=== PATIENT | female | born 1975 | race Caucasian/White ===

== ENCOUNTER 2020-08-19 12:50 | Outpatient (REF) | payer BC, SELFPAY | END 2020-08-19 12:51 | disposition home or self-care (01) | LOC: HO.LAB 12:50 | PROVIDERS: PCP Internal Medicine; Visit Provider Internal Medicine | DX: Z20.828 Contact with and (suspected) exposure to other viral communicable diseases (principal) | CPT/HCPCS: 87635 ==

== ENCOUNTER 2020-09-01 12:11 | Outpatient (REF) | payer BC, SELFPAY | END 2020-09-01 12:12 | disposition home or self-care (01) | LOC: HO.LAB 12:11 | PROVIDERS: Visit Provider Internal Medicine | DX: Z20.828 Contact with and (suspected) exposure to other viral communicable diseases (principal) | CPT/HCPCS: 87635 ==

== ENCOUNTER 2020-12-31 14:09 | Outpatient (REF) | payer BC, SELFPAY ==
[2021-01-01 14:56] LABS: C. trachomatis RNA TMA NOT DETECTED (NOT DETECTED); N. gonorrhoeae RNA TMA NOT DETECTED (NOT DETECTED)
== END 2020-12-31 14:10 | disposition home or self-care (01) ==
LOC: HO.LAB 14:09
PROVIDERS: PCP Internal Medicine; Visit Provider Advanced Practice Midwife
DX: Z01.419 Encounter for gynecological examination (general) (routine) without abnormal findings (principal); Z20.2 Contact with and (suspected) exposure to infections with a predominantly sexual mode of transmission
CPT/HCPCS: 36415; 87491; 87591

== ENCOUNTER 2021-02-09 19:13 | Emergency (ER) | payer BC, SELFPAY ==
--- NOTE | ~2021-02-09 | CT_ITS ---
EXAMINATION: CT HEAD WITHOUT CONTRAST CLINICAL INFORMATION: Altered mental status. Headache. COMPARISON: CT head August 14, 2012 TECHNIQUE: Contiguous axial imaging was performed from the skull base to vertex without intravenous administration of contrast. Coronal and sagittal reformatted images are performed at CT scanner This CT examination was performed using dose optimization techniques as appropriate, variously including the following: *Automated exposure control *Adjustment of mA and/or kV according to patient size (this includes techniques or standardized protocols for targeted exams where dose is matched to indication/reason for exam; i.e. extremities or head) *Use of iterative reconstruction technique DLP: 717 mGy-cm FINDINGS: There is no evidence of acute intracranial hemorrhage or territorial infarction. No abnormal mass effect or midline shift is seen. [place] to white matter differentiation is well preserved. No extra-axial fluid collections are identified. The ventricles are normal in size. There is no abnormal attenuation within the brain parenchyma. The osseous structures and soft tissues are normal. The mastoid air cells and visualized portions of the paranasal sinuses are well aerated. CT/CT head/brain wo con IMPRESSION: No acute intracranial pathology.
[2021-02-09 19:18] VITALS: BP 203/111; PULSE 78; RESP 18; TEMP 37.1; O2SAT 98
[2021-02-09 20:47] VITALS: BP 164/97; PULSE 84; RESP 15; TEMP 36; O2SAT 97
--- NOTE | 2021-02-09 20:47 | ECG_ITS ---
Test Reason : CHEST PAIN Blood Pressure : / mmHG Vent. Rate : 076 BPM Atrial Rate : 076 BPM P-R Int : 148 ms QRS Dur : 084 ms QT Int : 404 ms P-R-T Axes : 047 030 036 degrees QTc Int : 454 ms Normal sinus rhythm Normal ECG When compared to the previous EKG of No significant changes seen Referred By: Generic ED Physician Electronically Signed By:Brendan Schneider
[2021-02-09 20:48] VITALS: BP 190/102; PULSE 72; RESP 16; TEMP 36.2; O2SAT 98; BMI 29.7
[2021-02-09 21:08] LABS: MANUAL DIFF FLAG NO
[2021-02-09 21:10] LABS: Basophils Absolute Auto 0.1 X10*3/uL (0.0-0.2); Eosinophils Absolute Auto 0.3 X10*3/uL (0.0-0.4); Eosinophils Percent Auto 3.6 % (0-4); Hematocrit 37.3 % (37-47); Hemoglobin 11.5 g/dl (12.0-16.0); Imm Gran Abs Auto 0.03 X10*3/uL (0.00-0.03); Imm Gran Pct Auto 0.4 % (0.0-0.4); Lymphocytes Absolute Auto 2.4 X10*3/uL (1.2-4.9); Lymphocytes Percent Auto 29.4 % (20-40); Mean Corpuscular HGB Conc 30.8 g/dl (31.0-35.0); Mean Corpuscular Hemoglobin 26.6 pg (27.0-33.0); Mean Corpuscular Volume 86.1 fL (80-98); Mean Platelet Volume 10.4 fL (9.4-12.3); Monocytes Absolute Auto 0.5 X10*3/uL (0.1-1.2); Monocytes Percent Auto 6.7 % (2-11); Neutrophils Absolute Auto 4.8 X10*3/uL (2.0-8.3); Neutrophils Percent Auto 58.9 % (45-73); Platelet Count 332 X10*3/uL (160-400); Red Blood Count 4.33 X10*6/uL (4.20-5.50); Red Cell Distribution Width 16.3 % (11.0-16.0); White Blood Count 8.1 X10*3/uL (4.8-10.8)
[2021-02-09 21:30] LABS: Anion Gap 13 (12-20); Blood Urea Nitrogen 18 mg/dL (9-16); Calcium 9.2 mg/dL (8.4-10.2); Carbon Dioxide 23 mmol/L (22-29); Chloride 105 mmol/L (96-108); Creatinine Clr Calc Pharmacy 101.1; Estimated Glomerular Filt Rate > 60; Glucose Random 94 mg/dL (60-115); Potassium 4.1 mmol/L (3.3-5.1); Sodium 137 mmol/L (135-145)
--- NOTE | 2021-02-09 21:53 | ED_ITS ---
HPI - Headache General Chief Complaint: Headache Stated Complaint: hypertension Time Seen by Provider: 02/09/21 21:51 History of Present Illness HPI Narrative: Patient 45-year-old female presents today with having headache generally weak tired. Patient noted an elevated blood pressure at home unsure the exact amount. Patient has a history of hypertension. Patient also complaining of some chest pain has been ongoing since 18:00 it is mid chest. Not associated with diaphoresis. It is dull in nature. No nausea no vomiting. No change with movement. She has a history of hypertension never had an OK never smoke no cough no congestion or upper respiratory symptoms no family histo ry of coronary artery disease. No history of diabetes. No travel. No leg swelling. Related Data Home Medications Medication Instructions Recorded Confirmed lisinopril 20 mg tablet 20 mg PO DAILY 12/31/20 Allergies Allergy/AdvReac Type Severity Reaction Status Date / Time meperidine [From DEMEROL] Allergy Severe ANAPHYLAXIS Verified 12/31/20 14:44 shrimp [SHRIMP] AdvReac Severe DIFFICULTY Verified 12/31/20 14:44 BREATHING Review of Systems Review of Systems: Constitutional: No Weight loss, No Fever, No Chills, No Night Sweats, No Fatigue, No Malaise ENT/Mouth: No Hearing loss, No Ear Pain, No Nasal Congestion, No Sinus Pain, No Hoarseness, No sore throat, No Rhinorrhea, No Swallowing Difficulty Eyes: No Eye Pain, No Swelling, No Redness, No Foreign Body, No Discharge, No Vision Changes Cardiovascular: Positive Chest Pain, No SOB, No Dyspnea on Exertion, No Orthopnea, No Edema, No Palpitations Respiratory: No Cough, No Sputum, No Wheezing, No Smoke Exposure, No Dyspnea Gastrointestinal: No Nausea, No Vomiting, No Diarrhea, No Constipation, No abdominal Pain, No Hematochezia, No Melena Genitourinary: no irregular bleeding, No Dysuria, No Urinary Frequency, No Hematuria, No Urinary Incontinence, No Urgency, No Flank Pain, No Urinary Flow Changes, No Hesitancy Musculoskeletal: No joint pain, No Myalgias, No Joint Swelling Skin: No Skin Lesions, No rash Neuro: No Weakness, No Numbness, No Paresthesias, No Loss of Consciousness, No Dizziness, No Headache Psych: No Anxiety/Panic, No Depression, No SI/HI/AH/VH, No Social Issues, Heme/Lymph: No Bruising, No Bleeding,No Lymphadenopathy Endocrine: No Polyuria, No Polydipsia, No Temperature Intolerance [facility] Past Medical History Medical History COVID-19 HTN (hypertension) Surgical History Hx of section Family History Family History Maternal Grandmother Breast cancer Social History Social History Alcohol intake: never Smoking Status: Never smoker Use of substances other than those prescribed or required for medical reasons: No Advance Directives: No Gender identity: female Physical Exam Vital Signs: Vital Signs: Last Vital Signs Temp 97.8 F 02/09/21 22:23 Pulse 64 02/09/21 22:23 Resp 15 02/09/21 22:23 BP 142/94 H 02/09/21 22:23 Pulse Ox 98 02/09/21 22:23 Body Mass Index 29.7 Appearance: Alert. Oriented X3. No acute distress. Eyes: Pupils equal, round and reactive to light. ENT: Pharynx normal. Neck: Normal inspection. Neck supple. No lymph nodes noted. No crepitus CVS: Normal heart rate and rhythm. Pulses normal. Normal S1 and S2 Respiratory: No respiratory distress. Breath sounds normal. No Wheezing. No rales Abdomen: Soft and nontender. No rigidity. No distention. good BS x4 Skin: Skin warm and dry. Normal skin color. Normal skin turgor. Extremities: No lower extremity edema. Neurovascular intact to all extremities. No Lacerations. No Rash Neuro: Oriented X 3. No motor deficit. No sensory deficit. Moving all extermities. No slurred speech MDM - Headache MDM Narrative Medical decision making narrative: CT head was grossly negative for any acute evidence of bleeding. Patient's electrolytes unremarkable. Patient complained of nonspecific chest pain middle of her chest not associated with shortness of breath no diaphoresis has been ongoing for hours. Patient's troponin was negative. In the setting of unlikely history minimal risk factors along with a negative troponin unlikely ACS. Patient's well-appearing. Will discharge patient home. No leg swelling. Blood pressure came down nicely with time. Currently in stable condition neurologically intact. No fever no chills normal white count no nuchal rigidity unlikely meningitis. No distress. Differential Diagnosis Differential diagnosis: Likely migraine, tension headache, subarachnoid hemorrhage, headache, meningitis, sinusitis and postconcussion syndrome Medical Records Attestation: I reviewed the patient's medical records. Lab Data Attestation: I reviewed the patient's lab results. Result diagrams: 02/09/21 20:50 02/09/21 20:50 Labs: Lab Results 02/09/21 02/09/21 02/09/21 Range/Units 20:50 20:50 20:50 WBC 8.1 (4.8-10.8) X10*3/uL RBC 4.33 (4.20-5.50) X10*6/uL Hgb 11.5 L (12.0-16.0) g/dl Hct 37.3 (37-47) % MCV 86.1 (80-98) fL MCH 26.6 L (27.0-33.0) pg MCHC 30.8 L (31.0-35.0) g/dl RDW 16.3 H (11.0-16.0) % Plt Count 332 (160-400) X10*3/uL MPV 10.4 (9.4-12.3) fL Immature Gran % (Auto) 0.4 (0.0-0.4) % Neut % (Auto) 58.9 (45-73) % Lymph % (Auto) 29.4 (20-40) % [place] % (Auto) 6.7 (2-11) % Eos % (Auto) 3.6 (0-4) % Baso % (Auto) 1.0 (0-2) % Lymph # (Auto) 2.4 (1.2-4.9) X10*3/uL [place] # (Auto) 0.5 (0.1-1.2) X10*3/uL Eos # (Auto) 0.3 (0.0-0.4) X10*3/uL Baso # (Auto) 0.1 (0.0-0.2) X10*3/uL Abs Immat Gran (auto) 0.03 (0.00-0.03) X10*3/uL Absolute Neuts (auto) 4.8 (2.0-8.3) X10*3/uL Absolute Nucleated RBC 0.000 (0.0-0.012) X10*3/uL Nucleated RBC % (auto) 0.0 (0.0-0.2) /100WBC Hold Purple Top SEE NOTE Hold Blue Top Sodium 137 (135-145) mmol/L Potassium 4.1 (3.3-5.1) mmol/L Chloride 105 (96-108) mmol/L Carbon Dioxide 23 (22-29) mmol/L Anion Gap 13 (12-20) BUN 18 H (9-16) mg/dL Creatinine 0.82 (0.5-1.4) mg/dL Estim Creat Clear Calc 101.1 Estimated GFR > 60 Random Glucose 94 (60-115) mg/dL Calcium 9.2 (8.4-10.2) mg/dL Troponin I High Sens (<3.5-17.0) ng/L Urine Color Urine Appearance Urine pH (5.0-8.0) Ur Specific [place] (1.005-1.025) Urine Protein (NEG-TRACE) MG/DL Urine Glucose (UA) (NEG) MG/DL Urine Ketones (NEG) MG/DL Urine Blood (NEG) Urine Nitrite (NEG) Ur Leukocyte Esterase (NEG) Urine Test (NEGATIVE) 02/09/21 02/09/21 02/09/21 Range/Units 20:50 20:50 22:21 WBC (4.8-10.8) X10*3/uL RBC (4.20-5.50) X10*6/uL Hgb (12.0-16.0) g/dl Hct (37-47) % MCV (80-98) fL MCH (27.0-33.0) pg MCHC (31.0-35.0) g/dl RDW (11.0-16.0) % Plt Count (160-400) X10*3/uL MPV (9.4-12.3) fL Immature Gran % (Auto) (0.0-0.4) % Neut % (Auto) (45-73) % Lymph % (Auto) (20-40) % [place] % (Auto) (2-11) % Eos % (Auto) (0-4) % Baso % (Auto) (0-2) % Lymph # (Auto) (1.2-4.9) X10*3/uL [place] # (Auto) (0.1-1.2) X10*3/uL Eos # (Auto) (0.0-0.4) X10*3/uL Baso # (Auto) (0.0-0.2) X10*3/uL Abs Immat Gran (auto) (0.00-0.03) X10*3/uL Absolute Neuts (auto) (2.0-8.3) X10*3/uL Absolute Nucleated RBC (0.0-0.012) X10*3/uL Nucleated RBC % (auto) (0.0-0.2) /100WBC Hold Purple Top Hold Blue Top SEE NOTE Sodium (135-145) mmol/L Potassium (3.3-5.1) mmol/L Chloride (96-108) mmol/L Carbon Dioxide (22-29) mmol/L Anion Gap (12-20) BUN (9-16) mg/dL Creatinine (0.5-1.4) mg/dL Estim Creat Clear Calc Estimated GFR Random Glucose (60-115) mg/dL Calcium (8.4-10.2) mg/dL Troponin I High Sens < 3.5 (<3.5-17.0) ng/L Urine Color YELLOW Urine Appearance CLEAR Urine pH 6.5 (5.0-8.0) Ur Specific [place] 1.015 (1.005-1.025) Urine Protein NEG (NEG-TRACE) MG/DL Urine Glucose (UA) NEG (NEG) MG/DL Urine Ketones NEG (NEG) MG/DL Urine Blood NEG (NEG) Urine Nitrite NEG (NEG) Ur Leukocyte Esterase NEG (NEG) Urine Test (NEGATIVE) 02/09/21 Range/Units 22:21 WBC (4.8-10.8) X10*3/uL RBC (4.20-5.50) X10*6/uL Hgb (12.0-16.0) g/dl Hct (37-47) % MCV (80-98) fL MCH (27.0-33.0) pg MCHC (31.0-35.0) g/dl RDW (11.0-16.0) % Plt Count (160-400) X10*3/uL MPV (9.4-12.3) fL Immature Gran % (Auto) (0.0-0.4) % Neut % (Auto) (45-73) % Lymph % (Auto) (20-40) % [place] % (Auto) (2-11) % Eos % (Auto) (0-4) % Baso % (Auto) (0-2) % Lymph # (Auto) (1.2-4.9) X10*3/uL [place] # (Auto) (0.1-1.2) X10*3/uL Eos # (Auto) (0.0-0.4) X10*3/uL Baso # (Auto) (0.0-0.2) X10*3/uL Abs Immat Gran (auto) (0.00-0.03) X10*3/uL Absolute Neuts (auto) (2.0-8.3) X10*3/uL Absolute Nucleated RBC (0.0-0.012) X10*3/uL Nucleated RBC % (auto) (0.0-0.2) /100WBC Hold Purple Top Hold Blue Top Sodium (135-145) mmol/L Potassium (3.3-5.1) mmol/L Chloride (96-108) mmol/L Carbon Dioxide (22-29) mmol/L Anion Gap (12-20) BUN (9-16) mg/dL Creatinine (0.5-1.4) mg/dL Estim Creat Clear Calc Estimated GFR Random Glucose (60-115) mg/dL Calcium (8.4-10.2) mg/dL Troponin I High Sens (<3.5-17.0) ng/L Urine Color Urine Appearance Urine pH (5.0-8.0) Ur Specific [place] (1.005-1.025) Urine Protein (NEG-TRACE) MG/DL Urine Glucose (UA) (NEG) MG/DL Urine Ketones (NEG) MG/DL Urine Blood (NEG) Urine Nitrite (NEG) Ur Leukocyte Esterase (NEG) Urine Test NEGATIVE (NEGATIVE) ECG Data Attestation: I personally reviewed and interpreted this ECG as follows: Interpretation: Sinus heart rate is 75 p.r. cares QT within normal limits there is no acute ST segment elevation noted Discharge Plan Discharge Clinical Impression: Headache, Chest pain Patient Disposition: Home, Self-Care Instructions: Chest Pain (ED), Acute Headache (ED), Hypertension (ED) Prescriptions: No Action lisinopril 20 mg tablet 20 mg PO DAILY RF: 0 Referrals: Aldair Siegel MD [Primary Care Provider] - 2 days
[2021-02-09 22:23] VITALS: BP 142/94; PULSE 64; RESP 15; TEMP 36.6; O2SAT 98
[2021-02-09] MEDS: Ketorolac Tromethamine 15 MG/ML VIAL IVPUSH (22:29)
[2021-02-09] MEDS: 0.9 % Sodium Chloride 1,000 ML 999 ML IV (22:30)
[2021-02-09 22:31] LABS: Glucose Urine UA NEG (NEG); Leukocyte Esterase Urine NEG (NEG); Nitrite Urine NEG (NEG); PH 6.5 (5.0-8.0); Specific Gravity - Urine 1.015 (1.005-1.025); Urine Blood NEG (NEG); Urine Ketones NEG (NEG); Urine Protein NEG (NEG-TRACE)
[2021-02-09 22:32] LABS: Appearance Urine CLEAR; Color Urine YELLOW
[2021-02-09 22:34] LABS: UPreg QC Valid YES; Urine Pregnancy NEGATIVE (NEGATIVE)
[2021-02-09 23:18] LABS: Troponin-I High Sensitivity < 3.5 ng/L (<3.5-17.0)
== END 2021-02-10 00:41 | disposition home or self-care (01) ==
PROVIDERS: Emergency Provider Emergency Medicine Emergency Medical Services; PCP Internal Medicine
DX: R51.9 Headache, unspecified (principal); R07.9 Chest pain, unspecified; I10 Essential (primary) hypertension; Z79.899 Other long term (current) drug therapy; Z86.16 Personal history of COVID-19
CPT/HCPCS: 36415; 70450; 80048; 81003; 81025; 84484; 85025; 93005; 96365; 96375; 99284; J1885

== ENCOUNTER 2021-05-12 11:50 | Outpatient (REF) | payer BC, SELFPAY ==
[2021-05-12 13:44] LABS: MANUAL DIFF FLAG NO
[2021-05-12 13:56] LABS: Basophils Absolute Auto 0.1 X10*3/uL (0.0-0.2); Basophils Percent Auto 1.2 % (0-2); Eosinophils Absolute Auto 0.2 X10*3/uL (0.0-0.4); Eosinophils Percent Auto 3.4 % (0-4); Hemoglobin 10.8 g/dl (12.0-16.0); Imm Gran Abs Auto 0.02 X10*3/uL (0.00-0.03); Imm Gran Pct Auto 0.3 % (0.0-0.4); Lymphocytes Absolute Auto 2.4 X10*3/uL (1.2-4.9); Lymphocytes Percent Auto 34.5 % (20-40); Mean Corpuscular HGB Conc 30.9 g/dl (31.0-35.0); Mean Corpuscular Hemoglobin 26.7 pg (27.0-33.0); Mean Corpuscular Volume 86.6 fL (80-98); Mean Platelet Volume 11.6 fL (9.4-12.3); Monocytes Absolute Auto 0.5 X10*3/uL (0.1-1.2); Monocytes Percent Auto 6.9 % (2-11); Neutrophils Absolute Auto 3.7 X10*3/uL (2.0-8.3); Neutrophils Percent Auto 53.7 % (45-73); Platelet Count 395 X10*3/uL (160-400); Red Blood Count 4.04 X10*6/uL (4.20-5.50); Red Cell Distribution Width 13.5 % (11.0-16.0); White Blood Count 6.9 X10*3/uL (4.8-10.8)
[2021-05-12 13:58] LABS: Glucose Urine UA NEG (NEG); Leukocyte Esterase Urine NEG (NEG); Nitrite Urine NEG (NEG); Urine Blood NEG (NEG); Urine Ketones NEG (NEG); Urine Protein NEG (NEG-TRACE)
[2021-05-12 14:02] LABS: Appearance Urine CLEAR; Color Urine YELLOW; UPreg QC Valid YES; Urine Pregnancy NEGATIVE (NEGATIVE)
[2021-05-12 14:23] LABS: Alanine Aminotransferase 14 U/L (0-31); Albumin Level 4.6 g/dL (3.5-5.0); Alkaline Phosphatase 62 U/L (39-117); Anion Gap 11 (12-20); Aspartate Amino Transferase 18 U/L (5-31); Bilirubin Total 0.5 mg/dL (0.0-1.0); Blood Urea Nitrogen 14 mg/dL (9-16); Calcium 9.8 mg/dL (8.4-10.2); Carbon Dioxide 25 mmol/L (22-29); Chloride 107 mmol/L (96-108); Cholesterol 154 mg/dL; Estimated Glomerular Filt Rate > 60; Glucose Fasting 88 mg/dL (60-99); HDL Cholesterol 57 mg/dL; LDL Cholesterol Calculated 90 mg/dl; Lipase 34 U/L (8-78); Potassium 4.4 mmol/L (3.3-5.1); Sodium 139 mmol/L (135-145); Total Protein 7.9 g/dL (6.5-8.0); Triglycerides 39 mg/dL
[2021-05-12 14:41] LABS: Free T4 (Free Thyroxine) 1.02 ng/dL (0.71-1.85); Thyroid Stimulating Hormone 0.86 uIU/mL (0.32-4.0); Vitamin D 25-OH Total 27.7 ng/mL (>30)
[2021-05-12 14:45] LABS: Vitamin B12 650 pg/mL (200-900)
[2021-05-13 06:42] LABS: Prolactin 5.5 ng/mL
== END 2021-05-12 11:51 | disposition home or self-care (01) ==
LOC: HO.10HDL 11:50
PROVIDERS: Visit Provider Internal Medicine
DX: Z00.00 Encounter for general adult medical examination without abnormal findings (principal); R10.9 Unspecified abdominal pain; R30.0 Dysuria; R35.1 Nocturia
CPT/HCPCS: 36415; 80053; 80061; 81003; 81025; 82306; 82607; 83690; 84146; 84439; 84443; 85025; 86140; 87086

== ENCOUNTER 2021-06-01 12:40 | Outpatient (REF) | payer BC, SELFPAY ==
--- NOTE | ~2021-06-01 | MM_ITS ---
EXAMINATION: MM SCREENING DIGITAL BREAST TOMOSYNTHESIS, BILATERAL CLINICAL INFORMATION: Screening. Asymptomatic. The lifetime risk of breast cancer based on the Tyrer-Cuzick Model is 10%. COMPARISON: Mammography: 04/02/2020; 07/29/2019; 01/16/2019 (new baseline) TECHNIQUE: Digital breast tomosynthesis is performed in both the craniocaudal and mediolateral oblique views along with computer-aided detection (CAD). Synthesized 2D images are generated from the tomosynthesis. FINDINGS: There are scattered areas of fibroglandular density (ACR BI-RADS breast composition Category b). There are no significant masses, abnormal calcifications, or other abnormalities. Parenchymal pattern is similar to prior exams. No developing density. The axilla and skin contours are unremarkable. MM/MM tomosynthesis screening BI IMPRESSION: No mammographic evidence of malignancy. ASSESSMENT: BI-RADS 1: Negative RECOMMENDATION: Routine annual mammography screening. This patient's information was entered into a reminder system with a target due date for their next mammogram.
== END 2021-06-01 12:41 | disposition home or self-care (01) ==
LOC: HO.MAMMO 12:40
PROVIDERS: Visit Provider Internal Medicine
DX: Z12.31 Encounter for screening mammogram for malignant neoplasm of breast (principal)
CPT/HCPCS: 77063; 77067

== ENCOUNTER 2021-06-11 11:36 | Outpatient (REF) | payer BC, SELFPAY ==
[2021-06-11 12:57] LABS: MANUAL DIFF FLAG NO
[2021-06-11 13:02] LABS: Basophils Absolute Auto 0.1 X10*3/uL (0.0-0.2); Basophils Percent Auto 1.3 % (0-2); Eosinophils Absolute Auto 0.2 X10*3/uL (0.0-0.4); Eosinophils Percent Auto 3.6 % (0-4); Hematocrit 37.4 % (37-47); Hemoglobin 11.8 g/dl (12.0-16.0); Imm Gran Abs Auto 0.02 X10*3/uL (0.00-0.03); Imm Gran Pct Auto 0.3 % (0.0-0.4); Lymphocytes Percent Auto 31.6 % (20-40); Mean Corpuscular HGB Conc 31.6 g/dl (31.0-35.0); Mean Corpuscular Hemoglobin 27.3 pg (27.0-33.0); Mean Corpuscular Volume 86.4 fL (80-98); Mean Platelet Volume 11.4 fL (9.4-12.3); Monocytes Absolute Auto 0.5 X10*3/uL (0.1-1.2); Monocytes Percent Auto 8.1 % (2-11); Neutrophils Absolute Auto 3.5 X10*3/uL (2.0-8.3); Neutrophils Percent Auto 55.1 % (45-73); Platelet Count 336 X10*3/uL (160-400); Red Blood Count 4.33 X10*6/uL (4.20-5.50); Red Cell Distribution Width 14.8 % (11.0-16.0); White Blood Count 6.4 X10*3/uL (4.8-10.8)
[2021-06-11 13:03] LABS: Glucose Urine UA NEG (NEG); Leukocyte Esterase Urine NEG (NEG); Nitrite Urine NEG (NEG); Urine Blood NEG (NEG); Urine Ketones NEG (NEG); Urine Protein NEG (NEG-TRACE)
[2021-06-11 13:08] LABS: Appearance Urine CLEAR; Color Urine YELLOW
[2021-06-11 13:38] LABS: Anion Gap 11 (12-20); Blood Urea Nitrogen 14 mg/dL (9-16); C Reactive Protein 0.33 mg/dL (< or = 0.50); Calcium 9.8 mg/dL (8.4-10.2); Carbon Dioxide 27 mmol/L (22-29); Chloride 105 mmol/L (96-108); Estimated Glomerular Filt Rate > 60; Glucose Random 90 mg/dL (60-115); Potassium 4.4 mmol/L (3.3-5.1); Sodium 139 mmol/L (135-145)
== END 2021-06-11 11:37 | disposition home or self-care (01) ==
LOC: HO.WFDLDS 11:36
PROVIDERS: Visit Provider Internal Medicine
DX: R51.9 Headache, unspecified (principal); R53.83 Other fatigue; N94.6 Dysmenorrhea, unspecified
CPT/HCPCS: 36415; 80048; 81003; 85025; 86140; 87086

== ENCOUNTER 2021-06-21 09:19 | Outpatient (REF) | payer BC, SELFPAY ==
[2021-06-22 19:36] LABS: Follicle Stimulating Hormone 69.1 mIU/mL
== END 2021-06-21 09:20 | disposition home or self-care (01) ==
LOC: HO.LAB 09:19
PROVIDERS: PCP Internal Medicine; Visit Provider Advanced Practice Midwife
DX: N92.6 Irregular menstruation, unspecified (principal); R23.2 Flushing
CPT/HCPCS: 36415; 81025; 83001

== ENCOUNTER → 2021-07-07 15:47 | Outpatient (BNVA) | payer BC, SELFPAY | PROVIDERS: Visit Provider Advanced Practice Midwife ==

== ENCOUNTER 2021-09-25 12:58 | Emergency (ER) | payer BC, SELFPAY ==
--- NOTE | ~2021-09-25 | XR_ITS ---
EXAMINATION: XR LUMBOSACRAL SPINE CLINICAL INFORMATION: Low back pain. COMPARISON: Selected images of the abdomen and pelvic CT of 03/29/2019. TECHNIQUE: Three views of the lumbosacral spine. FINDINGS: There are 5 lumbar-type [id number] vertebrae. The vertebral body heights and alignment are maintained. There is [id number] narrowing of the L5-S1 disc space. Small marginal disc osteophytes are noted at L5-S1. Multilevel anterior endplate osteophytes are noted in the remainder of the lumbar spine. Facet arthropathy in the lower lumbar spine. There are surgical clips in the right upper abdominal quadrant. Metallic navel ring is noted. No evidence of suspicious lytic or blastic osseous lesions. Paraspinous soft tissues are unremarkable. XR/XR lumbar spine 2-3V IMPRESSION: No acute compression fracture or suspicious osseous lesion. Lumbar spondylosis, greater at L5-S1, not significantly changed compared to previous study of 03/29/2019.
[2021-09-25 13:07] VITALS: BP 154/97; PULSE 77; RESP 18; TEMP 36.9; O2SAT 100; BMI 27.3
[2021-09-25 13:40] LABS: Appearance Urine HAZY; Color Urine YELLOW; Glucose Urine UA NEG (NEG); Leukocyte Esterase Urine NEG (NEG); Nitrite Urine NEG (NEG); Specific Gravity - Urine >= 1.030 (1.005-1.025); Urine Blood NEG (NEG); Urine Ketones NEG (NEG); Urine Protein TRACE MG/DL (NEG-TRACE)
[2021-09-25 13:41] LABS: UPreg QC Valid YES; Urine Pregnancy NEGATIVE (NEGATIVE)
--- NOTE | 2021-09-25 14:03 | ED.GENADULT ---
HPI - General Adult General Chief complaint: Abdominal Pain Stated complaint: lower back pain diff urinating Time Seen by Provider: 09/25/21 14:02 History of Present Illness HPI narrative: Patient is a 46-year-old female presents today with having back pain. The back pain is sharp. Sometimes radiate to other front sometimes radiating down the leg. Worse with movement. No fever no chills no bowel urinary incontinence. No focal weakness. No cough and no congestion or upper respiratory symptoms. Patient's denies any trauma to her back. No history of cancer. Patient from home. Does not think she is . Symptoms been ongoing for 2 days. Related Data Home Medications Medication Instructions Recorded Confirmed lisinopril 20 mg tablet 20 mg PO DAILY 12/31/20 acetaminophen 325 mg tablet 325 mg PO QID PRN 06/21/21 (Tylenol) Previous Rx's Medication Instructions Recorded metronidazole 500 mg tablet 500 mg PO Q12H 7 Days #14 tab 07/07/21 (Flagyl) cyclobenzaprine 10 mg tablet 10 mg PO TID PRN #14 tab 09/25/21 ibuprofen 400 mg tablet 400 mg PO Q6H PRN #20 tab 09/25/21 Allergies Allergy/AdvReac Type Severity Reaction Status Date / Time meperidine [From DEMEROL] Allergy Severe ANAPHYLAXIS Verified 09/25/21 13:07 shrimp [SHRIMP] AdvReac Severe DIFFICULTY Verified 09/25/21 13:07 BREATHING Review of Systems Review of Systems: Positive back pain No bowel urinary incontinence No focal weakness Yes all other systems are reviewed and are negative PMFSH Past Medical History Attestation statement: The following information was validated with the patient. Medical History COVID-19 HTN (hypertension) Surgical History Hx of section Hx of cholecystectomy Family History Family History Maternal Grandmother Breast cancer Social History Social History Alcohol intake: current Alcohol intake frequency: holidays/special occasions only Patient Tobacco Use Status: Never used Tobacco Advance Directives: No Advance Directives Information Provided: No Patient : No Sexual orientation: Straight/Heterosexual Gender identity: Female Physical Exam Vital Signs: Vital Signs: Last Vital Signs Temp 98.5 F 09/25/21 13:07 Pulse 77 09/25/21 13:07 Resp 18 09/25/21 13:07 BP 154/97 H 09/25/21 13:07 Pulse Ox 100 09/25/21 13:07 Body Mass Index 27.3 Appearance: Alert. Oriented X3. No acute distress. Eyes: Pupils equal, round and reactive to light. ENT: Pharynx normal. Neck: Normal inspection. Neck supple. No lymph nodes noted. No crepitus CVS: Normal heart rate and rhythm. Pulses normal. Normal S1 and S2 Respiratory: No respiratory distress. Breath sounds normal. No Wheezing. No rales Abdomen: Soft and nontender. No rigidity. No distention. good BS x4 Back exam there is no spinal tenderness elicited on palpation. Positive paraspinal muscle tenderness elicited on palpation to the lower back. There is good sensation bilateral lower extremity. Patient ambulates with a normal gait. Reflex 2+ at patella. Negative straight leg raise test. Skin: Skin warm and dry. Normal skin color. Normal skin turgor. Extremities: No lower extremity edema. Neurovascular intact to all extremities. No Lacerations. No Rash Neuro: Oriented X 3. No motor deficit. No sensory deficit. Moving all extermities. No slurred speech Medical Decision Making MDM Narrative Medical decision making narrative: Patient's pain most likely musculoskeletal. There is no evidence for cord acquired syndrome is no bowel urinary incontinence. There is no focal weakness. Patient's urine was negative for acute evidence of infection no blood to suggest is a kidney stone in addition the pain is bilateral on likely secondary to kidney stone. Also patient's test was negative unlikely ectopic. Will get x-ray of the back is patient has back pain. Will have patient follow-up on an outpatient basis with NSAIDs. Currently in stable condition. Lab Data Labs: Lab Results 09/25/21 09/25/21 Range/Units 13:28 13:28 Urine Color YELLOW Urine Appearance HAZY Urine pH 6.0 (5.0-8.0) Ur Specific [place] >= 1.030 H (1.005-1.025) Urine Protein TRACE (NEG-TRACE) MG/DL Urine Glucose (UA) NEG (NEG) MG/DL Urine Ketones NEG (NEG) MG/DL Urine Blood NEG (NEG) Urine Nitrite NEG (NEG) Ur Leukocyte Esterase NEG (NEG) Urine Test NEGATIVE (NEGATIVE) Discharge Plan Discharge Clinical Impression: Back pain Patient Disposition: Home, Self-Care Instructions: Back Pain (ED) Prescriptions: New cyclobenzaprine 10 mg tablet 10 mg PO TID PRN (Reason: pain) Qty: 14 RF: 0 ibuprofen 400 mg tablet 400 mg PO Q6H PRN (Reason: pain) Qty: 20 RF: 0 No Action lisinopril 20 mg tablet 20 mg PO DAILY RF: 0 acetaminophen [Tylenol] 325 mg tablet 325 mg PO QID PRNRF: 0 metronidazole [Flagyl] 500 mg tablet 500 mg PO Q12H 7 Days Qty: 14 RF: 0 Referrals: Aldair Siegel MD [Primary Care Provider] - 2 days
== END 2021-09-25 16:06 | disposition home or self-care (01) ==
PROVIDERS: Emergency Provider Emergency Medicine Emergency Medical Services; PCP Internal Medicine
DX: M54.50 Low back pain, unspecified (principal); Z79.899 Other long term (current) drug therapy
CPT/HCPCS: 72100; 81003; 81025; 99283; 99284

== ENCOUNTER 2021-09-29 14:27 | Outpatient (REF) | payer BC, SELFPAY ==
[2021-09-29 15:39] LABS: Influenza A PCR NEGATIVE (Negative); Influenza B PCR NEGATIVE (Negative); Resp Syncy Virus RNA Qual PCR NEGATIVE (Negative); SARS COV2 PCR INHOUSE NEGATIVE (Negative)
== END 2021-09-29 14:28 | disposition home or self-care (01) ==
LOC: HO.LNP 14:27
PROVIDERS: Visit Provider Internal Medicine
DX: Z20.822 Contact with and (suspected) exposure to COVID-19 (principal); J02.9 Acute pharyngitis, unspecified; R50.9 Fever, unspecified; R52 Pain, unspecified
CPT/HCPCS: 0241U

== ENCOUNTER 2021-11-09 10:51 | Outpatient (REF) | payer BC, SELFPAY ==
[2021-11-09 15:55] LABS: Influenza A PCR NEGATIVE (Negative); Influenza B PCR NEGATIVE (Negative); Resp Syncy Virus RNA Qual PCR NEGATIVE (Negative); SARS COV2 PCR INHOUSE POSITIVE (Negative)
== END 2021-11-09 10:52 | disposition home or self-care (01) ==
LOC: HO.10HDL 10:51
PROVIDERS: Visit Provider Internal Medicine
DX: R51.9 Headache, unspecified (principal); R53.83 Other fatigue; R68.83 Chills (without fever); Z20.822 Contact with and (suspected) exposure to COVID-19
CPT/HCPCS: 0241U

== ENCOUNTER 2021-12-10 15:28 | Emergency (ER) | payer BC, SELFPAY ==
--- NOTE | ~2021-12-10 | XR_ITS ---
EXAMINATION: XR CHEST CLINICAL INFORMATION: Chest pain COMPARISON: None TECHNIQUE: Frontal view of the chest was obtained. FINDINGS: No significant abnormality is noted involving the heart, lungs, mediastinum, bony thorax or soft tissues. XR/XR chest 1V IMPRESSION: Unremarkable examination.
[2021-12-10 16:14] VITALS: BP 178/113; PULSE 71; RESP 16; TEMP 36.7; O2SAT 100; BMI 28.8
--- NOTE | 2021-12-10 16:22 | ECG_ITS ---
Test Reason : CHEST PAIN/DIZZY Blood Pressure : / mmHG Vent. Rate : 068 BPM Atrial Rate : 068 BPM P-R Int : 124 ms QRS Dur : 100 ms QT Int : 378 ms P-R-T Axes : 004 064 038 degrees QTc Int : 401 ms Normal sinus rhythm Normal ECG When compared with ECG of 09-FEB-2021 23:45, QT has shortened Referred By: Generic ED Physician Electronically Signed By:MARIA LUISA KU MD
[2021-12-10 18:53] VITALS: BP 157/94; PULSE 68; RESP 15; TEMP 36.6; O2SAT 100
--- NOTE | 2021-12-10 18:53 | ED_ITS ---
HPI - Chest Pain General Chief Complaint: Chest Pain Stated Complaint: elevated bp,nausea Time Seen by Provider: 12/10/21 18:53 Source: patient, RN notes reviewed and old records reviewed Mode of arrival: ambulatory Limitations: no limitations History of Present Illness HPI narrative: 46 years old female with past medical history of hypertension is here today for complaints of chest pressure. Patient reports that yesterday she started feeling mild substernal chest pressure no radiation. Patient reports that she took her blood pressure this morning and it was high. Patient reports that her mom had from cardiac event. Patient takes lisinopril 20 mg every morning. Patient reports that she took her meds blood pressure medication this morning and this afternoon when she came back from getting her nails done she took her blood pressure again and was still elevated 158/106. Patient took bo nopril 20 mg at that time again. Patient states that November 08 she was diagnosed with COVID. Patient reports that her symptoms were mild and lasted 3- 5 days. Patient states that she had both COVID-19 vaccine by [employer] in the summer of 2020. Patient denies any contact with anyone positive with COVID in the last 2 weeks. Patient denies any SOB with or without exertion. Denies any presyncope, syncope, palpitations, edema. MD complaint: other (Chest pressure) Onset (ago): day(s) Timing of current episode: constant and still present Onset: during rest Pain location: substernal Pain radiation: none Severity: mild Related Data Home Medications Medication Instructions Recorded Confirmed lisinopril 20 mg tablet 20 mg PO DAILY 12/31/20 acetaminophen 325 mg tablet 325 mg PO QID PRN 06/21/21 (Tylenol) Previous Rx's Medication Instructions Recorded metronidazole 500 mg tablet 500 mg PO Q12H 7 Days #14 tab 07/07/21 (Flagyl) cyclobenzaprine 10 mg tablet 10 mg PO TID PRN #14 tab 09/25/21 ibuprofen 400 mg tablet 400 mg PO Q6H PRN #20 tab 09/25/21 Allergies Allergy/AdvReac Type Severity Reaction Status Date / Time meperidine [From Allergy Severe ANAPHYLAXIS Verified 09/25/21 13:07 DEMEROL] shrimp [SHRIMP] AdvReac Severe DIFFICULTY Verified 09/25/21 13:07 BREATHING Review of Systems Verdana 4l Review of Systems: Verdana 4d Verdana 4d Constitutional : No Weight loss, No Fever, No Chills, No Night Sweats, No Fatigue, No Malaise ENT/Mouth : No Hearing loss, No Ear Pain, No Nasal Congestion, No Sinus Pain, No Hoarseness, No sore throat, No Rhinorrhea, No Swallowing DifficultyDifficulty Eyes: No Eye Pain, No Swelling, No Redness, No Foreign Body, No Discharge, No Vision Changes Cardiovascular : Chest pressure, No SOB, No Dyspnea on Exertion, No Orthopnea, No Edema, No Palpitations Respiratory : No Cough, No Sputum, No Wheezing, No Smoke Exposure, No Dyspnea Gastrointestinal : No Nausea, No Vomiting, No Diarrhea, No Constipation, No abdominal Pain, No Hematochezia, No Melena Genitourinary : no irregular bleeding, No Dysuria, No Urinary Frequency, No Hematuria, No Urinary Incontinence, No Urgency, No Flank Pain, No Urinary Flow Changes, No Hesitancy Musculoskeletal : No joint pain, No Myalgias, No Joint Swelling Skin : No Skin Lesions, No rash Neuro : No Weakness, No Numbness, No Paresthesias, No Loss of Consciousness, No Dizziness, No Headache Psych : No Anxiety/Panic, No Depression, No SI/HI/AH/VH, No Social Issues, Yes all other systems are reviewed and are negative PMFSH Past Medical History Medical History COVID-19 HTN (hypertension) Surgical History Hx of section Hx of cholecystectomy Family History Family History Maternal Grandmother Breast cancer Social History Social History Alcohol intake: current Alcohol intake frequency: holidays/special occasions only Patient Tobacco Use Status: Never used Tobacco Advance Directives: No Advance Directives Information Provided: Yes Patient : No Sexual orientation: Straight/Heterosexual Gender identity: Female Physical Exam Verdana 4l Vital Signs: Verdana 4d Verdana 4d Vital Signs: Verdana 4d Verdana 4Bd Last Vital Signs Verdana 4d [employer] New 4d [employer] New 4d Temp 97.8 F 12/10/21 18:53 [employer] New 4d Pulse 62 12/10/21 20:25 [employer] New 4d Resp 18 12/10/21 20:25 BP 165/102 H 12/10/21 20:25 Pulse Ox 100 12/10/21 20:25 BMI result Body Mass Index 28.8 Const: General: healthy appearing, no acute distress and well developed Nutritional Appearance: well nourished Orientation/consciousness: patient oriented x3 HENMT: Head: Yes normal to inspection, Yes normocephalic and Yes atraumatic Face and sinus: Yes normal facial exam Mouth: Normal oral and palatal mucosa present Throat: Yes posterior oropharynx normal, Yes tonsils normal and Yes uvula mid line Eyes: General: appearance normal, both eyes and all related structures Neck: Neck: Yes normal visual inspection, Yes full ROM and Yes trachea midline Thyroid: Thyroid normal Resp: Effort & Inspection: normal respiratory effort, able to speak in complete sentences, no tracheal deviation and symmetric chest movement Auscultation: clear to auscultation bilaterally Cardio: Jugular venous distension: no JVD Rate: regular rate Heart sounds: S1 normal heart sound present, S2 normal heart sound present, no gallops and no murmurs GI: Inspection: Yes normal to inspection and No distended Palpation (GI): Soft to palpation, not firm, nontender and No hepatosplenomegaly present A uscultation: normal bowel sounds : General: Yes no CVA tenderness Back/Spine/Pelvis: Back: no CVA tenderness Skin: General skin exam: elasticity normal, turgor normal and dry skin Neuro: General: patient oriented x3 Psych: Appearance: grossly normal Mental Status: mental status grossly normal Speech and movement: Normal speech and movement present Affect: normal affect Attitude: cooperative Thought process: Normal thought process present Thought content: Normal thought content present Insight: Good insight present (Psych) Judgement: Good judgement present (Psych) Course Course Course Narrative: 46 years old female with past medical history of hypertension is here today for complaints of chest pressure. Patient reports that yesterday she started feeling mild substernal chest pressure no radiation. Patient reports that she took her blood pressure this morning and it was high. Patient reports that her mom had from cardiac event. Patient takes lisinopril 20 mg every morning. Patient reports that she took her meds blood pressure medication this morning and this afternoon when she came back from getting her nails done she took her blood pressure again and was still elevated 158/106. Patient took lisinopril 20 mg at that time again. Patient states that November 08 she was diagnosed with COVID. Patient reports that her symptoms were mild and lasted 3- 5 days. Patient states that she had both COVID-19 vaccine by [employer] in the summer of 2020. Patient denies any contact with anyone positive with COVID in the last 2 weeks. Patient denies any SOB with or without exertion. Denies any presyncope, syncope, palpitations, edema. Will do BMP, liver profile, chest x- ray, troponin. If all negative patient's will be sent home to follow up for BP management with her PCP Reevaluation(s) Reevaluation #1: Negative workup, patient's blood pressure continues to be elevated. Will send patient home to follow-up with PCP. MDM - Chest Pain Lab Data Result diagrams: 12/10/21 19:18 Labs: Lab Results 12/10/21 12/10/21 12/10/21 Range/Units 18:57 19:18 19:18 Sodium 139 (135-145) mmol/L Potassium 4.1 (3.3-5.1) mmol/L Chloride 104 (96-108) mmol/L Carbon Dioxide 28 (22-29) mmol/L Anion Gap 11 L (12-20) BUN 17 H (9-16) mg/dL Creatinine 0.83 (0.5-1.4) mg/dL Estim Creat Clear Calc 97.3 Estimated GFR > 60 Random Glucose 96 (60-115) mg/dL Calcium 9.7 (8.4-10.2) mg/dL Total Bilirubin 0.4 (0.0-1.0) mg/dL Direct Bilirubin 0.2 (0.0-0.5) mg/dL AST 16 (5-31) U/L ALT 14 (0-31) U/L Alkaline Phosphatase 67 (39-117) U/L Troponin I High Sens < 3.5 (<3.5-17.0) ng/L Total Protein 7.4 (6.5-8.0) g/dL Albumin 4.2 (3.5-5.0) g/dL COVID-19 (FELISA) Negative (Negative) COVID-19 Clin Com See Note Discharge Plan Discharge Clinical Impression: Atypical chest pain, Hypertension Patient Disposition: Home, Self-Care Instructions: Hypertension (ED) Additional Instructions: You were seen here today for high blood pressure. You also had chest pressure while you in the emergency department. All your blood work is negative for any acute findings. Your cardiac markers were negative. Please follow-up with your primary care provider for blood pressure management. You may return to emergency department if your symptoms will get worse or if you experience any additional concerning symptoms Prescriptions: No Action cyclobenzaprine 10 mg tablet 10 mg PO TID PRN (Reason: pain) Qty: 14 0RF ibuprofen 400 mg tablet 400 mg PO Q6H PRN (Reason: pain) Qty: 20 0RF lisinopril 20 mg tablet 20 mg PO DAILY 0RF acetaminophen [Tylenol] 325 mg tablet 325 mg PO QID PRN0RF metronidazole [Flagyl] 500 mg tablet 500 mg PO Q12H 7 Days Qty: 14 0RF Referrals: Aldair Siegel MD [Primary Care Provider] - 5 days (Hypertension) Stand Alone Forms: Work/School Release Interventions: ED Discharge Assessment Last Done: 12/10/21 21:25 Discharge Date/Time: 12/10/21 21:26
[2021-12-10 19:21] LABS: COVID-19 Test Negative (Negative)
[2021-12-10 19:51] LABS: Alanine Aminotransferase 14 U/L (0-31); Albumin Level 4.2 g/dL (3.5-5.0); Alkaline Phosphatase 67 U/L (39-117); Aspartate Amino Transferase 16 U/L (5-31); Bilirubin Direct 0.2 mg/dL (0.0-0.5); Bilirubin Total 0.4 mg/dL (0.0-1.0); Total Protein 7.4 g/dL (6.5-8.0); Troponin-I High Sensitivity < 3.5 ng/L (<3.5-17.0)
[2021-12-10 20:02] LABS: Anion Gap 11 (12-20); Blood Urea Nitrogen 17 mg/dL (9-16); Calcium 9.7 mg/dL (8.4-10.2); Carbon Dioxide 28 mmol/L (22-29); Chloride 104 mmol/L (96-108); Creatinine Clr Calc Pharmacy 97.3; Estimated Glomerular Filt Rate > 60; Glucose Random 96 mg/dL (60-115); Potassium 4.1 mmol/L (3.3-5.1); Sodium 139 mmol/L (135-145)
[2021-12-10] MEDS: 0.9 % Sodium Chloride 1,000 ML 999 ML IV (20:19)
[2021-12-10 20:25] VITALS: BP 165/102; PULSE 62; RESP 18; O2SAT 100
== END 2021-12-10 21:26 | disposition home or self-care (01) ==
PROVIDERS: Nurse Practitioner Family; Emergency Provider Emergency Medicine Emergency Medical Services; PCP Internal Medicine
DX: R07.89 Other chest pain (principal); I10 Essential (primary) hypertension; Z20.822 Contact with and (suspected) exposure to COVID-19; Z79.899 Other long term (current) drug therapy
CPT/HCPCS: 36415; 71045; 80048; 80076; 84484; 87635; 93005; 96360; 99284

== ENCOUNTER 2022-01-10 10:48 | Outpatient (REF) | payer BC, SELFPAY ==
[2022-01-10 17:50] LABS: CT PCR NOT DETECTED (Not Detect.); NG PCR NOT DETECTED (Not Detect.)
[2022-01-11 09:44] LABS: BV Int Neg Control Negative (Negative); BV Int Pos Control Positive (Positive)
[2022-01-13 01:46] LABS: HPV mRNA E6/E7 rflx Not Detected (Not Detected)
== END 2022-01-10 10:49 | disposition home or self-care (01) ==
LOC: HO.LAB 10:48
PROVIDERS: Visit Provider Advanced Practice Midwife
DX: Z01.411 Encounter for gynecological examination (general) (routine) with abnormal findings (principal); Z11.51 Encounter for screening for human papillomavirus (HPV); N93.9 Abnormal uterine and vaginal bleeding, unspecified; Z20.2 Contact with and (suspected) exposure to infections with a predominantly sexual mode of transmission
CPT/HCPCS: 87480; 87491; 87510; 87591; 87624; 87660; 88142

== ENCOUNTER 2022-01-13 08:48 | Outpatient (REF) | payer BC, SELFPAY ==
[2022-01-13 11:12] LABS: Hematocrit 38.1 % (37.0-47.0); Hemoglobin 12.4 g/dl (12.0-16.0); Mean Corpuscular HGB Conc 32.5 g/dl (31.0-35.0); Mean Corpuscular Hemoglobin 29.7 pg (27.0-33.0); Mean Corpuscular Volume 91.4 fL (80.0-98.0); Mean Platelet Volume 10.2 fL (9.4-12.3); Platelet Count 410 X10*3/uL (160-400); Red Blood Count 4.17 X10*6/uL (4.20-5.50); Red Cell Distribution Width 12.7 % (11.0-16.0); White Blood Count 7.2 X10*3/uL (4.8-10.8)
[2022-01-13 11:54] LABS: Anion Gap 11 (12-20); Blood Urea Nitrogen 14 mg/dL (9-16); Calcium 9.9 mg/dL (8.4-10.2); Carbon Dioxide 30 mmol/L (22-29); Chloride 103 mmol/L (96-108); Estimated Glomerular Filt Rate > 60; Glucose Random 87 mg/dL (60-115); Potassium 4.5 mmol/L (3.3-5.1); Sodium 139 mmol/L (135-145)
[2022-01-13 12:11] LABS: HBc Num1 0.07 S/CO (0.00-0.79); Hepatitis B Core Antibody Nonreactive (Nonreactive); ~HepC Num1 0.12 S/CO (0.00-0.79); ~Hepatitis C Antibody Nonreactive (Nonreactive)
[2022-01-13 12:13] LABS: Thyroid Stimulating Hormone 1.34 uIU/mL (0.32-4.0)
[2022-01-13 12:42] LABS: HIV AB/AG Nonreactive (Nonreactive); HIV Num 1 0.07 S/CO (0.00-0.99)
[2022-01-14 08:38] LABS: Syphilis Screen Nonreactive (Nonreactive)
== END 2022-01-13 08:49 | disposition home or self-care (01) ==
LOC: HO.LAB 08:48
PROVIDERS: Absent Provider Advanced Practice Midwife; PCP Internal Medicine; Visit Provider Internal Medicine
DX: Z11.4 Encounter for screening for human immunodeficiency virus [HIV] (principal); I10 Essential (primary) hypertension
CPT/HCPCS: 36415; 80048; 84443; 85027; 86704; 86780; 86803; 87389

== ENCOUNTER 2022-02-01 15:23 | Outpatient (REF) | payer BC, SELFPAY ==
--- NOTE | ~2022-02-01 | US_ITS ---
EXAMINATION: US PELVIS CLINICAL INFORMATION: Abnormal uterine and vaginal bleeding. COMPARISON: None TECHNIQUE: Ultrasound of the pelvis is performed using both transabdominal and transvaginal transducers along with Doppler. Transvaginal imaging is performed due to inadequate visualization transabdominally. FINDINGS: Uterus: The uterus is anteverted, anteflexed and measures 9.6 cm in length, 6.6 cm in AP, and 7.7 cm in transverse dimension. The double wall endometrial thickness is not well visualized. The uterus is smooth in contour and has normal myometrial echogenicity. No visible fibroid. Adnexa: The right ovary is not visualized. The left ovary measures 1.7 x 1.4 x 1.2 cm and volume 1.5 mL. It appears unremarkable. Previously left ovary measured 2.6 x 2.1 x 2.0 cm. There is no free fluid in the cul-de-sac. US/US pelvic and transvaginal IMPRESSION: Bulky uterus without any focal lesion. Unremarkable left ovary. The right ovary is not seen. There is no free fluid in cul-de-sac.
== END 2022-02-01 15:24 | disposition home or self-care (01) ==
LOC: HO.US 15:23
PROVIDERS: Visit Provider Advanced Practice Midwife
DX: N93.9 Abnormal uterine and vaginal bleeding, unspecified (principal)
CPT/HCPCS: 76830; 76856

== ENCOUNTER 2022-02-11 08:29 | Outpatient (REF) | payer BC, SELFPAY | END 2022-02-11 08:30 | disposition home or self-care (01) | LOC: HO.LAB 08:29 | PROVIDERS: PCP Internal Medicine; Visit Provider Advanced Practice Midwife | DX: N93.9 Abnormal uterine and vaginal bleeding, unspecified (principal); R87.615 Unsatisfactory cytologic smear of cervix; Z32.02 Encounter for pregnancy test, result negative | CPT/HCPCS: 58100; 81025; 88305 ==

== ENCOUNTER → 2022-02-25 11:15 | Outpatient (BNVA) | payer BC, SELFPAY | PROVIDERS: PCP Internal Medicine; Visit Provider Advanced Practice Midwife | DX: Z13.89 Encounter for screening for other disorder (principal) ==

== ENCOUNTER 2022-04-30 21:31 | Observation (INO) | payer BC, SELFPAY ==
[2022-04-30 21:35] VITALS: BP 185/108; PULSE 64; RESP 20; TEMP 36.6; O2SAT 98; BMI 28.8
--- NOTE | 2022-04-30 21:54 | ED.GENADULT ---
HPI - General Adult General Chief complaint: Allergic Reaction Stated complaint: tongue swollen Time Seen by Provider: 04/30/22 21:52 Source: patient Limitations: no limitations History of Present Illness HPI narrative: This is a 46-year-old female who takes lisinopril for hypertension and noted a few hours ago that she had swelling on the left side of her tongue. The patient has slight throat discomfort. She denies any trouble swallowing at this point. She denies any lip swelling. She states that she had previously had mild tongue swelling in the past and took Benadryl, did not have recurrence. She denies any shortness of breath, dizziness, rash, pruritus. Related Data Home Medications Medication Instructions Recorded Confirmed lisinopril 20 mg tablet 20 mg PO DAILY 12/31/20 05/01/22 carvedilol 6.25 mg tablet 1 tab PO BID 05/01/22 05/01/22 Allergies Allergy/AdvReac Type Severity Reaction Status Date / Time meperidine [From DEMEROL] Allergy Severe ANAPHYLAXIS Verified 02/25/22 11:16 shrimp [SHRIMP] AdvReac Severe DIFFICULTY Verified 02/25/22 11:16 BREATHING Review of Systems Review of Systems: For HPI Constitutional: Constitutional: Denies fever(s) Eyes: Eyes: Reports no additional eye complaints ENT: Reports system reviewed and no additional complaints, except as documented Cardiovascular: Cardiovascular: Reports no additional cardiovascular complaints Respiratory: Respiratory: Reports no additional respiratory complaints Gastrointestinal: Gastrointestinal: Reports no additional gastrointestinal complaints [facility] Past Medical History Medical History KATY III (cervical intraepithelial neoplasia III) COVID-19 HTN (hypertension) Surgical History Hx of section Hx of cholecystectomy Family History Family History Maternal Grandmother Breast cancer Social History Social History Alcohol intake: current Alcohol intake frequency: holidays/special occasions only Patient Tobacco Use Status: Never used Tobacco Advance Directives: No Advance Directives Information Provided: No Sexual orientation: Straight/Heterosexual Gender identity: Female Physical Exam ED Vital Signs: Vital Signs - 24 hr 04/30/22 21:35 04/30/22 23:16 Temperature 97.8 F Pulse Rate 64 70 Respiratory Rate 20 18 Blood Pressure 185/108 H 144/65 H Pulse Oximetry 98 98 Oxygen Delivery Method Room Air Room Air BMI result Body Mass Index 28.8 Const General: no acute distress Orientation/consciousness: patient oriented x3 HENMT Head: Yes normal to inspection General nose exam: Normal external nose present Mouth: Normal oral and palatal mucosa present, lip normal, abnormal tongue (Mild swelling to the left side of the tongue but uvula and tonsillar pillar), moist mucous membranes and other (Are completely visible) Throat: Yes posterior oropharynx normal, Yes tonsils normal and Yes uvula midline Eyes Eyelids: Yes eyelids normal Conjunctivae: conjunctivae normal Pupils: Equal, round and reactive pupils present Neck Neck: Yes supple Resp Effort & Inspection: normal respiratory effort Auscultation: clear to auscultation bilaterally Cardio Rate: regular rate Rhythm: regular rhythm Heart sounds: S1 normal heart sound present, S2 normal heart sound present, no gallops, no murmurs and no rubs GI Inspection: No distended Palpation (GI): Soft to palpation and nontender Auscultation: normal bowel sounds Skin General skin exam: other (Warm and dry) Neuro General: patient oriented x3 and CN's II-XI intact bilaterally Cranial nerves: Yes Equal, round and reactive pupils present Extrem General: Yes no pedal edema Psych Affect: normal affect Attitude: cooperative Medical Decision Making [facility] Narrative Medical decision making narrative: Patient on lisinopril for hypertension, also on carvedilol, developed swelling in her tongue especially on the left side this evening. Fortunately the swelling is not severe and did not progress during her ED stay. The patient was treated with Decadron 10 mg IV, Benadryl 50 mg IV, Pepcid 20 mg IV. She was re-evaluated after a few hours and appeared the same. She still did have some [id number] left tongue swelling but no evidence of airway compromise or progression of the swelling. The patient mentioned this had happened once before. Patient likely has angioedema from taking an COLETTE-inhibitor, fortunately has not had catastrophic swelling. Patient is being admitted for observation given that her symptom onset was only a few hours prior to arrival. Lab Data Lab results reviewed: Yes I reviewed the patient's lab results. Result diagrams: 04/30/22 22:01 04/30/22 22:01 Labs: Lab Results 04/30/22 04/30/22 Range/Units 22:01 22:01 WBC 9.6 (4.8-10.8) X10*3/uL RBC 4.29 (4.20-5.50) X10*6/uL Hgb 13.1 (12.0-16.0) g/dl Hct 39.0 (37.0-47.0) % MCV 90.9 (80.0-98.0) fL MCH 30.5 (27.0-33.0) pg MCHC 33.6 (31.0-35.0) g/dl RDW 12.3 (11.0-16.0) % Plt Count 327 (160-400) X10*3/uL MPV 10.9 (9.4-12.3) fL Immature Gran % (Auto) 0.3 (0.0-0.4) % Neut % (Auto) 50.3 (45-73) % Lymph % (Auto) 35.3 (20-40) % [place] % (Auto) 7.4 (2-11) % Eos % (Auto) 5.8 H (0-4) % Baso % (Auto) 0.9 (0-2) % Lymph # (Auto) 3.4 (1.2-4.9) X10*3/uL [place] # (Auto) 0.7 (0.1-1.2) X10*3/uL Eos # (Auto) 0.6 H (0.0-0.4) X10*3/uL Baso # (Auto) 0.1 (0.0-0.2) X10*3/uL Abs Immat Gran (auto) 0.03 (0.00-0.03) X10*3/uL Absolute Neuts (auto) 4.8 (2.0-8.3) x10*3/uL Absolute Nucleated RBC 0.000 (0.0-0.012) X10*3/uL Nucleated RBC % (auto) 0.0 (0.0-0.2) /100WBC Sodium 139 (135-145) mmol/L Potassium 4.0 (3.3-5.1) mmol/L Chloride 104 (96-108) mmol/L Carbon Dioxide 27 (22-29) mmol/L Anion Gap 12 (12-20) BUN 20 H (9-16) mg/dL Creatinine 1.06 (0.5-1.4) mg/dL Estim Creat Clear Calc 76.2 Estimated GFR 56 Random Glucose 103 (60-115) mg/dL Calcium 9.4 (8.4-10.2) mg/dL Total Bilirubin 0.5 (0.0-1.0) mg/dL AST 21 (5-31) U/L ALT 21 (0-31) U/L Alkaline Phosphatase 79 (39-117) U/L Total Protein 8.0 (6.5-8.0) g/dL Albumin 4.5 (3.5-5.0) g/dL Discharge Plan Discharge Clinical Impression: 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
[2022-04-30 22:07] LABS: MANUAL DIFF FLAG NO
[2022-04-30 22:15] LABS: Basophils Absolute Auto 0.1 X10*3/uL (0.0-0.2); Basophils Percent Auto 0.9 % (0-2); Eosinophils Absolute Auto 0.6 X10*3/uL (0.0-0.4); Eosinophils Percent Auto 5.8 % (0-4); Hemoglobin 13.1 g/dl (12.0-16.0); Imm Gran Abs Auto 0.03 X10*3/uL (0.00-0.03); Imm Gran Pct Auto 0.3 % (0.0-0.4); Lymphocytes Absolute Auto 3.4 X10*3/uL (1.2-4.9); Lymphocytes Percent Auto 35.3 % (20-40); Mean Corpuscular HGB Conc 33.6 g/dl (31.0-35.0); Mean Corpuscular Hemoglobin 30.5 pg (27.0-33.0); Mean Corpuscular Volume 90.9 fL (80.0-98.0); Mean Platelet Volume 10.9 fL (9.4-12.3); Monocytes Absolute Auto 0.7 X10*3/uL (0.1-1.2); Monocytes Percent Auto 7.4 % (2-11); Neutrophils Absolute Auto 4.8 x10*3/uL (2.0-8.3); Neutrophils Percent Auto 50.3 % (45-73); Platelet Count 327 X10*3/uL (160-400); Red Blood Count 4.29 X10*6/uL (4.20-5.50); Red Cell Distribution Width 12.3 % (11.0-16.0); White Blood Count 9.6 X10*3/uL (4.8-10.8)
[2022-04-30 22:23] LABS: Alanine Aminotransferase 21 U/L (0-31); Albumin Level 4.5 g/dL (3.5-5.0); Alkaline Phosphatase 79 U/L (39-117); Anion Gap 12 (12-20); Aspartate Amino Transferase 21 U/L (5-31); Bilirubin Total 0.5 mg/dL (0.0-1.0); Blood Urea Nitrogen 20 mg/dL (9-16); Calcium 9.4 mg/dL (8.4-10.2); Carbon Dioxide 27 mmol/L (22-29); Chloride 104 mmol/L (96-108); Creatinine Clr Calc Pharmacy 76.2; Estimated Glomerular Filt Rate 56; Glucose Random 103 mg/dL (60-115); Sodium 139 mmol/L (135-145)
[2022-04-30] MEDS: dexAMETHasone sod phosphate 10 MG/ML VIAL IVPUSH (22:24)
[2022-04-30] MEDS: Famotidine/PF 20 MG/2 ML VIAL IVPUSH (22:25)
[2022-04-30 23:16] VITALS: BP 144/65; PULSE 70; RESP 18; O2SAT 98
--- NOTE | 2022-05-01 00:06 | P.HPHOSP_ITS ---
History of Present Illness Date of Service: 05/01/22 Chief Complaint: Tongue swelling This is a 46-year-old female with past medical history of hypertension, and recently diagnosed diastolic heart failure per patient who presents to the hospital with complaints of tongue swelling. Patient reports that she developed significant Onc swelling around 20:00, she had difficulty swallowing and talking, no shortness of breath, did not feel that her throat was closing in, she has some numbness around the lips, and the tip of her nose, she reports that she has been taking lisinopril for the past 6 years for diagnosis of hypertension. the dose was doubled few weeks ago. Patient otherwise denies any chest pain, no cough, no abdominal pain nausea or vomiting, no diarrhea constipation, no urinary symptoms and no lower extremity edema. On arrival to the ED patient hemodynamically stable with no significant abnormal vitals except an elevated blood pressure labs were reviewed and were unremarkable patient was found to have angioedema, she was given Decadron, Pepcid, as well as Benadryl, at this time patient reports that her symptoms are the same and have not worsened or improved. Patient will be admitted for further management Review of Systems 2 Review of Systems: Yes all other systems are reviewed and are negative [facility] Medical History KATY III (cervical intraepithelial neoplasia III) COVID-19 Diastolic heart failure HTN (hypertension) Family History Maternal Grandmother Breast cancer Surgical History Hx of section Hx of cholecystectomy Social History Alcohol intake: current Alcohol intake frequency: holidays/special occasions only Patient Tobacco Use Status: Never used Tobacco Advance Directives: No Advance Directives Information Provided: No Sexual orientation: Straight/Heterosexual Gender identity: Female Meds Allergies Allergy/AdvReac Type Severity Reaction Status Date / Time meperidine [From DEMEROL] Allergy Severe ANAPHYLAXIS Verified 02/25/22 11:16 shrimp [SHRIMP] AdvReac Severe DIFFICULTY Verified 02/25/22 11:16 BREATHING Active Medications: Current Medications Acetaminophen (Acetaminophen 325 Mg Tablet) 650 mg PO Q6H PRN PRN Reason: Pain, Mild (Pain Scale 1-3) Diphenhydramine HCl (Diphenhydramine Hcl 50 Mg/Ml Vial) 25 mg IVPUSH Q4H PRN PRN Reason: tongue swelling Famotidine (Famotidine 20 Mg Tablet) 20 mg PO DAILY [facility] Diphenhydramine HCl 50 mg/ (Sodium Chloride) 51 mls @ 200 mls/hr IV ONCE [facility] Last Admin: 04/30/22 22:28 Dose: 200 mls/hr Lactated Ringer's (Lr) 1,000 mls @ 80 mls/hr IVCONT .[id number] [facility] Ondansetron HCl (Ondansetron Hcl 4 Mg/2 Ml Vial) 4 mg IVPUSH Q8H PRN PRN Reason: Nausea and Vomiting Pharmacy Consult (Consult Rx Perform Med Rec) 1 each MISCELLANE ONCE PRN PRN Reason: Consult order Prednisone (Prednisone 20 Mg Tablet) 40 mg PO DAILY [facility] Sodium Chloride (0.9 % Sodium Chloride Flush 3 Ml Syringe) 3 ml IVFLUSH QSHIFT [facility] Home Medications Medication Instructions Recorded Confirmed Last Taken Type lisinopril 20 mg tablet 20 mg PO DAILY 12/31/20 05/01/22 Unknown History carvedilol 6.25 mg tablet 1 tab PO BID 05/01/22 05/01/22 Unknown History Physical Exam Vital Signs and Narrative: Vital Signs: Last Vital Signs Temp 97.8 F 04/30/22 21:35 Pulse 70 04/30/22 23:16 Resp 18 04/30/22 23:16 BP 144/65 H 04/30/22 23:16 Pulse Ox 98 04/30/22 23:16 O2 Del Method 04/30/22 23:16 BMI result Body Mass Index 28.8 Const: Other: able to talk, no drooling, comprehend able General: cooperative and no acute distress Orientation/consciousness: patient oriented x3 HEENT: Other: no drooling, tongue is slightly swollen mostly on the left of the tongue, no lip swelling Eyes: General: appearance normal, both eyes and all related structures Pupils: Equal, round and reactive pupils present Resp: Other: no wheezing Effort & Inspection: normal respiratory effort Auscultation: clear to auscultation bilaterally Cardio: Rate: regular rate Rhythm: regular rhythm GI: Palpation (GI): Soft to palpation Auscultation: normal bowel sounds Skin: General skin exam: no rashes or lesions noted Neuro: General: patient oriented x3 Cranial nerves: Yes Equal, round and reactive pupils present Cognition (Neuro): normal cognition Extrem: General: Yes normal to inspection and Yes no pedal edema Results Labs CBC and Chem 7: 04/30/22 22:01 04/30/22 22:01 Labs: Laboratory Results - last 24 hr 04/30/22 04/30/22 22:01 22:01 MCV 90.9 MCH 30.5 MCHC 33.6 RDW 12.3 Plt Count 327 MPV 10.9 Immature Gran % (Auto) 0.3 Neut % (Auto) 50.3 Lymph % (Auto) 35.3 [place] % (Auto) 7.4 Eos % (Auto) 5.8 H Baso % (Auto) 0.9 Lymph # (Auto) 3.4 [place] # (Auto) 0.7 Eos # (Auto) 0.6 H Baso # (Auto) 0.1 Abs Immat Gran (auto) 0.03 Absolute Neuts (auto) 4.8 Absolute Nucleated RBC 0.000 Nucleated RBC % (auto) 0.0 Anion Gap 12 Estim Creat Clear Calc 76.2 Estimated GFR 56 Random Glucose 103 Calcium 9.4 Total Bilirubin 0.5 AST 21 ALT 21 Alkaline Phosphatase 79 Total Protein 8.0 Albumin 4.5 Assessment and Plan (1) 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): Status: Acute Plan 46-year-old female with past medical history of hypertension presents to the hospital after developing angioedema # angioedema - likely secondary to lisinopril - patient has been on lisinopril for 6 years and recently had her dose doubled - received Decadron, Benadryl, as well as Pepcid with no drooling, no difficulty breathing - at this time will admit for observation, will give Benadryl p.r.n., another dose of Pepcid, and another dose of prednisone, continue prednisone daily while in the hospital - advised patient extensively on quitting all COLETTE-inhibitor products for the future, - as patient was recently diagnosed with diastolic heart failure she may benefit from arbs, I would recommend waiting 4 weeks at least before starting, patient reports that she does have an appointment with cabin outfitter in the near future recommended the she discuss this with her cabin outfitter DVT prophylaxis: Early ambulation Quality Stroke Does the patient have a stroke diagnosis?: No VTE Prior VTE?: No VTE Risk Level:: Medical - low VTE Device Contraindication: Treatment Not Indicated VTE Drug Contraindication: Treatment Not Indicated
[2022-05-01 00:21] LABS: COVID-19 Test Negative (Negative)
[2022-05-01] MEDS: Lactated Ringers 1,000 ML 80 ML IVCONT (00:24)
--- NOTE | 2022-05-01 01:49 | PC.NURSE ---
Addendum entered by Aryan Whitaker RN 05/01/22 04:35: There have been no significant changes with Sharla. She remains asleep in bed, no respiratory distress, continues to await inpatient bed assignment. Original Note: I assumed nursing care of this patient upon her arrival to bed 1. She presented for evaluation of tongue and lip swelling x 1 hour prior to arrival. On arrival pt was immediately met by ER MD, IV access was obtained and ordered meds (see EMAR) were given per MD order. Pt presented with moderate tongue swelling, slightly improved after receiving IVP Benadryl, Pepcid and Decadron. Pt admits to mild difficulty swallowing but is able to handle her secretions, no hoarseness, no cyanosis, she speaks in full sentences. Pt has remained calm, cooperatve. She has family at the bedside. She is aware that the she is TBADM and verbalizes an understanding of that.
[2022-05-01 05:57] VITALS: BP 137/80; PULSE 71; RESP 16; O2SAT 95
[2022-05-01 06:11] LABS: MANUAL DIFF FLAG NO
[2022-05-01 06:27] LABS: Basophils Percent Auto 0.2 % (0-2); Eosinophils Percent Auto 0.1 % (0-4); Hematocrit 38.8 % (37.0-47.0); Hemoglobin 13.2 g/dl (12.0-16.0); Imm Gran Abs Auto 0.04 X10*3/uL (0.00-0.03); Imm Gran Pct Auto 0.4 % (0.0-0.4); Lymphocytes Absolute Auto 1.2 X10*3/uL (1.2-4.9); Lymphocytes Percent Auto 13.1 % (20-40); Mean Corpuscular Hemoglobin 30.6 pg (27.0-33.0); Mean Platelet Volume 10.9 fL (9.4-12.3); Monocytes Absolute Auto 0.1 X10*3/uL (0.1-1.2); Monocytes Percent Auto 0.7 % (2-11); Neutrophils Absolute Auto 7.6 x10*3/uL (2.0-8.3); Neutrophils Percent Auto 85.5 % (45-73); Platelet Count 316 X10*3/uL (160-400); Red Blood Count 4.31 X10*6/uL (4.20-5.50); Red Cell Distribution Width 12.2 % (11.0-16.0); White Blood Count 8.9 X10*3/uL (4.8-10.8)
[2022-05-01 06:39] LABS: Anion Gap 11 (12-20); Blood Urea Nitrogen 18 mg/dL (9-16); Calcium 9.1 mg/dL (8.4-10.2); Carbon Dioxide 23 mmol/L (22-29); Chloride 109 mmol/L (96-108); Creatinine Clr Calc Pharmacy 85.9; Estimated Glomerular Filt Rate > 60; Glucose Random 151 mg/dL (60-115); Potassium 4.3 mmol/L (3.3-5.1); Sodium 139 mmol/L (135-145)
--- NOTE | 2022-05-01 07:27 | PHA.MEDREC ---
MED REC COMPLETE, NO ISSUES Pharmacy Consult ? Medication Reconciliation Pharmacy has completed the medication reconciliation.
[2022-05-01 07:45] VITALS: BP 128/78; PULSE 68; RESP 16; O2SAT 97
--- NOTE | 2022-05-01 07:45 | PC.NURSE ---
Pt is alert/oriented. Denies pain. Left sided lip/tongue swelling improved, per pt almost baseline. Speech is clear and LS CTA. Sat 97% on room air. NSR on monitor.
[2022-05-01] MEDS: predniSONE 20 MG TABLET 40 MG PO (08:59)
[2022-05-01] MEDS: Famotidine 20 MG TABLET PO (09:00)
--- NOTE | 2022-05-01 10:12 | P.DS_ITS ---
DS: Providers Provider Date of Service: 05/01/22 Date of admission: 04/30/22 23:47 Primary care physician: Aldair Siegel MD DS: Diagnosis Discharge Diagnosis (1) 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): Status: Acute DS: Summary Hospital Course Hospital Course: 46-year-old female with past medical history of hypertension, and recently diagnosed diastolic heart failure per patient who presents to the hospital with complaints of tongue swelling.? Patient reports that she developed? significant Onc swelling around 20:00, she? had difficulty swallowing and talking, no shortness of breath, did not feel that her throat was closing in, she has some numbness around the lips, and the tip of her nose, she reports that she has been taking lisinopril for the past 6 years for? diagnosis of hypertension. ? the dose was? doubled few weeks ago.? Patient otherwise denies any chest pain, no cough, no abdominal pain nausea or vomiting, no diarrhea constipation, no urinary symptoms and no lower extremity edema.? On arrival to the ED patient hemodynamically stable with no significant abnormal vitals except an elevated blood pressure ?labs were reviewed and were unremarkable ?patient was found to have angioedema, she was given Decadron, Pepcid, as well as Benadryl, at this time patient reports that her symptoms are the same and have not worsened or improved.? Patient will be admitted for further management. Hospital course: patient came with complaints of tongue swelling and numbness around the lips- thought to be related to allergic reaction secondary to lisinopril(COLETTE inhibitors)- subsequently was admitted for management of above -responded well to steroid and Benadryl treatment, currently symptoms improved significantly. no new symptoms- going home with p.o. prednisone and Benadryl, famotidine. Patient was advised to stop will lisinopril- follow-up with Cardiology which she already has appointment . patient advised to keep blood pressure measurements log at home. Added week supply of amlodipine in case blood pressure stays consistently above 140s. above management discussed with patient in detail length, further management out patiently. follow-up with PCP and Cardiology outpatient. Above management discussed with the patient in detail length she understand and in agreement with the above plan, time spent 50 minutes and 50% time spent on counseling. Significant findings: As above. Procedures performed: None. Treatment and response: As above. Complications: None. Time Spent with Patient Time attestation: Total time spent providing and/or coordinating discharge services: Discharge coordination time: Greater than 30 minutes Quality: Safe Use of Opioids Does Pt have an Active Cancer Diagnosis on the Problem List?: No Quality: Stroke Does the patient have a stroke diagnosis?: No Physical Exam Vital Signs: Vital Signs: Last Vital Signs Temp 97.8 F 04/30/22 21:35 Pulse 68 05/01/22 07:45 Resp 16 05/01/22 07:45 BP 128/78 05/01/22 07:45 Pulse Ox 97 05/01/22 07:45 O2 Del Method 05/01/22 07:45 BMI result Body Mass Index 28.8 Appearance: Alert.? Oriented X3.? not in distress.? Eyes: Pupils equal, round and reactive to light.? Sclera nonicteric.? ENT: Pharynx normal.? Moist mucous membranes. toungue swelling improved to baseline. cvs: rrr, [id number] , no murmur res: clear to auscultation ,no rhonchii or wheezing abd: no rebound or guarding ,nt, bs present. ext pulses present , no cyanosis . neuro: axo3 , nonfocal. DS: Data Data Completed and Pending Labs on day of discharge: Laboratory Results - last 24 hr 04/30/22 04/30/22 04/30/22 22:01 22:01 23:56 WBC 9.6 RBC 4.29 Hgb 13.1 Hct 39.0 MCV 90.9 MCH 30.5 MCHC 33.6 RDW 12.3 Plt Count 327 MPV 10.9 Immature Gran % (Auto) 0.3 Neut % (Auto) 50.3 Lymph % (Auto) 35.3 [place] % (Auto) 7.4 Eos % (Auto) 5.8 H Baso % (Auto) 0.9 Lymph # (Auto) 3.4 [place] # (Auto) 0.7 Eos # (Auto) 0.6 H Baso # (Auto) 0.1 Abs Immat Gran (auto) 0.03 Absolute Neuts (auto) 4.8 Absolute Nucleated RBC 0.000 Nucleated RBC % (auto) 0.0 Sodium 139 Potassium 4.0 Chloride 104 Carbon Dioxide 27 Anion Gap 12 BUN 20 H Creatinine 1.06 Estim Creat Clear Calc 76.2 Estimated GFR 56 Random Glucose 103 Calcium 9.4 Total Bilirubin 0.5 AST 21 ALT 21 Alkaline Phosphatase 79 Total Protein 8.0 Albumin 4.5 COVID-19 (FELISA) Negative COVID-19 Clin Com See Note 05/01/22 05/01/22 06:05 06:05 WBC 8.9 RBC 4.31 Hgb 13.2 Hct 38.8 MCV 90.0 MCH 30.6 MCHC 34.0 RDW 12.2 Plt Count 316 MPV 10.9 Immature Gran % (Auto) 0.4 Neut % (Auto) 85.5 H Lymph % (Auto) 13.1 L [place] % (Auto) 0.7 L Eos % (Auto) 0.1 Baso % (Auto) 0.2 Lymph # (Auto) 1.2 [place] # (Auto) 0.1 Eos # (Auto) 0.0 Baso # (Auto) 0.0 Abs Immat Gran (auto) 0.04 H Absolute Neuts (auto) 7.6 Absolute Nucleated RBC 0.000 Nucleated RBC % (auto) 0.0 Sodium 139 Potassium 4.3 Chloride 109 H Carbon Dioxide 23 Anion Gap 11 L BUN 18 H Creatinine 0.94 Estim Creat Clear Calc 85.9 Estimated GFR > 60 Random Glucose 151 H Calcium 9.1 Total Bilirubin AST ALT Alkaline Phosphatase Total Protein Albumin COVID-19 (FELISA) COVID-19 Clin Com Discharge Plan Discharge Patient Disposition: Home, Self-Care Discharge Diagnosis: Angioedema Referrals: Aldair Siegel MD [Primary Care Provider] - 1 Week Discharge Medications: New prednisone 20 mg Tablet 40 mg PO DAILY Qty: 4 0RF famotidine 20 mg Tablet 20 mg PO DAILY Qty: 10 0RF diphenhydramine HCl [Benadryl] 25 mg capsule 25 mg PO TID PRN (Reason: allergic reaction) Qty: 10 0RF amlodipine 2.5 mg tablet 2.5 mg PO DAILY Qty: 7 0RF Rx Instructions: use if blood pressure consistently above 140 Continued carvedilol 6.25 mg tablet 1 tab PO BID Discontinued lisinopril 20 mg tablet 20 mg PO BID Discharge Orders: Discharge Order (Routine); Ordered 05/01/22 Ordered By: Danielle Cadet Diet: advance to usual diet Activity on Discharge: As tolerated Stand Alone Forms: Patient Portal Discharge page Care Plan Goals: patient came with complaints of tongue swelling and numbness around the lips- thought to be related to allergic reaction secondary to lisinopril(COLETTE inhibitors)- subsequently was admitted for management of above -responded well to steroid and Benadryl treatment, currently symptoms improved significantly. no new symptoms- going home with p.o. prednisone and Benadryl, famotidine. Patient was advised to stop will lisinopril- follow-up with Cardiology which she already has appointment . patient advised to keep blood pressure measurements log at home. Added week supply of amlodipine in case blood pressure stays consistently above 140s. above management discussed with patient in detail length, further management out patiently. follow-up with PCP and Cardiology outpatient Health Concerns: strongly encouraged to avoid using lisinopril and COLETTE inhibitors. follow-up with her cardiology appointment for further management. Plan of Treatment: As above. Assessment: As above.
== END 2022-05-01 10:39 | disposition home or self-care (01) ==
LOC: HO.ED 21:48 → HO.EDOVER 05-01 00:07
PROVIDERS: Admitting Provider Internal Medicine; Emergency Provider Emergency Medicine; PCP Internal Medicine; Visit Provider Internal Medicine
DX: T78.3XXA Angioneurotic edema, initial encounter (principal); T46.4X5A Adverse effect of angiotensin-converting-enzyme inhibitors, initial encounter; I11.0 Hypertensive heart disease with heart failure; I50.30 Unspecified diastolic (congestive) heart failure; Z20.822 Contact with and (suspected) exposure to COVID-19; Z88.6 Allergy status to analgesic agent; Z91.013 Allergy to seafood; Z79.52 Long term (current) use of systemic steroids; Z79.899 Other long term (current) drug therapy
CPT/HCPCS: 36415; 80048; 80053; 85025; 87635; 99218; 99284; J1100; J1200

== ENCOUNTER 2022-05-03 13:02 | Emergency (ER) | payer BC, SELFPAY ==
--- NOTE | ~2022-05-03 | XR_ITS ---
EXAMINATION: XR CHEST CLINICAL INFORMATION: Chest discomfort COMPARISON: 12/10/2021 TECHNIQUE: 2 views of the chest were obtained. FINDINGS: No significant abnormality is noted involving the heart, lungs, mediastinum, bony thorax or soft tissues. XR/XR chest 2V IMPRESSION: Unremarkable examination.
--- NOTE | ~2022-05-03 | CT_ITS ---
EXAMINATION: CT HEAD WITHOUT CONTRAST CLINICAL INFORMATION: Dizziness COMPARISON: CT head 02/09/2021 TECHNIQUE: Contiguous axial imaging was performed from the skull base to vertex without intravenous administration of contrast. Coronal and sagittal reformatted images are performed at CT scanner This CT examination was performed using dose optimization techniques as appropriate, variously including the following: *Automated exposure control *Adjustment of mA and/or kV according to patient size (this includes techniques or standardized protocols for targeted exams where dose is matched to indication/reason for exam; i.e. extremities or head) *Use of iterative reconstruction technique DLP: 717 mGy-cm FINDINGS: There is no evidence of acute intracranial hemorrhage or territorial infarction. No abnormal mass effect or midline shift is seen. Oneil to white matter differentiation is well preserved. No extra-axial fluid collections are identified. The ventricles are normal in size. There is no abnormal attenuation within the brain parenchyma. The osseous structures and soft tissues are normal. The mastoid air cells and visualized portions of the paranasal sinuses are well aerated. CT/CT head/brain wo con IMPRESSION: No acute intracranial pathology.
--- NOTE | 2022-05-03 13:19 | ECG_ITS ---
Test Reason : CHEST DISCOMFORT Blood Pressure : / mmHG Vent. Rate : 057 BPM Atrial Rate : 057 BPM P-R Int : 128 ms QRS Dur : 086 ms QT Int : 382 ms P-R-T Axes : 040 001 017 degrees QTc Int : 371 ms Sinus bradycardia Otherwise normal ECG When compared with ECG of 10-DEC-2021 16:20, Questionable change in QRS axis Referred By: Generic ED Physician Electronically Signed By:MARIA LUISA KU MD
[2022-05-03 13:20] VITALS: BP 197/114; PULSE 60; RESP 18; TEMP 36.6; O2SAT 98; BMI 30.4
[2022-05-03 13:36] LABS: MANUAL DIFF FLAG NO
[2022-05-03 13:38] LABS: Basophils Absolute Auto 0.1 X10*3/uL (0.0-0.2); Basophils Percent Auto 1.2 % (0-2); Eosinophils Absolute Auto 0.4 X10*3/uL (0.0-0.4); Eosinophils Percent Auto 4.2 % (0-4); Hematocrit 40.2 % (37.0-47.0); Hemoglobin 13.3 g/dl (12.0-16.0); Imm Gran Abs Auto 0.03 X10*3/uL (0.00-0.03); Imm Gran Pct Auto 0.4 % (0.0-0.4); Lymphocytes Percent Auto 36.9 % (20-40); Mean Corpuscular HGB Conc 33.1 g/dl (31.0-35.0); Mean Corpuscular Volume 90.5 fL (80.0-98.0); Mean Platelet Volume 10.8 fL (9.4-12.3); Monocytes Absolute Auto 0.5 X10*3/uL (0.1-1.2); Monocytes Percent Auto 6.2 % (2-11); Neutrophils Absolute Auto 4.2 x10*3/uL (2.0-8.3); Neutrophils Percent Auto 51.1 % (45-73); Platelet Count 323 X10*3/uL (160-400); Red Blood Count 4.44 X10*6/uL (4.20-5.50); Red Cell Distribution Width 12.5 % (11.0-16.0); White Blood Count 8.2 X10*3/uL (4.8-10.8)
[2022-05-03 13:56] LABS: Anion Gap 11 (12-20); Blood Urea Nitrogen 14 mg/dL (9-16); Calcium 9.6 mg/dL (8.4-10.2); Carbon Dioxide 29 mmol/L (22-29); Chloride 100 mmol/L (96-108); Creatinine Clr Calc Pharmacy 77.4; Estimated Glomerular Filt Rate 55; Glucose Random 85 mg/dL (60-115); Sodium 136 mmol/L (135-145)
[2022-05-03 14:01] LABS: B Type Natriuretic Peptide 58 pg/mL (<100); Troponin-I High Sensitivity < 3.5 ng/L (<3.5-17.0)
[2022-05-03] MEDS: amLODIPine Besylate 2.5 MG TABLET 7.5 MG PO (14:18)
--- NOTE | 2022-05-03 14:31 | ED.GENADULT ---
HPI - General Adult General Chief complaint: General Medical Stated complaint: disoriented, cant see Time Seen by Provider: 05/03/22 13:44 Source: patient and family Mode of arrival: ambulatory History of Present Illness HPI narrative: 46-year-old female with history of hypertension and diastolic heart dysfunction presents with feeling dizzy, having chest discomfort and stating that she felt like her whole face was mildly numb and experiencing tingling in the tips of bilateral fingers. She states that since she was diagnosed with an allergic reaction with lisinopril she was started on Norvasc 2.5 mg and her Coreg was increased to 6.25 from 3.125. She states she does feel somewhat better and despite taking her medications morning her blood pressures remained elevated Related Data Home Medications Medication Instructions Recorded Confirmed carvedilol 6.25 mg tablet 1 tab PO BID 05/01/22 05/01/22 Previous Rx's Medication Instructions Recorded amlodipine 2.5 mg tablet 2.5 mg PO DAILY #7 tabs 05/01/22 diphenhydramine HCl 25 mg capsule 25 mg PO TID PRN allergic reaction 05/01/22 (Benadryl) #10 caps famotidine 20 mg tablet 20 mg PO DAILY #10 tabs 05/01/22 prednisone 20 mg tablet 40 mg PO DAILY #4 tabs 05/01/22 amlodipine 2.5 mg tablet (Norvasc) 7.5 mg PO DAILY 10 days #30 tabs 05/03/22 Allergies Allergy/AdvReac Type Severity Reaction Status Date / Time meperidine [From DEMEROL] Allergy Severe ANAPHYLAXIS Verified 02/25/22 11:16 shrimp [SHRIMP] AdvReac Severe DIFFICULTY Verified 02/25/22 11:16 BREATHING Review of Systems Review of Systems: pertinent positives and negatives as stated in HPI 10 review of systems is otherwise negative. [facility] Past Medical History Medical History KATY III (cervical intraepithelial neoplasia III) COVID-19 Diastolic heart failure HTN (hypertension) Surgical History Hx of section Hx of cholecystectomy Family History Family History Maternal Grandmother Breast cancer Social History Social History Alcohol intake: current Alcohol intake frequency: holidays/special occasions only Patient Tobacco Use Status: Never used Tobacco Advance Directives: No Advance Directives Information Provided: No Sexual orientation: Straight/Heterosexual Gender identity: Female Physical Exam ED Vital Signs: Vital Signs - 24 hr 05/03/22 13:20 05/03/22 14:55 Temperature 98 F Pulse Rate 60 Respiratory Rate 18 Blood Pressure 197/114 H 150/91 H Pulse Oximetry 98 Oxygen Delivery Method Room Air BMI result Body Mass Index 30.4 VITAL SIGNS: Reviewed. GENERAL: Well developed, well nourished, in no acute distress. HEAD: Normocephalic/atraumatic EYES: PERRLA, EOMI EARS: Ext canals without abnormality OROPHARYNX: no oral lesions noted, posterior pharynx clear LUNGS: Normal breath sounds. No adventitious sounds or accessory muscle use. SpO2<98> CARDIOVASCULAR: Regular rate and rhythm without noted murmurs ABDOMEN: Soft, non-tender, non-distended with bowel sounds. MUSCULOSKELETAL: No tenderness, deformities, or effusions noted on gross inspection. EXTREMITIES: No cyanosis, clubbing or edema. SKIN: Inspection of the skin reveals no rashes NEUROLOGIC: Alert and oriented x 4. Strength and sensation to light touch were grossly intact x 4 , no facial asymmetry, no pronator drift, no deficits in finger past pointing, cranial nerves 2-12 grossly intact, in heel to villegas without deficits in patient does not have any complaints of dizziness at this time. Course Course Course Narrative: [age] year female with history and clinical presentation suggestive of hypertensive urgency, no focal deficits identified low clinical suspicion for intracranial hemorrhage. Will get blood pressure control and basic lab work. review of all investigations negative for acute findings and patient's blood pressure has significantly improved and patient reports that she feels much better. She received a total of 10 mg of Norvasc for the day and will discharge the patient with recommendations for her to increase her daily dosage from 2.5 mg up to 7.5 mg. My note will be sent over to her real estate management specialist and patient understands that she needs to call them tomorrow morning for re-evaluation. Medical Decision Making Lab Data Result diagrams: 05/03/22 13:32 05/03/22 13:32 Labs: Lab Results 05/03/22 05/03/2222 Range/Units 13:32 13:32 13:32 WBC 8.2 (4.8-10.8) X10*3/uL RBC 4.44 (4.20-5.50) X10*6/uL Hgb 13.3 (12.0-16.0) g/dl Hct 40.2 (37.0-47.0) % MCV 90.5 (80.0-98.0) fL MCH 30.0 (27.0-33.0) pg MCHC 33.1 (31.0-35.0) g/dl RDW 12.5 (11.0-16.0) % Plt Count 323 (160-400) X10*3/uL MPV 10.8 (9.4-12.3) fL Immature Gran % (Auto) 0.4 (0.0-0.4) % Neut % (Auto) 51.1 (45-73) % Lymph % (Auto) 36.9 (20-40) % [place] % (Auto) 6.2 (2-11) % Eos % (Auto) 4.2 H (0-4) % Baso % (Auto) 1.2 (0-2) % Lymph # (Auto) 3.0 (1.2-4.9) X10*3/uL [place] # (Auto) 0.5 (0.1-1.2) X10*3/uL Eos # (Auto) 0.4 (0.0-0.4) X10*3/uL Baso # (Auto) 0.1 (0.0-0.2) X10*3/uL Abs Immat Gran (auto) 0.03 (0.00-0.03) X10*3/uL Absolute Neuts (auto) 4.2 (2.0-8.3) x10*3/uL Absolute Nucleated RBC 0.000 (0.0-0.012) X10*3/uL Nucleated RBC % (auto) 0.0 (0.0-0.2) /100WBC Sodium 136 (135-145) mmol/L Potassium 4.0 (3.3-5.1) mmol/L Chloride 100 (96-108) mmol/L Carbon Dioxide 29 (22-29) mmol/L Anion Gap 11 L (12-20) BUN 14 (9-16) mg/dL Creatinine 1.07 (0.5-1.4) mg/dL Estim Creat Clear Calc 77.4 Estimated GFR 55 Random Glucose 85 (60-115) mg/dL Calcium 9.6 (8.4-10.2) mg/dL Troponin I High Sens < 3.5 (<3.5-17.0) ng/L B-Natriuretic Peptide 58 (<100) pg/mL Beta HCG, Quant < 2 mIU/mL ECG Data Attestation: I personally reviewed and interpreted this ECG as follows: Prior ECG tracings: available for review Interpretation: Sinus bradycardia, HR -57, no STEMI, NM/ QRS /QTC is within normal limits. Discharge Plan Discharge Clinical Impression: Hypertensive urgency Patient Disposition: Home, Self-Care Instructions: DASH Eating Plan (ED), Hypertensive Crisis (ED) Additional Instructions: 1. Recommend that you increase the amlodipine ( Norvasc ) from 2.5 mg to 7.5 mg daily. Do not take 7.5 mg if you take your blood pressure and the top number is lower than 120. Instead you would want to take 2.5 mg. 2. Call your cardiology's office and schedule a follow-up appointment. 3. Also recommend that you follow-up with your primary care provider in the next 1-2 days. Return to the ER for worsening symptoms. Prescriptions: New amlodipine [Norvasc] 2.5 mg tablet 7.5 mg PO DAILY 10 Days Qty: 30 0RF No Action carvedilol 6.25 mg tablet 1 tab PO BID prednisone 20 mg Tablet 40 mg PO DAILY Qty: 4 0RF famotidine 20 mg Tablet 20 mg PO DAILY Qty: 10 0RF diphenhydramine HCl [Benadryl] 25 mg capsule 25 mg PO TID PRN (Reason: allergic reaction) Qty: 10 0RF amlodipine 2.5 mg tablet 2.5 mg PO DAILY Qty: 7 0RF Rx Instructions: use if blood pressure consistently above 140 Referrals: Aldair Siegel MD [Primary Care Provider] -
[2022-05-03 14:55] VITALS: BP 150/91
[2022-05-03 15:39] LABS: HCG Quantitative < 2 mIU/mL
== END 2022-05-03 17:13 | disposition home or self-care (01) ==
PROVIDERS: Emergency Provider Student in an Organized Health Care Education/Training Program; PCP Internal Medicine
DX: I16.0 Hypertensive urgency (principal); R42 Dizziness and giddiness; R06.02 Shortness of breath; R07.89 Other chest pain; Z79.899 Other long term (current) drug therapy
CPT/HCPCS: 36415; 70450; 71046; 80048; 83880; 84484; 84702; 85025; 93005; 99284

== ENCOUNTER 2022-07-06 14:24 | Outpatient (REF) | payer BC, SELFPAY ==
[2022-07-06 16:35] LABS: Influenza A PCR NEGATIVE (Negative); Influenza B PCR NEGATIVE (Negative); Resp Syncy Virus RNA Qual PCR NEGATIVE (Negative); SARS COV2 PCR INHOUSE POSITIVE (Negative)
== END 2022-07-06 14:25 | disposition home or self-care (01) ==
LOC: HO.LNP 14:24
PROVIDERS: Visit Provider Internal Medicine
DX: R52 Pain, unspecified (principal); J02.9 Acute pharyngitis, unspecified; Z20.822 Contact with and (suspected) exposure to COVID-19
CPT/HCPCS: 0241U

== ENCOUNTER 2022-07-15 22:12 | Emergency (ER) | payer BC, SELFPAY ==
--- NOTE | 2022-07-15 | ECG_ITS ---
Test Reason : CHEST TIGHTNESS Blood Pressure : / mmHG Vent. Rate : 078 BPM Atrial Rate : 078 BPM P-R Int : 148 ms QRS Dur : 088 ms QT Int : 376 ms P-R-T Axes : 051 045 048 degrees QTc Int : 428 ms Normal sinus rhythm Normal ECG When compared with ECG of 03-MAY-2022 13:15, QT has lengthened Heart rate has increased QRS axis Shifted right Referred By: Generic ED Physician Electronically Signed By:MAURICE MENESES
--- NOTE | ~2022-07-15 | XR_ITS ---
EXAMINATION: XR CHEST CLINICAL INFORMATION: Chest tightness. Shortness of breath. Covid positive last week. COMPARISON: Chest x-ray 05/03/2022 TECHNIQUE: 2 views of the chest were obtained. FINDINGS: No significant abnormality is noted involving the heart, lungs, mediastinum, bony thorax or soft tissues. XR/XR chest 2V IMPRESSION: Unremarkable examination.
[2022-07-15 22:13] VITALS: BP 184/100; PULSE 92; RESP 20; TEMP 36; O2SAT 98; BMI 30.4
[2022-07-15 22:39] LABS: MANUAL DIFF FLAG NO
[2022-07-15 22:40] LABS: Basophils Absolute Auto 0.1 X10*3/uL (0.0-0.2); Basophils Percent Auto 1.1 % (0-2); Eosinophils Absolute Auto 0.6 X10*3/uL (0.0-0.4); Eosinophils Percent Auto 6.7 % (0-4); Hematocrit 39.6 % (37.0-47.0); Hemoglobin 13.6 g/dl (12.0-16.0); Imm Gran Abs Auto 0.03 X10*3/uL (0.00-0.03); Imm Gran Pct Auto 0.3 % (0.0-0.4); Lymphocytes Absolute Auto 3.5 X10*3/uL (1.2-4.9); Lymphocytes Percent Auto 36.7 % (20-40); Mean Corpuscular HGB Conc 34.3 g/dl (31.0-35.0); Mean Corpuscular Hemoglobin 30.8 pg (27.0-33.0); Mean Corpuscular Volume 89.8 fL (80.0-98.0); Mean Platelet Volume 10.1 fL (9.4-12.3); Monocytes Absolute Auto 0.7 X10*3/uL (0.1-1.2); Monocytes Percent Auto 7.5 % (2-11); Neutrophils Absolute Auto 4.6 x10*3/uL (2.0-8.3); Neutrophils Percent Auto 47.7 % (45-73); Platelet Count 360 X10*3/uL (160-400); Red Blood Count 4.41 X10*6/uL (4.20-5.50); Red Cell Distribution Width 12.4 % (11.0-16.0); White Blood Count 9.5 X10*3/uL (4.8-10.8)
[2022-07-15 22:48] LABS: D Dimer High Sensitivity 224 NG/ML
[2022-07-15 23:02] LABS: Alanine Aminotransferase 26 U/L (0-31); Albumin Level 4.5 g/dL (3.5-5.0); Alkaline Phosphatase 78 U/L (39-117); Anion Gap 13 (12-20); Aspartate Amino Transferase 22 U/L (5-31); Bilirubin Total 0.5 mg/dL (0.0-1.0); Blood Urea Nitrogen 15 mg/dL (9-16); Calcium 9.4 mg/dL (8.4-10.2); Carbon Dioxide 28 mmol/L (22-29); Chloride 103 mmol/L (96-108); Creatinine Clr Calc Pharmacy 88.1; Estimated Glomerular Filt Rate > 60; Glucose Random 109 mg/dL (60-115); Potassium 4.1 mmol/L (3.3-5.1); Sodium 140 mmol/L (135-145); Total Protein 7.8 g/dL (6.5-8.0)
[2022-07-15 23:05] LABS: B Type Natriuretic Peptide 18 pg/mL (<100); Troponin-I High Sensitivity < 3.5 ng/L (<3.5-17.0)
[2022-07-15 23:41] VITALS: BP 114/79; PULSE 75; RESP 16; O2SAT 98
--- NOTE | 2022-07-15 23:49 | PC.NURSE ---
Assumed care of pt at 2330.
--- NOTE | 2022-07-16 00:11 | ED_ITS ---
HPI - Chest Pain General Chief Complaint: Dyspnea Stated Complaint: Chest tightness/Difficulty breathing Time Seen by Provider: 07/15/22 23:23 Source: patient Mode of arrival: ambulatory Limitations: no limitations History of Present Illness HPI narrative: 47-year-old female who presents emergency department for evaluation of chest pain shortness of breath, lightheadedness dizziness numbness and weakness. The patient states that she had a COVID-19 infection approximately 1 week prior. She had a positive home test and confirmatory test by her doctor. She states that her symptoms included sneezing, increased mucus production, bone and muscle pain, fatigue. She states that her symptoms lasted approximately 4-5 days and then resolved. The patient did received 2 [employer] COVID-19 vaccinations. She states she has since tested negative for COVID-19. She states that this morning she got in a argument with her boyfriend which was very stressful pain. Prior to coming to the emergency department she was at her daughter's house. The patient states that she developed a coughing spell which was uncontrollable. This then caused her to have tightness in her chest with difficulty breathing. She points to the center of her chest when describing the tightness. She does state it was a tight pressure which was constant and was 10/10. She felt short of breath, lightheaded and dizzy as if she was going to pass out. She developed numbness and tingling in her hands feet and lips. She was then brought to emergency department for evaluation. At the time of my evaluation she states that her symptoms have resolved. The patient states that this is her 1st episode of these types of symptoms. MD complaint: chest pain Pertinent past history: other (Diastolic congestive heart failure secondary to hypertension) Onset (ago): minute(s) (30 prior to arrival) Timing of current episode: constant Prior episodes: No Onset: other (During coughing fits) Pain location: substernal Pain radiation: none Severity: severe Pain scale (0-10): 10 Quality: tightness (Pressure) Relieving factors: nothing Exacerbating factors: nothing Context: recent illness (COVID-19 infection 1 week prior) Associated symptoms: dyspnea, palpitations and cough Treatment prior to arrival: none Related Data On Oral Contraceptives: No Home Medications Medication Instructions Recorded Confirmed carvedilol 6.25 mg tablet 1 tab PO BID 05/01/22 05/01/22 Previous Rx's Medication Instructions Recorded amlodipine 2.5 mg tablet 2.5 mg PO DAILY #7 tabs 05/01/22 diphenhydramine HCl 25 mg capsule 25 mg PO TID PRN allergic reaction 05/01/22 (Benadryl) #10 caps famotidine 20 mg tablet 20 mg PO DAILY #10 tabs 05/01/22 prednisone 20 mg tablet 40 mg PO DAILY #4 tabs 05/01/22 amlodipine 2.5 mg tablet (Norvasc) 7.5 mg PO DAILY 10 days #30 tabs 05/03/22 Allergies Allergy/AdvReac Type Severity Reaction Status Date / Time meperidine [From DEMEROL] Allergy Severe ANAPHYLAXIS Verified 02/25/22 11:16 shrimp [SHRIMP] AdvReac Severe DIFFICULTY Verified 02/25/22 11:16 BREATHING Review of Systems Review of Systems: Yes all other systems are reviewed and are negative [facility] Past Medical History [facility] Narrative: Social history: She denies tobacco, and drug use. She states that she drinks rarely and drinks alcohol 2 times per month. Medical History KATY III (cervical intraepithelial neoplasia III) COVID-19 Diastolic heart failure HTN (hypertension) Surgical History Hx of section Hx of cholecystectomy Family History Family History Maternal Grandmother Breast cancer Social History Social History Alcohol intake: current Alcohol intake frequency: holidays/special occasions only Patient Tobacco Use Status: Never used Tobacco Use of substances other than those prescribed or required for medical reasons: No Advance Directives: No Sexual orientation: Straight/Heterosexual Gender identity: Female Physical Exam Vital Signs: Vital Signs: Last Vital Signs Temp 96.8 F 07/15/22 22:13 Pulse 75 07/15/22 23:41 Resp 16 07/15/22 23:41 BP 114/79 07/15/22 23:41 Pulse Ox 98 07/15/22 23:41 O2 Del Method 07/15/22 23:41 BMI result Body Mass Index 30.4 Const: General: cooperative and no acute distress Orientation/consciousness: oriented to person and oriented to place Limitations: no limitations HEENT: Head: Yes normal to inspection, Yes normocephalic and Yes atraumatic Ears: external ears normal General nose exam: Normal external nose present Face and sinus: Yes normal facial exam Mouth: Normal oral and palatal mucosa present Throat: Yes posterior oropharynx normal Eyes: General: appearance normal, both eyes and all related structures Pupils: Equal, round and reactive pupils present Neck: Neck: Yes normal visual inspection, Yes no lymphadenopathy, Yes trachea midline and Yes supple Chest: Chest palpation & inspection: normal inspection of the chest and normal palpation of entire chest wall Resp: Effort & Inspection: normal respiratory effort and able to speak in complete sentences Auscultation: clear to auscultation bilaterally Cardio: Rate: regular rate Rhythm: regular rhythm Heart sounds: S1 normal heart sound present, S2 normal heart sound present and no murmurs GI: Inspection: Yes normal to inspection Palpation (GI): Soft to palpation, nontender and no guarding Auscultation: normal bowel sounds : General: Yes no CVA tenderness Back/Spine/Pelvis: Back: no CVA tenderness Skin: General skin exam: no rashes or lesions noted Neuro: General: oriented to person and oriented to place Cranial nerves: Yes CN's II-XII intact bilaterally and Yes Equal, round and reactive pupils present Cognition (Neuro): normal cognition Motor exam (neuro): 5/5 motor strength present throughout Extrem: General: Yes normal to inspection Psych: Appearance: grossly normal Speech and movement: Normal speech and movement present Affect: normal affect Attitude: cooperative Thought process: Normal thought process present Thought content: Normal thought content present Course Course Course Narrative: 47-year-old female who presents emergency department for evaluation of chest tightness/pressure which was triggered by a coughing spell approximately 30 minutes prior to coming to the emergency department. Patient also had an argument with her boyfriend today which was very stressful. Patient was recently diagnosed with COVID 19 infection 1 week prior but is now asymptomatic. Laboratory evaluation: CBC normal. CMP normal. High sensitivity troponin I below detectable limits. D-dimer 224 which was normal Radiology evaluation: Chest x-ray was unremarkable. Twelve EKG: Unremarkable per The patient's presentation is consistent with hyperventilation syndrome triggered by stress and a coughing fit that occurred prior to coming to the emergency department. I did discuss this with the patient. Patient was given printed and verbal instructions and discharged home. MDM - Chest Pain Medical Records Data Attestation: I reviewed the patient's medical records. Lab Data Attestation: I reviewed the patient's lab results. Result diagrams: 07/15/22 22:32 07/15/22 22:32 Labs: Lab Results 07/15/22 07/15/22 07/15/22 Range/Units 22:32 22:32 22:32 WBC 9.5 (4.8-10.8) X10*3/uL RBC 4.41 (4.20-5.50) X10*6/uL Hgb 13.6 (12.0-16.0) g/dl Hct 39.6 (37.0-47.0) % MCV 89.8 (80.0-98.0) fL MCH 30.8 (27.0-33.0) pg MCHC 34.3 (31.0-35.0) g/dl RDW 12.4 (11.0-16.0) % Plt Count 360 (160-400) X10*3/uL MPV 10.1 (9.4-12.3) fL Immature Gran % (Auto) 0.3 (0.0-0.4) % Neut % (Auto) 47.7 (45-73) % Lymph % (Auto) 36.7 (20-40) % Patrick % (Auto) 7.5 (2-11) % Eos % (Auto) 6.7 H (0-4) % Baso % (Auto) 1.1 (0-2) % Lymph # (Auto) 3.5 (1.2-4.9) X10*3/uL Patrick # (Auto) 0.7 (0.1-1.2) X10*3/uL Eos # (Auto) 0.6 H (0.0-0.4) X10*3/uL Baso # (Auto) 0.1 (0.0-0.2) X10*3/uL Abs Immat Gran (auto) 0.03 (0.00-0.03) X10*3/uL Absolute Neuts (auto) 4.6 (2.0-8.3) x10*3/uL Absolute Nucleated RBC 0.000 (0.0-0.012) X10*3/uL Nucleated RBC % (auto) 0.0 (0.0-0.2) /100WBC D-Dimer High Sensitivty 224 NG/ML Sodium 140 (135-145) mmol/L Potassium 4.1 (3.3-5.1) mmol/L Chloride 103 (96-108) mmol/L Carbon Dioxide 28 (22-29) mmol/L Anion Gap 13 (12-20) BUN 15 (9-16) mg/dL Creatinine 0.93 (0.5-1.4) mg/dL Estim Creat Clear Calc 88.1 Estimated GFR > 60 Random Glucose 109 (60-115) mg/dL Calcium 9.4 (8.4-10.2) mg/dL Total Bilirubin 0.5 (0.0-1.0) mg/dL AST 22 (5-31) U/L ALT 26 (0-31) U/L Alkaline Phosphatase 78 (39-117) U/L Troponin I High Sens (<3.5-17.0) ng/L B-Natriuretic Peptide (<100) pg/mL Total Protein 7.8 (6.5-8.0) g/dL Albumin 4.5 (3.5-5.0) g/dL 07/15/22 07/15/22 Range/Units 22:32 22:32 WBC (4.8-10.8) X10*3/uL RBC (4.20-5.50) X10*6/uL Hgb (12.0-16.0) g/dl Hct (37.0-47.0) % MCV (80.0-98.0) fL MCH (27.0-33.0) pg MCHC (31.0-35.0) g/dl RDW (11.0-16.0) % Plt Count (160-400) X10*3/uL MPV (9.4-12.3) fL Immature Gran % (Auto) (0.0-0.4) % Neut % (Auto) (45-73) % Lymph % (Auto) (20-40) % Patrick % (Auto) (2-11) % Eos % (Auto) (0-4) % Baso % (Auto) (0-2) % Lymph # (Auto) (1.2-4.9) X10*3/uL Patrick # (Auto) (0.1-1.2) X10*3/uL Eos # (Auto) (0.0-0.4) X10*3/uL Baso # (Auto) (0.0-0.2) X10*3/uL Abs Immat Gran (auto) (0.00-0.03) X10*3/uL Absolute Neuts (auto) (2.0-8.3) x10*3/uL Absolute Nucleated RBC (0.0-0.012) X10*3/uL Nucleated RBC % (auto) (0.0-0.2) /100WBC D-Dimer High Sensitivty NG/ML Sodium (135-145) mmol/L Potassium (3.3-5.1) mmol/L Chloride (96-108) mmol/L Carbon Dioxide (22-29) mmol/L Anion Gap (12-20) BUN (9-16) mg/dL Creatinine (0.5-1.4) mg/dL Estim Creat Clear Calc Estimated GFR Random Glucose (60-115) mg/dL Calcium (8.4-10.2) mg/dL Total Bilirubin (0.0-1.0) mg/dL AST (5-31) U/L ALT (0-31) U/L Alkaline Phosphatase (39-117) U/L Troponin I High Sens < 3.5 (<3.5-17.0) ng/L B-Natriuretic Peptide 18 (<100) pg/mL Total Protein (6.5-8.0) g/dL Albumin (3.5-5.0) g/dL ECG Data ECG #1: Attestation: I personally reviewed and interpreted this ECG as follows: Interpretation: 2250: Normal sinus rhythm with a rate of 78, normal VA interval, QRS duration and QTC interval, no ST segment elevation, no ST segment depression, no PACs, no PVCs. Normal T-waves. This is a normal EKG. Discharge Plan Discharge Clinical Impression: Chest pain, Shortness of breath, Acute hyperventilation syndrome Patient Disposition: Home, Self-Care Instructions: Hyperventilation (ED) Additional Instructions: Your blood work was unremarkable. Your D-dimer (marker of blood clots) was normal. Your high sensitivity troponin I (marker of heart attack/heart damage) was below detectable limits. Your EKG was normal. Your chest x-ray was normal. Your chest pain and shortness of breath were triggered by your coughing and based on the stress that you are under, these symptoms then triggered a hyperventilation/anxiety attack in you. If you get these symptoms again you should try to lie down and slow your breathing down and that should help your symptoms resolve. If they do not resolve, please call an ambulance and come back to the emergency department for re-evaluation. Follow-up with your doctor in 2 days. Please return to the emergency department if your symptoms get worse or if you develop any symptoms that are concerning to you. Prescriptions: No Action amlodipine [Norvasc] 2.5 mg tablet 7.5 mg PO DAILY 10 Days Qty: 30 0RF carvedilol 6.25 mg tablet 1 tab PO BID prednisone 20 mg Tablet 40 mg PO DAILY Qty: 4 0RF famotidine 20 mg Tablet 20 mg PO DAILY Qty: 10 0RF diphenhydramine HCl [Benadryl] 25 mg capsule 25 mg PO TID PRN (Reason: allergic reaction) Qty: 10 0RF amlodipine 2.5 mg tablet 2.5 mg PO DAILY Qty: 7 0RF Rx Instructions: use if blood pressure consistently above 140
[2022-07-16 00:32] VITALS: BP 118/84; PULSE 73; RESP 15; O2SAT 98
--- NOTE | 2022-07-16 00:33 | PC.NURSE ---
Discharge instructions given and explained to pt. All of pt's questions answered. Pt ambulates independently and safely.
== END 2022-07-16 00:35 | disposition home or self-care (01) ==
PROVIDERS: Emergency Provider Emergency Medicine Emergency Medical Services; PCP Internal Medicine
DX: R06.02 Shortness of breath (principal); R05.9 Cough, unspecified; R00.2 Palpitations; R07.89 Other chest pain; F45.8 Other somatoform disorders; Z79.899 Other long term (current) drug therapy
CPT/HCPCS: 36415; 71046; 80053; 83880; 84484; 85025; 85379; 93005; 99283; 99285

== ENCOUNTER 2022-08-02 15:23 | Outpatient (REF) | payer BC, SELFPAY ==
[2022-08-03 03:19] LABS: CT PCR NOT DETECTED (Not Detect.); NG PCR NOT DETECTED (Not Detect.)
[2022-08-03 13:20] LABS: BV Int Neg Control Negative (Negative); BV Int Pos Control Positive (Positive)
== END 2022-08-02 15:24 | disposition home or self-care (01) ==
LOC: HO.LNP 15:23
PROVIDERS: Visit Provider Advanced Practice Midwife
DX: N89.8 Other specified noninflammatory disorders of vagina (principal); N93.0 Postcoital and contact bleeding; R30.0 Dysuria
CPT/HCPCS: 81003; 81025; 87086; 87088; 87186; 87480; 87491; 87510; 87591; 87660

== ENCOUNTER 2022-11-11 20:13 | Emergency (ER) | payer BC, SELFPAY ==
--- NOTE | ~2022-11-11 | CT_ITS ---
EXAMINATION: CT HEAD WITHOUT CONTRAST CLINICAL INFORMATION: Syncope. COMPARISON: CT head from 05/03/2022. TECHNIQUE: Contiguous axial imaging was performed from the skull base to vertex without intravenous administration of contrast. This CT examination was performed using dose optimization techniques as appropriate, variously including the following: *Automated exposure control. *Adjustment of mA and/or kV according to patient size (this includes techniques or standardized protocols for targeted exams where dose is matched to indication/reason for exam; i.e. extremities or head). *Use of iterative reconstruction technique. DLP: 729 mGy-cm FINDINGS: There is no evidence of acute intracranial hemorrhage or edematous territorial infarction. Oneil-white matter differentiation is preserved. There is no abnormal attenuation within the brain parenchyma. The ventricles are normal in morphology and size. No evidence for obstructive hydrocephalus. No abnormal mass effect or midline shift. Prominent expansion of the sella turcica with flattening of the pituitary gland. Normal positioning of the cerebellar tonsils. No extra-axial fluid collections. No acute soft tissue or osseous abnormalities. Mild mucosal thickening of the paranasal sinuses. The mastoid air cells and middle ear cavities are clear. CT/CT head/brain wo IV con IMPRESSION: No evidence of acute intracranial hemorrhage or edematous territorial infarction.
--- NOTE | ~2022-11-11 | CT_ITS ---
EXAMINATION: CT ABDOMEN AND PELVIS WITH CONTRAST CLINICAL INFORMATION: Sudden onset abdominal pain COMPARISON: CT abdomen and pelvis 03/29/2019, pelvic ultrasound from earlier the same day TECHNIQUE: Multidetector volumetric images were obtained from the superior aspect of the liver through the pubic symphysis following administration 85 mL of Omnipaque 350 intravenous contrast. Sagittal and coronal reformatted images were obtained on the technologist's workstation. Oral contrast: No This CT examination was performed using dose optimization techniques as appropriate, variously including the following: *Automated exposure control *Adjustment of mA and/or kV according to patient size (this includes techniques or standardized protocols for targeted exams where dose is matched to indication/reason for exam; i.e. extremities or head) *Use of iterative reconstruction technique DLP: 666.16 mGy-cm FINDINGS: LUNG BASES: There is mild dependent atelectasis. LIVER, GALLBLADDER, AND BILIARY TREE: The liver is normal in size, shape, and attenuation. No focal hepatic lesion or biliary ductal dilatation is present. The gallbladder is surgically absent. PANCREAS: Unremarkable. SPLEEN: Unremarkable. ADRENAL GLANDS: Unremarkable. KIDNEYS AND URETERS: There is right-sided hydroureteronephrosis. In the distal right ureter, there is a calculus measuring up to 0.4 cm (series 14, image 79). This is almost to the vesicoureteral junction. The right kidney otherwise demonstrates normal and symmetric parenchymal enhancement. No perinephric stranding. There are multiple additional bilateral small nonobstructive intrarenal calculi. No evidence of left-sided hydronephrosis or hydroureter. BLADDER: Underdistended, unremarkable GASTROINTESTINAL TRACT: The small bowel is nondilated. The colon is quite redundant in its course. No focal pericolonic inflammatory change is identified. The appendix is unremarkable. No evidence of free fluid or pneumoperitoneum. ABDOMINAL WALL: No significant hernia is appreciated. LYMPH NODES: No evidence of pathologic retroperitoneal or mesenteric lymphadenopathy by size criteria. VASCULAR: Scattered calcifications of the abdominal aorta. Abdominal aorta is normal in caliber. PELVIC VISCERA: The uterus is enlarged without discrete nodularity. No adnexal mass is seen. OSSEOUS STRUCTURES: Degenerative change at L5-S1 with moderate loss of the disc height and vacuum disc phenomenon. No acute or suspicious osseous abnormality. CT/CT abdomen pelvis w IV con IMPRESSION: There is right-sided hydroureteronephrosis with a 0.4 cm calculus in the distal right ureter. Multiple additional nonobstructive intrarenal calculi are present bilaterally. Fleischner guidelines were followed.
--- NOTE | ~2022-11-11 | US_ITS ---
EXAMINATION: US PELVIS CLINICAL INFORMATION: Right lower quadrant pain COMPARISON: Pelvic ultrasound 02/01/2022 TECHNIQUE: Ultrasound of the pelvis is performed using both transabdominal and transvaginal transducers along with Doppler. Transvaginal imaging is performed due to inadequate visualization transabdominally. FINDINGS: Uterus: The uterus is anteverted and measures 9.2 x 6.2 x 7 cm. The double wall endometrial thickness is 0.7 mm. The uterus is somewhat bulky in appearance with slightly diffusely heterogeneous myometrial echotexture. No visible fibroid. Adnexa: There is no pelvic ascites or fluid collection. Right ovary is not seen. Left ovary appears quiescent and measures 1.9 x 0.9 x 0.9 cm, volume of 0.8 mL.There is dopplerable venous flow within the left ovary. Arterial flow could not be demonstrated. US/US pelvic and transvaginal IMPRESSION: 1. Right ovary not visualized. No adnexal mass or pelvic ascites. 2. Unremarkable appearance of the left ovary. 3. Somewhat bulky and heterogeneous appearance of the uterus, unchanged. No visible fibroid. 4. Normal endometrial thickness.
--- NOTE | ~2022-11-11 | US_ITS ---
EXAMINATION: US PELVIS CLINICAL INFORMATION: Right lower quadrant pain COMPARISON: Pelvic ultrasound 02/01/2022 TECHNIQUE: Ultrasound of the pelvis is performed using both transabdominal and transvaginal transducers along with Doppler. Transvaginal imaging is performed due to inadequate visualization transabdominally. FINDINGS: Uterus: The uterus is anteverted and measures 9.2 x 6.2 x 7 cm. The double wall endometrial thickness is 0.7 mm. The uterus is somewhat bulky in appearance with slightly diffusely heterogeneous myometrial echotexture. No visible fibroid. Adnexa: There is no pelvic ascites or fluid collection. Right ovary is not seen. Left ovary appears quiescent and measures 1.9 x 0.9 x 0.9 cm, volume of 0.8 mL.There is dopplerable venous flow within the left ovary. Arterial flow could not be demonstrated. US/US pelvic ovarian doppler IMPRESSION: 1. Right ovary not visualized. No adnexal mass or pelvic ascites. 2. Unremarkable appearance of the left ovary. 3. Somewhat bulky and heterogeneous appearance of the uterus, unchanged. No visible fibroid. 4. Normal endometrial thickness.
[2022-11-11 20:34] VITALS: BP 138/88; PULSE 68; RESP 18; O2SAT 99; BMI 27.4
--- NOTE | 2022-11-11 20:46 | ECG_ITS ---
Test Reason : ABD PAIN Blood Pressure : / mmHG Vent. Rate : 070 BPM Atrial Rate : 070 BPM P-R Int : 150 ms QRS Dur : 098 ms QT Int : 390 ms P-R-T Axes : 057 051 037 degrees QTc Int : 421 ms Normal sinus rhythm Normal ECG When compared with ECG of 15-JUL-2022 22:50, No significant change was found Referred By: Terry Powell Electronically Signed By:MARIA LUISA KU MD
--- NOTE | 2022-11-11 20:47 | ED_ITS ---
HPI - Abdominal Pain General Chief Complaint: Abdominal Pain Stated Complaint: lower abd pain with syncope Time Seen by Provider: 11/11/22 20:24 Source: patient Mode of arrival: ambulatory Limitations: no limitations History of Present Illness HPI narrative: This is a 47-year-old female presenting to the emergency department with severe sudden onset right lower quadrant pain that started 10 minutes prior to EMS a rrival. Patient arrives the department states that her pain is intolerable in the right lower quadrant and radiating down her pelvis. She reports an episode of nausea, vomiting and syncope which was witnessed by EMS, she thinks it is secondary to severe pain. Patient has no history of ovarian cyst. Patient does not think she is . Patient has a cholecystectomy. However she still has her appendix. Patient tells me movement makes the pain much worse. Denies fevers, chills, chest pain, shortness of breath, headache, vision changes in dizziness. Patient appears extremely uncomfortable Related Data Home Medications Medication Instructions Recorded Confirmed carvedilol 6.25 mg tablet 1 tab PO BID 05/01/22 05/01/22 hydrochlorothiazide 12.5 mg tablet 12.5 mg PO DAILY 08/02/22 Previous Rx's Medication Instructions Recorded amlodipine 2.5 mg tablet 2.5 mg PO DAILY #7 tabs 05/01/22 amlodipine 2.5 mg tablet (Norvasc) 7.5 mg PO DAILY 10 days #30 tabs 05/03/22 sulfamethoxazole 800 1 tab PO BID 3 days #6 tabs 08/02/22 mg-trimethoprim 160 mg tablet (Bactrim DS) metronidazole 0.75 % (37.5 mg/5 1 appful vaginal BEDTIME 5 days 08/04/22 gram) vaginal gel #70 grams morphine 15 mg immediate release 15 mg PO BID PRN pain #8 tabs 11/12/22 tablet prednisone 20 mg tablet 20 mg PO DAILY 5 days #5 tabs 11/12/22 tamsulosin 0.4 mg capsule (Flomax) 0.4 mg PO DAILY 20 days #20 caps 11/12/22 Allergies Allergy/AdvReac Type Severity Reaction Status Date / Time meperidine [From DEMEROL] Allergy Severe ANAPHYLAXIS Verified 08/02/22 15:33 lisinopril Allergy Unknown Swelling Verified 08/02/22 15:33 shrimp [SHRIMP] AdvReac Severe DIFFICULTY Verified 08/02/22 15:33 BREATHING Review of Systems Review of Systems Constitutional : No Weight loss, No Fever, No Chills, No Fatigue, No Malaise ENT/Mouth : No sore throat, No Rhinorrhea Eyes: No Eye Pain, No Swelling, No Redness Cardiovascular : No Chest Pain, No SOB, No Dyspnea on Exertion, No Orthopnea, No Edema, No Palpitations Respiratory : No Cough, No Sputum, No Wheezing Gastrointestinal : + Nausea, + Vomiting, No Diarrhea, No Constipation, + abdominal Pain, No Hematochezia, No Melena Genitourinary : No Dysuria, No Urinary Frequency, No Hematuria, Musculoskeletal : No joint pain, No Myalgias, No Joint Swelling Skin : No Skin Lesions, No rash Neuro : No Weakness, No Numbness, No Dizziness, No Headache, + syncope Psych : No Anxiety/Panic, No Depression All other systems reviewed and are negative Yes all other systems are reviewed and are negative PMFSH Past Medical History Attestation statement: The following information was validated with the patient. Source: old records reviewed and nursing notes reviewed Medical History KATY III (cervical intraepithelial neoplasia III) COVID-19 Diastolic heart failure HTN (hypertension) Surgical History Hx of section Hx of cholecystectomy Family History Family History Maternal Grandmother Breast cancer Social History Social History Alcohol intake: current Alcohol intake frequency: holidays/special occasions only Patient Tobacco Use Status: Never used Tobacco Smoked in Last 30 Days: No Use of substances other than those prescribed or required for medical reasons: No Advance Directives: No Advance Directives Information Provided: No Patient : No Sexual orientation: Straight/Heterosexual Gender identity: Female Physical Exam ED Vital Signs: Vital Signs - 24 hr 11/11/22 20:34 11/11/22 21:43 11/11/22 21:54 Temperature 98.3 F Pulse Rate 68 68 Respiratory Rate 18 16 16 Blood Pressure 138/88 118/64 Pulse Oximetry 99 98 Oxygen Delivery Method Room Air Room Air 11/12/22 00:00 Temperature 97.9 F Pulse Rate 68 Respiratory Rate 16 Blood Pressure 101/63 Pulse Oximetry 98 Oxygen Delivery Method Room Air BMI result Body Mass Index 27.4 Vital signs stable Appearance: Alert.? Oriented X3.? No acute distress.? Patient appears uncomfortable Head: Normocephalic, atraumatic, no step-offs or deformities Eyes: Pupils equal, round and reactive to light.? ENT: Pharynx normal.? Neck: Normal inspection.? Neck supple.? CVS: Normal heart rate and rhythm.? Pulses normal.? Respiratory: No respiratory distress.? Breath sounds normal.? Abdomen: Soft and significant tenderness to the right lower quadrant with rebound tenderness.? Skin: Skin warm and dry.? Normal skin color.? Normal skin turgor.? Extremities: No lower extremity edema.? No calf ttp. 5/5 strength to bilateral upper and lower extremities Back: No midline tenderness, no C-spine tenderness, full range of motion, no CVA tenderness bilaterally Neuro: Oriented X 3.? No motor deficit.? No sensory deficit. CN 2-12 intact Course Reevaluation(s) Reevaluation #1: Patient's CBC with leukocytosis 12.1. Chemistry with no acute electrolyte abnormalities requiring intervention. Trop negative, ekg nonischemic. Lipase within normal limits. Urine negative. Urine negative. COVID negative. Ultrasound of pelvic an ovarian Doppler with right ovary not visualized. No adnexal mass or pelvis ascites. Unremarkable appearance of the left ovary. Somewhat bulky and heterogeneous appearance of the uterus unchanged. No visible fibroid. Normal endometrial thickness. Head CT with no evidence of acute intracranial hemorrhage or edematous territorial infarction. Neuro nonfocal. CT of the abdomen pelvis pending. Time: 23:00 Reevaluation #2: CT of the abdomen pelvis showing a 0.4 cm stone in the distal ureter. Likely contributing to patient's pain. Patient syncopized likely secondary to pain or vasovagal. Patient's pain well controlled will give prednisone, Flomax, fluids and morphine. Patient will be discharged home with the same. Will give her urology follow-up. She reports significant improvement with pain medicine. Educated patient on diagnosis and treatment plan, answered all question, patient verbalizes understanding. At this time patient will be discharged home, advised to return with new or worsening symptoms. Educated on worrisome signs and symptoms and when to return. At this time I feel comfortable discharge home. Time: 00:54 Medical Decision Making Medical Decision Making [facility] Narrative: 2018 This is a 47-year-old female presenting with sudden onset right lower quadrant pain that is severe, stabbing in nature and constant progressively worsening also reports nausea, vomiting at the onset of symptoms with a syncopal episode witnessed by EMS. Physical examination with significant right lower quadrant pain particularly with rebound. Patient appears uncomfortable. Concerns for possible ovarian torsion versus appendicitis. Patient does not think she is , therefore low suspicion for ectopic . Unlikely ACS. Plan at this time is labs, urine, urine , imaging. Will obtain CT of the head due to syncope, EKG and troponin. Lab Data Result Diagrams: 11/11/22 21:40 11/11/22 21:40 Labs: Lab Results 11/11/22 11/11/22 11/11/22 Range/Units 21:40 21:40 21:40 WBC 12.1 H (4.8-10.8) X10*3/uL RBC 4.17 L (4.20-5.50) X10*6/uL Hgb 12.9 (12.0-16.0) g/dl Hct 37.5 (37.0-47.0) % MCV 89.9 (80.0-98.0) fL MCH 30.9 (27.0-33.0) pg MCHC 34.4 (31.0-35.0) g/dl RDW 12.1 (11.0-16.0) % Plt Count 309 (160-400) X10*3/uL MPV 10.2 (9.4-12.3) fL Immature Gran % (Auto) 0.3 (0.0-0.4) % Neut % (Auto) 69.4 (45-73) % Lymph % (Auto) 18.3 L (20-40) % [place] % (Auto) 6.8 (2-11) % Eos % (Auto) 4.3 H (0-4) % Baso % (Auto) 0.9 (0-2) % Lymph # (Auto) 2.2 (1.2-4.9) X10*3/uL [place] # (Auto) 0.8 (0.1-1.2) X10*3/uL Eos # (Auto) 0.5 H (0.0-0.4) X10*3/uL Baso # (Auto) 0.1 (0.0-0.2) X10*3/uL Abs Immat Gran (auto) 0.04 H (0.00-0.03) X10*3/uL Absolute Neuts (auto) 8.4 H (2.0-8.3) x10*3/uL Absolute Nucleated RBC 0.000 (0.0-0.012) X10*3/uL Nucleated RBC % (auto) 0.0 (0.0-0.2) /100WBC Sodium 141 (135-145) mmol/L Potassium 4.1 (3.3-5.1) mmol/L Chloride 105 (96-108) mmol/L Carbon Dioxide 29 (22-29) mmol/L Anion Gap 11 L (12-20) BUN 20 H (9-16) mg/dL Creatinine 1.00 (0.5-1.4) mg/dL Estim Creat Clear Calc 70.4 Estimated GFR 59 Random Glucose 130 H (60-115) mg/dL Calcium 9.6 (8.4-10.2) mg/dL Magnesium 1.9 (1.6-2.6) mg/dL Total Bilirubin 0.6 (0.0-1.0) mg/dL AST 30 (5-31) U/L ALT 36 H (0-31) U/L Alkaline Phosphatase 72 (39-117) U/L Troponin I High Sens (<3.5-17.0) ng/L Total Protein 7.6 (6.5-8.0) g/dL Albumin 4.4 (3.5-5.0) g/dL Lipase 41 (8-78) U/L Beta HCG, Quant < 2 mIU/mL Urine Color Urine Appearance Urine pH (5.0-9.0) Ur Specific [place] (1.005-1.025) Urine Protein (Neg-Trace) mg/dL Urine Glucose (UA) (Negative) mg/dL Urine Ketones (Negative) mg/dL Urine Blood (Negative) Urine Nitrite (Negative) Ur Leukocyte Esterase (Negative) Urine Test (NEGATIVE) COVID-19 (FELISA) Negative (Negative) COVID-19 Clin Com See Note 11/11/22 11/11/22 11/11/22 Range/Units 21:40 21:59 21:59 WBC (4.8-10.8) X10*3/uL RBC (4.20-5.50) X10*6/uL Hgb (12.0-16.0) g/dl Hct (37.0-47.0) % MCV (80.0-98.0) fL MCH (27.0-33.0) pg MCHC (31.0-35.0) g/dl RDW (11.0-16.0) % Plt Count (160-400) X10*3/uL MPV (9.4-12.3) fL Immature Gran % (Auto) (0.0-0.4) % Neut % (Auto) (45-73) % Lymph % (Auto) (20-40) % [place] % (Auto) (2-11) % Eos % (Auto) (0-4) % Baso % (Auto) (0-2) % Lymph # (Auto) (1.2-4.9) X10*3/uL [place] # (Auto) (0.1-1.2) X10*3/uL Eos # (Auto) (0.0-0.4) X10*3/uL Baso # (Auto) (0.0-0.2) X10*3/uL Abs Immat Gran (auto) (0.00-0.03) X10*3/uL Absolute Neuts (auto) (2.0-8.3) x10*3/uL Absolute Nucleated RBC (0.0-0.012) X10*3/uL Nucleated RBC % (auto) (0.0-0.2) /100WBC Sodium (135-145) mmol/L Potassium (3.3-5.1) mmol/L Chloride (96-108) mmol/L Carbon Dioxide (22-29) mmol/L Anion Gap (12-20) BUN (9-16) mg/dL Creatinine (0.5-1.4) mg/dL Estim Creat Clear Calc Estimated GFR Random Glucose (60-115) mg/dL Calcium (8.4-10.2) mg/dL Magnesium (1.6-2.6) mg/dL Total Bilirubin (0.0-1.0) mg/dL AST (5-31) U/L ALT (0-31) U/L Alkaline Phosphatase (39-117) U/L Troponin I High Sens < 3.5 (<3.5-17.0) ng/L Total Protein (6.5-8.0) g/dL Albumin (3.5-5.0) g/dL Lipase (8-78) U/L Beta HCG, Quant mIU/mL Urine Color Yellow Urine Appearance Cloudy Urine pH 7.0 (5.0-9.0) Ur Specific [place] 1.020 (1.005-1.025) Urine Protein Negative (Neg-Trace) mg/dL Urine Glucose (UA) Negative (Negative) mg/dL Urine Ketones Negative (Negative) mg/dL Urine Blood Negative (Negative) Urine Nitrite Negative (Negative) Ur Leukocyte Esterase Negative (Negative) Urine Test NEGATIVE (NEGATIVE) COVID-19 (FELISA) (Negative) COVID-19 Clin Com Medications Administered Discontinued Medications Generic Name Dose Route Start Last Admin Trade Name Ericq PRN Reason Stop Dose Admin Iohexol 85 ml 11/11/22 22:41 11/11/22 22:49 Iohexol 350 Mg/Ml 100 Ml Infus..Btl IV 11/11/22 22:42 85 ml ONCE ONE Administration Morphine Sulfate 4 mg 11/11/22 20:24 11/11/22 21:54 Morphine Sulfate 4 Mg/Ml Cartridge IVPUSH 11/11/22 20:25 4 mg ONCE ONE Administration Protocol Critical Care Time Critical Care Time Critical Care Time: No Discharge Plan Discharge Clinical Impression: Kidney calculus, Syncope Patient Disposition: Home, Self-Care Instructions: Kidney Stones (ED), Syncope (ED) Additional Instructions: Take your medications as prescribed. If you were prescribed antibiotics today, it is important that you take your medication to their entirety, do not skip any doses, do not finish them early. Follow-up with your primary care provider this week. Return to the emergency department with new or worsening symptoms. Such as fevers, chills, chest pain, shortness of breath, nausea, vomiting, dizziness, headache, vision changes, lethargy In case of emergency call 911 Who found to have kidney stones. Please drink plenty of fluids. Please take your medications as prescribed. Morphine is a pain med that has been sent to her pharmacy it is a controlled medication and a narcotic which can cause dependence a can make you drowsy please do not take this with alcohol or other narcotics, do not sure with other people, do not take while driving or operating machinery. CT/CT abdomen pelvis w IV con IMPRESSION: There is right-sided hydroureteronephrosis with a 0.4 cm calculus in the distal right ureter. ? Multiple additional nonobstructive intrarenal calculi are present bilaterally. ? Fleischner guidelines were followed. Prescriptions: New prednisone 20 mg tablet 20 mg PO DAILY 5 Days Qty: 5 0RF tamsulosin [Flomax] 0.4 mg capsule 0.4 mg PO DAILY 20 Days Qty: 20 0RF morphine 15 mg tablet 15 mg PO BID PRN (Reason: pain) Qty: 8 0RF Rx Instructions: Partial Fill upon patient request. No Action metronidazole 0.75 % (37.5mg/5 gram) gel 1 appful vaginal BEDTIME 5 Days Qty: 70 0RF amlodipine [Norvasc] 2.5 mg tablet 7.5 mg PO DAILY 10 Days Qty: 30 0RF carvedilol 6.25 mg tablet 1 tab PO BID amlodipine 2.5 mg tablet 2.5 mg PO DAILY Qty: 7 0RF Rx Instructions: use if blood pressure consistently above 140 hydrochlorothiazide 12.5 mg tablet 12.5 mg PO DAILY sulfamethoxazole-trimethoprim [Bactrim DS] 800-160 mg tablet 1 tab PO BID 3 Days Qty: 6 0RF Referrals: Physician,Unknown J [Primary Care Provider] - 2 days [facility] [Provider Group] - 3 days Stand Alone Forms: Work/School Release
[2022-11-11 21:43] VITALS: BP 118/64; PULSE 68; RESP 16; TEMP 36.8; O2SAT 98
[2022-11-11 21:45] LABS: MANUAL DIFF FLAG NO
[2022-11-11 21:46] LABS: Basophils Absolute Auto 0.1 X10*3/uL (0.0-0.2); Basophils Percent Auto 0.9 % (0-2); Eosinophils Absolute Auto 0.5 X10*3/uL (0.0-0.4); Eosinophils Percent Auto 4.3 % (0-4); Hematocrit 37.5 % (37.0-47.0); Hemoglobin 12.9 g/dl (12.0-16.0); Imm Gran Abs Auto 0.04 X10*3/uL (0.00-0.03); Imm Gran Pct Auto 0.3 % (0.0-0.4); Lymphocytes Absolute Auto 2.2 X10*3/uL (1.2-4.9); Lymphocytes Percent Auto 18.3 % (20-40); Mean Corpuscular HGB Conc 34.4 g/dl (31.0-35.0); Mean Corpuscular Hemoglobin 30.9 pg (27.0-33.0); Mean Corpuscular Volume 89.9 fL (80.0-98.0); Mean Platelet Volume 10.2 fL (9.4-12.3); Monocytes Absolute Auto 0.8 X10*3/uL (0.1-1.2); Monocytes Percent Auto 6.8 % (2-11); Neutrophils Absolute Auto 8.4 x10*3/uL (2.0-8.3); Neutrophils Percent Auto 69.4 % (45-73); Platelet Count 309 X10*3/uL (160-400); Red Blood Count 4.17 X10*6/uL (4.20-5.50); Red Cell Distribution Width 12.1 % (11.0-16.0); White Blood Count 12.1 X10*3/uL (4.8-10.8)
[2022-11-11 21:54] VITALS: RESP 16
[2022-11-11] MEDS: Morphine Sulfate 4 MG/ML CARTRIDGE IVPUSH (21:54)
[2022-11-11 22:02] LABS: COVID-19 Test Negative (Negative); IDNOW Serial# 6674DD1D
[2022-11-11 22:04] LABS: Alanine Aminotransferase 36 U/L (0-31); Albumin Level 4.4 g/dL (3.5-5.0); Alkaline Phosphatase 72 U/L (39-117); Anion Gap 11 (12-20); Aspartate Amino Transferase 30 U/L (5-31); Bilirubin Total 0.6 mg/dL (0.0-1.0); Blood Urea Nitrogen 20 mg/dL (9-16); Calcium 9.6 mg/dL (8.4-10.2); Carbon Dioxide 29 mmol/L (22-29); Chloride 105 mmol/L (96-108); Creatinine Clr Calc Pharmacy 70.4; Estimated Glomerular Filt Rate 59; Glucose Random 130 mg/dL (60-115); Magnesium 1.9 mg/dL (1.6-2.6); Potassium 4.1 mmol/L (3.3-5.1); Sodium 141 mmol/L (135-145); Total Protein 7.6 g/dL (6.5-8.0)
[2022-11-11 22:08] LABS: Appearance Urine Cloudy; Color Urine Yellow; Glucose Urine UA Negative (Negative); Leukocyte Esterase Urine Negative (Negative); Nitrite Urine Negative (Negative); Urine Blood Negative (Negative); Urine Ketones Negative (Negative); Urine Protein Negative (Neg-Trace)
[2022-11-11 22:09] LABS: UPreg QC Valid YES; Urine Pregnancy NEGATIVE (NEGATIVE)
[2022-11-11 22:11] LABS: HCG Quantitative < 2 mIU/mL; Troponin-I High Sensitivity < 3.5 ng/L (<3.5-17.0)
--- NOTE | 2022-11-11 22:28 | PC.NURSE ---
Pt's V/ S are sable, Pt is connected to the alarm security or surveillance monitor and it shows NSR. Pt has Right flank pain, pt grimace during palpitation on the right side of the abd. Pt was medicated as order. pt Bowel sound were hypoactive.
[2022-11-11 22:44] LABS: Lipase 41 U/L (8-78)
[2022-11-11] MEDS: iohexoL 350 MG/ML 100 ML INFUS..BTL 85 ML IV (22:49)
[2022-11-12] VITALS: BP 101/63; PULSE 68; RESP 16; TEMP 36.6; O2SAT 98
[2022-11-12] MEDS: predniSONE 20 MG TABLET PO (01:36)
[2022-11-12] MEDS: 0.9 % Sodium Chloride 1,000 ML 999 ML IV ×2 (01:37→01:39)
[2022-11-12] MEDS: Tamsulosin HCL 0.4 MG CAPSULE PO (01:37)
[2022-11-12 01:54] VITALS: BP 101/64; PULSE 59; RESP 16; TEMP 36.4; O2SAT 97
== END 2022-11-12 03:11 | disposition home or self-care (01) ==
PROVIDERS: Physician Assistant; Emergency Provider Emergency Medicine
DX: N20.0 Calculus of kidney (principal); M54.50 Low back pain, unspecified; R10.2 Pelvic and perineal pain; R10.13 Epigastric pain; R55 Syncope and collapse; R60.0 Localized edema; Z20.822 Contact with and (suspected) exposure to COVID-19; Z79.899 Other long term (current) drug therapy
CPT/HCPCS: 36415; 70450; 74177; 76830; 76856; 80053; 81003; 81025; 83690; 83735; 84484; 84702; 85025; 87635; 93005; 93975; 96374; 99284; 99285; J2270; Q9967

== ENCOUNTER 2022-11-16 01:55 | Emergency (ER) | payer BC, SELFPAY ==
[2022-11-16 02:05] VITALS: BP 144/91; PULSE 72; RESP 20; TEMP 36.4; O2SAT 100
--- NOTE | 2022-11-16 02:20 | PC.NURSE ---
Pt reports that they took morphine at 0130. notified.
[2022-11-16 02:22] LABS: MANUAL DIFF FLAG NO
[2022-11-16 02:24] LABS: Basophils Absolute Auto 0.1 X10*3/uL (0.0-0.2); Basophils Percent Auto 0.8 % (0-2); Eosinophils Absolute Auto 0.2 X10*3/uL (0.0-0.4); Eosinophils Percent Auto 1.6 % (0-4); Hematocrit 38.2 % (37.0-47.0); Hemoglobin 12.7 g/dl (12.0-16.0); Imm Gran Abs Auto 0.06 X10*3/uL (0.00-0.03); Imm Gran Pct Auto 0.5 % (0.0-0.4); Lymphocytes Absolute Auto 1.9 X10*3/uL (1.2-4.9); Lymphocytes Percent Auto 15.6 % (20-40); Mean Corpuscular HGB Conc 33.2 g/dl (31.0-35.0); Mean Corpuscular Volume 90.1 fL (80.0-98.0); Mean Platelet Volume 10.3 fL (9.4-12.3); Monocytes Absolute Auto 0.6 X10*3/uL (0.1-1.2); Monocytes Percent Auto 5.3 % (2-11); Neutrophils Absolute Auto 9.1 x10*3/uL (2.0-8.3); Neutrophils Percent Auto 76.2 % (45-73); Platelet Count 353 X10*3/uL (160-400); Red Blood Count 4.24 X10*6/uL (4.20-5.50); Red Cell Distribution Width 12.3 % (11.0-16.0)
[2022-11-16] MEDS: Ketorolac Tromethamine 30 MG/ML VIAL IVPUSH (02:31)
[2022-11-16] MEDS: ondansetron HCL 4 MG/2 ML VIAL IVPUSH (02:31)
[2022-11-16 02:38] LABS: Anion Gap 14 (12-20); Blood Urea Nitrogen 26 mg/dL (9-16); Calcium 9.7 mg/dL (8.4-10.2); Carbon Dioxide 27 mmol/L (22-29); Chloride 100 mmol/L (96-108); Creatinine Clr Calc Pharmacy 5.2; Estimated Glomerular Filt Rate > 60; Glucose Random 137 mg/dL (60-115); Potassium 3.8 mmol/L (3.3-5.1); Sodium 137 mmol/L (135-145)
--- NOTE | 2022-11-16 03:01 | ED_ITS ---
HPI - Abdominal Pain General Chief Complaint: Abdominal Pain Stated Complaint: Kidney stones Time Seen by Provider: 11/16/22 02:15 Source: patient and family Mode of arrival: ambulatory Limitations: no limitations History of Present Illness HPI narrative: 47-year-old female came in with her for evaluation of right-sided abdominal pain and right flank pain, patient was seen in the emergency department 4 days ago for similar pain had a CT scan which showed distal right ureteric 0.4 cm stone, patient was sent home on morphine 15 mg tablet/prednisone 20 mg/Flomax. Because patient felt better did not use the morphine for pain. About an hour ago patient started to have the same pain on the right side of the abdomen/right flank area radiates down to the right groin area and going down to the right leg patient took 1 pill of morphine and came to the hospital by the time patient in the ED patient felt better, patient had an episode of nausea while she had the pain. Patient scheduled to see a urologist on 12/01. Shortly after the patient in the ED has no abdominal/flank pain. Related Data Home Medications Medication Instructions Recorded Confirmed carvedilol 6.25 mg tablet 1 tab PO BID 05/01/22 05/01/22 hydrochlorothiazide 12.5 mg tablet 12.5 mg PO DAILY 08/02/22 Previous Rx's Medication Instructions Recorded amlodipine 2.5 mg tablet 2.5 mg PO DAILY #7 tabs 05/01/22 amlodipine 2.5 mg tablet (Norvasc) 7.5 mg PO DAILY 10 days #30 tabs 05/03/22 sulfamethoxazole 800 1 tab PO BID 3 days #6 tabs 08/02/22 mg-trimethoprim 160 mg tablet (Bactrim DS) metronidazole 0.75 % (37.5 mg/5 1 appful vaginal BEDTIME 5 days 08/04/22 gram) vaginal gel #70 grams morphine 15 mg immediate release 15 mg PO BID PRN pain #8 tabs 11/12/22 tablet prednisone 20 mg tablet 20 mg PO DAILY 5 days #5 tabs 11/12/22 tamsulosin 0.4 mg capsule (Flomax) 0.4 mg PO DAILY 20 days #20 caps 11/12/22 Allergies Allergy/AdvReac Type Severity Reaction Status Date / Time meperidine [From DEMEROL] Allergy Severe ANAPHYLAXIS Verified 08/02/22 15:33 lisinopril Allergy Unknown Swelling Verified 08/02/22 15:33 shrimp [SHRIMP] AdvReac Severe DIFFICULTY Verified 08/02/22 15:33 BREATHING Review of Systems Review of Systems All other systems are reviewed and are negative Constitutional: Reports as per HPI and Reports no additional constitutional complaints Eyes: Reports as per HPI and Reports no additional eye complaints Reports system reviewed and no additional complaints, except as documented Cardiovascular: Reports as per HPI and Reports no additional cardiovascular complaints Respiratory: Reports as per HPI and Reports no additional respiratory complaints Gastrointestinal: Reports as per HPI and Reports no additional gastrointestinal complaints Genitourinary: Reports no additional female genitourinary complaints Musculoskeletal: Reports no additional musculoskeletal complaints Skin/Breast: Reports system reviewed and no additional complaints, except as docu Psychiatric: Reports no additional psychiatric complaints Endocrine: Reports no additional endocrine complaints Hematologic/Lymphatic: Reports no additional hematologic/lymphatic complaints Allergic/Immunologic: Reports no additional allergic/immunologic complaints Reports system reviewed and no additional complaints, except as documented and Reports Abnormal speech present PMFSH Past Medical History Medical History KATY III (cervical intraepithelial neoplasia III) COVID-19 Diastolic heart failure HTN (hypertension) Surgical History Hx of section Hx of cholecystectomy Family History Family History Maternal Grandmother Breast cancer Social History Social History Alcohol intake: current Alcohol intake frequency: holidays/special occasions only Patient Tobacco Use Status: Never used Tobacco Advance Directives: No Advance Directives Information Provided: No Sexual orientation: Straight/Heterosexual Gender identity: Female Physical Exam ED Vital Signs: Vital Signs - 24 hr 11/16/22 02:05 11/16/22 03:05 Temperature 97.5 F 97.9 F Pulse Rate 72 72 Respiratory Rate 20 17 Blood Pressure 144/91 H 129/83 Pulse Oximetry 100 96 Oxygen Delivery Method Room Air Room Air BMI result Body Mass Index 1.5 Vital signs have been reviewed as appeared to be correct. Blood pressure normal. Heart rate normal. Respiration rate normal. Temperature normal. Oxygen saturation normal. Appearance: Anxious, Alert. Oriented X3. No acute distress. Head: Normal external exam. Normocephalic. Atraumatic. No Odell signs noted. No raccoon eyes noted Eyes: PERRLA. EOMI. Conjunctiva and sclera normal. Eyelids normal. ENT: TM's Normal. Pharynx normal. Uvula midline. Moist mucous membranes. No trismus noted. No drooling noted. No muffled voice noted. Neck: Normal inspection. Neck supple. FROM. No adenopathy. Thyroid Normal. No meningeal signs. No neck mass noted. CVS: Normal heart rate and rhythm. Heart sound normal. No murmurs noted. Pulses normal throughout. Respiratory: No respiratory distress. Painless inspiration. Breath sounds normal. No wheezes/rales/rhonchi noted. Chest nontender. No accessory muscle usage noted or decreased air movement noted. Abdomen: Soft and nontender. Bowel sounds normal in all 4 quadrants. No distention noted. No organomegaly noted. No visible injury noted. Back: Right CVA tenderness. Full range of motion noted. Skin: Skin warm and dry. Normal skin color. Normal skin turgor. No rashes/lesions/lacerations noted. Extremities: No lower extremity edema. Extremities exhibit normal range of motion. Extremities nontender. Neuro: Oriented X 3. Cranial nerve exam: II-XII are grossly intact No motor deficit. No sensory deficit. Reflexes normal. Course Course Course Narrative: 47-year-old female with known 0.4 cm stone in the right distal ureter, patient was seen and discharged home on morphine patient did not take the pain medication as instructed came in with severe right flank pain, patient now is comfortable with no flank pain able to sleep in the emergency department after taking her own morphine pill before coming to the emergency department. Patient was instructed to take her medication as instructed, drink plenty of fluids and follow up with that urologist as scheduled on 12/01. Medical Decision Making Differential Diagnosis Differential Diagnoses: The differential diagnosis associated with the presentation includes (Ureteric stone, pyelonephritis, UTI.) Lab Data MDM Lab Attestation statement: I reviewed the patient's lab results. Result Diagrams: 11/16/22 02:16 11/16/22 02:16 Labs: Lab Results 11/16/22 11/16/22 11/16/22 Range/Units 02:16 02:16 03:03 WBC 12.0 H (4.8-10.8) X10*3/uL RBC 4.24 (4.20-5.50) X10*6/uL Hgb 12.7 (12.0-16.0) g/dl Hct 38.2 (37.0-47.0) % MCV 90.1 (80.0-98.0) fL MCH 30.0 (27.0-33.0) pg MCHC 33.2 (31.0-35.0) g/dl RDW 12.3 (11.0-16.0) % Plt Count 353 (160-400) X10*3/uL MPV 10.3 (9.4-12.3) fL Immature Gran % (Auto) 0.5 H (0.0-0.4) % Neut % (Auto) 76.2 H (45-73) % Lymph % (Auto) 15.6 L (20-40) % [place] % (Auto) 5.3 (2-11) % Eos % (Auto) 1.6 (0-4) % Baso % (Auto) 0.8 (0-2) % Lymph # (Auto) 1.9 (1.2-4.9) X10*3/uL [place] # (Auto) 0.6 (0.1-1.2) X10*3/uL Eos # (Auto) 0.2 (0.0-0.4) X10*3/uL Baso # (Auto) 0.1 (0.0-0.2) X10*3/uL Abs Immat Gran (auto) 0.06 H (0.00-0.03) X10*3/uL Absolute Neuts (auto) 9.1 H (2.0-8.3) x10*3/uL Absolute Nucleated RBC 0.000 (0.0-0.012) X10*3/uL Nucleated RBC % (auto) 0.0 (0.0-0.2) /100WBC Sodium 137 (135-145) mmol/L Potassium 3.8 (3.3-5.1) mmol/L Chloride 100 (96-108) mmol/L Carbon Dioxide 27 (22-29) mmol/L Anion Gap 14 (12-20) BUN 26 H (9-16) mg/dL Creatinine 0.96 (0.5-1.4) mg/dL Estim Creat Clear Calc 5.2 Estimated GFR > 60 Random Glucose 137 H (60-115) mg/dL Calcium 9.7 (8.4-10.2) mg/dL Urine Color Yellow Urine Appearance Turbid Urine pH 7.0 (5.0-9.0) Ur Specific [place] 1.020 (1.005-1.025) Urine Protein Negative (Neg-Trace) mg/dL Urine Glucose (UA) Negative (Negative) mg/dL Urine Ketones Negative (Negative) mg/dL Urine Blood Negative (Negative) Urine Nitrite Negative (Negative) Ur Leukocyte Esterase Negative (Negative) Urine Test (NEGATIVE) 11/16/22 Range/Units 03:03 WBC (4.8-10.8) X10*3/uL RBC (4.20-5.50) X10*6/uL Hgb (12.0-16.0) g/dl Hct (37.0-47.0) % MCV (80.0-98.0) fL MCH (27.0-33.0) pg MCHC (31.0-35.0) g/dl RDW (11.0-16.0) % Plt Count (160-400) X10*3/uL MPV (9.4-12.3) fL Immature Gran % (Auto) (0.0-0.4) % Neut % (Auto) (45-73) % Lymph % (Auto) (20-40) % [place] % (Auto) (2-11) % Eos % (Auto) (0-4) % Baso % (Auto) (0-2) % Lymph # (Auto) (1.2-4.9) X10*3/uL [place] # (Auto) (0.1-1.2) X10*3/uL Eos # (Auto) (0.0-0.4) X10*3/uL Baso # (Auto) (0.0-0.2) X10*3/uL Abs Immat Gran (auto) (0.00-0.03) X10*3/uL Absolute Neuts (auto) (2.0-8.3) x10*3/uL Absolute Nucleated RBC (0.0-0.012) X10*3/uL Nucleated RBC % (auto) (0.0-0.2) /100WBC Sodium (135-145) mmol/L Potassium (3.3-5.1) mmol/L Chloride (96-108) mmol/L Carbon Dioxide (22-29) mmol/L Anion Gap (12-20) BUN (9-16) mg/dL Creatinine (0.5-1.4) mg/dL Estim Creat Clear Calc Estimated GFR Random Glucose (60-115) mg/dL Calcium (8.4-10.2) mg/dL Urine Color Urine Appearance Urine pH (5.0-9.0) Ur Specific [place] (1.005-1.025) Urine Protein (Neg-Trace) mg/dL Urine Glucose (UA) (Negative) mg/dL Urine Ketones (Negative) mg/dL Urine Blood (Negative) Urine Nitrite (Negative) Ur Leukocyte Esterase (Negative) Urine Test NEGATIVE (NEGATIVE) Medications Administered Discontinued Medications Generic Name Dose Route Start Last Admin Trade Name Vandana PRN Reason Stop Dose Admin Ketorolac Tromethamine 30 mg 11/16/22 02:24 11/16/22 02:31 Ketorolac Tromethamine 30 Mg/Ml Vial IVPUSH 11/16/22 02:25 30 mg ONCE ONE Administration Ondansetron HCl 4 mg 11/16/22 02:24 11/16/22 02:31 Ondansetron Hcl 4 Mg/2 Ml Vial IVPUSH 11/16/22 02:25 4 mg ONCE ONE Administration Discharge Plan Discharge Clinical Impression: Renal colic on right side Patient Disposition: Home, Self-Care Instructions: Renal Colic (ED) Prescriptions: No Action metronidazole 0.75 % (37.5mg/5 gram) gel 1 appful vaginal BEDTIME 5 Days Qty: 70 0RF amlodipine [Norvasc] 2.5 mg tablet 7.5 mg PO DAILY 10 Days Qty: 30 0RF carvedilol 6.25 mg tablet 1 tab PO BID amlodipine 2.5 mg tablet 2.5 mg PO DAILY Qty: 7 0RF Rx Instructions: use if blood pressure consistently above 140 prednisone 20 mg tablet 20 mg PO DAILY 5 Days Qty: 5 0RF tamsulosin [Flomax] 0.4 mg capsule 0.4 mg PO DAILY 20 Days Qty: 20 0RF morphine 15 mg tablet 15 mg PO BID PRN (Reason: pain) Qty: 8 0RF Rx Instructions: Partial Fill upon patient request. hydrochlorothiazide 12.5 mg tablet 12.5 mg PO DAILY sulfamethoxazole-trimethoprim [Bactrim DS] 800-160 mg tablet 1 tab PO BID 3 Days Qty: 6 0RF Referrals: Juan Carlos Prado MD [Physician] -
[2022-11-16 03:05] VITALS: BP 129/83; PULSE 72; RESP 17; TEMP 36.6; O2SAT 96
[2022-11-16 03:14] LABS: Appearance Urine Turbid; Color Urine Yellow; Glucose Urine UA Negative (Negative); Leukocyte Esterase Urine Negative (Negative); Nitrite Urine Negative (Negative); Urine Blood Negative (Negative); Urine Ketones Negative (Negative); Urine Protein Negative (Neg-Trace)
[2022-11-16 03:16] LABS: UPreg QC Valid YES; Urine Pregnancy NEGATIVE (NEGATIVE)
[2022-11-16 04:09] VITALS: BP 124/91; PULSE 76; RESP 18; O2SAT 100
== END 2022-11-16 04:10 | disposition home or self-care (01) ==
PROVIDERS: Emergency Provider Emergency Medicine
DX: N23 Unspecified renal colic (principal); I11.0 Hypertensive heart disease with heart failure; I50.30 Unspecified diastolic (congestive) heart failure; Z79.899 Other long term (current) drug therapy
CPT/HCPCS: 36415; 80048; 81003; 81025; 85025; 96374; 96375; 99284; J1885; J2405

== ENCOUNTER → 2022-11-18 13:43 | Outpatient (BNVA) | payer BC, SELFPAY | PROVIDERS: PCP Internal Medicine; Visit Provider Nurse Practitioner Family | DX: Z13.89 Encounter for screening for other disorder (principal) ==

== ENCOUNTER 2022-11-25 14:57 | Day surgery (SDC) | payer BC, SELFPAY ==
--- NOTE | ~2022-11-25 | FL_ITS ---
EXAMINATION: XR FLUOROSCOPY WITH IMAGES CLINICAL INFORMATION: Right hydronephrosis, distal ureteral calculus. COMPARISON: CT abdomen and pelvis 11/11/2022 TECHNIQUE: Fluoroscopy Supervised By: Dr. Juan Carlos Prado. Fluoroscopy Time: 33 seconds. Cumulative Dose: 8.40 mGy. Images: 2. FINDINGS: Initial image shows a guidewire in the right urinary tract. Final image targeted to the pelvis shows distal and ureteral stent in position. FL/FL guidance in OR IMPRESSION: Fluoroscopy for urologic procedures.
[2022-11-25 15:25] LABS: UPreg QC Valid YES; Urine Pregnancy NEGATIVE (NEGATIVE)
--- NOTE | 2022-11-25 15:29 | HO.ANESPROP2 ---
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) (Acute) Past Medical History Medical History KATY III (cervical intraepithelial neoplasia III) COVID-19 Diastolic heart failure HTN (hypertension) Nephrolithiasis Family History Family History Maternal Grandmother Breast cancer Surgical History Surgical History Hx of section Hx of cholecystectomy History of Problems with Anesthesia: No Social History Social History Alcohol intake: current Alcohol intake frequency: holidays/special occasions only Patient Tobacco Use Status: Never used Tobacco Advance Directives: No Advance Directives Information Provided: Yes Sexual orientation: Straight/Heterosexual Gender identity: Female Meds Allergies Allergy/AdvReac Type Severity Reaction Status Date / Time meperidine [From DEMEROL] Allergy Severe ANAPHYLAXIS Verified 11/18/22 21:56 lisinopril Allergy Unknown Swelling Verified 11/18/22 21:56 shrimp [SHRIMP] AdvReac Severe DIFFICULTY Verified 11/18/22 21:56 BREATHING Home Medications Medication Instructions Recorded Confirmed Last Taken Type carvedilol 6.25 mg tablet 1 tab PO BID 05/01/22 11/18/22 Unknown History hydrochlorothiazide 12.5 mg tablet 12.5 mg PO DAILY 08/02/22 11/18/22 Unknown History Exam Exam Date and Time: November 25, 2022 1529 Pertinent Lab Results Pertinent Lab Results: Laboratory Tests 11/25/22 15:10 Urine Test NEGATIVE Airway Mallampati Class: II TM Dist: >3cm Neck ROM: Full Loose/Missing/Broken Teeth: No Heart: RRR Lungs: CTA NO WHEEZINGOR RALES Other: no pedal edema Assessment and Plan Assessment Anesthesia Assessment: Anesthesia Plan Discussed and Chart Reviewed Final Anesthetic Review History of Problems with Anesthesia: No NPO: No ASA Class: III Final Preanesthetic Review: Meds/Allgs Chart Reviewed, Consent Obtained/Reviewed and Anes Risks/Benef Reviewed Patient Risk: Intermediate Procedure Risk: Low Anesthetic Plan Anesthetic Plan: GA Disposition: Standard PACU
[2022-11-25 15:56] VITALS: BMI 28.8
[2022-11-25 15:59] VITALS: BP 151/96; PULSE 56; RESP 18; TEMP 36.5; O2SAT 100
--- NOTE | 2022-11-25 16:14 | P.HPSUR_ITS ---
Pre-Procedural Eval Section A Date of Service: 11/25/22 The patient is an INPATIENT: No Changes since office visit: No Cold of Flu in the past 2 weeks, No New Medical Problems, No Changes in Medication and No Patient answered all questions The History & Physical has been completed within 30 days and I have reviewed it.: Yes Section B Chief Complaint: Calculus of kidney Allergies: Allergies Allergy/AdvReac Type Severity Reaction Status Date / Time meperidine [From DEMEROL] Allergy Severe ANAPHYLAXIS Verified 11/18/22 21:56 lisinopril Allergy Unknown Swelling Verified 11/18/22 21:56 shrimp [SHRIMP] AdvReac Severe DIFFICULTY Verified 11/18/22 21:56 BREATHING Review of Systems Sugical H&P ROS: Negative: Constitution, Cardiovascular, Respiratory, Neurological, Psychiatric, Hem-Onc, Allergic/Immunologic, Gastrointestinal, Genitourinary, Musculoskeletal, Integumentary, Endocrine and Eyes/Ears/ Nose/Throat Exam Surgical H&P Exam: Normal: HEENT, Normal: Heart, Normal: Lungs, Normal: Extremities, Normal: Abdomen, Normal: Skin and Normal: Neurological Plan Diagnosis/Plan: Unchanged (Cystoscopy, right retrograde, right ureteroscopy with laser lithotripsy stent placement) I have reviewed the history and physical and performed a pertinent physical examination on my patient. No changes have occurred unless specified. Time Spent With Patient Time: Total time managing care of this patient today ____ minutes.
--- NOTE | 2022-11-25 16:20 | PC.NURSE ---
antibiotics pulled and provided to o.r. nurse
--- NOTE | 2022-11-25 16:43 | W.PM.OPN ---
Operative Note Operative Note Date of Service: 11/25/22 Narrative: PreOperative Diagnosis: right distal ureteric stone Post Operative Diagnosis: right distal ureteric stone Procedure: - cystoscopy, right retrograde - right dilatation of ureteric orifice under fluoroscopy - right ureteroscopy, stone basketing - stent placement Surgeon: Dr Juan Carlos Prado Anesthesia: General Indications for procedure: pain distal right flank. Imaging shows small stone near the UVJ. Unable to pass with persistent pain. Intervention recommended. Patient height 5 ft 8 in Procedure: After informed consent was verified patient was brought to the operating placed in supine position. Anesthesia was administered per protocol. Patient was placed in modified dorsal lithotomy position and prepped and draped in a sterile fashion. Safety pause time-out and side of surgery confirmed. Antibiotics confirmed. A 22 [place] cystoscope was inserted per urethra. Bladder was normal in its entirety. Both ureteric orifices were in normal position. The Right ureteric orifice was cannulated and a retrograde examination was performed. small filling defects seen distal portion right ureter . A Sensor guidewire was placed up to the level of the renal pelvis under fluoroscopy. The rigid cystoscope was removed. The semi rigid ureteral scope was placed alongside the Sensor guidewire. the stone had been found to have of proximally migrated with the hydroureteronephrosis. It was found in the proximal ureter. Using a sure catch basket the stone was grasped and removed and will be sent for analysis. A 6 [place] by 24 cm double-J stent was placed into the renal pelvis and bladder under a combination of fluoroscopy and direct visualization. The bladder was emptied. The patient tolerated the procedure well and was extubated in the operating room, and transferred in stable condition to the recovery area. Pathology: stones Drains: drain as described above
[2022-11-25 16:52] VITALS: BP 130/76; PULSE 66; RESP 20; TEMP 36.8; O2SAT 100
[2022-11-25 16:57] VITALS: BP 126/91; PULSE 64; RESP 18; O2SAT 99
[2022-11-25 17:02] VITALS: BP 133/94; PULSE 58; RESP 18; TEMP 36.6; O2SAT 99
[2022-11-25] MEDS: Acetaminophen 325 MG TABLET 650 MG PO (17:02)
[2022-11-25] MEDS: Phenazopyridine HCL 100 MG TABLET PO (17:03)
[2022-11-25 17:07] VITALS: BP 143/99; PULSE 59; RESP 18; TEMP 36.2; O2SAT 99
[2022-12-02 17:19] LABS: Stone Source URETERAL STONE
== END 2022-11-25 17:25 | disposition home or self-care (01) ==
PROVIDERS: PCP Internal Medicine; Visit Provider Urology
PROC: (CPT 52352; principal; 2022-11-25 16:30)
DX: N20.1 Calculus of ureter (principal); I50.30 Unspecified diastolic (congestive) heart failure; I10 Essential (primary) hypertension; Z79.899 Other long term (current) drug therapy; Z88.8 Allergy status to other drugs, medicaments and biological substances; Z86.16 Personal history of COVID-19; Z90.79 Acquired absence of other genital organ(s)
CPT/HCPCS: 52352; 52332; 81025; 82365; 88300; C1758; C1769; C2617; J1100; J1885; J1956; J2250; J2405; J3010; Q9967

== ENCOUNTER → 2022-12-02 13:55 | Outpatient (BNVA) | payer BC, SELFPAY | PROVIDERS: PCP Internal Medicine; Visit Provider Urology | DX: N20.0 Calculus of kidney (principal) | CPT/HCPCS: 52310 ==

== ENCOUNTER 2023-01-11 08:57 | Outpatient (REF) | payer BC, SELFPAY ==
--- NOTE | ~2023-01-11 | US_ITS ---
EXAMINATION: US RETROPERITONEAL LIMITED (RENAL ONLY) CLINICAL INFORMATION: Calculus of kidney. COMPARISON: CT abdomen and pelvis 11/11/2022. TECHNIQUE: Real-time imaging of the kidneys. FINDINGS: RIGHT KIDNEY: 10.0 x 4.8 x 5.4 cm (SAG x AP x TRV). The kidney is normal in size, contour, and echogenicity. Renal cortical thickness is normal. No calculi or focal parenchymal lesions. No hydronephrosis. LEFT KIDNEY: 10.7 x 5.0 x 5.5 cm (SAG x AP x TRV). The kidney is normal in size, contour, and echogenicity. Renal cortical thickness is normal. No calculi or focal parenchymal lesions. No hydronephrosis. US/US renal BI IMPRESSION: Unremarkable renal ultrasound.
== END 2023-01-11 08:58 | disposition home or self-care (01) ==
LOC: HO.US 08:57
PROVIDERS: PCP Internal Medicine; Visit Provider Urology
DX: N20.0 Calculus of kidney (principal)
CPT/HCPCS: 76775

== ENCOUNTER → 2023-02-06 13:14 | Outpatient (BNVA) | payer BC, SELFPAY | PROVIDERS: PCP Internal Medicine; Visit Provider Nurse Practitioner Family | DX: Z13.89 Encounter for screening for other disorder (principal) ==

== ENCOUNTER → 2023-02-22 13:07 | Outpatient (BNVA) | payer BC, SELFPAY | PROVIDERS: PCP Internal Medicine; Visit Provider Advanced Practice Midwife | DX: Z13.89 Encounter for screening for other disorder (principal) ==

== ENCOUNTER 2023-03-06 18:40 | Emergency (ER) | payer BC, SELFPAY ==
--- NOTE | ~2023-03-06 | XR_ITS ---
EXAMINATION: XR CHEST CLINICAL INFORMATION: Chest pain COMPARISON: Previous chest x-ray July 2022 TECHNIQUE: Frontal view of the chest was obtained. FINDINGS: No significant abnormality is noted involving the heart, lungs, mediastinum, bony thorax or soft tissues. XR/XR chest 1V IMPRESSION: Unremarkable examination.
--- NOTE | ~2023-03-06 | CT_ITS ---
EXAMINATION: CT HEAD WITHOUT CONTRAST CLINICAL INFORMATION: Headache. Hypertension. COMPARISON: 11/11/2022 TECHNIQUE: Contiguous axial imaging was performed from the skull base to vertex without intravenous administration of contrast. This CT examination was performed using dose optimization techniques as appropriate, variously including the following: *Automated exposure control *Adjustment of mA and/or kV according to patient size (this includes techniques or standardized protocols for targeted exams where dose is matched to indication/reason for exam; i.e. extremities or head) *Use of iterative reconstruction technique Dose: 742 mGy-cm FINDINGS: There is no evidence of acute intracranial hemorrhage or territorial infarction. No abnormal mass-effect or midline shift is seen. Oneil to white matter differentiation is well preserved. No extra axial fluid collections. The ventricles are normal in size and configuration. There is no abnormal attenuation within the brain parenchyma. Expansion of the sella turcica and flattening of the pituitary gland are unchanged as compared to prior. The soft tissues and osseous structures are normal. The sinuses and mastoid air cells are clear. CT/CT head/brain wo IV con IMPRESSION: No acute intracranial pathology.
[2023-03-06 19:06] VITALS: BP 139/101; PULSE 84; RESP 18; TEMP 36.4; O2SAT 98; BMI 30.4
--- NOTE | 2023-03-06 19:07 | ED_ITS ---
HPI - General Adult General Chief complaint: Chest Pain Stated complaint: chest pain high blood pressure hx of CHF Related Data Home Medications Medication Instructions Recorded Confirmed hydrochlorothiazide 25 mg tablet 25 mg PO DAILY 02/22/23 spironolactone 25 mg tablet 25 mg PO DAILY 02/22/23 Allergies Allergy/AdvReac Type Severity Reaction Status Date / Time meperidine [From DEMEROL] Allergy Severe ANAPHYLAXIS Verified 02/22/23 13:09 lisinopril Allergy Unknown Swelling Verified 02/22/23 13:09 shrimp [SHRIMP] AdvReac Severe DIFFICULTY Verified 02/22/23 13:09 BREATHING PMFSH Past Medical History Medical History KATY III (cervical intraepithelial neoplasia III) COVID-19 Diastolic heart failure HTN (hypertension) Nephrolithiasis Surgical History H/O lithotripsy Hx of section Hx of cholecystectomy Family History Family History Maternal Grandmother Breast cancer Social History Social History Alcohol intake: current Alcohol intake frequency: holidays/special occasions only Patient Tobacco Use Status: Never used Tobacco Advance Directives: No Advance Directives Information Provided: No Sexual orientation: Straight/Heterosexual Gender identity: Female Physical Exam ED Vital Signs: Vital Signs - 24 hr 03/06/23 21:38 Temperature 97 F Pulse Rate 75 Respiratory Rate 20 Blood Pressure 127/94 H Pulse Oximetry 99 Oxygen Delivery Method Room Air BMI result Body Mass Index 30.4 Course Course Course Narrative: RME: 47yo F w/PMHx HTN on HCTZ and Spinolactone which was recently changed c/o elevated BP at home 162/128, CRESPO and CP since Monday. Also reports dizziness and visual changes BP 139/101 in triage EKG, labs, CXR, head CT ordered Full HPI, ROS and PE to be performed by primary ED provider. Medical Decision Making Lab Data 03/06/23 19:49 03/06/23 19:49 Labs: Lab Results 03/06/23 03/06/23 03/06/23 Range/Units 19:49 19:49 19:49 WBC 8.4 (4.8-10.8) X10*3/uL RBC 4.55 (4.20-5.50) X10*6/uL Hgb 14.0 (12.0-16.0) g/dl Hct 41.4 (37.0-47.0) % MCV 91.0 (80.0-98.0) fL MCH 30.8 (27.0-33.0) pg MCHC 33.8 (31.0-35.0) g/dl RDW 12.1 (11.0-16.0) % Plt Count 322 (160-400) X10*3/uL MPV 10.3 (9.4-12.3) fL Immature Gran % (Auto) 0.4 (0.0-0.4) % Neut % (Auto) 60.1 (45-73) % Lymph % (Auto) 19.7 L (20-40) % [place] % (Auto) 9.0 (2-11) % Eos % (Auto) 9.4 H (0-4) % Baso % (Auto) 1.4 (0-2) % Lymph # (Auto) 1.7 (1.2-4.9) X10*3/uL [place] # (Auto) 0.8 (0.1-1.2) X10*3/uL Eos # (Auto) 0.8 H (0.0-0.4) X10*3/uL Baso # (Auto) 0.1 (0.0-0.2) X10*3/uL Abs Immat Gran (auto) 0.03 (0.00-0.03) X10*3/uL Absolute Neuts (auto) 5.0 (2.0-8.3) x10*3/uL Absolute Nucleated RBC 0.000 (0.0-0.012) X10*3/uL Nucleated RBC % (auto) 0.0 (0.0-0.2) /100WBC PT 11.5 (10.0-13.1) SEC INR 1.0 (0.9-1.1) Sodium 140 (135-145) mmol/L Potassium 4.0 (3.3-5.1) mmol/L Chloride 102 (96-108) mmol/L Carbon Dioxide 31 H (22-29) mmol/L Anion Gap 11 L (12-20) BUN 18 H (9-16) mg/dL Creatinine 1.15 (0.5-1.4) mg/dL Estim Creat Clear Calc 71.2 Estimated GFR 51 Random Glucose 84 (60-115) mg/dL Calcium 9.8 (8.4-10.2) mg/dL Total Bilirubin 0.8 (0.0-1.0) mg/dL Direct Bilirubin 0.2 (0.0-0.5) mg/dL AST 26 (5-31) U/L ALT 26 (0-31) U/L Alkaline Phosphatase 72 (39-117) U/L Troponin I High Sens (<3.5-17.0) ng/L Total Protein 8.0 (6.5-8.0) g/dL Albumin 4.7 (3.5-5.0) g/dL 03/06/23 Range/Units 19:49 WBC (4.8-10.8) X10*3/uL RBC (4.20-5.50) X10*6/uL Hgb (12.0-16.0) g/dl Hct (37.0-47.0) % MCV (80.0-98.0) fL MCH (27.0-33.0) pg MCHC (31.0-35.0) g/dl RDW (11.0-16.0) % Plt Count (160-400) X10*3/uL MPV (9.4-12.3) fL Immature Gran % (Auto) (0.0-0.4) % Neut % (Auto) (45-73) % Lymph % (Auto) (20-40) % [place] % (Auto) (2-11) % Eos % (Auto) (0-4) % Baso % (Auto) (0-2) % Lymph # (Auto) (1.2-4.9) X10*3/uL [place] # (Auto) (0.1-1.2) X10*3/uL Eos # (Auto) (0.0-0.4) X10*3/uL Baso # (Auto) (0.0-0.2) X10*3/uL Abs Immat Gran (auto) (0.00-0.03) X10*3/uL Absolute Neuts (auto) (2.0-8.3) x10*3/uL Absolute Nucleated RBC (0.0-0.012) X10*3/uL Nucleated RBC % (auto) (0.0-0.2) /100WBC PT (10.0-13.1) SEC INR (0.9-1.1) Sodium (135-145) mmol/L Potassium (3.3-5.1) mmol/L Chloride (96-108) mmol/L Carbon Dioxide (22-29) mmol/L Anion Gap (12-20) BUN (9-16) mg/dL Creatinine (0.5-1.4) mg/dL Estim Creat Clear Calc Estimated GFR Random Glucose (60-115) mg/dL Calcium (8.4-10.2) mg/dL Total Bilirubin (0.0-1.0) mg/dL Direct Bilirubin (0.0-0.5) mg/dL AST (5-31) U/L ALT (0-31) U/L Alkaline Phosphatase (39-117) U/L Troponin I High Sens < 2.7 (<3.5-17.0) ng/L Total Protein (6.5-8.0) g/dL Albumin (3.5-5.0) g/dL Discharge Plan Discharge Clinical Impression: High blood pressure Patient Disposition: Elopement Prescriptions: No Action hydrochlorothiazide 25 mg tablet 25 mg PO DAILY spironolactone 25 mg tablet 25 mg PO DAILY Interventions: ED Discharge Assessment Last Done: 03/06/23 21:41 Discharge Date/Time: 03/06/23 22:41
--- NOTE | 2023-03-06 19:10 | ECG_ITS ---
Test Reason : CHEST PAIN Blood Pressure : / mmHG Vent. Rate : 078 BPM Atrial Rate : 078 BPM P-R Int : 134 ms QRS Dur : 084 ms QT Int : 362 ms P-R-T Axes : 045 007 035 degrees QTc Int : 412 ms Normal sinus rhythm with sinus arrhythmia Normal ECG When compared with ECG of 11-NOV-2022 21:26, No significant change was found Referred By: Juliana Morelos Electronically Signed By:Brendan Schneider
[2023-03-06 19:54] LABS: MANUAL DIFF FLAG NO
[2023-03-06 19:55] LABS: Basophils Absolute Auto 0.1 X10*3/uL (0.0-0.2); Basophils Percent Auto 1.4 % (0-2); Eosinophils Absolute Auto 0.8 X10*3/uL (0.0-0.4); Eosinophils Percent Auto 9.4 % (0-4); Hematocrit 41.4 % (37.0-47.0); Imm Gran Abs Auto 0.03 X10*3/uL (0.00-0.03); Imm Gran Pct Auto 0.4 % (0.0-0.4); Lymphocytes Absolute Auto 1.7 X10*3/uL (1.2-4.9); Lymphocytes Percent Auto 19.7 % (20-40); Mean Corpuscular HGB Conc 33.8 g/dl (31.0-35.0); Mean Corpuscular Hemoglobin 30.8 pg (27.0-33.0); Mean Platelet Volume 10.3 fL (9.4-12.3); Monocytes Absolute Auto 0.8 X10*3/uL (0.1-1.2); Neutrophils Percent Auto 60.1 % (45-73); Platelet Count 322 X10*3/uL (160-400); Red Blood Count 4.55 X10*6/uL (4.20-5.50); Red Cell Distribution Width 12.1 % (11.0-16.0); White Blood Count 8.4 X10*3/uL (4.8-10.8)
[2023-03-06 20:08] LABS: Prothrombin Time 11.5 SEC (10.0-13.1)
[2023-03-06 20:10] LABS: Alanine Aminotransferase 26 U/L (0-31); Albumin Level 4.7 g/dL (3.5-5.0); Alkaline Phosphatase 72 U/L (39-117); Anion Gap 11 (12-20); Aspartate Amino Transferase 26 U/L (5-31); Bilirubin Direct 0.2 mg/dL (0.0-0.5); Bilirubin Total 0.8 mg/dL (0.0-1.0); Blood Urea Nitrogen 18 mg/dL (9-16); Calcium 9.8 mg/dL (8.4-10.2); Carbon Dioxide 31 mmol/L (22-29); Chloride 102 mmol/L (96-108); Creatinine Clr Calc Pharmacy 71.2; Estimated Glomerular Filt Rate 51; Glucose Random 84 mg/dL (60-115); Sodium 140 mmol/L (135-145)
[2023-03-06 20:21] LABS: Troponin-I High Sensitivity < 2.7 ng/L (<3.5-17.0)
[2023-03-06 21:38] VITALS: BP 127/94; PULSE 75; RESP 20; TEMP 36.1; O2SAT 99
--- NOTE | 2023-03-06 21:39 | PC.NURSE ---
Pt requesting to have vital signs taken again, BP improved from 139/101 to 127/94. Pt vocalized intent on leaving at this time. Pt educated on the improtance of staying in the ER to be evaluated by MD at this time. Pt denying wanting to wait at this time. Pt encouraged to return to emergency room if any other issues arise. Pt verbalized understanding at this time.
== END 2023-03-06 22:41 | disposition left against medical advice (07) ==
LOC: HO.ED 21:45
PROVIDERS: Physician Assistant; Emergency Provider Emergency Medicine; PCP Internal Medicine
DX: R07.9 Chest pain, unspecified (principal); I10 Essential (primary) hypertension
CPT/HCPCS: 36415; 70450; 71045; 80048; 80076; 84484; 85025; 85610; 93005; 99283; 99284

== ENCOUNTER 2023-03-14 15:18 | Outpatient (REF) | payer BC, SELFPAY ==
--- NOTE | ~2023-03-14 | MM_ITS ---
EXAMINATION: MM SCREENING DIGITAL BREAST TOMOSYNTHESIS, BILATERAL CLINICAL INFORMATION: Screening. Asymptomatic. The lifetime risk of breast cancer based on the Tyrer-Cuzick Model is 10%. COMPARISON: Mammography: 06/01/2021, 04/02/2020, 07/29/2019, 01/26/2019 (new baseline) TECHNIQUE: Digital breast tomosynthesis is performed in both the craniocaudal and mediolateral oblique views along with computer-aided detection (CAD). Synthesized 2D images are generated from the tomosynthesis. FINDINGS: There are scattered areas of fibroglandular density (ACR BI-RADS breast composition Category b). There are no significant masses, abnormal calcifications, or other abnormalities. No developing density or architectural abnormality. Again, there are scattered bilateral predominantly vascular calcifications as well as stable regional punctate round calcifications upper outer left breast. The axilla are unremarkable. MM/MM tomosynthesis screening BI IMPRESSION: No mammographic evidence of malignancy. ASSESSMENT: BI-RADS 2: Benign RECOMMENDATION: Routine annual mammography screening. This patient's information was entered into a reminder system with a target due date for their next mammogram.
== END 2023-03-14 15:19 | disposition home or self-care (01) ==
LOC: HO.MAMMO 15:18
PROVIDERS: PCP Internal Medicine; Visit Provider Internal Medicine
DX: Z12.31 Encounter for screening mammogram for malignant neoplasm of breast (principal)
CPT/HCPCS: 77063; 77067

== ENCOUNTER 2023-05-22 12:11 | Emergency (ER) | payer BC, SELFPAY ==
--- NOTE | 2023-05-22 12:18 | ED.GENADULT ---
HPI - General Adult General Chief complaint: Extremity Injury, Upper Stated complaint: L arm numbness/nausea Time Seen by Provider: 05/22/23 13:53 Source: patient Mode of arrival: ambulatory Limitations: no limitations History of Present Illness HPI narrative: Patient is a 47 year old assigned female at with a history of kidney stones presenting to the emergency department today with left shoulder pain. Patient states that for weeks she has had left shoulder pain and numbness that goes down into her fingers. Patient states that the pain is so bad, she can no longer brush her hair or pull her pants on. Patient states that she has an orthopedic appointment in June but the pain is too severe to wait. Patient denies any dizziness, lightheadedness, abdominal pain, nausea, vomiting, fever, chills, blurry vision, double vision, loss of vision, chest pain, difficulty breathing, shortness of breath, back pain, night sweats, pain with urination, increased urinary frequency, increased urinary urgency, blood in her urine or stool, syncope or a near syncopal episode, recent trauma or falls, bowel incontinence, bladder incontinence, bowel retention, bladder retention, or any other complaints at this time. Onset (ago): week(s) Location: left and upper extremity Radiation: extremity Severity: mild Severity scale (1-10): 4 Quality: aching and dull Pain Consistency: constant Relieving factors: none Exacerbating factors: movement Associated symptoms: denies other symptoms Treatments prior to arrival: none Related Data Home Medications Medication Instructions Recorded Confirmed hydrochlorothiazide 25 mg tablet 25 mg PO DAILY 02/22/23 spironolactone 25 mg tablet 25 mg PO DAILY 02/22/23 Allergies Allergy/AdvReac Type Severity Reaction Status Date / Time meperidine [From DEMEROL] Allergy Severe ANAPHYLAXIS Verified 05/22/23 12:18 lisinopril Allergy Unknown Swelling Verified 05/22/23 12:18 shrimp [SHRIMP] AdvReac Severe DIFFICULTY Verified 05/22/23 12:18 BREATHING Review of Systems Constitutional: Constitutional: Reports no additional constitutional complaints, Denies chills, Denies fever(s) and Denies night sweats Eyes: Eyes: Reports no additional eye complaints, Denies blurry vision, Denies change in vision, Denies diplopia, Denies eye discharge, Denies loss of vision and Denies eye pain ENT: Denies dizziness Cardiovascular: Cardiovascular: Reports no additional cardiovascular complaints, Denies chest pain, Denies lightheadedness, Denies Loss of Consciousness and Denies dyspnea Respiratory: Respiratory: Reports no additional respiratory complaints and Denies dyspnea Gastrointestinal: Gastrointestinal: Reports no additional gastrointestinal complaints, Denies abdominal pain, Denies melena, Denies hematochezia, Denies change in bowel habits and Denies change in stool character Genitourinary: Genitourinary: Denies hematuria, Denies urinary frequency, Denies dysuria, Denies urinary incontinence, Denies urinary hesitancy and Denies urinary urgency Musculoskeletal: Musculoskeletal: Reports no additional musculoskeletal complaints, Denies numbness and Denies tingling Comments: left shoulder pain Neurologic: Denies dizziness, Denies loss of vision, Denies numbness and Denies tingling Psychiatric: Psychiatric: Reports no additional psychiatric complaints Endocrine: Endocrine: Reports no additional endocrine complaints Hematologic/Lymphatic: Hematologic/Lymphatic: Reports no additional hematologic/lymphatic complaints Allergic/Immunologic: Allergic/Immunologic: Reports no additional allergic/immunologic complaints PMFSH Past Medical History Attestation statement: The following information was validated with the patient. Source: old records reviewed and nursing notes reviewed Medical History KATY III (cervical intraepithelial neoplasia III) COVID-19 Diastolic heart failure HTN (hypertension) Nephrolithiasis Surgical History H/O lithotripsy Hx of section Hx of cholecystectomy Family History Family History Maternal Grandmother Breast cancer Social History Social History Alcohol intake: current Alcohol intake frequency: holidays/special occasions only Patient Tobacco Use Status: Never used Tobacco Advance Directives: No Advance Directives Information Provided: No Sexual orientation: Straight/Heterosexual Gender identity: Female Physical Exam ED Vital Signs: Vital Signs - 24 hr 05/22/23 12:19 Temperature 98 F Pulse Rate 74 Respiratory Rate 19 Blood Pressure 139/99 H Pulse Oximetry 98 Oxygen Delivery Method Room Air BMI result Body Mass Index 28.9 Const General: cooperative, no acute distress, alert and awake Nutritional Appearance: well nourished Orientation/consciousness: patient oriented x3 Limitations: no limitations HENMT Head: Yes normal to inspection and Yes atraumatic Ears: hearing grossly normal bilaterally and external ears normal General nose exam: Normal external nose present, no nasal discharge noted and no epistaxis Face and sinus: Yes normal facial exam, No abrasion and No laceration Mouth: Normal oral and palatal mucosa present, no drooling and no muffled voice Eyes General: appearance normal, both eyes and all related structures Periorbital: periorbital findings normal Eyelids: Yes eyelids normal Conjunctivae: conjunctivae normal Pupils: Equal, round and reactive pupils present EOM: EOMs intact bilaterally Neck Neck: Yes normal visual inspection, Yes full ROM and Yes no lymphadenopathy Chest Chest palpation & inspection: normal inspection of the chest Resp Effort & Inspection: normal respiratory effort and able to speak in complete sentences GI Inspection: Yes normal to inspection Neuro General: patient oriented x3 and moves all extremities Cranial nerves: Yes Equal, round and reactive pupils present Cognition (Neuro): normal cognition Motor exam (neuro): 5/5 motor strength present throughout Sensory Exam: Normal double simultaneous stimulation for sensation Coordination: [id number] test normal Extrem Other: pain with ROM of the left shoulder General: Yes normal to inspection and Yes capillary refill normal Psych Appearance: grossly normal Mental Status: mental status grossly normal Affect: normal affect Attitude: cooperative Thought process: Normal thought process present Thought content: Normal thought content present Insight: Good insight present (Psych) Course Course Course Narrative: This is an RME: Additional HPI, ROS, PE not included below will be deferred to primary provider. Patient is a 47 year old female with a PMH of nephrolithiasis, presents with left arm pain that has been worsening over the past few weeks. Patient has made an appointment with orthopedist next month. Today her arm is numb, tingling, and feels like she can't move it. Pain starts at the neck and radiates down the left upper extremity with 10/10 pain. Patient also reports abdominal pain and nausea. Patient denies fever, chills, vomiting, chest pain, shortness of breath. Plan: labs, imaging Medical Decision Making Medical Decision Making MDM Narrative: Patient is a 47 year old assigned female at with a history of kidney stones presenting to the emergency department today with left shoulder pain. Patient's physical exam was as noted in the physical exam portion of this chart. Patient's physical exam is consistent with a left rotator cuff injury / dysfunction. Patient's blood work was unremarkable. Patient's EKG was unremarkable. Patient's left shoulder x-ray showed no acute process. I explained my physical exam findings as well as all test results to the patient. I answered all questions asked by the patient. I stressed the importance of the patient taking her medication as prescribed. I stressed the importance of the patient following up with her primary care provider and an orthopedic provider. I stressed the importance of the patient returning to the emergency department immediately if her symptoms were to worsen or if she were to develop any dizziness, shortness of breath, difficulty breathing, chest pain, blurry vision, loss of vision, nausea, vomiting, abdominal pain, fever, chills, back pain, or any other complaints. Patient verbalized agreement and understanding with this treatment plan and discharge. Differential Diagnosis Differential Diagnoses: The differential diagnosis associated with the presentation includes rotator cuff injury rotator cuff pain left shoulder pain left shoulder injury CO NSTEMI Admission/Observation Consideration of admission/observation: Escalation of care including admission/observation considered Patient would have been admitted to the hospital had her work up had any findings where hospital admission was appropriate and her clinical presentation warranted hospital admission. Lab Data MDM Lab Attestation statement: I reviewed the patient's lab results. My interpretation of these studies and their corresponding values is that they are grossly normal. 05/22/23 13:05 05/22/23 13:05 Labs: Lab Results 05/22/23 05/22/23 05/22/23 Range/Units 13:05 13:05 13:05 WBC 6.9 (4.8-10.8) X10*3/uL RBC 4.78 (4.20-5.50) X10*6/uL Hgb 14.8 (12.0-16.0) g/dl Hct 43.3 (37.0-47.0) % MCV 90.6 (80.0-98.0) fL MCH 31.0 (27.0-33.0) pg MCHC 34.2 (31.0-35.0) g/dl RDW 12.4 (11.0-16.0) % Plt Count 343 (160-400) X10*3/uL MPV 10.2 (9.4-12.3) fL Immature Gran % (Auto) 0.1 (0.0-0.4) % Neut % (Auto) 56.8 (45-73) % Lymph % (Auto) 30.8 (20-40) % [place] % (Auto) 6.8 (2-11) % Eos % (Auto) 4.5 H (0-4) % Baso % (Auto) 1.0 (0-2) % Lymph # (Auto) 2.1 (1.2-4.9) X10*3/uL [place] # (Auto) 0.5 (0.1-1.2) X10*3/uL Eos # (Auto) 0.3 (0.0-0.4) X10*3/uL Baso # (Auto) 0.1 (0.0-0.2) X10*3/uL Abs Immat Gran (auto) 0.01 (0.00-0.03) X10*3/uL Absolute Neuts (auto) 3.9 (2.0-8.3) x10*3/uL Absolute Nucleated RBC 0.000 (0.0-0.012) X10*3/uL Nucleated RBC % (auto) 0.0 (0.0-0.2) /100WBC Sodium 137 (135-145) mmol/L Potassium 3.8 (3.3-5.1) mmol/L Chloride 103 (96-108) mmol/L Carbon Dioxide 24 (22-29) mmol/L Anion Gap 14 (12-20) BUN 16 (9-16) mg/dL Creatinine 0.90 (0.5-1.4) mg/dL Estim Creat Clear Calc 88.8 Estimated GFR > 60 Random Glucose 118 H (60-115) mg/dL Calcium 10.0 (8.4-10.2) mg/dL Magnesium 2.1 (1.6-2.6) mg/dL Total Bilirubin 0.9 (0.0-1.0) mg/dL AST 23 (5-31) U/L ALT 27 (0-31) U/L Alkaline Phosphatase 64 (39-117) U/L Troponin I High Sens < 2.7 (<3.5-17.0) ng/L Total Protein 8.3 H (6.5-8.0) g/dL Albumin 4.5 (3.5-5.0) g/dL Beta HCG, Quant mIU/mL 05/22/23 Range/Units 13:05 WBC (4.8-10.8) X10*3/uL RBC (4.20-5.50) X10*6/uL Hgb (12.0-16.0) g/dl Hct (37.0-47.0) % MCV (80.0-98.0) fL MCH (27.0-33.0) pg MCHC (31.0-35.0) g/dl RDW (11.0-16.0) % Plt Count (160-400) X10*3/uL MPV (9.4-12.3) fL Immature Gran % (Auto) (0.0-0.4) % Neut % (Auto) (45-73) % Lymph % (Auto) (20-40) % [place] % (Auto) (2-11) % Eos % (Auto) (0-4) % Baso % (Auto) (0-2) % Lymph # (Auto) (1.2-4.9) X10*3/uL [place] # (Auto) (0.1-1.2) X10*3/uL Eos # (Auto) (0.0-0.4) X10*3/uL Baso # (Auto) (0.0-0.2) X10*3/uL Abs Immat Gran (auto) (0.00-0.03) X10*3/uL Absolute Neuts (auto) (2.0-8.3) x10*3/uL Absolute Nucleated RBC (0.0-0.012) X10*3/uL Nucleated RBC % (auto) (0.0-0.2) /100WBC Sodium (135-145) mmol/L Potassium (3.3-5.1) mmol/L Chloride (96-108) mmol/L Carbon Dioxide (22-29) mmol/L Anion Gap (12-20) BUN (9-16) mg/dL Creatinine (0.5-1.4) mg/dL Estim Creat Clear Calc Estimated GFR Random Glucose (60-115) mg/dL Calcium (8.4-10.2) mg/dL Magnesium (1.6-2.6) mg/dL Total Bilirubin (0.0-1.0) mg/dL AST (5-31) U/L ALT (0-31) U/L Alkaline Phosphatase (39-117) U/L Troponin I High Sens (<3.5-17.0) ng/L Total Protein (6.5-8.0) g/dL Albumin (3.5-5.0) g/dL Beta HCG, Quant < 2 mIU/mL Independent Interpretation I performed an independent interpretation of an: EKG and Plain X-Ray Interpretation: My interpretation is in agreement with the radiologist's impression of this imaging study. EXAMINATION: XR SHOULDER, LEFT CLINICAL INFORMATION: Left shoulder pain.? COMPARISON: None available.? TECHNIQUE: Three views of the left shoulder. FINDINGS: Glenohumeral and acromioclavicular alignment is anatomic with normal joint space. No displaced fracture or dislocation. No abnormal soft tissue calcifications.? XR/XR shoulder LT min 2V IMPRESSION: No acute abnormality. Dictated By: Riccardo Mckinney MD Signed By: Electronically signed by Riccardo Mckinney MD 05/22/23 0676 Vent. Rate: 078 BPM ? ? Atrial Rate: 078 BPM P-R Int: 138 ms? QRS Dur: 082 ms QT Int: 366 ms ? ? ? P-R-T Axes: 016 013 025 degrees QTc Int: 417 ms ? Normal sinus rhythm Normal ECG When compared with ECG of 06-MAR-2023 19:40, No significant change was found ? Electronically Signed By:BRANT KU MD Dictated By: Brant Ku MD Signed By: Electronically signed by Brant Ku MD 05/22/23 1611 Radiology Impression Discussion of test interpretation with radiology: I have reviewed the radiologist's reading. Discharge Plan Discharge Clinical Impression: Rotator cuff injury Patient Disposition: Home, Self-Care Instructions: Rotator Cuff Injury (ED), Rotator Cuff Injury Exercises (DC) Additional Instructions: Follow up with your primary care provider and an orthoepdic provider. Return to the emergency department immediately if your symptoms worsen or if you develop any dizziness, shortness of breath, difficulty breathing, chest pain, blurry vision, loss of vision, nausea, vomiting, abdominal pain, fever, chills, back pain, or any other complaints. Prescriptions: No Action hydrochlorothiazide 25 mg tablet 25 mg PO DAILY spironolactone 25 mg tablet 25 mg PO DAILY Referrals: [facility] [Provider Group] (Call to establish and follow up with an orthopedic provider. ) Aldair Siegel MD [Primary Care Provider] - Interventions: ED Discharge Assessment Last Done: 05/22/23 14:07 Discharge Date/Time: 05/22/23 14:08 Print Language: Mongolian
[2023-05-22 12:19] VITALS: BP 139/99; PULSE 74; RESP 19; TEMP 36.6; O2SAT 98; BMI 28.9
== END 2023-05-22 14:08 | disposition home or self-care (01) ==
PROVIDERS: Emergency Provider Emergency Medicine; PCP Internal Medicine
DX: S46.012A Strain of muscle(s) and tendon(s) of the rotator cuff of left shoulder, initial encounter (principal); M25.512 Pain in left shoulder; R20.0 Anesthesia of skin; M54.2 Cervicalgia; R10.13 Epigastric pain; R11.2 Nausea with vomiting, unspecified; X58.XXXA Exposure to other specified factors, initial encounter; Y93.9 Activity, unspecified; Y92.89 Other specified places as the place of occurrence of the external cause; Y99.9 Unspecified external cause status
CPT/HCPCS: 36415; 73030; 80053; 83735; 84484; 84702; 85025; 93005; 99283

== ENCOUNTER → 2023-05-22 12:20 | Outpatient (BNV) | payer BC, SELFPAY | PROVIDERS: Emergency Provider Emergency Medicine; PCP Internal Medicine; Visit Provider Internal Medicine Cardiovascular Disease | DX: M25.519 Pain in unspecified shoulder (principal) | CPT/HCPCS: 93010 ==

== ENCOUNTER 2023-06-15 14:05 | Emergency (ER) | payer BC, SELFPAY ==
--- NOTE | ~2023-06-15 | US_ITS ---
EXAMINATION: US PELVIS CLINICAL INFORMATION: 3 bleeding with clots and pain COMPARISON: None available. TECHNIQUE: Ultrasound of the pelvis is performed using both transabdominal and transvaginal transducers along with Doppler. Transvaginal imaging is performed due to inadequate visualization transabdominally. FINDINGS: Uterus: The uterus is anteverted, anteflexed and measures 11.5 x 7.9 x 10.0 cm and sagittal by AP by transverse dimensions. The double wall endometrial thickness is 0.9 mm. The uterus is the uterus is bulky and slightly heterogeneous. There is collection of small cystic lesions in the uterus measuring 1.1 x 1.2 x 1.4 cm in the right uterus. Question adenomyosis versus degenerating fibroid. Adnexa: Right ovary is not visualized. Left ovary measures 2.2 x 1.4 x 1.3 CM and volume 2.1 mL. There is a small adnexal versus paraovarian cyst measuring 1.2 x 0.9 x 1.1 cm. US/US pelvic and transvaginal IMPRESSION: 1. Bulky heterogeneous uterus with a small cystic lesion in the right uterus. Question adenomyosis versus degenerating fibroid. 2. Right ovary is not seen. 3. Left ovary is unremarkable. There is a small left adnexal versus paraovarian cyst measuring 1.2 cm. 4. There is no free fluid in the cul-de-sac.
[2023-06-15 14:22] VITALS: BP 157/107; PULSE 75; RESP 18; TEMP 36.6; O2SAT 97; BMI 30.4
--- NOTE | 2023-06-15 14:22 | ED.GENADULT ---
HPI - General Adult General Chief complaint: Vaginal Bleeding Stated complaint: Vaginal Bleeding Time Seen by Provider: 06/15/23 16:45 History of Present Illness HPI narrative: Patient is a 47-year-old female presents emergency department for evaluation of vaginal bleeding. Onset was 10 days ago, however over the past 3 days it has been significantly heavier. Reports that she is changing a large sanitary napkin every hour. Additionally for the past 2 days she has been experiencing large clots that are reportedly the size of her hand. Lower abdominal pain radiating to the back which she reports feels consistent with menstrual cramping She has had intermittent dizziness and palpitations which she reports having at baseline though slightly increased. She contacted her OBGYN office and as per referred to the emergency department. She had a menstrual period in December and in April 2023. States that it has been a regular for the past 2 years, she has been in discussion with her OB provider regarding early menopause. Denies fevers, chills, upper abdominal, chest pain, shortness of breath, dysuria, urinary frequency/urgency/hesitancy, hematuria, pelvic pain. Related Data Home Medications Medication Instructions Recorded Confirmed hydrochlorothiazide 25 mg tablet 25 mg PO DAILY 02/22/23 spironolactone 25 mg tablet 25 mg PO DAILY 02/22/23 Allergies Allergy/AdvReac Type Severity Reaction Status Date / Time meperidine [From DEMEROL] Allergy Severe ANAPHYLAXIS Verified 06/15/23 14:22 lisinopril Allergy Unknown Swelling Verified 06/15/23 14:22 shrimp [SHRIMP] AdvReac Severe DIFFICULTY Verified 06/15/23 14:22 BREATHING PMFSH Past Medical History Attestation statement: The following information was validated with the patient. Source: old records reviewed Medical History KATY III (cervical intraepithelial neoplasia III) COVID-19 Diastolic heart failure HTN (hypertension) Nephrolithiasis Surgical History H/O lithotripsy Hx of section Hx of cholecystectomy Family History Family History Maternal Grandmother Breast cancer Social History Social History Alcohol intake: current Alcohol intake frequency: a few times a month Patient Tobacco Use Status: Never used Tobacco Smoked in Last 30 Days: No Use of substances other than those prescribed or required for medical reasons: No Advance Directives: No Advance Directives Information Provided: No Patient : No Sexual orientation: Straight/Heterosexual Gender identity: Female Physical Exam ED Vital Signs: Vital Signs - 24 hr 06/15/23 14:22 06/15/23 19:14 Temperature 98 F Pulse Rate 75 77 Respiratory Rate 18 18 Blood Pressure 157/107 H 140/92 H Pulse Oximetry 97 100 BMI result Body Mass Index 30.4 Appearance: Alert.?Oriented to person, place and time. No acute distress.?Normal affect. Eyes: Pupils equal, round and reactive to light.? ENT: Pharynx normal.?? Neck: Normal inspection.? Neck supple.?? CVS: Heart sounds normal. Normal heart rate and rhythm.? Pulses normal.?? Respiratory: No respiratory distress.? Lung sounds clear to auscultation bilaterally?? Abdomen: Soft and non-tender. Normoactive bowel sounds. No CVA tenderness Skin: Skin warm and dry.? Normal skin color.? ?? Extremities: No lower extremity edema.? Neuro: Moves all extremities spontaneously. Sensation intact bilaterally. No focal neuro deficits. Ambulates with normal steady gait. Genitourinary:? Supervised by ED food quality technician. Normal external appearance of urethra.? No lesions/lacerations or tenderness noted. No Bartholin cyst noted.? Speculum exam: normal appearance/palpation of vagina normal. No abnormal vaginal swelling, erythema, laceratons. Positive active bleeding noted.?No foreign bodies noted.? No vaginal tenderness noted.? Normal appearance of cervix; closed, with bleeding from the cervical os. Normal palpation of cervix.? Cervical os is closed.? No cervical lesion/mass.?? No cervical motion tenderness noted.? Negative chandelier sign.? Normal bimanual exam.? Uterine size normal. Uterine consistency normal.? Bladder normal to palpation. Normal adnexa. Normal rectovaginal exam. Course Course Course Narrative: This is a rapid medical exam: Additional HPI, ROS, PE not included below will be deferred to primary provider. Patient is a 47-year-old female presenting to the emergency department complaining of vaginal bleeding for the past 10 days, states the past 3 days have been very heavy bleeding with large clots the size of her hand. Also complains of dizziness and states she has palpitations at baseline but has been having worse palpitations than normal. Called her COMPENSATION/BENEFITS SPECIALIST and was referred to the ED. Also complains of lower abdominal cramping. States last period was in April, last period before that was December, has been irregular like this for the past two years. States that one clot yesterday had white colored tissue, unsure if bleeding is related to a spontaneous . Plan: labs, UA Reevaluation(s) Reevaluation #1: Pelvic ultrasound revealing both the heterogeneous uterus with question of adenomyosis versus degenerating fibroid, reviewed these findings with patient, advised outpatient follow-up with OBGYN provider. Discussed worrisome signs and symptoms that would warrant re-evaluation in the emergency department. All questions answered. Stable for discharge. Time: 18:37 Medications Administered Discontinued Medications Generic Name Dose Route Start Last Admin Trade Name Freq PRN Reason Stop Dose Admin Acetaminophen 975 mg 06/15/23 18:54 06/15/23 19:26 Acetaminophen 325 Mg Tablet PO 06/15/23 18:55 975 mg ONCE ONE Administration Medical Decision Making Medical Decision Making [facility] Narrative: Patient is a 47-year-old female with past medical history of KATY III with cryotherapy in 2003, and reported biopsy 2 years ago with OBGYN, heart failure, hypertension, nephrolithiasis who presents emergency department for evaluation of vaginal bleeding as per HPI. My examination she is overall well-appearing. Nontoxic. Afebrile. Pelvic examination revealing closed cervical oz with small amount of active bleeding otherwise unremarkable examination. Will obtain serum labs in addition to pelvic ultrasound, for further evaluation Differential Diagnosis Differential Diagnoses: The differential diagnosis associated with the presentation includes (Menorrhagia via, spontaneous , threatened , ectopic ) Admission/Observation Consideration of admission/observation: Escalation of care including admission/observation considered (A considered admission for heavy vaginal bleeding with abdominal pain, see course narrative for further detail) Lab Data [facility] Lab Attestation statement: I reviewed the patient's lab results. CBC reveals no leukocytosis, no significant anemia that would meet transfusion criteria, overall unremarkable to the. Urinalysis is without evidence of infection. Testing for bacterial vaginosis panel, Trichomonas, chlamydia and gonorrhea are pending. The patient had a low suspicion for any of the infection. 06/15/23 14:38 06/15/23 14:38 Labs: Lab Results 06/15/23 06/15/23 06/15/23 Range/Units 14:38 14:38 14:38 WBC 8.7 (4.8-10.8) X10*3/uL RBC 3.96 L (4.20-5.50) X10*6/uL Hgb 12.2 (12.0-16.0) g/dl Hct 36.4 L (37.0-47.0) % MCV 91.9 (80.0-98.0) fL MCH 30.8 (27.0-33.0) pg MCHC 33.5 (31.0-35.0) g/dl RDW 12.4 (11.0-16.0) % Plt Count 302 (160-400) X10*3/uL MPV 9.9 (9.4-12.3) fL Immature Gran % (Auto) 0.3 (0.0-0.4) % Neut % (Auto) 62.4 (45-73) % Lymph % (Auto) 25.3 (20-40) % Arthur % (Auto) 6.9 (2-11) % Eos % (Auto) 4.0 (0-4) % Baso % (Auto) 1.1 (0-2) % Lymph # (Auto) 2.2 (1.2-4.9) X10*3/uL Arthur # (Auto) 0.6 (0.1-1.2) X10*3/uL Eos # (Auto) 0.4 (0.0-0.4) X10*3/uL Baso # (Auto) 0.1 (0.0-0.2) X10*3/uL Abs Immat Gran (auto) 0.03 (0.00-0.03) X10*3/uL Absolute Neuts (auto) 5.4 (2.0-8.3) x10*3/uL Absolute Nucleated RBC 0.000 (0.0-0.012) X10*3/uL Nucleated RBC % (auto) 0.0 (0.0-0.2) /100WBC PT 12.4 (11.1-13.3) SEC INR 1.0 (0.9-1.1) Sodium 140 (135-145) mmol/L Potassium 3.6 (3.3-5.1) mmol/L Chloride 103 (96-108) mmol/L Carbon Dioxide 25 (22-29) mmol/L Anion Gap 16 (12-20) BUN 25 H (9-16) mg/dL Creatinine 0.88 (0.5-1.4) mg/dL Estim Creat Clear Calc 93.1 Estimated GFR > 60 Random Glucose 74 (60-115) mg/dL Calcium 9.7 (8.4-10.2) mg/dL Total Bilirubin 0.6 (0.0-1.0) mg/dL AST 15 (5-31) U/L ALT 16 (0-31) U/L Alkaline Phosphatase 70 (39-117) U/L Total Protein 7.6 (6.5-8.0) g/dL Albumin 4.1 (3.5-5.0) g/dL Beta HCG, Quant mIU/mL Urine Color Urine Appearance Urine pH (5.0-9.0) Ur Specific Nubieber (1.005-1.025) Urine Protein (Neg-Trace) mg/dL Urine Glucose (UA) (Negative) mg/dL Urine Ketones (Negative) mg/dL Urine Blood (Negative) Urine Nitrite (Negative) Ur Leukocyte Esterase (Negative) Urine RBC (0-2) /HPF Urine WBC (0-5) /HPF Ur Squamous Epith Cells (0-2) /HPF Urine Bacteria (None Seen) Hyaline Casts (0-2) /LPF Blood Type Antibody Screen 06/15/23 06/15/23 06/15/23 Range/Units 14:38 14:38 14:38 WBC (4.8-10.8) X10*3/uL RBC (4.20-5.50) X10*6/uL Hgb (12.0-16.0) g/dl Hct (37.0-47.0) % MCV (80.0-98.0) fL MCH (27.0-33.0) pg MCHC (31.0-35.0) g/dl RDW (11.0-16.0) % Plt Count (160-400) X10*3/uL MPV (9.4-12.3) fL Immature Gran % (Auto) (0.0-0.4) % Neut % (Auto) (45-73) % Lymph % (Auto) (20-40) % Arthur % (Auto) (2-11) % Eos % (Auto) (0-4) % Baso % (Auto) (0-2) % Lymph # (Auto) (1.2-4.9) X10*3/uL Arthur # (Auto) (0.1-1.2) X10*3/uL Eos # (Auto) (0.0-0.4) X10*3/uL Baso # (Auto) (0.0-0.2) X10*3/uL Abs Immat Gran (auto) (0.00-0.03) X10*3/uL Absolute Neuts (auto) (2.0-8.3) x10*3/uL Absolute Nucleated RBC (0.0-0.012) X10*3/uL Nucleated RBC % (auto) (0.0-0.2) /100WBC PT (11.1-13.3) SEC INR (0.9-1.1) Sodium (135-145) mmol/L Potassium (3.3-5.1) mmol/L Chloride (96-108) mmol/L Carbon Dioxide (22-29) mmol/L Anion Gap (12-20) BUN (9-16) mg/dL Creatinine (0.5-1.4) mg/dL Estim Creat Clear Calc Estimated GFR Random Glucose (60-115) mg/dL Calcium (8.4-10.2) mg/dL Total Bilirubin (0.0-1.0) mg/dL AST (5-31) U/L ALT (0-31) U/L Alkaline Phosphatase (39-117) U/L Total Protein (6.5-8.0) g/dL Albumin (3.5-5.0) g/dL Beta HCG, Quant < 2 mIU/mL Urine Color Red A Urine Appearance Cloudy Urine pH 6.0 (5.0-9.0) Ur Specific N[place]ieber 1.025 (1.005-1.025) Urine Protein 30 (1+) H (Neg-Trace) mg/dL Urine Glucose (UA) Negative (Negative) mg/dL Urine Ketones Trace (Negative) mg/dL Urine Blood Large (3+) H (Negative) Urine Nitrite Negative (Negative) Ur Leukocyte Esterase Small (1+) H (Negative) Urine RBC >20 H (0-2) /HPF Urine WBC 6-10 H (0-5) /HPF Ur Squamous Epith Cells 3-5 (0-2) /HPF Urine Bacteria None Seen (None Seen) Hyaline Casts 3-5 (0-2) /LPF Blood Type O Positive Antibody Screen NEGATIVE Radiology Impression Discussion of test interpretation with radiology: I have reviewed the radiologist's reading. Radiologist Impression: US/US pelvic and transvaginal IMPRESSION: 1.? Bulky heterogeneous uterus with a small cystic lesion in the right uterus. Question adenomyosis versus degenerating fibroid. 2.? Right ovary is not seen. 3.? Left ovary is unremarkable. There is a small left adnexal versus paraovarian cyst measuring 1.2 cm. 4.? There is no free fluid in the cul-de-sac. External Record Review External record reviewed: Outpatient record (OBGYN) Discharge Plan Discharge Clinical Impression: Menorrhagia Patient Disposition: Home, Self-Care Instructions: Menorrhagia (ED) Additional Instructions: Please contact your OBGYN provider and arrange for a follow-up visit. Return back to emergency department any new or worsening symptoms or concerns. Prescriptions: No Action hydrochlorothiazide 25 mg tablet 25 mg PO DAILY spironolactone 25 mg tablet 25 mg PO DAILY Referrals: Thony Diggs MD [Physician] -
[2023-06-15 14:47] LABS: MANUAL DIFF FLAG NO
[2023-06-15 14:49] LABS: Basophils Absolute Auto 0.1 X10*3/uL (0.0-0.2); Basophils Percent Auto 1.1 % (0-2); Eosinophils Absolute Auto 0.4 X10*3/uL (0.0-0.4); Hematocrit 36.4 % (37.0-47.0); Hemoglobin 12.2 g/dl (12.0-16.0); Imm Gran Abs Auto 0.03 X10*3/uL (0.00-0.03); Imm Gran Pct Auto 0.3 % (0.0-0.4); Lymphocytes Absolute Auto 2.2 X10*3/uL (1.2-4.9); Lymphocytes Percent Auto 25.3 % (20-40); Mean Corpuscular HGB Conc 33.5 g/dl (31.0-35.0); Mean Corpuscular Hemoglobin 30.8 pg (27.0-33.0); Mean Corpuscular Volume 91.9 fL (80.0-98.0); Mean Platelet Volume 9.9 fL (9.4-12.3); Monocytes Absolute Auto 0.6 X10*3/uL (0.1-1.2); Monocytes Percent Auto 6.9 % (2-11); Neutrophils Absolute Auto 5.4 x10*3/uL (2.0-8.3); Neutrophils Percent Auto 62.4 % (45-73); Platelet Count 302 X10*3/uL (160-400); Red Blood Count 3.96 X10*6/uL (4.20-5.50); Red Cell Distribution Width 12.4 % (11.0-16.0); White Blood Count 8.7 X10*3/uL (4.8-10.8)
[2023-06-15 14:52] LABS: Appearance Urine Cloudy; Color Urine Red; Glucose Urine UA Negative (Negative); Leukocyte Esterase Urine Small (1+) (Negative); Nitrite Urine Negative (Negative); Specific Gravity - Urine 1.025 (1.005-1.025); UMIC TRIGGER UACC YES; Urine Blood Large (3+) (Negative); Urine Ketones Trace mg/dL (Negative); Urine Protein 30 (1+) mg/dL (Neg-Trace)
[2023-06-15 14:54] LABS: Bacteria Urine None Seen (None Seen); RBC Urine >20 /HPF (0-2); UACC Culture Trigger YES
[2023-06-15 14:55] LABS: Prothrombin Time 12.4 SEC (11.1-13.3)
[2023-06-15 15:03] LABS: Alanine Aminotransferase 16 U/L (0-31); Albumin Level 4.1 g/dL (3.5-5.0); Alkaline Phosphatase 70 U/L (39-117); Anion Gap 16 (12-20); Aspartate Amino Transferase 15 U/L (5-31); Bilirubin Total 0.6 mg/dL (0.0-1.0); Blood Urea Nitrogen 25 mg/dL (9-16); Calcium 9.7 mg/dL (8.4-10.2); Carbon Dioxide 25 mmol/L (22-29); Chloride 103 mmol/L (96-108); Creatinine Clr Calc Pharmacy 93.1; Estimated Glomerular Filt Rate > 60; Glucose Random 74 mg/dL (60-115); Potassium 3.6 mmol/L (3.3-5.1); Sodium 140 mmol/L (135-145); Total Protein 7.6 g/dL (6.5-8.0)
[2023-06-15 15:12] LABS: HCG Quantitative < 2 mIU/mL
--- NOTE | 2023-06-15 19:13 | PC.NURSE ---
Assumed care of pt. Pt lying on stretcher, endorsing 10/10 pain in lower abdomen, significant vaginal bleeding x 3 days and cramping. medicated per orders, VSS.
[2023-06-15 19:14] VITALS: BP 140/92; PULSE 77; RESP 18; O2SAT 100
[2023-06-15] MEDS: Acetaminophen 325 MG TABLET 975 MG PO (19:26)
[2023-06-15 20:40] VITALS: BP 125/88; PULSE 83; RESP 17; TEMP 36.5; O2SAT 97
[2023-06-16 03:02] LABS: CT PCR NOT DETECTED (Not Detect.); NG PCR NOT DETECTED (Not Detect.)
[2023-06-16 09:39] LABS: BV Int Neg Control Negative (Negative); BV Int Pos Control Positive (Positive)
== END 2023-06-15 20:41 | disposition home or self-care (01) ==
PROVIDERS: Nurse Practitioner Family; Registered Nurse Emergency; Emergency Provider Internal Medicine; PCP Internal Medicine
DX: N92.0 Excessive and frequent menstruation with regular cycle (principal); N93.9 Abnormal uterine and vaginal bleeding, unspecified; Z79.899 Other long term (current) drug therapy
CPT/HCPCS: 0353U; 36415; 76830; 76856; 80053; 81001; 84702; 85025; 85610; 86850; 86900; 86901; 87086; 87480; 87510; 87660; 99284

== ENCOUNTER 2023-06-16 10:58 | Outpatient (REF) | payer BC, SELFPAY | END 2023-06-16 10:59 | disposition home or self-care (01) | LOC: HO.LNP 10:58 | PROVIDERS: PCP Internal Medicine; Visit Provider Advanced Practice Midwife | DX: N93.9 Abnormal uterine and vaginal bleeding, unspecified (principal); N92.0 Excessive and frequent menstruation with regular cycle; R39.89 Other symptoms and signs involving the genitourinary system | CPT/HCPCS: 88305 ==

== ENCOUNTER 2023-06-16 12:46 | Outpatient (REF) | payer BC, SELFPAY ==
[2023-06-16 13:46] LABS: Hematocrit 35.7 % (37.0-47.0); Hemoglobin 11.8 g/dl (12.0-16.0); Mean Corpuscular HGB Conc 33.1 g/dl (31.0-35.0); Mean Corpuscular Hemoglobin 30.7 pg (27.0-33.0); Mean Platelet Volume 10.3 fL (9.4-12.3); Platelet Count 302 X10*3/uL (160-400); Red Blood Count 3.84 X10*6/uL (4.20-5.50); Red Cell Distribution Width 12.6 % (11.0-16.0); White Blood Count 8.8 X10*3/uL (4.8-10.8)
[2023-06-16 15:10] LABS: Thyroid Stimulating Hormone 1.43 uIU/mL (0.32-4.0)
== END 2023-06-16 12:47 | disposition home or self-care (01) ==
LOC: HO.LAB 12:46
PROVIDERS: PCP Internal Medicine; Visit Provider Advanced Practice Midwife
DX: N92.0 Excessive and frequent menstruation with regular cycle (principal); N92.1 Excessive and frequent menstruation with irregular cycle
CPT/HCPCS: 36415; 84443; 85027

== ENCOUNTER 2023-06-20 15:33 | Outpatient (REF) | payer BC, SELFPAY ==
[2023-06-20 16:11] LABS: Hematocrit 34.9 % (37.0-47.0); Hemoglobin 11.7 g/dl (12.0-16.0); Mean Corpuscular HGB Conc 33.5 g/dl (31.0-35.0); Mean Corpuscular Hemoglobin 31.1 pg (27.0-33.0); Mean Corpuscular Volume 92.8 fL (80.0-98.0); Mean Platelet Volume 10.1 fL (9.4-12.3); Platelet Count 357 X10*3/uL (160-400); Red Blood Count 3.76 X10*6/uL (4.20-5.50); Red Cell Distribution Width 12.8 % (11.0-16.0); White Blood Count 10.6 X10*3/uL (4.8-10.8)
== END 2023-06-20 15:34 | disposition home or self-care (01) ==
LOC: HO.LAB 15:33
PROVIDERS: PCP Internal Medicine; Visit Provider Advanced Practice Midwife
DX: N92.0 Excessive and frequent menstruation with regular cycle (principal)
CPT/HCPCS: 36415; 81025; 85027

== ENCOUNTER 2023-06-20 15:51 | Outpatient (AMB) | payer BC, SELFPAY ==
[2023-06-20 15:52] VITALS: BP 138/88; BMI 30.1
--- NOTE | 2023-06-20 15:52 | MHC.OFFVIS ---
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 Complaints of fatigue since Monday and codey. shoulder pain feeling heavy, tired. Reports eating well and staying hydrating during the weekend activities. [facility] Medical History (Updated 06/20/23 @ 16:25 by Toya Smith) KATY III (cervical intraepithelial neoplasia III) COVID-19 Diastolic heart failure HTN (hypertension) Nephrolithiasis Surgical History H/O lithotripsy Hx of section Hx of cholecystectomy Family History Maternal Grandmother Breast cancer Social History Alcohol intake: current Alcohol intake frequency: a few times a month Patient Tobacco Use Status: Never used Tobacco Sexual orientation: Straight/Heterosexual Gender identity: Female Female Reproductive History Menstrual Age of Menarche: 12 control method: progestin IUCD (Mirena 06/16/23, IUD strings visible 06/20/23) Physical Exam Vital Signs: Last Vital Signs BP 138/88 06/20/23 15:52 BMI result Body Mass Index 30.1 Const General: cooperative, healthy appearing, comfortable, no acute distress, well developed, alert and awake Other: General: Yes bladder normal to palpation External Female Exam: normal external appearance and normal appearance of the urethra Speculum Exam - Vagina: normal appearance of the vagina, normal palpation, normal vaginal discharge and abnormal vaginal discharge (pink tinged blood) Speculum Exam - Cervix: normal appearance of the cervix, normal palpation and Other cervical findings present (IUD strings visible) Bimanual exam- vagina & uterus: normal bimanual exam, normal palpation, bladder normal to palpation and normal palpation Bimanual Exam- Adnexa, other: normal adnexae and no masses Results AMB Test Urine AMB Test Urine Negative Last Edit by RASHIDA Duke on 06/20/23 16:27 Results Reviewed Results Reviewed: Laboratory Last Values Tst Clinic Negative 06/20/23 16:27 Collected: 06/16/23 Location: [facility] Received: 06/19/23 Diagnosis Endometrium, biopsy:? Benign endometrium with ectatic stromal vessels with fibrin thrombi, breakdown, secretory and inactive glands, and decidual stromal change consistent with progestin effect; no atypia or carcinoma (see comment). Comment:? Some fragments may be derived from functional polyps.? Clinical correlation is necessary. Clinical History AUB Microscopic Description Microscopic sections reviewed. Material Received EMB Gross Description Received in formalin labeled ?EMB? is a 3.0 x 2.0 x 0.5-1.0 cm aggregate of multiple irregular and tubular cast fragments of congested and hemorrhagic meneses, maroon-brown tissue and clotted blood.? The specimen is submitted in toto in cassettes A1-A3. Laboratory Tests 06/20/23 15:40 WBC 10.6 RBC 3.76 L Hgb 11.7 L Hct 34.9 L MCV 92.8 MCH 31.1 MCHC 33.5 RDW 12.8 Plt Count 357 MPV 10.1 Assessment & Plan Assessment & Plan (1) Encounter to discuss test results: Code(s): Z71.2 - Person consulting for explanation of examination or test findings Plan: Discussed: EMB results; no cancer, polyp fragments. Labs-normal H/H-stable since Monday. Hydrate well, eat healthy. Follow up with Dr. Diggs for consult for hysteroscopy and D&C. All of her questions and concerns were addressed to the best of my ability and shared decision making. She is agreeable to plan of care. (2) IUD surveillance: Code(s): Z30.431 - Encounter for routine checking of intrauterine contraceptive device Orders: Orders AMB HCG Urine Test Today Z32.02 - Encounter for test, result negative Coding Level of Care Code Est Pt Level 3 (73539) Diagnoses Encounter to discuss test results Z71.2 IUD surveillance Z30.431
== END 2023-06-20 16:27 | disposition home or self-care (01) ==
LOC: HO.HWS 15:51
PROVIDERS: PCP Internal Medicine; Visit Provider Advanced Practice Midwife
DX: Z71.2 Person consulting for explanation of examination or test findings (principal); Z30.431 Encounter for routine checking of intrauterine contraceptive device; Z32.02 Encounter for pregnancy test, result negative
CPT/HCPCS: 99213

== ENCOUNTER 2023-07-18 12:02 | Outpatient (REF) | payer BC, SELFPAY ==
[2023-07-18 14:06] LABS: Hematocrit 36.7 % (37.0-47.0); Mean Corpuscular HGB Conc 32.7 g/dl (31.0-35.0); Mean Corpuscular Hemoglobin 30.2 pg (27.0-33.0); Mean Corpuscular Volume 92.2 fL (80.0-98.0); Mean Platelet Volume 10.4 fL (9.4-12.3); Platelet Count 354 X10*3/uL (160-400); Red Blood Count 3.98 X10*6/uL (4.20-5.50); Red Cell Distribution Width 12.6 % (11.0-16.0); White Blood Count 9.3 X10*3/uL (4.8-10.8)
[2023-07-18 15:46] LABS: CT PCR NOT DETECTED (Not Detect.); NG PCR NOT DETECTED (Not Detect.)
== END 2023-07-18 12:03 | disposition home or self-care (01) ==
LOC: HO.LNP 12:02
PROVIDERS: PCP Internal Medicine; Visit Provider Obstetrics & Gynecology
DX: N93.9 Abnormal uterine and vaginal bleeding, unspecified (principal); S30.814A Abrasion of vagina and vulva, initial encounter; X58.XXXA Exposure to other specified factors, initial encounter; Y93.9 Activity, unspecified; Y92.9 Unspecified place or not applicable; Y99.9 Unspecified external cause status; Z20.2 Contact with and (suspected) exposure to infections with a predominantly sexual mode of transmission; Z97.5 Presence of (intrauterine) contraceptive device
CPT/HCPCS: 0353U; 81025; 85027; 87255

== ENCOUNTER 2023-07-18 12:02 | Outpatient (AMB) | payer BC, SELFPAY ==
[2023-07-18 12:18] VITALS: BP 122/74; BMI 29.0
--- NOTE | 2023-07-18 12:18 | A.OFFVIS_ITS ---
Intake Vital Signs 07/18/23 12:18 Height 5 ft 9 in Weight 196 lb 3.382 oz BMI 29.0 BP 122/74 Intake Visit Reasons: vaginal bleeding with IUD [employer] W[employer] Etcher Stripper Required: No Information Interpreted: non-clinical & clinical Insurance Compliance Analyst: Insurance Compliance Analyst Present Accompanied by: Self / Same As Patient Allergies meperidine [From DEMEROL] Allergy (Severe, Verified 07/18/23 12:19) ANAPHYLAXIS lisinopril Allergy (Unknown, Verified 07/18/23 12:19) Swelling shrimp [SHRIMP] Adverse Reaction (Severe, Verified 07/18/23 12:19) DIFFICULTY BREATHING HPI HPI Comments History of Present Illness Details The patient is presenting for follow-up after IUD insertion complaining of continued vaginal spotting/bleeding associated with left vulvar burning that started right after intercourse few days ago. The patient went to the emergency room on 06/16 for abnormal uterine bleeding and was seen as a follow- up few days after within the office when EMB and Mirena IUD Mirena was insertet The following workup was done: 06/16 H&H= 11.8/35.7, repeat on 06/19 was 11.7/34.9 TSH, hCG, GC and chlamydia were negative. Endometrial biopsy pathology showed the following: Benign endometrium with ectatic stromal vessels with fibrin thrombi, breakdown, secretory and inactive glands, and decidual stromal change consistent with progestin effect; no atypia or carcinoma (see comment). Comment:? Some fragments may be derived from functional polyps.? Clinical correlation is necessary. Pap smear was done in 03/04 was negative. Mammogram was BI-RADS 2 in 04/04 Pelvic ultrasound showed the following: IMPRESSION: 1. Bulky heterogeneous uterus with a small cystic lesion in the right uterus. Question adenomyosis versus degenerating fibroid. 2. Right ovary is not seen. 3. Left ovary is unremarkable. There is a small left adnexal versus paraovarian cyst measuring 1.2 cm. 4. There is no free fluid in the cul-de-sac. PFSH Medical History KATY III (cervical intraepithelial neoplasia III) COVID-19 Diastolic heart failure HTN (hypertension) Nephrolithiasis Surgical History H/O lithotripsy Hx of section Hx of cholecystectomy Family History Maternal Grandmother Breast cancer Social History Alcohol intake: current Alcohol intake frequency: a few times a month Patient Tobacco Use Status: Never used Tobacco Sexual orientation: Straight/Heterosexual Gender identity: Female Female Reproductive History Menstrual Age of Menarche: 12 Review of Systems Const All systems reviewed & are unremarkable except as noted in HPI and below Physical Exam Vital Signs: Last Vital Signs BP 122/74 07/18/23 12:18 BMI result Body Mass Index 29.0 General: Yes no CVA tenderness External Female Exam: normal appearance of the urethra and lesion (Left labia majora mild abrasion 1 x 1 cm) Speculum Exam - Vagina: normal appearance of the vagina, normal palpation, no lesions and no masses Speculum Exam - Cervix: normal appearance of the cervix, normal palpation, no lesions, no masses, nontender and Other cervical findings present (IUD thread in place) Bimanual exam- vagina & uterus: normal bimanual exam, normal palpation, uterine size normal, normal palpation, uterine shape normal, No Cervical tenderness present and non-tender Bimanual Exam- Adnexa, other: normal adnexae Back/Spine/Pelvis Back: no CVA tenderness Results AMB Test Urine AMB Test Urine Negative Last Edit by Soraida Crockett CMA on 12:20 Results Reviewed Results Reviewed: Laboratory Last Values Tst Clinic Negative 07/18/23 12:20 Assessment & Plan Assessment & Plan (1) Abnormal uterine bleeding (AUB): Comment: Endometrial polyp on EMB On Mirena IUD Code(s): N93.9 - Abnormal uterine and vaginal bleeding, unspecified Plan: Urine test done was negative. GC and chlamydia with BV panel collected. Will order CBC and ultrasound of the pelvis stat. Discussed the patient evidence suggestive of endometrial polyp on EMB. Will check the results and discuss options of treatment. Instructions given the patient to schedule and a follow-up appointment tomorrow (2) Abrasion of vulva: Code(s): S30.814A - Abrasion of vagina and vulva, initial encounter Plan: Discussed with the patient the finding on physical exam left vulvar abrasion, herpes culture collected. The differential diagnosis discussed the patient including abrasion secondary to traumatic intercourse versus herpes. Orders: Orders AMB HCG Urine Test Today Z32.02 - Encounter for test, result negative Bacterial Vaginosis Panel Today N93.9 - Abnormal uterine and vaginal bleeding, unspecified CT NG by PCR Today N93.9 - Abnormal uterine and vaginal bleeding, unspecified Herpes Virus Culture rflx Type Today S30.814A - Abrasion of vagina and vulva, initial encounter Complete Blood Count no Diff Today N93.9 - Abnormal uterine and vaginal bleeding, unspecified US pelvic and transvaginal Today N93.9 - Abnormal uterine and vaginal bleeding, unspecified Coding Level of Care Code Est Pt Level 3 (90407) Diagnoses Abnormal uterine bleeding (AUB) N93.9 Abrasion of vulva S30.815C
== END 2023-07-18 12:43 | disposition home or self-care (01) ==
PROVIDERS: PCP Internal Medicine; Visit Provider Obstetrics & Gynecology
DX: N93.9 Abnormal uterine and vaginal bleeding, unspecified (principal); S30.814A Abrasion of vagina and vulva, initial encounter; Z32.02 Encounter for pregnancy test, result negative
CPT/HCPCS: 99213

== ENCOUNTER 2023-07-18 12:55 | Outpatient (REF) | payer BC, SELFPAY ==
--- NOTE | ~2023-07-18 | US_ITS ---
EXAMINATION: US PELVIS CLINICAL INFORMATION: Abnormal uterine, vaginal bleeding. COMPARISON: Pelvic ultrasound from 11/11/2022 and 06/15/2023. TECHNIQUE: Ultrasound of the pelvis is performed using both transabdominal and transvaginal transducers along with Doppler. Transvaginal imaging is performed due to suboptimal visualization transabdominally. FINDINGS: UTERUS AND CERVIX The anteflexed, anteverted uterus measures approximately 11 x 6.6 x 7 cm ([id number] x AP x transverse dimension). No submucosal cystic changes are seen on this current exam. Although the myometrium is diffusely heterogeneous, there is no discrete leiomyoma. The endometrium has normal echotexture and measures 0.4 cm in thickness (image 38 of 68). The contraceptive device is low in position. It is seen within the lower uterine segment and its distal tip is in region of the internal cervical os. No endometrial fluid. ADNEXA: The ovaries are not seen on either transabdominal or transvaginal imaging. No evidence of adnexal masses. FREE FLUID: None detected. US/US pelvic and transvaginal IMPRESSION: * The endometrium has normal echotexture and normal thickness; it measures 0.4 cm AP. * The contraceptive device is low in position. It is seen within the lower uterine segment and its distal tip is in region of the internal cervical os. * The uterus is mildly enlarged and it chronically has heterogeneous echotexture, similar compared to 11/11/2022. The differential diagnosis for chronic uterine enlargement and heterogeneity includes adenomyosis.
[2023-07-19 08:50] LABS: BV Int Neg Control Negative (Negative); BV Int Pos Control Positive (Positive)
== END 2023-07-18 12:56 | disposition home or self-care (01) ==
LOC: HO.US 12:55
PROVIDERS: PCP Internal Medicine; Visit Provider Obstetrics & Gynecology
DX: N93.9 Abnormal uterine and vaginal bleeding, unspecified (principal); S30.814A Abrasion of vagina and vulva, initial encounter; X58.XXXA Exposure to other specified factors, initial encounter; Y93.9 Activity, unspecified; Y92.9 Unspecified place or not applicable; Y99.9 Unspecified external cause status
CPT/HCPCS: 76830; 76856; 87480; 87510; 87660

== ENCOUNTER 2023-07-19 09:38 | Outpatient (AMB) | payer BC, SELFPAY ==
--- NOTE | 2023-07-19 09:41 | A.OFFVIS_ITS ---
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 The endometrium has normal echotexture and normal thickness; it measures 0.4 cm AP. *? The contraceptive device is low in position. It is seen within the lower uterine segment and its distal tip is in region of the internal cervical os. *? The uterus is mildly enlarged and it chronically has heterogeneous echotexture, similar compared to 11/11/2022. The differential diagnosis for chronic uterine enlargement and heterogeneity includes adenomyosis. The patient went to the emergency room on 06/16 for abnormal uterine bleeding and was seen as a follow-up few days after within the office when EMB and Mirena IUD Mirena was insertet The following workup was done: 06/16 H&H= 11.8/35.7, repeat on 06/19 was 11.7/34.9 TSH, hCG, GC and chlamydia were negative. Endometrial biopsy pathology showed the following: Benign endometrium with ectatic stromal vessels with fibrin thrombi, breakdown, secretory and inactive glands, and decidual stromal change consistent with progestin effect; no atypia or carcinoma (see comment). Comment:? Some fragments may be derived from functional polyps.? Clinical correlation is necessary. Pap smear was done in 03/04 was negative. Mammogram was BI-RADS 2 in 04/04 [facility] Medical History KATY III (cervical intraepithelial neoplasia III) COVID-19 Diastolic heart failure HTN (hypertension) Nephrolithiasis Surgical History H/O lithotripsy Hx of section Hx of cholecystectomy Family History Maternal Grandmother Breast cancer Social History Alcohol intake: current Alcohol intake frequency: a few times a month Patient Tobacco Use Status: Never used Tobacco Sexual orientation: Straight/Heterosexual Gender identity: Female Female Reproductive History Menstrual Age of Menarche: 12 Date of last menstrual period: 09/10/20 Total pregnancies: 2 Full term: 2 Review of Systems Card Reports as per HPI and Reports no additional complaints Resp Reports as per HPI and Reports no additional complaints GI Reports as per HPI and Reports no additional complaints Reports as per HPI Physical Exam Vital Signs: Last Vital Signs BP 124/82 07/19/23 09:44 BMI result Body Mass Index 29.0 Const General: cooperative, healthy appearing and comfortable Chest Chest palpation & inspection: normal inspection of the chest and normal palpation of entire chest wall Breast/axilla inspection: normal inspection of the breasts and normal inspection of the axillae Breast/axilla palpation: normal palpation of the breasts, normal palpation of the axillae and no axillary lymphadenopathy Resp Effort & Inspection: normal respiratory effort Auscultation: clear to auscultation bilaterally Percussion: percussion normal Cardio Palpation: normal PMI Rate: regular rate Rhythm: regular rhythm Heart sounds: no murmurs and no rubs Peripheral pulses: Peripheral pulses 2+ throughout GI Inspection: Yes normal to inspection Palpation (GI): Soft to palpation, nontender, no guarding, not rigid and No hepatosplenomegaly present Percussion: Yes normal to percussion Auscultation: normal bowel sounds Rectal Exam - Female: deferred Office Procedures IUD Insert/Removal Details Details: Counseling/Consent: After discussing with the patient the risks of the procedure including bleeding, infection, scar tissue formation, , possible injury to blood vessels or nerves, chronic arm pain, blood transfusion, and irregular unpredictable bleeding Alternative options were discussed with the patient including but not limited: Do nothing. The patient signed the consent and agreed with the plan; all questions answered. Urine test was done in the office and was negative Preop dx: Abnormal IUD location Op: IUD removal Post op dx: same EBL= 10 cc Procedure: The patient was put in the dorsal lithotomy position a speculum was inserted in the vagina the IUD thread identified. Using a Shereen clamp the thread was grasped and the IUD pulled out with no complications. The patient tolerated the procedure well and was advised to use a different method for contraception. Discharge instructions: Instructions were given to the pt to call if temp>100.4, abdominal pain heavy vaginal bleeding, n/v occur. The patient v erbalized understanding and all questions answered. This note was generated with a voice recognition program. Some errors may have been overlooked during the review of this note. Sometimes these errors may affect the content or meaning of a given sentence. [id number] Removal Procedure code (CPT) selection complete Assessment & Plan Assessment & Plan (1) IUD migration: Code(s): T83.32XA - Displacement of intrauterine contraceptive device, initial encounter Plan: Discussed with the patient the finding on ultrasound showing abnormal IUD location, recommend IUD removal, IUD removed, see procedure note. (2) Abnormal uterine bleeding (AUB): Comment: Endometrial polyp on EMB Code(s): N93.9 - Abnormal uterine and vaginal bleeding, unspecified Plan: Discussed with the patient the finding on endometrial biopsy suggestive of endometrial polyp, recommended hysteroscopy D&C possible polypectomy. Discussed with the patient the procedure , all benefits and risks including but not limited to inability to complete the procedure , bleeding, infection, possible need for blood transfusion with all its risk ( HIV,syphilis, Hepatitis, anaphylaxis shock, others..), injury to bladder, rectum, possible need for laparoscopy/laparotomy or hysterectomy. The patient verbalized understanding and signed the consent. Instructions given the patient to schedule a 2 week postoperative appointment Discussed with the patient the results of the work up done and options of treatment including but not limited to BCP's, cyclic Progesterone, Mirena IUD, endometrial ablation and hysterectomy. All pros, cons, risks and benefits of each option were discussed with the patient and the patient decided to go ahead with cyclic Provera, so a more detailed discussion re: Progesterone treatment including mechanism of action, benefits (regular menses, endometrial protection form unopposed estrogen and reduction in the risk of endometrial hyperplasia and/or cancer ...), risks (Thrombosis, mood changes, weight gain, breast soreness, ? increased breast ca, others). Instructions were given to use a back- up method for contraception since this is not a method control; instructions given the patient to schedule a 3 months follow-up appointment. The patient verbalized understanding and agreed with the plan. Medications: New medroxyprogesterone (Provera) start Provera 1 tablet daily from day 15-24 cyclically every months, day 1 being 1st day of menses 10 mg PO DAILY 10 days 30 tabs 0RF Coding Level of Care Code Est Pt Level 3 (74462) Diagnoses IUD migration T83.32XA Abnormal uterine bleeding (AUB) N93.9 CPT Codes Details - CPT: 74134-VIE Removal ([id number])
[2023-07-19 09:44] VITALS: BP 124/82; BMI 29.0
== END 2023-07-19 10:29 | disposition home or self-care (01) ==
PROVIDERS: PCP Internal Medicine; Visit Provider Obstetrics & Gynecology
DX: T83.32XA Displacement of intrauterine contraceptive device, initial encounter (principal); N93.9 Abnormal uterine and vaginal bleeding, unspecified; Z30.432 Encounter for removal of intrauterine contraceptive device
CPT/HCPCS: 58301; 99213

== ENCOUNTER → 2023-07-19 09:38 | Outpatient (BNVA) | payer BC, SELFPAY | PROVIDERS: PCP Internal Medicine; Visit Provider Obstetrics & Gynecology | DX: T83.32XA Displacement of intrauterine contraceptive device, initial encounter (principal); N93.9 Abnormal uterine and vaginal bleeding, unspecified | CPT/HCPCS: 58301 ==

== ENCOUNTER 2023-07-21 09:59 | Day surgery (SDC) | payer BC, SELFPAY ==
--- NOTE | 2023-07-20 08:53 | P.CONAN_ITS ---
Documented by User: Chetna Puentes NP 07/20/23 10:37 HPI - Anesthesia Eval Consult details Narrative: 48yo F for D&C Hysteroscopy,poss myomectomy,poss polypectomy, Diastolic HF - Stable. Follows [facility]. Last office visit 06/2023 (note unavailable, but no change in tx per patient). 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) (Acute) Past Medical History Medical History (Updated 07/21/23 @ 10:10 by Jeanie Connor, RN) Anemia Nephrolithiasis Diastolic heart failure KATY III (cervical intraepithelial neoplasia III) HTN (hypertension) COVID-19 Family History Family History Maternal Grandmother Breast cancer Surgical History Surgical History H/O lithotripsy Hx of cholecystectomy Hx of section History of Problems with Anesthesia: No Social History Social History Alcohol intake: current Alcohol intake frequency: holidays/special occasions only Patient Tobacco Use Status: Never used Tobacco Use of substances other than those prescribed or required for medical reasons: No Are you DNR?: No Advance Directives: No Advance Directives Information Provided: Yes Sexual orientation: Straight/Heterosexual Gender identity: Female Meds Allergies Allergy/AdvReac Type Severity Reaction Status Date / Time meperidine [From DEMEROL] Allergy Severe ANAPHYLAXIS Verified 07/21/23 10:11 lisinopril Allergy Unknown Swelling Verified 07/21/23 10:11 shrimp [SHRIMP] AdvReac Severe DIFFICULTY Verified 07/21/23 10:11 BREATHING Home Medications Medication Instructions Recorded Confirmed Last Taken Type hydrochlorothiazide 25 mg tablet 25 mg PO DAILY 02/22/23 07/21/23 07:00 History spironolactone 25 mg tablet 25 mg PO DAILY 02/22/23 07/21/23 07:00 History Exam Exam Date and Time: July 20, 2023 0853 Pertinent Lab Results Pertinent Lab Results: Laboratory Tests 06/15/23 06/15/23 07/18/23 14:38 14:38 13:54 WBC 9.3 Hgb 12.0 Hct 36.7 L Plt Count 354 Sodium 140 Potassium 3.6 Chloride 103 Carbon Dioxide 25 BUN 25 H Creatinine 0.88 Narrative Narrative: EKG 05/2023 Vent. Rate : 078 BPM Atrial Rate : 078 BPM P-R Int : 138 ms QRS Dur : 082 ms QT Int : 366 ms P-R-T Axes : 016 013 025 degrees QTc Int : 417 ms Normal sinus rhythm Normal ECG When compared with ECG of 06-MAR-2023 19:40, No significant change was found ECHO 2021 1. SR 2. LV size is normal 3. LV wall thickness is nml 4. Overall LV systolic function is nml with EF 60-65% 5. Grade 1 DD with an impaired relaxation filling pattern. LA pressure is nml. 6. No evidence of WMA 7. Aortic valve trileaflet and structurally nml. No or AR 8. Trace MR Assessment and Plan Assessment Anesthesia Assessment: Chart Reviewed Final Anesthetic Review History of Problems with Anesthesia: No Documented by User: Yadira Salazar MD 07/21/23 10:34 [facility] Past Medical History Medical History (Updated 07/21/23 @ 10:10 by Jeanie Connor, JUNIOR) Anemia Nephrolithiasis Diastolic heart failure KATY III (cervical intraepithelial neoplasia III) HTN (hypertension) COVID-19 Family History Family History Maternal Grandmother Breast cancer Family history of problems with anesthesia: No Surgical History Surgical History H/O lithotripsy Hx of cholecystectomy Hx of section Social History Social History Alcohol intake: current Alcohol intake frequency: holidays/special occasions only Patient Tobacco Use Status: Never used Tobacco Use of substances other than those prescribed or required for medical reasons: No Are you DNR?: No Advance Directives: No Advance Directives Information Provided: Yes Sexual orientation: Straight/Heterosexual Gender identity: Female Meds Allergies Allergy/AdvReac Type Severity Reaction Status Date / Time meperidine [From DEMEROL] Allergy Severe ANAPHYLAXIS Verified 07/21/23 10:11 lisinopril Allergy Unknown Swelling Verified 07/21/23 10:11 shrimp [SHRIMP] AdvReac Severe DIFFICULTY Verified 07/21/23 10:11 BREATHING Home Medications Medication Instructions Recorded Confirmed Last Taken Type hydrochlorothiazide 25 mg tablet 25 mg PO DAILY 02/22/23 07/21/23 07:00 History spironolactone 25 mg tablet 25 mg PO DAILY 02/22/23 07/21/23 07:00 History Exam Airway Mallampati Class: II (cap front top) TM Dist: >3cm Neck ROM: Full Heart: rrr Lungs: cta Assessment and Plan Assessment Anesthesia Assessment: Anesthesia Plan Discussed Final Anesthetic Review Family History of Problems with Anesthesia: No NPO: Yes ASA Class: II Final Preanesthetic Review: No Changes in Pt Med Stat, Meds/Allgs Chart Reviewed and Consent Obtained/Reviewed Patient Risk: Intermediate Procedure Risk: Intermediate Anesthetic Plan Anesthetic Plan: GA Disposition: Standard PACU
[2023-07-21] VITALS (13 sets, daily range): BP systolic 124–159; BP diastolic 79–101; PULSE 60–75; RESP 14–20; TEMP 36.1–37.1; O2SAT 96–99; BMI 30.4
[2023-07-21] MEDS: Lactated Ringers 1,000 ML 100 ML IVCONT (10:33)
[2023-07-21 10:39] LABS: UPreg QC Valid YES; Urine Pregnancy NEGATIVE (NEGATIVE)
--- NOTE | 2023-07-21 11:12 | MHC.SHP ---
Pre-Procedural Eval Section A Date of Service: 07/21/23 The patient is an INPATIENT: No Changes since office visit: No Cold of Flu in the past 2 weeks, No New Medical Problems, No Changes in Medication and No Patient answered all questions The History & Physical has been completed within 30 days and I have reviewed it.: Yes Section B Chief Complaint: Abnormal uterine and vaginal bleeding, unspecified Allergies: Allergies Allergy/AdvReac Type Severity Reaction Status Date / Time meperidine [From DEMEROL] Allergy Severe ANAPHYLAXIS Verified 07/21/23 10:11 lisinopril Allergy Unknown Swelling Verified 07/21/23 10:11 shrimp [SHRIMP] AdvReac Severe DIFFICULTY Verified 07/21/23 10:11 BREATHING Plan Diagnosis/Plan: Unchanged I have reviewed the history and physical and performed a pertinent physical examination on my patient. No changes have occurred unless specified. Time Spent With Patient Time: Total time managing care of this patient today ____ minutes.
--- NOTE | 2023-07-21 11:54 | PM.OP ---
Brief Operative Note Date of Service: 07/21/23 Pre-op diagnosis: Abnormal uterine bleeding, endometrial polyp on EMB pathology Post-op diagnosis: same (Endometrial polyp) Procedure: Hysteroscopy D&C, Polypectomy Surgeon: Thony Diggs MD Anesthesia: GLMA Was an Manager Technical Support used for this Procedure?: No Estimated blood loss (mL): 0 Pathology: other (Endometrial Scrapping. Polyp) Condition: stable Disposition: PACU
--- NOTE | 2023-07-21 11:55 | P.OP_ITS ---
Operative Note Operative Note Date of Service: 07/21/23 Narrative: Preop Diagnosis: Abnormal uterine bleeding, Endometrial polyp on EMB pathology Operation: Diagnostic Hysteroscopy, Dilataion & Curettage and polypectomy Post Op Diagnosis: Endometrial Polyp QBL: Minimal Anesthesia: GLMA Surgeon: Thony Diggs MD Sccm Administrator: None Complication: None Pathology: Endometrial Scrapings, Endometrial polyp Procedure: The patient was put in the dorsal lithotomy position, scrubbed, and draped in the usual manner. A sterile speculum was inserted in the patient's vagina. The anterior lip of the cervix was grasped with a single tooth tenaculum. The cervix was dilated up to 5 mm, then the scope was inserted in the patient's uterus. Inspection revealed endometrial polyp. The Myosure Reach device was used; it was introduced through the operative channel and polypectomy done with no complications. The scope was then taken out from the uterine cavity, sharp curettings was carried on with minimal to moderate amount of tissues retrieved. At the end of the procedure, all instruments were taken out of the patient uterine and vaginal cavity. The single tooth tenaculum was removed and homeostasis was assured using pressure,. The patient tolerated the procedure well and was transferred to the PACU in a stable condition.
[2023-07-21] MEDS: oxyCODONE HCl Immed Release 5 MG TABLET PO (12:29)
[2023-07-21] MEDS: fentaNYL citrate/PF 100 MCG/2 ML VIAL 50 MCG IVPUSH (12:32)
== END 2023-07-21 14:35 | disposition home or self-care (01) ==
PROVIDERS: Nurse Practitioner; PCP Internal Medicine; Visit Provider Obstetrics & Gynecology
PROC: 0UDB8ZZ Extraction of Endometrium, Via Natural or Artificial Opening Endoscopic (ICD-10-PCS; CPT 58558; principal; 2023-07-21 11:30)
DX: N93.9 Abnormal uterine and vaginal bleeding, unspecified (principal); N84.0 Polyp of corpus uteri; I11.0 Hypertensive heart disease with heart failure; I50.30 Unspecified diastolic (congestive) heart failure; Z79.899 Other long term (current) drug therapy; Z87.442 Personal history of urinary calculi; Z90.49 Acquired absence of other specified parts of digestive tract; Z86.16 Personal history of COVID-19; Z88.8 Allergy status to other drugs, medicaments and biological substances
CPT/HCPCS: 58558; 81025; 88305; J1885; J2405; J3010

== ENCOUNTER → 2023-07-21 09:59 | Outpatient (BNV) | payer BC, SELFPAY | PROVIDERS: PCP Internal Medicine; Visit Provider Obstetrics & Gynecology | DX: N93.9 Abnormal uterine and vaginal bleeding, unspecified (principal); N84.0 Polyp of corpus uteri | CPT/HCPCS: 58558 ==

== ENCOUNTER 2023-07-23 19:00 | Emergency (ER) | payer BC, SELFPAY ==
[2023-07-23 19:26] VITALS: BP 162/102; PULSE 72; RESP 16; TEMP 36.5; O2SAT 98; BMI 32.1
--- NOTE | 2023-07-23 19:26 | ED.FEMALEGU ---
HPI - Female Genitourinary General Chief complaint: Urogenital-Female Stated complaint: Cramps Time Seen by Provider: 07/23/23 21:15 Source: patient Mode of arrival: ambulatory Limitations: no limitations History of Present Illness HPI Narrative: Patient is a 48-year-old female presents to the emergency department with generalized unwell feeling, shakiness, sweats, headache, nausea, lower abdominal/lower back cramping. She states that she underwent a hysteroscopy and D&C on 07/21/[address] Diggs. Yesterday she states that while cleaning herself she felt something in the orifice of her vagina she pulled it out and appeared to be a foreign material. She reports a similar experience today were she removed a material from her vagina she is concerned may be a napkin of some sort. She has brought this with her today. Patient denies any fever and some chills and diffuse abdominal cramping Related Data Home Medications Medication Instructions Recorded Confirmed hydrochlorothiazide 25 mg tablet 25 mg PO DAILY 02/22/23 07/21/23 spironolactone 25 mg tablet 25 mg PO DAILY 02/22/23 07/21/23 Previous Rx's Medication Instructions Recorded medroxyprogesterone 10 mg tablet 10 mg PO DAILY 10 days #30 tabs 07/19/23 (Provera) cefuroxime axetil 500 mg tablet 500 mg PO BID 7 days #14 tabs 07/23/23 metronidazole 0.75 % (37.5 mg/5 1 appful vaginal BEDTIME 5 days 07/24/23 gram) vaginal gel #37.5 grams medroxyprogesterone 10 mg tablet 10 mg PO DAILY 10 days #30 tabs 07/27/23 (Provera) Allergies Allergy/AdvReac Type Severity Reaction Status Date / Time meperidine [From DEMEROL] Allergy Severe ANAPHYLAXIS Verified 07/27/23 08:53 lisinopril Allergy Unknown Swelling Verified 07/27/23 08:53 shrimp [SHRIMP] AdvReac Severe DIFFICULTY Verified 07/27/23 08:53 BREATHING Review of Systems Review of Systems: Yes all other systems are reviewed and are negative PMFSH Past Medical History Medical History Anemia Nephrolithiasis Diastolic heart failure KATY III (cervical intraepithelial neoplasia III) HTN (hypertension) COVID-19 Surgical History H/O lithotripsy Hx of cholecystectomy Hx of section Family History Family History Maternal Grandmother Breast cancer Social History Social History Alcohol intake: current Alcohol intake frequency: holidays/special occasions only Patient Tobacco Use Status: Never used Tobacco Sexual orientation: Straight/Heterosexual Gender identity: Female Physical Exam Vital Signs: Vital Signs: Last Vital Signs Temp 98.3 F 07/23/23 22:00 Pulse 74 07/23/23 22:00 Resp 16 07/23/23 21:33 BP 143/97 H 07/23/23 22:00 Pulse Ox 98 07/23/23 22:00 O2 Del Method Room Air 07/23/23 22:00 BMI result Body Mass Index 32.1 Appearance: Alert. Oriented X3. No acute distress. ENT: Pharynx normal. Oral Mucosa moist Neck: Normal inspection. Neck supple. CVS: Normal heart rate and rhythm. Pulses normal. Respiratory: No respiratory distress. Equal air entry bilateral, no wheezing/rales/rhonchi Abdomen: Soft mild suprapubic tenderness no guarding or rebound tenderness Bowel sounds are present, no mass palpable, no CVA tenderness : No pus discharge no odor, brownish tissue+ Skin: Skin warm and dry. Normal skin color. Normal skin turgor. Neuro: Oriented X 3. Course Course Course Narrative: This is an RME: Additional HPI, ROS, PE not included below will be deferred to primary provider. Patient is a 48-year-old female presents to the emergency department with generalized unwell feeling, shakiness, sweats, headache, nausea, lower abdominal/lower back cramping. She states that she underwent a hysteroscopy and D&C on 07/21/[address] Diggs. Yesterday she states that while cleaning herself she felt something in the orifice of her vagina she pulled it out and appeared to be a foreign material. She reports a similar experience today were she removed a material from her vagina she is concerned may be a napkin of some sort. She has brought this with her today. Plan: labs, urinalysis, viral testing Medications Administered Discontinued Medications Generic Name Dose Route Start Last Admin Trade Name Vandana PRN Reason Stop Dose Admin Cefuroxime Axetil 500 mg 07/23/23 22:15 07/23/23 22:26 Cefuroxime Axetil 500 Mg Tablet PO 07/23/23 22:16 500 mg ONCE ONE Administration Medical Decision Making Medical Decision Making [facility] Narrative: Case with Dr. Diggs OBG discharge is normal as he applied a solution to decrease the bleeding which causes brownish discharge UA showed leuko esterase positive with WBCs will give patient Ceftin patient to follow with Dr. Diggs in a.m. Lab Data [facility] Lab Attestation statement: I reviewed the patient's lab results. 07/23/23 19:50 07/23/23 19:50 Labs: Lab Results 07/23/23 07/23/23 Range/Units 19:50 21:44 WBC 10.0 (4.8-10.8) X10*3/uL RBC 4.32 (4.20-5.50) X10*6/uL Hgb 12.8 (12.0-16.0) g/dl Hct 38.7 (37.0-47.0) % MCV 89.6 (80.0-98.0) fL MCH 29.6 (27.0-33.0) pg MCHC 33.1 (31.0-35.0) g/dl RDW 12.4 (11.0-16.0) % Plt Count 375 (160-400) X10*3/uL MPV 10.0 (9.4-12.3) fL Immature Gran % (Auto) 0.4 (0.0-0.4) % Neut % (Auto) 62.4 (45-73) % Lymph % (Auto) 26.2 (20-40) % Bollinger % (Auto) 6.8 (2-11) % Eos % (Auto) 3.1 (0-4) % Baso % (Auto) 1.1 (0-2) % Lymph # (Auto) 2.6 (1.2-4.9) X10*3/uL [place]linger # (Auto) 0.7 (0.1-1.2) X10*3/uL Eos # (Auto) 0.3 (0.0-0.4) X10*3/uL Baso # (Auto) 0.1 (0.0-0.2) X10*3/uL Abs Immat Gran (auto) 0.04 H (0.00-0.03) X10*3/uL Absolute Neuts (auto) 6.2 (2.0-8.3) x10*3/uL Absolute Nucleated RBC 0.000 (0.0-0.012) X10*3/uL Nucleated RBC % (auto) 0.0 (0.0-0.2) /100WBC Sodium 138 (135-145) mmol/L Potassium 3.7 (3.3-5.1) mmol/L Chloride 103 (96-108) mmol/L Carbon Dioxide 27 (22-29) mmol/L Anion Gap 12 (12-20) BUN 16 (9-16) mg/dL Creatinine 1.05 (0.5-1.4) mg/dL Estim Creat Clear Calc 79.2 Estimated GFR 56 Random Glucose 96 (60-115) mg/dL Calcium 10.2 (8.4-10.2) mg/dL Magnesium 2.2 (1.6-2.6) mg/dL Total Bilirubin 0.5 (0.0-1.0) mg/dL AST 18 (5-31) U/L ALT 18 (0-31) U/L Alkaline Phosphatase 59 (39-117) U/L Total Protein 8.3 H (6.5-8.0) g/dL Albumin 4.6 (3.5-5.0) g/dL Lipase 36 (8-78) U/L Urine Color Yellow Urine Appearance Cloudy Urine pH 6.0 (5.0-9.0) Ur Specific [place] 1.020 (1.005-1.025) Urine Protein Trace (Neg-Trace) mg/dL Urine Glucose (UA) Negative (Negative) mg/dL Urine Ketones Trace (Negative) mg/dL Urine Blood Large (3+) H (Negative) Urine Nitrite Negative (Negative) Ur Leukocyte Esterase Moderate (2+) H (Negative) Urine RBC 3-5 H (0-2) /HPF Urine WBC 21-50 H (0-5) /HPF Ur Squamous Epith Cells 6-10 (0-2) /HPF Urine Bacteria 2+ (None Seen) Hyaline Casts 0-2 (0-2) /LPF COVID-19 (FELISA) Negative (Negative) COVID-19 Clin Com See Note Influenza Type A (STACIE) Negative (Negative) Influenza Type B (STACIE) Negative (Negative) Influenza A & B Note N Discharge Plan Discharge Clinical Impression: Abnormal uterine bleeding (AUB), Urinary tract infection Patient Disposition: Home, Self-Care Instructions: Urinary Tract Infection in Women (ED), Dilation and Curettage (DC) Additional Instructions: Follow-up with your cylinder tester in a.m. Antibiotic as advised for urinary tract infection Check with Cardiology about blood pressure management Check blood pressure before you take the medicine and before going to bed Prescriptions: New cefuroxime axetil 500 mg tablet 500 mg PO BID 7 Days Qty: 14 0RF No Action hydrochlorothiazide 25 mg tablet 25 mg PO DAILY spironolactone 25 mg tablet 25 mg PO DAILY medroxyprogesterone [Provera] 10 mg tablet 10 mg PO DAILY 10 Days Qty: 30 0RF Rx Instructions: start Provera 1 tablet daily from day 15-24 cyclically every months, day 1 being 1st day of menses metronidazole 0.75 % (37.5mg/5 gram) gel 1 appful vaginal BEDTIME 5 Days Qty: 37.5 0RF medroxyprogesterone [Provera] 10 mg tablet 10 mg PO DAILY 10 Days Qty: 30 0RF Rx Instructions: start Provera 1 tablet daily from day 15-24 cyclically every months, day 1 being 1st day of menses Stand Alone Forms: Work/School Release Interventions: ED Discharge Assessment Last Done: 07/23/23 22:29 Discharge Date/Time: 07/23/23 22:30
[2023-07-23 19:55] LABS: MANUAL DIFF FLAG NO
[2023-07-23 19:57] LABS: Basophils Absolute Auto 0.1 X10*3/uL (0.0-0.2); Basophils Percent Auto 1.1 % (0-2); Eosinophils Absolute Auto 0.3 X10*3/uL (0.0-0.4); Eosinophils Percent Auto 3.1 % (0-4); Hematocrit 38.7 % (37.0-47.0); Hemoglobin 12.8 g/dl (12.0-16.0); Imm Gran Abs Auto 0.04 X10*3/uL (0.00-0.03); Imm Gran Pct Auto 0.4 % (0.0-0.4); Lymphocytes Absolute Auto 2.6 X10*3/uL (1.2-4.9); Lymphocytes Percent Auto 26.2 % (20-40); Mean Corpuscular HGB Conc 33.1 g/dl (31.0-35.0); Mean Corpuscular Hemoglobin 29.6 pg (27.0-33.0); Mean Corpuscular Volume 89.6 fL (80.0-98.0); Monocytes Absolute Auto 0.7 X10*3/uL (0.1-1.2); Monocytes Percent Auto 6.8 % (2-11); Neutrophils Absolute Auto 6.2 x10*3/uL (2.0-8.3); Neutrophils Percent Auto 62.4 % (45-73); Platelet Count 375 X10*3/uL (160-400); Red Blood Count 4.32 X10*6/uL (4.20-5.50); Red Cell Distribution Width 12.4 % (11.0-16.0)
[2023-07-23 20:11] LABS: COVID-19 Test Negative (Negative); IDNOW Serial# BCCEAD1C
[2023-07-23 20:13] LABS: IDNOW Serial# 08D9AD1C; Influenza A Negative (Negative); Influenza A & B2 Note N; Influenza B2 Negative (Negative)
[2023-07-23 20:18] LABS: Alanine Aminotransferase 18 U/L (0-31); Albumin Level 4.6 g/dL (3.5-5.0); Alkaline Phosphatase 59 U/L (39-117); Anion Gap 12 (12-20); Aspartate Amino Transferase 18 U/L (5-31); Bilirubin Total 0.5 mg/dL (0.0-1.0); Blood Urea Nitrogen 16 mg/dL (9-16); Calcium 10.2 mg/dL (8.4-10.2); Carbon Dioxide 27 mmol/L (22-29); Chloride 103 mmol/L (96-108); Creatinine Clr Calc Pharmacy 79.2; Estimated Glomerular Filt Rate 56; Glucose Random 96 mg/dL (60-115); Lipase 36 U/L (8-78); Magnesium 2.2 mg/dL (1.6-2.6); Potassium 3.7 mmol/L (3.3-5.1); Sodium 138 mmol/L (135-145); Total Protein 8.3 g/dL (6.5-8.0)
[2023-07-23 21:33] VITALS: BP 135/95; PULSE 72; RESP 16; O2SAT 99
[2023-07-23 21:51] LABS: Appearance Urine Cloudy; Color Urine Yellow; Glucose Urine UA Negative (Negative); Leukocyte Esterase Urine Moderate (2+) (Negative); Nitrite Urine Negative (Negative); UMIC TRIGGER UACC YES; Urine Blood Large (3+) (Negative); Urine Ketones Trace mg/dL (Negative); Urine Protein Trace mg/dL (Neg-Trace)
[2023-07-23 22:00] VITALS: BP 143/97; PULSE 74; TEMP 36.8; O2SAT 98
[2023-07-23 22:05] LABS: Bacteria Urine 2+ (None Seen); Hyaline Casts Urine 0-2 /LPF (0-2); UACC Culture Trigger YES; WBC Urine 21-50 /HPF (0-5)
== END 2023-07-23 22:30 | disposition home or self-care (01) ==
PROVIDERS: Nurse Practitioner Family; Emergency Provider Internal Medicine; PCP Internal Medicine
DX: N39.0 Urinary tract infection, site not specified (principal); R25.2 Cramp and spasm; N93.8 Other specified abnormal uterine and vaginal bleeding; Z20.822 Contact with and (suspected) exposure to COVID-19; Z20.828 Contact with and (suspected) exposure to other viral communicable diseases; Z79.899 Other long term (current) drug therapy
CPT/HCPCS: 80053; 81001; 83690; 83735; 85025; 87086; 87088; 87186; 87502; 87635; 99283; 99284

== ENCOUNTER 2023-07-24 12:35 | Outpatient (AMB) | payer BC, SELFPAY ==
[2023-07-24 12:40] VITALS: BP 124/90; BMI 31.9
--- NOTE | 2023-07-24 12:40 | A.OFFVIS_ITS ---
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 The patient went to the emergency room yesterday postop day 2 from hysteroscopy D&C polypectomy, she was concerned about passage of tissues from the vagina. The workup included a CBC which was normal UA was was positive 40 GI, the patient was discharged on cefuroxime 500 mg p.o. b.i.d. since then the patient is doing well with no complaints except for vaginal discharge associated with foul odor PFSH Medical History Anemia Nephrolithiasis Diastolic heart failure KATY III (cervical intraepithelial neoplasia III) HTN (hypertension) COVID-19 Surgical History H/O lithotripsy Hx of cholecystectomy Hx of section Family History Maternal Grandmother Breast cancer Social History Alcohol intake: current Alcohol intake frequency: holidays/special occasions only Patient Tobacco Use Status: Never used Tobacco Patient : No Sexual orientation: Straight/Heterosexual Gender identity: Female Female Reproductive History Menstrual Age of Menarche: 12 control method: none Date of last pap smear: 02/15/22 (negative) Review of Systems Const All systems reviewed & are unremarkable except as noted in HPI and below Physical Exam Vital Signs: Last Vital Signs BP 124/90 H 07/24/23 12:40 BMI result Body Mass Index 31.9 General: Yes no CVA tenderness External Female Exam: normal external appearance and normal appearance of the urethra Speculum Exam - Vagina: normal appearance of the vagina, normal palpation, no lesions and no masses Speculum Exam - Cervix: normal appearance of the cervix, normal palpation, no lesions, no masses and nontender Bimanual exam- vagina & uterus: normal bimanual exam, normal palpation, uterine size normal, normal palpation, uterine shape normal, No Cervical tenderness present and non-tender Bimanual Exam- Adnexa, other: normal adnexae Back/Spine/Pelvis Back: no CVA tenderness Assessment & Plan Assessment & Plan (1) Bacterial vaginosis: Code(s): N76.0 - Acute vaginitis; B96.89 - Other specified bacterial agents as the cause of diseases classified elsewhere Plan: GC and chlamydia with BV panel taken. Will treat with Metrogel 0.75% 5 g applicator intravaginally once a day for 5 days. Instructions given the patient to call or go to the emergency in case of fever above 100.4, pelvic pain, heavy vaginal bleeding, persistence or worsening of her vaginal discharge Medications: New metronidazole 0.75%(37.5mg/5gram) 1 appful vaginal BEDTIME 37.5 grams 0RF 5 days Coding Level of Care Code Est Pt Level 3 (64981) Diagnoses Bacterial vaginosis N76.0; B96.89
== END 2023-07-24 14:06 | disposition home or self-care (01) ==
PROVIDERS: PCP Internal Medicine; Visit Provider Obstetrics & Gynecology
DX: N76.0 Acute vaginitis (principal); B96.89 Other specified bacterial agents as the cause of diseases classified elsewhere
CPT/HCPCS: 99213

== ENCOUNTER 2023-07-24 12:35 | Outpatient (REF) | payer BC, SELFPAY ==
[2023-07-24 18:07] LABS: CT PCR NOT DETECTED (Not Detect.); NG PCR NOT DETECTED (Not Detect.)
[2023-07-25 13:59] LABS: BV Int Neg Control Negative (Negative); BV Int Pos Control Positive (Positive)
== END 2023-07-24 12:36 | disposition home or self-care (01) ==
LOC: HO.LNP 12:35
PROVIDERS: PCP Internal Medicine; Visit Provider Obstetrics & Gynecology
DX: N76.0 Acute vaginitis (principal); B96.89 Other specified bacterial agents as the cause of diseases classified elsewhere; Z72.89 Other problems related to lifestyle
CPT/HCPCS: 0353U; 87480; 87510; 87660

== ENCOUNTER 2023-07-27 08:48 | Outpatient (AMB) | payer BC, SELFPAY ==
--- NOTE | 2023-07-27 08:49 | A.OFFVIS_ITS ---
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 The patient went to the emergency room on 06/16 for abnormal uterine bleeding and was seen as a follow-up few days after within the office when EMB and Mirena IUD Mirena was inserted. The following workup/treat were done: Pelvic ultrasound done yesterday showed the following: IMPRESSION: *? The endometrium has normal echotexture and normal thickness; it measures 0.4 cm AP. *? The contraceptive device is low in position. It is seen within the lower uterine segment and its distal tip is in region of the internal cervical os. *? The uterus is mildly enlarged and it chronically has heterogeneous echotexture, similar compared to 11/11/2022. The differential diagnosis for chronic uterine enlargement and heterogeneity includes adenomyosis. Mirena IUD was taken on On 06/16 H&H= 11.8/35.7, repeat on 06/19 was 11.7/34.9, on 07/23 H&H was 12.8/38.7 TSH, hCG, GC and chlamydia were negative. Endometrial biopsy pathology showed the following: Benign endometrium with ectatic stromal vessels with fibrin thrombi, breakdown, secretory and inactive glands, and decidual stromal change consistent with progestin effect; no atypia or carcinoma (see comment). Comment:? Some fragments may be derived from functional polyps.? Clinical correlation is necessary. Pap smear was done in 03/04 was negative. Mammogram was BI-RADS 2 in 04/04 Hysteroscopy D&C/polypectomy done on 07/21 and the pathology showed the following: A. Endometrium, curettage: Inactive endometrium with pseudo-decidual stromal changes consistent with progestin effect; negative for atypia or malignancy. B. Endometrium, polypectomy: Fragments of benign endometrial polyp with inactive endometrium; negative for atypia or malignancy Since then the patient has been doing well, with minimal vaginal spotting on progesterone 10 mg p.o. q.d. PFSH Medical History Anemia Nephrolithiasis Diastolic heart failure KATY III (cervical intraepithelial neoplasia III) HTN (hypertension) COVID-19 Surgical History H/O lithotripsy Hx of cholecystectomy Hx of section Family History Maternal Grandmother Breast cancer Social History Alcohol intake: current Alcohol intake frequency: holidays/special occasions only Patient Tobacco Use Status: Never used Tobacco Sexual orientation: Straight/Heterosexual Gender identity: Female Female Reproductive History Menstrual Age of Menarche: 12 Assessment & Plan Assessment & Plan (1) Abnormal uterine bleeding (AUB): Code(s): N93.9 - Abnormal uterine and vaginal bleeding, unspecified Plan: Discussed with the patient the results of the work up done and options of treatment including but not limited to BCP's, cyclic Progesterone, Mirena IUD, endometrial ablation and hysterectomy. All pros, cons, risks and benefits of each option were discussed with the patient and the patient decided to go ahead with cyclic Provera, so a more detailed discussion re: Progesterone treatment including mechanism of action, benefits (regular menses, endometrial protection form unopposed estrogen and reduction in the risk of endometrial hyperplasia and/or cancer ...), risks (Thrombosis, mood changes, weight gain, breast soreness, ? increased breast ca, others). Instructions were given to use a back- up method for contraception since this is not a method control and to schedule a 3 month follow-up appointment; patient verbalized understanding and agreed with the plan. Medications: New medroxyprogesterone (Provera) start Provera 1 tablet daily from day 15-24 cyclically every months, day 1 being 1st day of menses 10 mg PO DAILY 10 days 30 tabs 0RF Coding Level of Care Code Est Pt Level 3 (48967) Diagnoses Abnormal uterine bleeding (AUB) N93.9
[2023-07-27 08:52] VITALS: BP 120/80; BMI 31.8
== END 2023-07-27 09:16 | disposition home or self-care (01) ==
PROVIDERS: PCP Internal Medicine; Visit Provider Obstetrics & Gynecology
DX: N93.9 Abnormal uterine and vaginal bleeding, unspecified (principal)
CPT/HCPCS: 99213

== ENCOUNTER → 2023-07-27 08:48 | Outpatient (BNVA) | payer BC, SELFPAY | PROVIDERS: PCP Internal Medicine; Visit Provider Obstetrics & Gynecology ==

== ENCOUNTER 2023-08-01 14:54 | Outpatient (REF) | payer BC, SELFPAY ==
--- NOTE | ~2023-08-01 | US_ITS ---
EXAMINATION: US RETROPERITONEAL LIMITED (RENAL ONLY) CLINICAL INFORMATION: Calculus of kidney. COMPARISON: Ultrasound retroperitoneal limited (renal only) 01/11/2023. CT abdomen and pelvis with contrast 11/11/2022. TECHNIQUE: Real-time imaging of the kidneys. Limited visualization due to bowel gas. FINDINGS: RIGHT KIDNEY: 10.8 x 4.2 x 4.5 cm (SAG x AP x TRV). No hydronephrosis. No renal calculi. Renal cortical thickness is normal. LEFT KIDNEY: 11.1 x 4.8 x 4.6 cm (SAG x AP x TRV). No hydronephrosis. No renal calculi. Renal cortical thickness is normal. US/US renal BI IMPRESSION: No hydronephrosis. No renal calculi.
== END 2023-08-01 14:55 | disposition home or self-care (01) ==
LOC: HO.US 14:54
PROVIDERS: PCP Internal Medicine; Visit Provider Nurse Practitioner Family
DX: N20.0 Calculus of kidney (principal)
CPT/HCPCS: 76775

== ENCOUNTER → 2023-08-11 11:26 | Outpatient (BNVA) | payer BC, SELFPAY | PROVIDERS: PCP Internal Medicine; Visit Provider Nurse Practitioner Family ==

== ENCOUNTER 2023-10-26 09:26 | Outpatient (AMB) | payer BC, SELFPAY ==
[2023-10-26 10:02] VITALS: BP 124/76; BMI 32.4
--- NOTE | 2023-10-26 10:02 | A.OFFVIS_ITS ---
Intake Vital Signs 10/26/23 10:02 Height 5 ft 8 in Weight 213 lb BMI 32.4 BP 124/76 Intake Visit Reasons: follow up medication Paster Hat Lining Required: No Information Interpreted: non-clinical & clinical Accompanied by: Self / Same As Patient Allergies meperidine [From DEMEROL] Allergy (Severe, Verified 10/26/23 10:06) ANAPHYLAXIS lisinopril Allergy (Unknown, Verified 10/26/23 10:06) Swelling shrimp [SHRIMP] Adverse Reaction (Severe, Verified 10/26/23 10:06) DIFFICULTY BREATHING HPI HPI Comments History of Present Illness Details The patient is presenting for follow-up Provera. The patient took 1 cycle of Provera and developed some side effects that she does not like including hair loss mood changes in water retention. Since then the patient had regular menstrual cycle, and she is not interested in continuing on Provera [facility] Medical History Anemia Nephrolithiasis Diastolic heart failure KATY III (cervical intraepithelial neoplasia III) HTN (hypertension) COVID-19 Surgical History H/O lithotripsy Hx of cholecystectomy Hx of section Family History Maternal Grandmother Breast cancer Social History Alcohol intake: current Alcohol intake frequency: holidays/special occasions only Comment: medicated with tylenol and pyridium Patient Tobacco Use Status: Never used Tobacco Sexual orientation: Straight/Heterosexual Gender identity: Female Female Reproductive History Menstrual Age of Menarche: 12 Review of Systems Const All systems reviewed & are unremarkable except as noted in HPI and below Reports as per HPI and Reports no additional complaints GI Reports no additional complaints Reports no additional complaints Physical Exam Vital Signs: Last Vital Signs BP 124/76 10/26/23 10:02 BMI result Body Mass Index 32.4 Assessment & Plan Assessment & Plan (1) Abnormal uterine bleeding (AUB): Code(s): N93.9 - Abnormal uterine and vaginal bleeding, unspecified Plan: Discussed with the patient Provera side effects, the patient would like to wait and see the next few cycles if abnormal uterine bleeding recurs will call back and discuss different options of treatment Coding Level of Care Code Est Pt Level 3 (83415) Diagnoses Abnormal uterine bleeding (AUB) N93.9
== END 2023-10-26 10:44 | disposition home or self-care (01) ==
LOC: HO.HWS 09:26
PROVIDERS: PCP Internal Medicine; Visit Provider Obstetrics & Gynecology
DX: N93.9 Abnormal uterine and vaginal bleeding, unspecified (principal)
CPT/HCPCS: 99213

== ENCOUNTER → 2023-10-26 09:26 | Outpatient (BNVA) | payer BC, SELFPAY | PROVIDERS: PCP Internal Medicine; Visit Provider Obstetrics & Gynecology ==

== ENCOUNTER 2023-12-13 09:42 | Outpatient (REF) | payer BC, SELFPAY ==
[2023-12-13 10:19] LABS: MANUAL DIFF FLAG NO
[2023-12-13 10:32] LABS: Basophils Absolute Auto 0.1 X10*3/uL (0.0-0.2); Basophils Percent Auto 0.8 % (0-2); Eosinophils Absolute Auto 0.3 X10*3/uL (0.0-0.4); Eosinophils Percent Auto 3.5 % (0-4); Hematocrit 41.4 % (37.0-47.0); Hemoglobin 14.1 g/dl (12.0-16.0); Imm Gran Abs Auto 0.01 X10*3/uL (0.00-0.03); Imm Gran Pct Auto 0.1 % (0.0-0.4); Lymphocytes Absolute Auto 2.3 X10*3/uL (1.2-4.9); Lymphocytes Percent Auto 31.9 % (20-40); Mean Corpuscular HGB Conc 34.1 g/dl (31.0-35.0); Mean Corpuscular Hemoglobin 30.4 pg (27.0-33.0); Mean Corpuscular Volume 89.2 fL (80.0-98.0); Mean Platelet Volume 10.2 fL (9.4-12.3); Monocytes Absolute Auto 0.5 X10*3/uL (0.1-1.2); Monocytes Percent Auto 6.7 % (2-11); Neutrophils Absolute Auto 4.1 x10*3/uL (2.0-8.3); Platelet Count 366 X10*3/uL (160-400); Red Blood Count 4.64 X10*6/uL (4.20-5.50); Red Cell Distribution Width 12.8 % (11.0-16.0); White Blood Count 7.1 X10*3/uL (4.8-10.8)
[2023-12-13 10:54] LABS: D Dimer High Sensitivity < 150 NG/ML
[2023-12-13 11:23] LABS: Alanine Aminotransferase 23 U/L (0-31); Albumin Level 4.4 g/dL (3.5-5.0); Alkaline Phosphatase 60 U/L (39-117); Anion Gap 12 (12-20); Aspartate Amino Transferase 20 U/L (5-31); Bilirubin Total 0.8 mg/dL (0.0-1.0); Blood Urea Nitrogen 17 mg/dL (9-16); Calcium 9.9 mg/dL (8.4-10.2); Carbon Dioxide 27 mmol/L (22-29); Chloride 104 mmol/L (96-108); Estimated Glomerular Filt Rate > 60; Glucose Random 96 mg/dL (60-115); Potassium 3.9 mmol/L (3.3-5.1); Sodium 139 mmol/L (135-145); Total Protein 8.2 g/dL (6.5-8.0)
[2023-12-13 11:31] LABS: Free T4 (Free Thyroxine) 0.95 ng/dL (0.71-1.85); Thyroid Stimulating Hormone 1.13 uIU/mL (0.32-4.0)
[2023-12-13 12:15] LABS: Vitamin B12 491 pg/mL (200-900)
== END 2023-12-13 09:43 | disposition home or self-care (01) ==
LOC: HO.LAB 09:42
PROVIDERS: PCP Internal Medicine; Visit Provider Internal Medicine
DX: R06.02 Shortness of breath (principal); R10.9 Unspecified abdominal pain; R53.83 Other fatigue
CPT/HCPCS: 36415; 80053; 82607; 84439; 84443; 85025; 85379

== ENCOUNTER 2024-02-28 13:01 | Outpatient (AMB) | payer BC, SELFPAY ==
--- NOTE | 2024-02-28 13:02 | A.OFFVIS_ITS ---
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 Doing well with no concerns. No menses until this week since the hysteroscopy last June. History of infertility had IVF 8 years ago for her last , due to her maternal age. Currently the bleeding is normal. She reports being instructed to take Provera for heavy menstrual bleeding but does not agree with the plan due to the side effects of the Provera. She would prefer to observe the cycle for now, it is her hope she is going to be menopausal soon and will have to use any medication. She tries to eat healthy and stays active with exercise. Currently is sexually active. She denies vaginal itching and irritation. STI screening offered; she declines. Denies family history of ovarian or colon cancer. FH breast cancer. Last pap smear 2021, negative. Mammogram: 2022. COUNTS INCLUDE 234 BEDS AT THE [facility] Medical History Anemia Nephrolithiasis Diastolic heart failure KATY III (cervical intraepithelial neoplasia III) HTN (hypertension) COVID-19 Surgical History History of hysteroscopy H/O lithotripsy Hx of cholecystectomy Hx of section Family History Maternal Grandmother Breast cancer Social History Alcohol intake: current Alcohol intake frequency: holidays/special occasions only Comment: medicated with tylenol and pyridium Patient Tobacco Use Status: Never used Tobacco Sexual orientation: Straight/Heterosexual Gender identity: Female Female Reproductive History Menstrual Age of Menarche: 12 Duration of menses: >10 days Date of last menstrual period: 02/26/24 Total pregnancies: 6 Full term: 3 Number of Living Children: 3 Ab induced: 1 Ab spontaneous: 2 Date of last pap smear: 02/11/22 (neg 01/04 unsat neg hpv) History of abnormal pap smear: Yes (hx cin3 cryo 2003) Date of Mammogram: 03/14/23 (Birad 2) Review of Systems Const All systems reviewed & are unremarkable except as noted in HPI and below Reports as per HPI Eyes Reports no additional complaints ENT Reports no additional complaints Card Reports no additional complaints Resp Reports no additional complaints GI Reports as per HPI and Reports no additional complaints Reports as per HPI Musc Reports no additional complaints Skin/Breast Reports as per HPI Neuro Reports no additional complaints Psych Reports no additional complaints Endo Reports no additional complaints Sudhakar/Lymph Reports no additional complaints Aller/Immun Reports no additional complaints Physical Exam Vital Signs: Last Vital Signs BP 114/82 02/28/24 13:06 BMI result Body Mass Index 32.2 Const General: cooperative, healthy appearing, no acute distress, well developed and alert Orientation/consciousness: patient oriented x3 HEENT Head: Yes normal to inspection Eyes General: appearance normal, both eyes and all related structures Neck Neck: Yes normal visual inspection Thyroid: Thyroid normal Chest Chest palpation & inspection: normal inspection of the chest and other (no puckering, dimpling, peau de orange, retraction, discharge, masses) Breast/axilla inspection: normal inspection of the breasts Breast/axilla palpation: normal palpation of the breasts Resp Effort & Inspection: normal respiratory effort GI Inspection: Yes normal to inspection Palpation (GI): Soft to palpation Rectal Exam - Female: deferred General: Yes bladder normal to palpation External Female Exam: normal external appearance and normal appearance of the urethra Speculum Exam - Vagina: normal appearance of the vagina, normal palpation, nor mal vaginal discharge and vaginal bleeding Speculum Exam - Cervix: normal appearance of the cervix and normal palpation Bimanual exam- vagina & uterus: normal bimanual exam, normal palpation, uterine size normal, bladder normal to palpation, normal palpation and non-tender Bimanual Exam- Adnexa, other: no masses OB/external & speculum: vaginal bleeding Skin General skin exam: no rashes or lesions noted Rashes: no rashes Neuro General: patient oriented x3 Cognition (Neuro): normal cognition Extrem General: Yes normal to inspection Psych Attitude: cooperative Thought process: Normal thought process present Assessment & Plan Assessment & Plan (1) Encounter for well woman exam with routine gynecological exam: Code(s): Z01.419 - Encounter for gynecological examination (general) (routine) without abnormal findings Plan Discussed: Current recommendations for pap smears per ASCCP guidelines. Breast awareness and periodic breast exams. Maintain a healthy lifestyle including a well balanced diet and routine exercise. Mammogram yearly. Advised to monitor her bleeding if it becomes heavier prolonged she would need to call the office for sooner assessment. Discussed the purpose of the Provera to help with her heavy menstrual bleeding, she does not want to take it due to side effects. She is more interested in having hysterectomy at this time. Colonoscopy >45, or at risk sooner, advised to speak to her primary care regarding this plan. Patient verbalizes understanding and agrees to the plan of care. She was given opportunity to ask questions and all questions were answered to the best of my ability. RTO in one year for annual wash tank tender examination. This note is constructed using voice recognition software. While every effort has been made to ensure accuracy, deputy court errors may have been included. Coding Level of Care Code Est Pt Prev Care 40-64y(72261) Diagnoses Encounter for well woman exam with routine gynecological exam Z01.419
[2024-02-28 13:06] VITALS: BP 114/82; BMI 32.2
== END 2024-02-28 13:53 | disposition home or self-care (01) ==
PROVIDERS: Visit Provider Advanced Practice Midwife
DX: Z01.419 Encounter for gynecological examination (general) (routine) without abnormal findings (principal)
CPT/HCPCS: 99396

== ENCOUNTER → 2024-02-28 13:01 | Outpatient (BNVA) | payer BC, SELFPAY | PROVIDERS: Visit Provider Advanced Practice Midwife ==

== ENCOUNTER 2024-03-21 14:45 | Outpatient (REF) | payer BC, SELFPAY | END 2024-03-21 14:46 | disposition home or self-care (01) | LOC: HO.MAMMO 14:45 | PROVIDERS: PCP Internal Medicine; Visit Provider Internal Medicine | DX: Z12.31 Encounter for screening mammogram for malignant neoplasm of breast (principal) | CPT/HCPCS: 77063; 77067 ==

== ENCOUNTER → 2024-03-21 14:45 | Outpatient (BNV) | payer BC, SELFPAY | PROVIDERS: PCP Internal Medicine; Visit Provider Radiology Diagnostic Radiology | DX: Z12.31 Encounter for screening mammogram for malignant neoplasm of breast (principal) | CPT/HCPCS: 77063; 77067 ==

== ENCOUNTER 2024-05-22 16:11 | Outpatient (REF) | payer BC, SELFPAY ==
[2024-05-22 16:21] LABS: MANUAL DIFF FLAG NO
[2024-05-22 17:38] LABS: Basophils Absolute Auto 0.1 X10*3/uL (0.0-0.2); Eosinophils Absolute Auto 0.2 X10*3/uL (0.0-0.4); Eosinophils Percent Auto 2.5 % (0-4); Hematocrit 41.5 % (37.0-47.0); Hemoglobin 14.2 g/dl (12.0-16.0); Imm Gran Abs Auto 0.03 X10*3/uL (0.00-0.03); Imm Gran Pct Auto 0.3 % (0.0-0.4); Lymphocytes Absolute Auto 2.9 X10*3/uL (1.2-4.9); Lymphocytes Percent Auto 33.1 % (20-40); Mean Corpuscular HGB Conc 34.2 g/dl (31.0-35.0); Mean Corpuscular Hemoglobin 31.2 pg (27.0-33.0); Mean Corpuscular Volume 91.2 fL (80.0-98.0); Mean Platelet Volume 10.9 fL (9.4-12.3); Monocytes Absolute Auto 0.6 X10*3/uL (0.1-1.2); Monocytes Percent Auto 6.8 % (2-11); Neutrophils Percent Auto 56.3 % (45-73); Platelet Count 400 X10*3/uL (160-400); Red Blood Count 4.55 X10*6/uL (4.20-5.50); Red Cell Distribution Width 12.6 % (11.0-16.0); White Blood Count 8.8 X10*3/uL (4.8-10.8)
[2024-05-22 17:57] LABS: Alanine Aminotransferase 31 U/L (0-31); Albumin Level 4.7 g/dL (3.5-5.0); Alkaline Phosphatase 69 U/L (39-117); Anion Gap 14 (12-20); Aspartate Amino Transferase 23 U/L (5-31); Bilirubin Total 0.9 mg/dL (0.0-1.0); Blood Urea Nitrogen 16 mg/dL (9-16); Calcium 10.2 mg/dL (8.4-10.2); Carbon Dioxide 27 mmol/L (22-29); Chloride 103 mmol/L (96-108); Estimated Glomerular Filt Rate > 60; Glucose Random 94 mg/dL (60-115); Magnesium 2.2 mg/dL (1.6-2.6); Potassium 3.9 mmol/L (3.3-5.1); Sodium 140 mmol/L (135-145); Total Protein 8.5 g/dL (6.5-8.0)
[2024-05-22 18:13] LABS: Thyroid Stimulating Hormone 1.56 uIU/mL (0.32-4.0)
== END 2024-05-22 16:12 | disposition home or self-care (01) ==
LOC: HO.LAB 16:11
PROVIDERS: PCP Internal Medicine; Visit Provider Internal Medicine
DX: Z13.89 Encounter for screening for other disorder (principal)
CPT/HCPCS: 36415; 80053; 83735; 84439; 84443; 85025

== ENCOUNTER 2024-09-13 16:32 | Outpatient (REF) | payer BC, SELFPAY ==
[2024-09-13 17:22] LABS: Appearance Urine Clear; Color Urine Yellow; Glucose Urine UA Negative (Negative); Leukocyte Esterase Urine Trace (Negative); Nitrite Urine Negative (Negative); UMIC TRIGGER UACC YES; Urine Blood Negative (Negative); Urine Ketones Negative (Negative); Urine Protein Negative (Neg-Trace)
[2024-09-13 17:28] LABS: Bacteria Urine 4+ (None Seen); Hyaline Casts Urine 0-2 /LPF (0-2); RBC Urine 0-2 /HPF (0-2); UACC Culture Trigger YES
== END 2024-09-13 16:33 | disposition home or self-care (01) ==
LOC: HO.LAB 16:32
PROVIDERS: PCP Internal Medicine; Visit Provider Internal Medicine
DX: R30.0 Dysuria (principal)
CPT/HCPCS: 81001; 81003; 87086; 87088; 87186

== ENCOUNTER 2024-09-17 13:05 | Outpatient (REF) | payer BC, SELFPAY ==
[2024-09-17 18:31] LABS: CT PCR NOT DETECTED (Not Detect.); NG PCR NOT DETECTED (Not Detect.)
[2024-09-18 08:36] LABS: Syphilis Screen Nonreactive (Nonreactive)
[2024-09-18 08:48] LABS: HBc Num1 0.13 S/CO (0.00-0.79); HIV AB/AG Nonreactive (Nonreactive); HIV Num 1 0.05 S/CO (0.00-0.99); Hepatitis B Core Antibody Nonreactive (Nonreactive); ~HepC Num1 0.11 S/CO (0.00-0.79); ~Hepatitis C Antibody Nonreactive (Nonreactive)
== END 2024-09-17 13:06 | disposition home or self-care (01) ==
LOC: HO.LNP 13:05
PROVIDERS: PCP Internal Medicine; Visit Provider Advanced Practice Midwife
DX: Z20.2 Contact with and (suspected) exposure to infections with a predominantly sexual mode of transmission (principal); N89.8 Other specified noninflammatory disorders of vagina
CPT/HCPCS: 86704; 86780; 86803; 87389; 87491; 87591

== ENCOUNTER 2024-09-17 13:05 | Outpatient (AMB) | payer BC, SELFPAY ==
--- NOTE | 2024-09-17 13:07 | A.OFFVIS_ITS ---
Vital Signs 09/17/24 13:15 BP 126/72 Intake Visit Reasons: vag odor Intake Note: pt c/o vaginal odor and discharge. Patient wants std testing. Currently being treated for UTI by PCP Feed Inspection Supervisor: Feed Inspection Supervisor Present (Marilin) Allergies meperidine [From DEMEROL] Allergy (Severe, Verified 09/17/24 13:12) ANAPHYLAXIS lisinopril Allergy (Unknown, Verified 09/17/24 13:12) Swelling shrimp [SHRIMP] Adverse Reaction (Severe, Verified 09/17/24 13:12) DIFFICULTY BREATHING Is last menstrual period known: Yes HPI Comments Details: Vaginal odor x2 months, she took Cipro for a few days Rx by PCP for urine odor. Culture this week +E.Coli.. On medication currently. Feels she has a slimy type of discharge and wants STD testing, had a break off with her partner this summer. [facility] Medical History Anemia Nephrolithiasis Diastolic heart failure KATY III (cervical intraepithelial neoplasia III) HTN (hypertension) COVID-19 Surgical History History of hysteroscopy H/O lithotripsy Hx of cholecystectomy Hx of section Family History Maternal Grandmother Breast cancer Social History Alcohol intake: current Alcohol intake frequency: holidays/special occasions only Comment: medicated with tylenol and pyridium Patient Tobacco Use Status: Never used Tobacco Sexual orientation: Straight/Heterosexual Gender identity: Female Female Reproductive History Menstrual Age of Menarche: 12 Review of Systems Const All systems reviewed & are unremarkable except as noted in HPI and below Endo Reports no additional complaints Physical Exam Vital Signs: Last Vital Signs BP 126/72 09/17/24 13:15 Const General: cooperative, healthy appearing and no acute distress Psych Appearance: well kempt Attitude: cooperative Thought process: Normal thought process present Assessment & Plan Assessment & Plan (1) Vaginal odor: Code(s): N89.8 - Other specified noninflammatory disorders of vagina Plan Discussed: BV and GC chlamydia obtained, wait for results for plan of care. Plan blood work labs. Follow up p.r.n., safe sex condoms. Find a therapist to discuss concerns-psychology today website. Let me know when therapist is located we will send a referral in. All of her questions and concerns were addressed to the best of my ability and shared decision making. She is agreeable to the plan of care. This note is constructed using voice recognition software. While every effort has been made to ensure accuracy, slate roofer errors may have been included. Orders: Orders HIV Ab/Ag Today Z20.2 - Contact with and (suspected) exposure to infections with a predominantly sexual mode of transmission Hepatitis C Antibody Reflex Today Z20.2 - Contact with and (suspected) exposure to infections with a predominantly sexual mode of transmission Hepatitis B Core Antibody Today Z20.2 - Contact with and (suspected) exposure to infections with a predominantly sexual mode of transmission Syphilis Screen Today Z20.2 - Contact with and (suspected) exposure to infections with a predominantly sexual mode of transmission CT NG by PCR Today N89.8 - Other specified noninflammatory disorders of vagina Bacterial Vaginosis Panel Today N89.8 - Other specified noninflammatory disorders of vagina Coding Level of Care Code Est Pt Level 3 (83426) Diagnoses Vaginal odor N89.8
[2024-09-17 13:15] VITALS: BP 126/72
== END 2024-09-17 13:41 | disposition home or self-care (01) ==
LOC: HO.HWS 13:05
PROVIDERS: PCP Internal Medicine; Visit Provider Advanced Practice Midwife
DX: N89.8 Other specified noninflammatory disorders of vagina (principal)
CPT/HCPCS: 99213

== ENCOUNTER 2024-09-17 13:28 | Outpatient (REF) | payer BC, SELFPAY ==
[2024-09-17 17:58] LABS: Bacterial Vaginosis PCR NEGATIVE (Negative); Candida Group PCR NOT DETECTED (Not Detect); Candida glab krusei PCR NOT DETECTED (Not Detect); Trichomonas vaginalis PCR NOT DETECTED (Not Detect)
== END 2024-09-17 13:29 | disposition home or self-care (01) ==
LOC: HO.LAB 13:28
PROVIDERS: Visit Provider Advanced Practice Midwife
DX: N89.8 Other specified noninflammatory disorders of vagina (principal)
CPT/HCPCS: 0352U

== ENCOUNTER 2024-09-17 13:46 | Outpatient (REF) | payer BC, SELFPAY | END 2024-09-17 13:47 | disposition home or self-care (01) | LOC: HO.LAB 13:46 | PROVIDERS: PCP Internal Medicine; Visit Provider Advanced Practice Midwife | DX: Z13.89 Encounter for screening for other disorder (principal) ==

== ENCOUNTER 2024-10-03 16:40 | Emergency (ER) | payer BC, SELFPAY ==
--- NOTE | ~2024-10-03 | CT_ITS ---
EXAMINATION: CT ABDOMEN AND PELVIS WITHOUT CONTRAST CLINICAL INFORMATION: Upper abdominal pain. COMPARISON: Most recent renal ultrasound dated 07/31/[address] abdomen/pelvis dated 11/11/2022. TECHNIQUE: Multidetector volumetric imaging was performed from the superior aspect of the liver through the pubic symphysis. Sagittal and coronal reformatted images were obtained on the technologist's workstation. This CT examination was performed using dose optimization techniques as appropriate, variously including the following: *Automated exposure control *Adjustment of mA and/or kV according to patient size (this includes techniques or standardized protocols for targeted exams where dose is matched to indication/reason for exam; i.e. extremities or head) *Use of iterative reconstruction technique DLP: 628 mGy-cm FINDINGS: LUNG BASES: The visualized lung bases are unremarkable. LIVER, GALLBLADDER, AND BILIARY TREE: Increased hepatic size with normal contour. Parenchymal hypoattenuation, consistent with steatosis. Findings are not significantly changed. No focal hepatic lesion or biliary ductal dilatation is present. Status post cholecystectomy. PANCREAS: Unremarkable. SPLEEN: Unremarkable. ADRENAL GLANDS: Unremarkable. KIDNEYS AND URETERS: The kidneys are normal in size, shape, and attenuation. Posterior right midpole stone measuring 0.2 cm. No additional renal or ureteral stone. No hydronephrosis or hydroureter. Multiple pelvic phleboliths are redemonstrated. BLADDER: Partially distended. Small amount of air within the urinary bladder. Minimal wall thickening and stranding along the anterior aspect of the bladder. If there has been no recent history of instrumentation, findings could represent cystitis in the appropriate clinical setting. GASTROINTESTINAL TRACT: Moderate stool burden. No small or large bowel obstruction. No bowel wall thickening or inflammatory change. Unremarkable appendix. ABDOMINAL WALL: No significant hernia is appreciated. LYMPH NODES: No lymphadenopathy. VASCULAR: Unremarkable. PELVIC VISCERA: The uterus and adnexa are unremarkable. OSSEOUS STRUCTURES: Unremarkable. CT/CT abdomen pelvis wo IV con IMPRESSION: 1. Small amount of air within the urinary bladder. Minimal wall thickening and stranding along the anterior aspect of the urinary bladder. If there has been no recent history of instrumentation, findings could represent cystitis in the appropriate clinical setting. 2. Moderate stool burden. No small or large bowel obstruction. Unremarkable appendix. 3. Hepatic steatosis, unchanged. No new hepatic parenchymal lesion or biliary ductal dilatation. Fleischner guidelines were followed. Electronically signed by: Nikhil Echeverria MD 10/03/2024 09:58 PM [facility] [place]
[2024-10-03 16:53] VITALS: BP 175/108; BP 180/90; PULSE 75; PULSE 88; RESP 18; TEMP 36.5; O2SAT 98; O2SAT 99; BMI 32.7
[2024-10-03 17:00] VITALS: BP 175/108; PULSE 75; RESP 16; TEMP 36.5; O2SAT 99
--- NOTE | 2024-10-03 17:40 | ED.ABDPAIN ---
HPI - Abdominal Pain General Chief Complaint: Abdominal Pain Stated Complaint: Dizzy, abd pain Time Seen by Provider: 10/03/24 17:40 Source: patient Mode of arrival: ambulatory Limitations: no limitations History of Present Illness ED Provider: saul JAY narrative: Patient is 49 years old with no significant abdominal complaints in the past comes here for having abdominal pain with feeling dizzy and lightheaded patient does have history of anxiety no history of gallstone patient is status post cholecystectomy does have history of constipation Related Data Home Medications ?Medication ?Instructions ?Recorded ?Confirmed hydrochlorothiazide 25 mg tablet 25 mg PO DAILY 02/22/23 07/21/23 spironolactone 25 mg tablet 25 mg PO DAILY 02/22/23 07/21/23 fluoxetine 20 mg capsule 20 mg PO DAILY 02/28/24 nitrofurantoin macrocrystal 100 mg mg PO 09/17/24 capsule Previous Rx's ?Medication ?Instructions ?Recorded omeprazole 40 mg capsule,delayed 40 mg PO DAILY #30 caps 10/03/24 release polyethylene glycol 3350 17 17 g PO DAILY PRN constipation 10/03/24 gram/dose oral powder (Miralax) #238 grams Allergies Allergy/AdvReac Type Severity Reaction Status Date / Time meperidine [From DEMEROL] Allergy Severe ANAPHYLAXIS Verified 10/03/24 16:55 lisinopril Allergy Unknown Swelling Verified 10/03/24 16:55 shrimp [SHRIMP] AdvReac Severe DIFFICULTY Verified 10/03/24 16:55 BREATHING Review of Systems Review of Systems Yes all other systems are reviewed and are negative PMFSH Past Medical History Medical History Anemia Nephrolithiasis Diastolic heart failure KATY III (cervical intraepithelial neoplasia III) HTN (hypertension) COVID-19 Surgical History History of hysteroscopy H/O lithotripsy Hx of cholecystectomy Hx of section Family History Family History Maternal Grandmother Breast cancer Social History Social History Alcohol intake: current Alcohol intake frequency: holidays/special occasions only Comment: medicated with tylenol and pyridium Patient Tobacco Use Status: Never used Tobacco Smoked in Last 30 Days: No Use of substances other than those prescribed or required for medical reasons: No Advance Directives: No Advance Directives Information Provided: No Do you have a plan to hurt others: No Plan Patient : No Sexual orientation: Straight/Heterosexual Gender identity: Female Physical Exam ED Vital Signs: Vital Signs - 24 hr 10/03/24 16:53 10/03/24 17:00 10/03/24 18:14 Temperature 97.7 F 97.7 F Pulse Rate 75 75 Respiratory Rate 18 16 13 Blood Pressure 175/108 H 175/108 H Pulse Oximetry 99 99 Oxygen Delivery Method Room Air Room Air 10/03/24 18:30 10/03/24 22:26 10/03/24 22:37 Temperature 97.6 F 97.6 F Pulse Rate 94 72 72 Respiratory Rate 10 L 14 14 Blood Pressure 143/82 H 106/63 106/63 Pulse Oximetry 100 97 97 Oxygen Delivery Method Room Air Room Air Room Air BMI result Body Mass Index 32.7 Appearance: Alert. Oriented X3. No acute distress. Eyes: No pallor or icterus ENT: Pharynx normal. Oral Mucosa moist Neck: Normal inspection. Neck supple. CVS: Normal heart rate and rhythm. Pulses normal. Respiratory: No respiratory distress. Equal air entry bilateral, no wheezing/rales/rhonchi Abdomen: Soft and tenderness in epigastric and right upper quadrant area no rebound tenderness or guarding. Bowel sounds are present, no mass palpable, no CVA tenderness Skin: Skin warm and dry. Normal skin color. Normal skin turgor. Extremities: No lower extremity edema. No calf tenderness Neuro: Oriented X 3. No motor deficit. No sensory deficit.No cerebellar signs , cranial nerves II-XII intact Medical Decision Making Medical Decision Making MDM Narrative: patient's upper abdominal pain CT scan negative for acute pathology except for inflammation of the of urinary bladder UA is negative patient denied any urinary symptoms etiology of CT scan findings not clear. Will discharge patient home advised to follow with PCP Differential Diagnosis Differential Diagnoses: The differential diagnosis associated with the presentation includes Lab Data [facility] Lab Attestation statement: I reviewed the patient's lab results. 10/03/24 18:05 10/03/24 18:05 Labs: Lab Results 10/03/24 10/03/24 Range/Units 18:05 18:09 WBC 8.1 (4.8-10.8) X10*3/uL RBC 4.40 (4.20-5.50) X10*6/uL Hgb 13.5 (12.0-16.0) g/dl Hct 38.8 (37.0-47.0) % MCV 88.2 (80.0-98.0) fL MCH 30.7 (27.0-33.0) pg MCHC 34.8 (31.0-35.0) g/dl RDW 11.9 (11.0-16.0) % Plt Count 362 (160-400) X10*3/uL MPV 10.1 (9.4-12.3) fL Immature Gran % (Auto) 0.2 (0.0-0.4) % Neut % (Auto) 62.8 (45-73) % Lymph % (Auto) 26.4 (20-40) % [place] % (Auto) 6.2 (2-11) % Eos % (Auto) 3.3 (0-4) % Baso % (Auto) 1.1 (0-2) % Lymph # (Auto) 2.1 (1.2-4.9) X10*3/uL [place] # (Auto) 0.5 (0.1-1.2) X10*3/uL Eos # (Auto) 0.3 (0.0-0.4) X10*3/uL Baso # (Auto) 0.1 (0.0-0.2) X10*3/uL Abs Immat Gran (auto) 0.02 (0.00-0.03) X10*3/uL Absolute Neuts (auto) 5.1 (2.0-8.3) x10*3/uL Absolute Nucleated RBC 0.000 (0.0-0.012) X10*3/uL Nucleated RBC % (auto) 0.0 (0.0-0.2) /100WBC Sodium 139 (135-145) mmol/L Potassium 3.2 L (3.3-5.1) mmol/L Chloride 103 (96-108) mmol/L Carbon Dioxide 29 (22-29) mmol/L Anion Gap 10 L (12-20) BUN 17 H (9-16) mg/dL Creatinine 0.83 (0.5-1.4) mg/dL Estim Creat Clear Calc 100.0 Estimated GFR > 60 Random Glucose 121 H (60-115) mg/dL Calcium 9.7 (8.4-10.2) mg/dL Total Bilirubin 0.7 (0.0-1.0) mg/dL AST 30 (5-31) U/L ALT 39 H (0-31) U/L Alkaline Phosphatase 71 (39-117) U/L Troponin I High Sens < 2.7 (<3.5-17.0) ng/L Total Protein 8.0 (6.5-8.0) g/dL Albumin 4.4 (3.5-5.0) g/dL Lipase 28 (8-78) U/L Urine Color Yellow Urine Appearance Clear Urine pH 6.5 (5.0-9.0) Ur Specific [place] 1.020 (1.005-1.025) Urine Protein Negative (Neg-Trace) mg/dL Urine Glucose (UA) Negative (Negative) mg/dL Urine Ketones Negative (Negative) mg/dL Urine Blood Negative (Negative) Urine Nitrite Negative (Negative) Ur Leukocyte Esterase Trace H (Negative) Urine RBC 0-2 (0-2) /HPF Urine WBC 0-5 (0-5) /HPF Ur Squamous Epith Cells 6-10 (0-2) /HPF Urine Bacteria Trace (None Seen) Hyaline Casts 0-2 (0-2) /LPF Independent Interpretation I performed an independent interpretation of an: CT Scan Radiology Impression Discussion of test interpretation with radiology: I have reviewed the radiologist's reading. Radiologist Impression: CT/CT abdomen pelvis wo IV con IMPRESSION: 1. Small amount of air within the urinary bladder. Minimal wall thickening and stranding along the anterior aspect of the urinary bladder. If there has been no recent history of instrumentation, findings could represent cystitis in the appropriate clinical setting. 2. Moderate stool burden. No small or large bowel obstruction. Unremarkable appendix. 3. Hepatic steatosis, unchanged. No new hepatic parenchymal lesion or biliary ductal dilatation. Fleischner guidelines were followed. Electronically signed by: Nikhil Echeverria MD 10/03/2024 09:58 PM [facility] [place] Medications Administered Discontinued Medications Generic Name Dose Route Start Last Admin Trade Name Freq PRN Reason Stop Dose Admin Al Hydroxide/Mg Hydroxide 30 ml 10/03/24 22:17 10/03/24 22:23 Magnesium Hydrox/Alum Hydrox 30 Ml Oral.Susp PO 10/03/24 22:18 30 ml ONCE ONE Administration Sodium Chloride 1,000 mls @ 999 mls/hr 10/03/24 17:53 10/03/24 21:58 Ns IV 10/03/24 18:53 Infused .Q1H1M ONE Infusion Magnesium Hydroxide 30 ml 10/03/24 22:17 10/03/24 22:23 Milk Of Magnesia 30 Ml Oral.Susp PO 10/03/24 22:18 30 ml ONCE ONE Administration Morphine Sulfate 4 mg 10/03/24 17:57 10/03/24 18:14 Morphine Sulfate 4 Mg/Ml Cartridge IVPUSH 10/03/24 17:58 4 mg ONCE ONE Administration Protocol Ondansetron HCl 4 mg 10/03/24 17:53 10/03/24 18:14 Ondansetron Hcl 4 Mg/2 Ml Vial IVPUSH 10/03/24 17:54 4 mg ONCE ONE Administration Discharge Plan Discharge Clinical Impression: Gastritis, Constipation Patient Disposition: Home, Self-Care Instructions: Gastritis (ED), Constipation (ED) Additional Instructions: take MiraLax daily for constipation Prilosec for gastritis avoid fried and spicy foods follow up with your PCP Prescriptions: New omeprazole 40 mg capsule,delayed release(DR/EC) 40 mg PO DAILY Qty: 30 0RF polyethylene glycol 3350 [Miralax] 17 gram/dose powder 17 g PO DAILY PRN (Reason: constipation) Qty: 238 0RF No Action hydrochlorothiazide 25 mg tablet 25 mg PO DAILY spironolactone 25 mg tablet 25 mg PO DAILY nitrofurantoin macrocrystal 100 mg capsule PO fluoxetine 20 mg capsule 20 mg PO DAILY Stand Alone Forms: Work/School Release Interventions: ED Discharge Assessment Last Done: 10/03/24 22:37 Discharge Date/Time: 10/03/24 22:38 Print Language: Croatian
--- NOTE | 2024-10-03 17:53 | ECG_ITS ---
Test Reason : EIPGASTRIC PAIN Blood Pressure : / mmHG Vent. Rate : 060 BPM Atrial Rate : 060 BPM P-R Int : 132 ms QRS Dur : 088 ms QT Int : 416 ms P-R-T Axes : -02 018 006 degrees QTc Int : 416 ms Normal sinus rhythm Normal ECG When compared with ECG of 22-MAY-2023 12:56, No significant change was found Referred By: Parrish Garcia Electronically Signed By:MARIA LUISA KU MD
[2024-10-03] MEDS: 0.9 % Sodium Chloride 1,000 ML 999 ML IV (18:06)
[2024-10-03 18:14] VITALS: RESP 13
[2024-10-03 18:14] LABS: Basophils Absolute Auto 0.1 X10*3/uL (0.0-0.2); Basophils Percent Auto 1.1 % (0-2); Eosinophils Absolute Auto 0.3 X10*3/uL (0.0-0.4); Eosinophils Percent Auto 3.3 % (0-4); Hematocrit 38.8 % (37.0-47.0); Hemoglobin 13.5 g/dl (12.0-16.0); Imm Gran Abs Auto 0.02 X10*3/uL (0.00-0.03); Imm Gran Pct Auto 0.2 % (0.0-0.4); Lymphocytes Absolute Auto 2.1 X10*3/uL (1.2-4.9); Lymphocytes Percent Auto 26.4 % (20-40); MANUAL DIFF FLAG NO; Mean Corpuscular HGB Conc 34.8 g/dl (31.0-35.0); Mean Corpuscular Hemoglobin 30.7 pg (27.0-33.0); Mean Corpuscular Volume 88.2 fL (80.0-98.0); Mean Platelet Volume 10.1 fL (9.4-12.3); Monocytes Absolute Auto 0.5 X10*3/uL (0.1-1.2); Monocytes Percent Auto 6.2 % (2-11); Neutrophils Absolute Auto 5.1 x10*3/uL (2.0-8.3); Neutrophils Percent Auto 62.8 % (45-73); Platelet Count 362 X10*3/uL (160-400); Red Cell Distribution Width 11.9 % (11.0-16.0); White Blood Count 8.1 X10*3/uL (4.8-10.8)
[2024-10-03] MEDS: ondansetron HCL 4 MG/2 ML VIAL IVPUSH (18:14)
[2024-10-03] MEDS: Morphine Sulfate 4 MG/ML CARTRIDGE IVPUSH (18:14)
[2024-10-03 18:15] LABS: Appearance Urine Clear; Color Urine Yellow; Glucose Urine UA Negative (Negative); Leukocyte Esterase Urine Trace (Negative); Nitrite Urine Negative (Negative); PH 6.5 (5.0-9.0); UMIC TRIGGER UACC YES; Urine Blood Negative (Negative); Urine Ketones Negative (Negative); Urine Protein Negative (Neg-Trace)
[2024-10-03 18:20] LABS: Bacteria Urine Trace (None Seen); Hyaline Casts Urine 0-2 /LPF (0-2); RBC Urine 0-2 /HPF (0-2); WBC Urine 0-5 /HPF (0-5)
--- NOTE | 2024-10-03 18:26 | PC.NURSE ---
Pt comes to ED today with complaints of onset of palpitations, dizziness/light headed this afternoon with severe upper abd pain. Pt reports she attempted to rest and when she awoke she felt equally as bad. Report Hx of HTN and was concerned. Initial BP elevated, afebrile and HR wnl. A&Ox3 Skin is warm and dry Breaths and speech are unlabored. 20g to RAC Pt medicated per JAN. Awaiting blood lab results.
[2024-10-03 18:30] VITALS: BP 143/82; PULSE 94; RESP 10; O2SAT 100
[2024-10-03 18:35] LABS: Alanine Aminotransferase 39 U/L (0-31); Albumin Level 4.4 g/dL (3.5-5.0); Alkaline Phosphatase 71 U/L (39-117); Anion Gap 10 (12-20); Aspartate Amino Transferase 30 U/L (5-31); Bilirubin Total 0.7 mg/dL (0.0-1.0); Blood Urea Nitrogen 17 mg/dL (9-16); Calcium 9.7 mg/dL (8.4-10.2); Carbon Dioxide 29 mmol/L (22-29); Chloride 103 mmol/L (96-108); Estimated Glomerular Filt Rate > 60; Glucose Random 121 mg/dL (60-115); Lipase 28 U/L (8-78); Potassium 3.2 mmol/L (3.3-5.1); Sodium 139 mmol/L (135-145)
[2024-10-03 18:53] LABS: Troponin-I High Sensitivity < 2.7 ng/L (<3.5-17.0)
--- NOTE | 2024-10-03 18:58 | PC.NURSE ---
received report from Giovanna PACHECO, assume care of pt at this time
[2024-10-03] MEDS: Magnesium Hydrox/Alum Hydrox 30 ML ORAL.SUSP PO (22:23)
[2024-10-03] MEDS: Milk of Magnesia 30 ML ORAL.SUSP PO (22:23)
[2024-10-03 22:26] VITALS: BP 106/63; PULSE 72; RESP 14; TEMP 36.4; O2SAT 97
[2024-10-03 22:37] VITALS: BP 106/63; PULSE 72; RESP 14; TEMP 36.4; O2SAT 97
== END 2024-10-03 22:38 | disposition home or self-care (01) ==
PROVIDERS: Emergency Provider Internal Medicine; PCP Internal Medicine
DX: K29.70 Gastritis, unspecified, without bleeding (principal); K59.00 Constipation, unspecified; R10.2 Pelvic and perineal pain; R42 Dizziness and giddiness; R10.11 Right upper quadrant pain; Z79.899 Other long term (current) drug therapy
CPT/HCPCS: 36415; 74176; 80053; 81001; 83690; 84484; 85025; 93005; 96361; 96374; 96375; 99285; J2270; J2405

== ENCOUNTER → 2024-10-03 17:53 | Outpatient (BNV) | payer BC, SELFPAY | PROVIDERS: Emergency Provider Internal Medicine; PCP Internal Medicine; Visit Provider Internal Medicine Cardiovascular Disease | DX: R10.13 Epigastric pain (principal) | CPT/HCPCS: 93010 ==

== ENCOUNTER 2024-10-08 15:05 | Outpatient (REF) | payer BC, SELFPAY ==
[2024-10-08 15:57] LABS: Appearance Urine Clear; Color Urine Yellow; Glucose Urine UA Negative (Negative); Leukocyte Esterase Urine Negative (Negative); Nitrite Urine Negative (Negative); PH 6.5 (5.0-9.0); Urine Blood Negative (Negative); Urine Ketones Negative (Negative); Urine Protein Negative (Neg-Trace)
== END 2024-10-08 15:06 | disposition home or self-care (01) ==
LOC: HO.LAB 15:05
PROVIDERS: PCP Internal Medicine; Visit Provider Internal Medicine
DX: R30.0 Dysuria (principal)
CPT/HCPCS: 81003

== ENCOUNTER 2024-12-11 08:00 | Outpatient (REF) | payer BC, SELFPAY ==
[2024-12-11 08:49] LABS: Appearance Urine Cloudy; Color Urine Dark Yellow; Glucose Urine UA Negative (Negative); Leukocyte Esterase Urine Trace (Negative); Nitrite Urine Negative (Negative); Specific Gravity - Urine 1.025 (1.005-1.025); UMIC TRIGGER UACC YES; Urine Blood Negative (Negative); Urine Ketones Trace mg/dL (Negative); Urine Protein Trace mg/dL (Neg-Trace)
[2024-12-11 08:56] LABS: Bacteria Urine 4+ (None Seen); RBC Urine 0-2 /HPF (0-2); WBC Urine 0-5 /HPF (0-5)
== END 2024-12-11 08:01 | disposition home or self-care (01) ==
LOC: HO.LAB 08:00
PROVIDERS: PCP Internal Medicine; Visit Provider Internal Medicine
DX: R30.0 Dysuria (principal)
CPT/HCPCS: 81001; 87086; 87088; 87186

== ENCOUNTER 2025-01-30 09:29 | Emergency (ER) | payer BC, SELFPAY ==
--- NOTE | ~2025-01-30 | CT_ITS ---
EXAMINATION: CT ABDOMEN PELVIS ANGIOGRAPHY WITH IV CONTRAST HISTORY: abdominal pain, pulsatile mass felt COMPARISON: Comparison is made to the prior CT of the abdomen and pelvis dated 10/03/2024. TECHNIQUE: CT angiogram of the abdomen and pelvis was performed following administration of 85 mL Omnipaque 350 using standard departmental protocol. The contrast bolus was timed to optimally opacify the vascular system. Coronal and sagittal reformatted images were generated and reviewed. Oral contrast material was not administered at the request of the referring physician. This CT exam was performed with one or more of the following dose reduction techniques: automated exposure control, adjustment of the mA and/or kV according to patient size, use of iterative reconstruction technique. DLP: 508 mGy-cm FINDINGS: LOWER CHEST: The visualized lung bases are clear. There is no pleural effusion. CARDIOVASCULATURE: The heart is normal in size. There is no pericardial effusion. LIVER: The liver is normal in size and contour. No liver mass is identified, although evaluation is limited by arterial phase imaging. The hepatic and portal veins are patent. GALLBLADDER / BILE DUCTS: The gallbladder is surgically absent. There is no intra or extrahepatic biliary ductal dilatation. SPLEEN: The spleen is normal in size. No focal splenic lesion is identified. PANCREAS: The pancreas is unremarkable in appearance. ADRENAL GLANDS: Within normal limits. KIDNEYS/RETROPERITONEUM: No renal calculi are identified. There is no hydronephrosis. No renal masses are identified. LYMPH NODES: No abdominal or pelvic lymphadenopathy. VASCULATURE: The abdominal aorta is normal in caliber. The bilateral common and external iliac arteries are normal in caliber and are widely patent. The celiac axis, superior mesenteric artery, inferior mesenteric artery, and bilateral renal arteries are widely patent. MESENTERY/PERITONEUM: No free fluid. No masses. There is no free intraperitoneal gas. STOMACH: The stomach is unremarkable. SMALL BOWEL: The small bowel is normal in caliber. COLON: The colon is unremarkable. APPENDIX: Normal. URINARY BLADDER/PELVIC ORGANS: The urinary bladder is unremarkable. The uterus is unremarkable. There is no adnexal mass. BONES / SOFT TISSUES: There is degenerative disc disease at the L5-S1 level. CT/CT angio abdomen pelvis IMPRESSION: Unremarkable CT angiogram of the abdomen and pelvis. Electronically signed by: Frederick Rodriguez MD 01/30/2025 01:19 PM EDT RP
--- NOTE | ~2025-01-30 | XR_ITS ---
EXAMINATION: XR CHEST 1 VIEW HISTORY: chest pain COMPARISON: Comparison is made with the prior examination dated 03/06/2023. FINDINGS: A single AP portable view of the chest performed at 10:24 AM is submitted. The lungs are expanded and clear. There is no pleural effusion, pneumothorax, or pulmonary vascular congestion. The heart is normal in size. The bones are intact. XR/XR chest 1V IMPRESSION: No acute cardiopulmonary abnormality. Electronically signed by: Frederick Rodriguez MD 01/30/2025 10:39 AM EDT
--- NOTE | 2025-01-30 09:31 | ECG_ITS ---
Test Reason : palpitations Blood Pressure : */* mmHG Vent. Rate : 70 BPM Atrial Rate : 70 BPM P-R Int : 124 ms QRS Dur : 90 ms QT Int : 378 ms P-R-T Axes : 3 20 33 degrees QTcB Int : 408 ms Normal sinus rhythm Septal infarct , age undetermined Abnormal ECG When compared with ECG of 03-Oct-2024 18:33, Septal infarct is now Present Referred By: Generic ED Physician Electronically Signed By: Brendan Schneider
[2025-01-30 09:52] VITALS: BP 152/97; PULSE 72; RESP 16; TEMP 37; O2SAT 97; BMI 30.3
[2025-01-30 10:45] LABS: MANUAL DIFF FLAG NO
[2025-01-30 10:46] LABS: Basophils Absolute Auto 0.1 X10*3/uL (0.0-0.2); Basophils Percent Auto 1.1 % (0-2); Eosinophils Absolute Auto 0.2 X10*3/uL (0.0-0.4); Eosinophils Percent Auto 3.2 % (0-4); Hematocrit 37.4 % (37.0-47.0); Hemoglobin 13.5 g/dl (12.0-16.0); Imm Gran Abs Auto 0.03 X10*3/uL (0.00-0.03); Imm Gran Pct Auto 0.4 % (0.0-0.4); Lymphocytes Absolute Auto 2.2 X10*3/uL (1.2-4.9); Lymphocytes Percent Auto 31.3 % (20-40); Mean Corpuscular HGB Conc 36.1 g/dl (31.0-35.0); Mean Corpuscular Hemoglobin 31.8 pg (27.0-33.0); Mean Platelet Volume 10.5 fL (9.4-12.3); Monocytes Absolute Auto 0.4 X10*3/uL (0.1-1.2); Monocytes Percent Auto 6.2 % (2-11); Neutrophils Absolute Auto 4.1 x10*3/uL (2.0-8.3); Neutrophils Percent Auto 57.8 % (45-73); Platelet Count 325 X10*3/uL (160-400); Red Blood Count 4.25 X10*6/uL (4.20-5.50); Red Cell Distribution Width 12.3 % (11.0-16.0); White Blood Count 7.1 X10*3/uL (4.8-10.8)
--- NOTE | 2025-01-30 10:48 | PC.NURSE ---
Pt comes to ED today with c/o palpitation like sensation to L lower abd. Pt reports she woke up at 4am with this sensation in her abd that felt like a baby kicking. She denies pain to this area but is able to feel it. She also c/o slight CRESPO and chest pressure. She report she has HTN as baseline and was nervous so decided to come to ED. Pt is A&Ox3, BP slightly elevated. Skin is warm and dry Breaths and speech are slow, even, and unlabored. 20g placed to [facility] Blood labs sent--results pending. Pt will have imaging. Pt is currently resting quietly with family at bedside.
--- NOTE | 2025-01-30 10:56 | ED_ITS ---
HPI - Abdominal Pain General Chief Complaint: Abdominal Pain Stated Complaint: high bp rapid heart beat Time Seen by Provider: 01/30/25 10:10 Source: patient, family and old records reviewed Mode of arrival: ambulatory Limitations: no limitations History of Present Illness ED Provider: SUSHMA HPI narrative: 49 yo female with PMH of kidney stones, HTN here with c/o waking up around 4am and feeling pressure and a pulsating moving thing in her abdomen. She tried to have BM and rub it but nothing has helped. She took her BP meds this morning but noted her BP was high 150/113 - she started to have a dull ache in her neck. She notes she gets the dull ache in her neck so she knows her pressure is high. She denies fevers n/v/d but she is concerned about this moving pulsing mass. I did review her CT scan in 2023 no aneurysm reported. She has distal pulses intact. MD elicited complaint: other Pertinent past history: none Onset (ago): hour(s) (4am today) Pain Consistency: intermittent Location: LLQ Severity: mild Quality: fullness and other (pulsating) Radiation: none Migration to: no migration Exacerbating factors: nothing Relieving factors: nothing Associated symptoms: other (neck pain) Related Data Home Medications ?Medication ?Instructions ?Recorded ?Confirmed hydrochlorothiazide 25 mg tablet 25 mg PO DAILY 02/22/23 07/21/23 spironolactone 25 mg tablet 25 mg PO DAILY 02/22/23 07/21/23 fluoxetine 20 mg capsule 20 mg PO DAILY 02/28/24 nitrofurantoin macrocrystal 100 mg mg PO 09/17/24 capsule Previous Rx's ?Medication ?Instructions ?Recorded omeprazole 40 mg capsule,delayed 40 mg PO DAILY #30 caps 10/03/24 release polyethylene glycol 3350 17 17 g PO DAILY PRN constipation 10/03/24 gram/dose oral powder (Miralax) #238 grams Allergies Allergy/AdvReac Type Severity Reaction Status Date / Time meperidine [From DEMEROL] Allergy Severe ANAPHYLAXIS Verified 01/30/25 09:57 lisinopril Allergy Unknown Swelling Verified 01/30/25 09:57 shrimp [SHRIMP] AdvReac Severe DIFFICULTY Verified 01/30/25 09:57 BREATHING Review of Systems Review of Systems Constitutional : No Weight loss, No Fever, No Chills ENT/Mouth : No sore throat, No Rhinorrhea Eyes: No Swelling, No Redness Cardiovascular : No Chest Pain, No SOB, NoEdema Respiratory : No Cough, No Sputum, No Wheezing Gastrointestinal : no Nausea, no Vomiting, no Diarrhea, positive abdominal Pain, No Hematochezia, No Melena Genitourinary : No Dysuria, No Urinary Frequency, No Hematuria, No Urgency Musculoskeletal : No joint pain, No Myalgias, No Joint Swelling, pos neck pain Skin : No Skin Lesions, No rash Neuro : No Weakness, No Numbness, No Dizziness, No Headache All other systems reviewed and are negative. [facility] Past Medical History Attestation statement: The following information was validated with the patient. Source: old records reviewed Medical History Anemia Nephrolithiasis Diastolic heart failure KATY III (cervical intraepithelial neoplasia III) HTN (hypertension) COVID-19 Surgical History History of hysteroscopy H/O lithotripsy Hx of cholecystectomy Hx of section Family History Family History Maternal Grandmother Breast cancer Social History Social History Alcohol intake: current Alcohol intake frequency: holidays/special occasions only Comment: medicated with tylenol and pyridium Patient Tobacco Use Status: Never used Tobacco Smoked in Last 30 Days: Yes Use of substances other than those prescribed or required for medical reasons: No Advance Directives: No Advance Directives Information Provided: Yes Patient : No Sexual orientation: Straight/Heterosexual Gender identity: Female Physical Exam ED Vital Signs: Vital Signs - 24 hr 01/30/25 09:52 01/30/25 12:06 Temperature 98.6 F 98.1 F Pulse Rate 72 67 Respiratory Rate 16 14 Blood Pressure 152/97 H 117/80 Pulse Oximetry 97 94 Oxygen Delivery Method Room Air Room Air BMI result Body Mass Index 30.3 Appearance: Alert. Oriented X3. No acute distress. Eyes: Pupils equal, round and reactive to light. ENT: Pharynx normal. Neck: Normal inspection. Neck supple. CVS: Normal heart rate and rhythm. Pulses normal. Respiratory: No respiratory distress. Breath sounds normal. Abdomen: Soft and non-tender. NO mass or hernia felt Skin: Skin warm and dry. Normal skin color. Normal skin turgor. Extremities: No lower extremity edema. Neuro: Oriented X 3. No motor deficit. No sensory deficit. CN2-12 intact Medical Decision Making Medical Decision Making [facility] Narrative: 49 yo female with PMH of kidney stones, HTN here with c/o pulsatile throbbing mass in her abdomen there is no recent aneurysm seen 1 year ago at this time I am going to obtain labs, CTA of abdomen/pelvis, EKG. Her neck is not tender no meningeal signs and no recent trauma or manipulation to the neck. She has no neuro deficits doubt dissection. Differential Diagnosis Differential Diagnoses: The differential diagnosis associated with the presentation includes HTN, peristalsis, , aneurysm Admission/Observation Consideration of admission/observation: Escalation of care including admission/observation considered work up reassuring, BP down at this time stable for DC Lab Data [facility] Lab Attestation statement: I reviewed the patient's lab results. 01/30/25 10:38 01/30/25 10:38 Labs: Lab Results 01/30/25 01/30/25 Range/Units 10:38 10:39 WBC 7.1 (4.8-10.8) X10*3/uL RBC 4.25 (4.20-5.50) X10*6/uL Hgb 13.5 (12.0-16.0) g/dl Hct 37.4 (37.0-47.0) % MCV 88.0 (80.0-98.0) fL MCH 31.8 (27.0-33.0) pg MCHC 36.1 H (31.0-35.0) g/dl RDW 12.3 (11.0-16.0) % Plt Count 325 (160-400) X10*3/uL MPV 10.5 (9.4-12.3) fL Immature Gran % (Auto) 0.4 (0.0-0.4) % Neut % (Auto) 57.8 (45-73) % Lymph % (Auto) 31.3 (20-40) % [place] % (Auto) 6.2 (2-11) % Eos % (Auto) 3.2 (0-4) % Baso % (Auto) 1.1 (0-2) % Lymph # (Auto) 2.2 (1.2-4.9) X10*3/uL [place] # (Auto) 0.4 (0.1-1.2) X10*3/uL Eos # (Auto) 0.2 (0.0-0.4) X10*3/uL Baso # (Auto) 0.1 (0.0-0.2) X10*3/uL Abs Immat Gran (auto) 0.03 (0.00-0.03) X10*3/uL Absolute Neuts (auto) 4.1 (2.0-8.3) x10*3/uL Absolute Nucleated RBC 0.000 (0.0-0.012) X10*3/uL Nucleated RBC % (auto) 0.0 (0.0-0.2) /100WBC Sodium 140 (135-145) mmol/L Potassium 3.6 (3.3-5.1) mmol/L Chloride 106 (96-108) mmol/L Carbon Dioxide 28 (22-29) mmol/L Anion Gap 10 L (12-20) BUN 16 (9-16) mg/dL Creatinine 0.81 (0.5-1.4) mg/dL Estim Creat Clear Calc 98.8 Estimated GFR > 60 Random Glucose 87 (60-115) mg/dL Calcium 9.3 (8.4-10.2) mg/dL Magnesium 1.9 (1.6-2.6) mg/dL Total Bilirubin 0.8 (0.0-1.0) mg/dL Direct Bilirubin 0.3 (0.0-0.5) mg/dL AST 28 (5-31) U/L ALT 41 H (0-31) U/L Alkaline Phosphatase 66 (39-117) U/L Troponin I High Sens < 2.7 (<3.5-17.0) ng/L B-Natriuretic Peptide 19 (<100) pg/mL Total Protein 7.8 (6.5-8.0) g/dL Albumin 4.2 (3.5-5.0) g/dL Lipase 30 (8-78) U/L Beta HCG, Quant < 2 mIU/mL Influenza Type A (PCR) NEGATIVE (Negative) Influenza Type B (PCR) NEGATIVE (Negative) RSV RNA Qual (PCR) NEGATIVE (Negative) SARS-CoV-2 RNA (RT-PCR) NEGATIVE (Negative) Independent Interpretation I performed an independent interpretation of an: EKG and CT Scan (normal ) Interpretation: Rate: 70 Rhythm: NSR [place]: normal Normal P waves. Normal ИВАН. Normal QRS complex. ST T wave : no [place], inverted t waves V1 qTC: 408 prior studies: no acute ischemia The study has been interpreted contemporaneously by me. . Radiology Impression Discussion of test interpretation with radiology: I have reviewed the radiologist's reading. Medications Administered Discontinued Medications Generic Name Dose Route Start Last Admin Trade Name Freq PRN Reason Stop Dose Admin Iohexol 80 ml 01/30/25 12:31 01/30/25 12:33 Iohexol 350 Mg/Ml 100 Ml Infus..Btl IV 01/30/25 12:32 80 ml ONCE ONE Administration Discharge Plan Discharge Clinical Impression: Abdominal discomfort HTN (hypertension) Qualifiers: Hypertension type: unspecified Qualified Code(s): I10 - Essential (primary) hypertension Patient Disposition: Home, Self-Care Instructions: Abdominal Pain (ED), Chronic Hypertension (ED) Additional Instructions: your labs, EKG and chest xray were normal CTA which involves your abdomen and pelvis including all vessels were normal - there was an incidental finding of some degenerative disc disease seen your back please see report below. you can follow up with your primary care as needed. continue to take your medications, please follow up here again for any further issues or concerns thank you for letting us care for you today. FINDINGS: LOWER CHEST: The visualized lung bases are clear. There is no pleural effusion. CARDIOVASCULATURE: The heart is normal in size. There is no pericardial effusion. LIVER: The liver is normal in size and contour. No liver mass is identified, although evaluation is limited by arterial phase imaging. The hepatic and portal veins are patent. GALLBLADDER / BILE DUCTS: The gallbladder is surgically absent. There is no intra or extrahepatic biliary ductal dilatation. SPLEEN: The spleen is normal in size. No focal splenic lesion is identified. PANCREAS: The pancreas is unremarkable in appearance. ADRENAL GLANDS: Within normal limits. KIDNEYS/RETROPERITONEUM: No renal calculi are identified. There is no hydronephrosis. No renal masses are identified. LYMPH NODES: No abdominal or pelvic lymphadenopathy. VASCULATURE: The abdominal aorta is normal in caliber. The bilateral common and external iliac arteries are normal in caliber and are widely patent. The celiac axis, superior mesenteric artery, inferior mesenteric artery, and bilateral renal arteries are widely patent. MESENTERY/PERITONEUM: No free fluid. No masses. There is no free intraperitoneal gas. STOMACH: The stomach is unremarkable. SMALL BOWEL: The small bowel is normal in caliber. COLON: The colon is unremarkable. APPENDIX: Normal. URINARY BLADDER/PELVIC ORGANS: The urinary bladder is unremarkable. The uterus is unremarkable. There is no adnexal mass. BONES / SOFT TISSUES: There is degenerative disc disease at the L5-S1 level. CT/CT angio abdomen pelvis IMPRESSION: Unremarkable CT angiogram of the abdomen and pelvis. Prescriptions: No Action omeprazole 40 mg capsule,delayed release(DR/EC) 40 mg PO DAILY Qty: 30 0RF polyethylene glycol 3350 [Miralax] 17 gram/dose powder 17 g PO DAILY PRN (Reason: constipation) Qty: 238 0RF hydrochlorothiazide 25 mg tablet 25 mg PO DAILY spironolactone 25 mg tablet 25 mg PO DAILY nitrofurantoin macrocrystal 100 mg capsule PO fluoxetine 20 mg capsule 20 mg PO DAILY Stand Alone Forms: Work/School Release Print Language: Kinyarwanda
[2025-01-30 11:04] LABS: Alanine Aminotransferase 41 U/L (0-31); Albumin Level 4.2 g/dL (3.5-5.0); Alkaline Phosphatase 66 U/L (39-117); Anion Gap 10 (12-20); Aspartate Amino Transferase 28 U/L (5-31); Bilirubin Direct 0.3 mg/dL (0.0-0.5); Bilirubin Total 0.8 mg/dL (0.0-1.0); Blood Urea Nitrogen 16 mg/dL (9-16); Calcium 9.3 mg/dL (8.4-10.2); Carbon Dioxide 28 mmol/L (22-29); Chloride 106 mmol/L (96-108); Creatinine Clr Calc Pharmacy 98.8; Estimated Glomerular Filt Rate > 60; Glucose Random 87 mg/dL (60-115); Lipase 30 U/L (8-78); Magnesium 1.9 mg/dL (1.6-2.6); Potassium 3.6 mmol/L (3.3-5.1); Sodium 140 mmol/L (135-145); Total Protein 7.8 g/dL (6.5-8.0)
[2025-01-30 11:08] LABS: B Type Natriuretic Peptide 19 pg/mL (<100)
[2025-01-30 11:12] LABS: Troponin-I High Sensitivity < 2.7 ng/L (<3.5-17.0)
[2025-01-30 11:34] LABS: Influenza A PCR NEGATIVE (Negative); Influenza B PCR NEGATIVE (Negative); Resp Syncy Virus RNA Qual PCR NEGATIVE (Negative); SARS COV2 PCR INHOUSE NEGATIVE (Negative)
[2025-01-30 12:06] VITALS: BP 117/80; PULSE 67; RESP 14; TEMP 36.7; O2SAT 94
[2025-01-30 12:12] LABS: HCG Quantitative < 2 mIU/mL
[2025-01-30] MEDS: iohexoL 350 MG/ML 100 ML INFUS..BTL 80 ML IV (12:33)
[2025-01-30 13:36] VITALS: BP 114/80; PULSE 80; RESP 20; TEMP 37; O2SAT 100
[2025-01-30 13:45] VITALS: BP 114/80; PULSE 80; RESP 20; TEMP 37; O2SAT 100
== END 2025-01-30 13:45 | disposition home or self-care (01) ==
PROVIDERS: Emergency Provider Emergency Medicine; PCP Internal Medicine
DX: R10.32 Left lower quadrant pain (principal); I11.0 Hypertensive heart disease with heart failure; I50.30 Unspecified diastolic (congestive) heart failure; M54.2 Cervicalgia; Z03.818 Encounter for observation for suspected exposure to other biological agents ruled out
CPT/HCPCS: 0241U; 36415; 71045; 74174; 80048; 80076; 83690; 83735; 83880; 84484; 84702; 85025; 93005; 99284; 99285; Q9967

== ENCOUNTER → 2025-01-30 09:31 | Outpatient (BNV) | payer BC, SELFPAY | PROVIDERS: Emergency Provider Emergency Medicine; PCP Internal Medicine; Visit Provider Internal Medicine Cardiovascular Disease | DX: R94.31 Abnormal electrocardiogram [ECG] [EKG] (principal); R00.2 Palpitations | CPT/HCPCS: 93010 ==

== ENCOUNTER → 2025-01-30 10:18 | Outpatient (BNV) | payer BC, SELFPAY | PROVIDERS: Emergency Provider Emergency Medicine; PCP Internal Medicine; Visit Provider Radiology Diagnostic Radiology | DX: R10.9 Unspecified abdominal pain (principal); R07.9 Chest pain, unspecified | CPT/HCPCS: 71045; 74174 ==

== ENCOUNTER 2025-03-04 13:02 | Outpatient (AMB) | payer BC, SELFPAY ==
--- NOTE | 2025-03-04 13:06 | A.OFFVIS_ITS ---
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 Doing well with no edging machine setter concerns. No menses for over 12 months. Currently is sexually active. She denies vaginal itching and irritation. STI screening offered; she declines. She tries to eat healthy and stays active with exercise-running. Denies family history of breast, ovarian or colon cancer. Last pap smear 2021, negative. Mammogram: 2023. History of colonoscopy no need to repeat per patient for 10 years. PFSH Medical History Anemia Nephrolithiasis Diastolic heart failure KATY III (cervical intraepithelial neoplasia III) HTN (hypertension) COVID-19 Surgical History History of hysteroscopy H/O lithotripsy Hx of cholecystectomy Hx of section Family History Maternal Grandmother Breast cancer Social History Alcohol intake: current Alcohol intake frequency: holidays/special occasions only Comment: medicated with tylenol and pyridium Patient Tobacco Use Status: Never used Tobacco Sexual orientation: Straight/Heterosexual Gender identity: Female Female Reproductive History Menstrual Age of Menarche: 12 Total pregnancies: 6 Full term: 3 Number of Living Children: 3 Ab induced: 1 Ab spontaneous: 2 Date of last pap smear: 02/11/22 (neg 01/10/22 usat neg hpv) History of abnormal pap smear: Yes (hx cryo katy 3 2003) Date of Mammogram: 03/21/24 (Birad 1) Review of Systems Const All systems reviewed & are unremarkable except as noted in HPI and below Reports as per HPI Eyes Reports no additional complaints ENT Reports no additional complaints Card Reports no additional complaints Resp Reports no additional complaints GI Reports as per HPI and Reports no additional complaints Reports as per HPI Musc Reports no additional complaints Skin/Breast Reports as per HPI Neuro Reports no additional complaints Psych Reports no additional complaints Endo Reports no additional complaints Sudhakar/Lymph Reports no additional complaints Aller/Immun Reports no additional complaints Physical Exam Vital Signs: Last Vital Signs BP 126/84 03/04/25 13:10 BMI result Body Mass Index 31.6 Const General: cooperative, healthy appearing, no acute distress, well developed and alert Orientation/consciousness: patient oriented x3 HEENT Head: Yes normal to inspection Eyes General: appearance normal, both eyes and all related structures Neck Neck: Yes normal visual inspection Thyroid: Thyroid normal Chest Chest palpation & inspection: normal inspection of the chest and other (no puckering, dimpling, peau de orange, retraction, discharge, masses) Breast/axilla inspection: normal inspection of the breasts Breast/axilla palpation: normal palpation of the breasts Resp Effort & Inspection: normal respiratory effort GI Inspection: Yes normal to inspection Palpation (GI): Soft to palpation Rectal Exam - Female: deferred General: Yes bladder normal to palpation External Female Exam: normal external appearance and normal appearance of the urethra Speculum Exam - Vagina: normal appearance of the vagina, normal palpation and normal vaginal discharge Speculum Exam - Cervix: normal appearance of the cervix and normal palpation Bimanual exam- vagina & uterus: normal bimanual exam, normal palpation, uterine size normal, bladder normal to palpation, normal palpation and non-tender Bimanual Exam- Adnexa, other: no masses Skin General skin exam: no rashes or lesions noted Rashes: no rashes Neuro General: patient oriented x3 Cognition (Neuro): normal cognition Extrem General: Yes normal to inspection Psych Attitude: cooperative Thought process: Normal thought process present Assessment & Plan Assessment & Plan (1) Well woman exam with routine gynecological exam: Code(s): Z01.419 - Encounter for gynecological examination (general) (routine) without abnormal findings Category: Medical Plan Discussed: Current recommendations for pap smears per ASCCP guidelines. Breast awareness and periodic breast exams. Mammogram yearly. Mammogram ordered. Maintain a healthy lifestyle including a well balanced diet and routine ex ercise. Call with any postmenopausal bleeding. Patient verbalizes understanding and agrees to the plan of care. She was given opportunity to ask questions and all questions were answered to the best of my ability. RTO in one year for annual edging machine setter examination. This note is constructed using voice recognition software. While every effort has been made to ensure accuracy, merchandise presentation associate errors may have been included. Orders: Orders MM tomosynthesis screening BI Today Z12.31 - Encounter for screening mammogram for malignant neoplasm of breast Coding Level of Care Code Est Pt Prev Care 40-64y(62734) Diagnoses Well woman exam with routine gynecological exam Z01.419
[2025-03-04 13:10] VITALS: BP 126/84; BMI 31.6
== END 2025-03-04 14:31 | disposition home or self-care (01) ==
LOC: HO.HWS 13:02
PROVIDERS: PCP Internal Medicine; Visit Provider Advanced Practice Midwife
DX: Z01.419 Encounter for gynecological examination (general) (routine) without abnormal findings (principal)
CPT/HCPCS: 99396; 99459

== ENCOUNTER → 2025-03-04 13:02 | Outpatient (BNVA) | payer BC, SELFPAY | PROVIDERS: PCP Internal Medicine; Visit Provider Advanced Practice Midwife ==

== ENCOUNTER 2025-03-31 11:37 | Outpatient (REF) | payer BC, SELFPAY | END 2025-03-31 11:38 | disposition home or self-care (01) | LOC: HO.MAMMO 11:37 | PROVIDERS: Visit Provider Advanced Practice Midwife | DX: Z12.31 Encounter for screening mammogram for malignant neoplasm of breast (principal) | CPT/HCPCS: 77063; 77067 ==

== ENCOUNTER → 2025-03-31 11:45 | Outpatient (BNV) | payer BC, SELFPAY | PROVIDERS: Visit Provider Internal Medicine | DX: Z12.31 Encounter for screening mammogram for malignant neoplasm of breast (principal) | CPT/HCPCS: 77063; 77067 ==

== ENCOUNTER 2025-05-30 22:41 | Emergency (ER) | payer BC, SELFPAY ==
--- NOTE | ~2025-05-30 | CT_ITS ---
CLINICAL HISTORY: Diffuse abdominal pain etiology??? CT abdomen and pelvis with contrast Comparison: CT/PA/SR - CT ABDOMEN PELVIS ANGIOGRAPHY WITH IV CONTRAST - 01/30/25 12:28 EDT Findings: There is mild dependent atelectasis. Patient is status post cholecystectomy. The liver, pancreas, spleen, adrenal glands, and kidneys are unremarkable. The appendix is normal. The remainder of the gastrointestinal tract is unremarkable. There is no free fluid or free air. The aorta is normal in diameter. IVC and iliac veins are widely patent. There are no enlarged lymph nodes. Uterus and adnexa are unremarkable. The bladder is unremarkable. There is severe L5-S1 degenerative disc disease. There is no fracture or suspicious lytic or sclerotic lesion. IMPRESSION: No acute abnormality in the abdomen or pelvis. This document has been electronically signed by: Sg Osborne MD on 05/31/2025 02:36:19
[2025-05-30 22:52] VITALS: BP 141/106; PULSE 83; RESP 15; TEMP 36.3; O2SAT 98; BMI 31.2
[2025-05-30 23:05] LABS: MANUAL DIFF FLAG NO
[2025-05-30 23:07] LABS: Hematocrit 39.8 % (37.0-47.0); Hemoglobin 13.7 g/dl (12.0-16.0); Imm Gran Abs Auto 0.03 X10*3/uL (0.00-0.03); Imm Gran Pct Auto 0.3 % (0.0-0.4); Lymphocytes Absolute Auto 3.0 X10*3/uL (1.2-4.9); Mean Corpuscular HGB Conc 34.4 g/dl (31.0-35.0); Mean Corpuscular Hemoglobin 30.8 pg (27.0-33.0); Mean Corpuscular Volume 89.4 fL (80.0-98.0); NRBC Abs Auto 0.000 X10*3/uL (0.0-0.012); NRBC Pct Auto 0.0 /100WBC (0.0-0.2); Platelet Count 359 X10*3/uL (160-400); Red Blood Count 4.45 X10*6/uL (4.20-5.50); White Blood Count 10.5 X10*3/uL (4.8-10.8)
[2025-05-30 23:16] LABS: Appearance Urine Clear; Glucose Urine UA Negative (Negative); PH 6.0 (5.0-9.0); Specific Gravity - Urine >= 1.030 (1.005-1.025)
[2025-05-30 23:20] LABS: Alanine Aminotransferase 25 U/L (0-31); Albumin Level 4.7 g/dL (3.5-5.0); Alkaline Phosphatase 71 U/L (39-117); Anion Gap 12 (12-20); Aspartate Amino Transferase 24 U/L (5-31); Blood Urea Nitrogen 21 mg/dL (9-16); Calcium 9.6 mg/dL (8.4-10.2); Carbon Dioxide 28 mmol/L (22-29); Chloride 105 mmol/L (96-108); Creatinine Clr Calc Pharmacy 81.2; Estimated Glomerular Filt Rate 59; Lipase 52 U/L (8-78); Potassium 3.3 mmol/L (3.3-5.1); Sodium 142 mmol/L (135-145); Total Protein 7.9 g/dL (6.5-8.0)
--- NOTE | 2025-05-30 23:38 | PC.NURSE ---
at time of triage pt refused po meds and wanted to wait for eval by provider. currently requesting tylenol and zofran while waiting.
--- NOTE | 2025-05-31 01:11 | ED_ITS ---
HPI - Abdominal Pain General Chief Complaint: Abdominal Pain Stated Complaint: Rib pain Time Seen by Provider: 05/31/25 00:16 Source: patient Mode of arrival: ambulatory Limitations: no limitations History of Present Illness ED Provider: HPI narrative: Patient's history of kidney stone status post cholecystectomy comes here for diffuse abdominal pain more on right side since yesterday evening today patient has had about 6 times watery stool no fever no chills has slight nausea no urinary complaints, no urinary complaints Related Data Home Medications ?Medication ?Instructions ?Recorded ?Confirmed hydrochlorothiazide 25 mg tablet 25 mg PO DAILY 07/21/23 spironolactone 25 mg tablet 25 mg PO DAILY 02/22/23 fluoxetine 20 mg capsule 20 mg PO DAILY 02/28/24 Previous Rx's ?Medication ?Instructions ?Recorded polyethylene glycol 3350 17 17 g PO DAILY PRN constipa tion 10/03/24 gram/dose oral powder (Miralax) #238 grams dicyclomine 20 mg tablet 20 mg PO QID PRN abdominal pain 05/31/25 #20 tabs Allergies Allergy/AdvReac Type Severity Reaction Status Date / Time meperidine (From DEMEROL) Allergy Severe ANAPHYLAXIS Verified 05/30/25 22:54 lisinopril Allergy Unknown Swelling Verified 05/30/25 22:54 shrimp (SHRIMP) AdvReac Severe DIFFICULTY Verified 05/30/25 22:54 BREATHING Review of Systems Review of Systems Yes all other systems are reviewed and are negative PMFSH Past Medical History Medical History Anemia Nephrolithiasis Diastolic heart failure KATY III (cervical intraepithelial neoplasia III) HTN (hypertension) COVID-19 Surgical History History of hysteroscopy H/O lithotripsy Hx of cholecystectomy Hx of section Family History Family History Maternal Grandmother Breast cancer Social History Social History Alcohol intake: current Alcohol intake frequency: does not drink Comment: medicated with tylenol and pyridium Patient Tobacco Use Status: Never used Tobacco Smoked in Last 30 Days: No Use of substances other than those prescribed or required for medical reasons: No Advance Directives: No Advance Directives Information Provided: No Do you have a plan to hurt others: No Plan Sexual orientation: Straight/Heterosexual Gender identity: Female Physical Exam ED Vital Signs: Vital Signs - 24 hr 05/30/25 22:52 05/31/25 02:18 05/31/25 05:25 Temperature 97.3 F 97.9 F Pulse Rate 83 65 Respiratory Rate 15 20 16 Blood Pressure 141/106 H 138/87 Pulse Oximetry 98 99 Oxygen Delivery Method Room Air Room Air BMI result Body Mass Index 31.2 Appearance: Alert. Oriented X3. No acute distress. Eyes: PERRLA, No Nystagmus ENT: Pharynx normal. Oral Mucosa moist Neck: Normal inspection. Neck supple. CVS: Normal heart rate and rhythm. Pulses normal. Respiratory: No respiratory distress. Equal air entry bilateral, no wheezing/rales/rhonchi Abdomen: Soft and diffuse tenderness more on the right side no guarding or rebound tenderness. Bowel sounds are hyperactive, no mass palpable, no CVA tenderness Skin: Skin warm and dry. Normal skin color. Normal skin turgor. Extremities: No lower extremity edema. No calf tenderness Neuro: Oriented X 3. No motor deficit. No sensory deficit.No cerebellar signs , cranial nerves II-XII intact Medical Decision Making Medical Decision Making [facility] Narrative: Patient with acute enteritis with diffuse abdominal pain labs are stable CT scan negative for acute will discharge patient home patient felt better after dicyclomine Differential Diagnosis Differential Diagnoses: The differential diagnosis associated with the presentation includes Acute appendicitis/kidney stone/UTI/pyelonephritis/gastroenteritis Lab Data [facility] Lab Attestation statement: I reviewed the patient's lab results. 05/30/25 23:01 05/30/25 23:01 Labs: Lab Results 05/30/25 05/30/25 Range/Units 23:01 23:09 WBC 10.5 (4.8-10.8) X10*3/uL RBC 4.45 (4.20-5.50) X10*6/uL Hgb 13.7 (12.0-16.0) g/dl Hct 39.8 (37.0-47.0) % MCV 89.4 (80.0-98.0) fL MCH 30.8 (27.0-33.0) pg MCHC 34.4 (31.0-35.0) g/dl RDW 12.2 (11.0-16.0) % Plt Count 359 (160-400) X10*3/uL MPV 10.0 (9.4-12.3) fL Immature Gran % (Auto) 0.3 (0.0-0.4) % Neut % (Auto) 62.5 (45-73) % Lymph % (Auto) 28.8 (20-40) % Ness % (Auto) 5.3 (2-11) % Eos % (Auto) 2.3 (0-4) % Baso % (Auto) 0.8 (0-2) % Lymph # (Auto) 3.0 (1.2-4.9) X10*3/uL Ness # (Auto) 0.6 (0.1-1.2) X10*3/uL Eos # (Auto) 0.2 (0.0-0.4) X10*3/uL Baso # (Auto) 0.1 (0.0-0.2) X10*3/uL Abs Immat Gran (auto) 0.03 (0.00-0.03) X10*3/uL Absolute Neuts (auto) 6.6 (2.0-8.3) x10*3/uL Absolute Nucleated RBC 0.000 (0.0-0.012) X10*3/uL Nucleated RBC % (auto) 0.0 (0.0-0.2) /100WBC Sodium 142 (135-145) mmol/L Potassium 3.3 (3.3-5.1) mmol/L Chloride 105 (96-108) mmol/L Carbon Dioxide 28 (22-29) mmol/L Anion Gap 12 (12-20) BUN 21 H (9-16) mg/dL Creatinine 1.00 (0.5-1.4) mg/dL Estim Creat Clear Calc 81.2 Estimated GFR 59 Random Glucose 113 (60-115) mg/dL Calcium 9.6 (8.4-10.2) mg/dL Total Bilirubin 0.7 (0.0-1.0) mg/dL AST 24 (5-31) U/L ALT 25 (0-31) U/L Alkaline Phosphatase 71 (39-117) U/L Total Protein 7.9 (6.5-8.0) g/dL Albumin 4.7 (3.5-5.0) g/dL Lipase 52 (8-78) U/L Urine Color Dark Yellow Urine Appearance Clear Urine pH 6.0 (5.0-9.0) Ur Specific [place] >= 1.030 H (1.005-1.025) Urine Protein Trace (Neg-Trace) mg/dL Urine Glucose (UA) Negative (Negative) mg/dL Urine Ketones Trace (Negative) mg/dL Urine Blood Negative (Negative) Urine Nitrite Negative (Negative) Ur Leukocyte Esterase Negative (Negative) Urine RBC 0-2 (0-2) /HPF Urine WBC 0-5 (0-5) /HPF Ur Squamous Epith Cells 3-5 (0-2) /HPF Urine Bacteria 1+ (None Seen) Hyaline Casts 3-5 (0-2) /LPF Independent Interpretation I performed an independent interpretation of an: CT Scan Radiology Impression Radiologist Impression: No acute Medications Administered Discontinued Medications Generic Name Dose Route Start Last Admin Trade Name Freq PRN Reason Stop Dose Admin Acetaminophen 975 mg 05/30/25 23:37 05/30/25 23:43 Acetaminophen 325 Mg Tablet PO 05/30/25 23:38 975 mg ONCE ONE Administration Dicyclomine HCl 20 mg 05/31/25 04:26 05/31/25 04:53 Dicyclomine Hcl 10 Mg Capsule PO 05/31/25 04:27 20 mg ONCE ONE Administration Sodium Chloride 1,000 mls @ 999 mls/hr 05/31/25 01:46 05/31/25 03:21 Ns IV 05/31/25 02:46 Infused .Q1H1M ONE Infusion Iohexol 85 ml 05/31/25 02:02 05/31/25 02:08 Iohexol 350 Mg/Ml 100 Ml Infus..Btl IV 05/31/25 02:03 85 ml ONCE ONE Administration Morphine Sulfate 4 mg 05/31/25 01:46 05/31/25 02:18 Morphine Sulfate 4 Mg/Ml Cartridge IVPUSH 05/31/25 01:47 4 mg ONCE ONE Administration Protocol Ondansetron HCl 4 mg 05/30/25 23:37 05/30/25 23:43 Ondansetron Odt 4 Mg Tab.Rapdis TRANSLINGU 07/18/25 23:38 4 mg ONCE ONE Administration Ondansetron HCl 4 mg 05/31/25 01:46 05/31/25 02:20 Ondansetron Hcl 4 Mg/2 Ml Vial IVPUSH 05/31/25 01:47 4 mg ONCE ONE Administration Discharge Plan Discharge Clinical Impression: Gastroenteritis Patient Disposition: Home, Self-Care Instructions: Acute Diarrhea (ED) Additional Instructions: Drink plenty of fluids Your abdominal pain is likely from inflammation from the diarrhea /enteritis Take dicyclomine 1 tablet every 8 hours as needed for the severe pain Follow with your PCP if not better Prescriptions: New dicyclomine 20 mg tablet 20 mg PO QID PRN (Reason: abdominal pain) Qty: 20 0RF No Action polyethylene glycol 3350 [Miralax] 17 gram/dose powder 17 g PO DAILY PRN (Reason: constipation) Qty: 238 0RF hydrochlorothiazide 25 mg tablet 25 mg PO DAILY spironolactone 25 mg tablet 25 mg PO DAILY fluoxetine 20 mg capsule 20 mg PO DAILY Print Language: Palauan
[2025-05-31] MEDS: iohexoL 350 MG/ML 100 ML INFUS..BTL 85 ML IV (02:08)
[2025-05-31 02:18] VITALS: RESP 20
[2025-05-31 05:25] VITALS: BP 138/87; PULSE 65; RESP 16; TEMP 36.6; O2SAT 99
--- NOTE | 2025-05-31 05:26 | PC.NURSE ---
pt tolerated po intake. denies abd pain,n at this time.
[2025-05-31 05:56] VITALS: BP 138/87; PULSE 65; RESP 16; TEMP 36.6; O2SAT 99
== END 2025-05-31 05:57 | disposition home or self-care (01) ==
PROVIDERS: Emergency Provider Internal Medicine
DX: K52.9 Noninfective gastroenteritis and colitis, unspecified (principal); I10 Essential (primary) hypertension; Z79.899 Other long term (current) drug therapy
CPT/HCPCS: 36415; 74177; 80053; 81001; 83690; 85025; 96361; 96374; 96375; 99284; 99285; J2270; J2405; Q9967

== ENCOUNTER → 2025-05-31 01:46 | Outpatient (BNV) | payer BC, SELFPAY | PROVIDERS: Emergency Provider Internal Medicine; Visit Provider Radiology Diagnostic Radiology | DX: R10.9 Unspecified abdominal pain (principal) | CPT/HCPCS: 74177 ==

== ENCOUNTER 2025-09-13 20:31 | Emergency (ER) | payer BC, SELFPAY ==
--- NOTE | ~2025-09-13 | XR_ITS ---
CLINICAL HISTORY: pain constipation 1 view abdomen Comparison: None provided Findings: Mild bibasilar atelectasis/pneumonitis of the imaged lung bases. No small bowel dilatation. Nonspecific bowel-gas pattern. Moderate stool burden present, including in the cecum. Paucity of the bowel-gas in the pelvis is nonspecific. Mild osteoarthritis of the imaged hips. Portions of the pelvis obscured. IMPRESSION: 1. No small bowel obstruction by one view abdomen x-ray. 2. Moderate stool burden. This document has been electronically signed by: Macho Olmos MD on 09/13/2025 23:26:30
--- NOTE | 2025-09-13 20:34 | ED_ITS ---
HPI - General Adult General Chief complaint: Abdominal Pain Stated complaint: N/V for a few hours Time Seen by Provider: 09/13/25 20:33 Source: patient Limitations: no limitations History of Present Illness ED Provider: Cari Soriano PA-C HPI narrative: 50-year-old female who is morbidly obese, with a history of diastolic heart failure, hypertension, anemia, kidney stones, who presents with acute onset nausea vomiting prior to arrival. Patient states she had ramen noodles, then developed subsequent nausea vomiting and upper abdominal discomfort. Unable to describe the nature of her symptoms. Patient feels as if she is going to have diarrhea but has not. Denies recent illness, cough cold symptoms, fever or sick contacts with similar symptoms. Denies current constipation, abdominal distention or inability to pass flatus. Related Data Home Medications ?Medication ?Instructions ?Recorded ?Confirmed hydrochlorothiazide 25 mg tablet 25 mg PO DAILY 07/21/23 spironolactone 25 mg tablet 25 mg PO DAILY 02/22/23 fluoxetine 20 mg capsule 20 mg PO DAILY 02/28/24 Previous Rx's ?Medication ?Instructions ?Recorded polyethylene glycol 3350 17 17 g PO DAILY PRN constipa tion 10/03/24 gram/dose oral powder (Miralax) #238 grams dicyclomine 20 mg tablet 20 mg PO QID PRN abdominal pain 05/31/25 #20 tabs metoclopramide HCl 10 mg tablet 10 mg PO Q6H PRN nause a and 09/13/25 (Reglan) vomiting #10 tabs sucralfate 100 mg/mL oral 10 ml PO QID PRN indigestion #300 09/13/25 suspension (Carafate) mL Allergies Allergy/AdvReac Type Severity Reaction Status Date / Time meperidine (From DEMEROL) Allergy Severe ANAPHYLAXIS Verified 09/13/25 20:43 lisinopril Allergy Unknown Swelling Verified 09/13/25 20:43 shrimp (SHRIMP) AdvReac Severe DIFFICULTY Verified 09/13/25 20:43 BREATHING Review of Systems 2 Review of Systems: Yes all other systems are reviewed and are negative Constitutional: Constitutional: Denies fatigue and Denies fever(s) Cardiovascular: Cardiovascular: Denies chest pain and Denies dyspnea Respiratory: Respiratory: Denies dyspnea Gastrointestinal: Gastrointestinal: Reports abdominal pain, Denies constipation, Denies diarrhea, Reports nausea and Reports vomiting Genitourinary: Genitourinary: Denies dysuria Endocrine: Endocrine: Denies fatigue [facility] Past Medical History Attestation statement: The following information was validated with the patient. Medical History Anemia Nephrolithiasis Diastolic heart failure KATY III (cervical intraepithelial neoplasia III) HTN (hypertension) COVID-19 Surgical History History of hysteroscopy H/O lithotripsy Hx of cholecystectomy Hx of section Family History Family History Maternal Grandmother Breast cancer Social History Social History Alcohol intake: current Alcohol intake frequency: does not drink Comment: medicated with tylenol and pyridium Patient Tobacco Use Status: Never used Tobacco Smoked in Last 30 Days: No Use of substances other than those prescribed or required for medical reasons: No Advance Directives: No Advance Directives Information Provided: No Sexual orientation: Straight/Heterosexual Gender identity: Female Physical Exam ED Vital Signs: Vital Signs - 24 hr 09/13/25 20:41 09/13/25 20:49 09/13/25 22:01 Temperature 97.9 F 97.9 F Pulse Rate 75 75 76 Respiratory Rate 18 18 16 Blood Pressure 176/103 H 176/103 H 148/96 H Pulse Oximetry 99 99 96 Oxygen Delivery Method Room Air Room Air Room Air BMI result Body Mass Index 30.4 Const Other: Alert, does not appear to feel good Orientation/consciousness: patient oriented x3 Resp Effort & Inspection: normal respiratory effort Cardio Other: Normal peripheral perfusion GI Other: Abdomen is obese, soft, nontender no guarding throughout Skin Other: Warm dry no rash Neuro General: patient oriented x3, gait normal, no focal motor deficits and CN's II- XI intact bilaterally Psych Other: Cooperative Medications Administered Generic Name Dose Route Start Last Admin Trade Name Freq PRN Reason Stop Dose Admin Potassium Chloride 10 meq in 100 mls @ 100 mls/hr 09/13/25 22:00 09/13/25 23:25 Potassium Chloride/H20 IV 09/13/25 23:59 63 mls/hr Q1H JACQUELIN Administration Discontinued Medications Generic Name Dose Route Start Last Admin Trade Name Vandana PRN Reason Stop Dose Admin Famotidine 20 mg 09/13/25 20:48 09/13/25 21:58 Famotidine 20 Mg Tablet PO 09/13/25 20:49 20 mg ONCE ONE Administration Sodium Chloride 1,000 mls @ 999 mls/hr 09/13/25 20:45 09/13/25 21:51 Ns IV 09/13/25 21:45 Infused .Q1H1M JACQUELIN Infusion Metoclopramide HCl 10 mg 09/13/25 20:48 09/13/25 20:56 Metoclopramide Hcl 10 Mg/2 Ml Vial IVPUSH 09/13/25 20:49 10 mg ONCE ONE Administration Midazolam HCl 2 mg 09/13/25 20:55 09/13/25 20:58 Midazolam Hcl 2 Mg/2 Ml Vial IVPUSH 09/13/25 20:56 2 mg ONCE ONE Administration Potassium Chloride 20 meq 09/13/25 21:46 09/13/25 21:58 Potassium Chloride Er 20 Meq Tab.Er.Prt PO 09/13/25 21:47 20 meq ONCE ONE Administration Sucralfate 1 gm 09/13/25 20:48 09/13/25 21:58 Sucralfate Oral Suspension 1 Gm/10 Ml Oral.Susp PO 09/13/25 20:49 1 gm ONCE ONE Administration Medical Decision Making Medical Decision Making MDM Narrative: 50-year-old female who is morbidly obese, with a history of diastolic heart failure, hypertension, anemia, kidney stones, who presents with acute onset nausea vomiting prior to arrival. Patient states she had ramen noodles, then developed subsequent nausea vomiting and upper abdominal discomfort. Unable to describe the nature of her symptoms. Patient feels as if she is going to have diarrhea but has not. Denies recent illness, cough cold symptoms, fever or sick contacts with similar symptoms. Denies current constipation, abdominal distention or inability to pass flatus. No relevant chronic issues at this time History: Per patient I have considered the following differential diagnoses: Biliary colic, cholecystitis, GERD/gastritis, viral gastroenteritis, pancreatitis , constipation, bowel obstruction Plan: Given distribution and nature of symptoms, I am considering underlying biliary versus gastric versus pancreatic etiology as cause for symptoms. I see the patient has been treated for constipation in the past, given upper abdominal discomfort, she could have exacerbation of GERD secondary to constipation, adding a KUB. To note she has no obstructive symptoms at this time. Her symptoms seem to be most consistent with a potential viral gastroenteritis, she had acute onset nausea vomiting, she feels as if she is going to have diarrhea, adding on viral swabs. We will be giving fluid, Reglan, famotidine, she has had Zofran pre arrival per EMS, and I will give Carafate once she can tolerate oral intake. Doubtful to be biliary colic or cholecystitis, she has no focal tenderness right upper quadrant, LFTs in process. Likewise, doubtful to be pancreatitis, no focal left upper abdominal discomfort, lipase in process. At this point she does not require CT imaging. I have independently reviewed the following tests: Labs: No leukocytosis, not anemic, no significant derangement of LFTs, potassium subtly low at 3.0, giving 2o mEq IV and 20 p.o., no additional electrolyte abnormalities, viral panel negative KUB:Findings: Mild bibasilar atelectasis/pneumonitis of the imaged lung bases. No small bowel dilatation. Nonspecific bowel-gas pattern. Moderate stool burden present, including in the cecum. Paucity of the bowel-gas in the pelvis is nonspecific. Mild osteoarthritis of the imaged hips. Portions of the pelvis obscured. IMPRESSION: 1. No small bowel obstruction by one view abdomen x-ray. 2. Moderate stool burden. Differential Diagnosis Differential Diagnoses: The differential diagnosis associated with the presentation includes See medical decision-making Admission/Observation Consideration of admission/observation: Escalation of care including admission/observation considered Not applicable Lab Data MDM Lab Attestation statement: I reviewed the patient's lab results. 09/13/25 20:48 09/13/25 20:48 Labs: Lab Results 09/13/25 09/13/25 Range/Units 20:48 21:33 WBC 8.1 (4.8-10.8) X10*3/uL RBC 4.26 (4.20-5.50) X10*6/uL Hgb 12.9 (12.0-16.0) g/dl Hct 38.5 (37.0-47.0) % MCV 90.4 (80.0-98.0) fL MCH 30.3 (27.0-33.0) pg MCHC 33.5 (31.0-35.0) g/dl RDW 12.2 (11.0-16.0) % Plt Count 333 (160-400) X10*3/uL MPV 10.4 (9.4-12.3) fL Immature Gran % (Auto) 0.2 (0.0-0.4) % Neut % (Auto) 32.6 L (45-73) % Lymph % (Auto) 53.6 H (20-40) % [place] % (Auto) 7.2 (2-11) % Eos % (Auto) 5.4 H (0-4) % Baso % (Auto) 1.0 (0-2) % Lymph # (Auto) 4.3 (1.2-4.9) X10*3/uL [place] # (Auto) 0.6 (0.1-1.2) X10*3/uL Eos # (Auto) 0.4 (0.0-0.4) X10*3/uL Baso # (Auto) 0.1 (0.0-0.2) X10*3/uL Abs Immat Gran (auto) 0.02 (0.00-0.03) X10*3/uL Absolute Neuts (auto) 2.6 (2.0-8.3) x10*3/uL Absolute Nucleated RBC 0.000 (0.0-0.012) X10*3/uL Nucleated RBC % (auto) 0.0 (0.0-0.2) /100WBC Sodium 141 (135-145) mmol/L Potassium 3.0 L (3.3-5.1) mmol/L Chloride 106 (96-108) mmol/L Carbon Dioxide 28 (22-29) mmol/L Anion Gap 10 L (12-20) BUN 20 H (9-16) mg/dL Creatinine 0.85 (0.5-1.4) mg/dL Estim Creat Clear Calc 93.2 Estimated GFR > 60 Random Glucose 105 (60-115) mg/dL Calcium 9.0 D (8.4-10.2) mg/dL Magnesium 2.0 (1.6-2.6) mg/dL Total Bilirubin 0.6 (0.0-1.0) mg/dL AST 36 H (5-31) U/L ALT 52 H (0-31) U/L Alkaline Phosphatase 75 (39-117) U/L Total Protein 7.3 (6.5-8.0) g/dL Albumin 4.3 (3.5-5.0) g/dL Lipase 36 (8-78) U/L Beta HCG, Quant < 2 mIU/mL Urine Color Yellow Urine Appearance Clear Urine pH 7.0 (5.0-9.0) Ur Specific [place] 1.020 (1.005-1.025) Urine Protein Negative (Neg-Trace) mg/dL Urine Glucose (UA) Negative (Negative) mg/dL Urine Ketones Negative (Negative) mg/dL Urine Blood Negative (Negative) Urine Nitrite Negative (Negative) Ur Leukocyte Esterase Trace H (Negative) Urine RBC 0-2 (0-2) /HPF Urine WBC 6-10 H (0-5) /HPF Ur Squamous Epith Cells 3-5 (0-2) /HPF Urine Bacteria None Seen (None Seen) Hyaline Casts 0-2 (0-2) /LPF COVID-19 (FELISA) Negative (Negative) COVID-19 Clin Com See Note Influenza Type A (STACIE) Negative (Negative) Influenza Type B (STACIE) Negative (Negative) Influenza A & B Note See Note Radiology Impression Discussion of test interpretation with radiology: I have reviewed the radiologist's reading. Discharge Plan Discharge Clinical Impression: Viral gastritis, Constipation, Hypokalemia Patient Disposition: Home, Self-Care Instructions: Gastritis (ED), Constipation (ED), Potassium Content of Foods List (ED), Hypokalemia (ED) Additional Instructions: All of your screening labs were normal including a viral panel, you were screened for COVID and influenza. I do believe that your symptoms are triggered by yet another virus that has been circulating within the community, you may develop diarrhea as well, as this virus moves through your system. See home care instructions. Use the Reglan as needed for nausea. Use the Carafate as needed for further GI upset. You were also found to be constipated. See home care instructions. You can use [id number] Colace this is a stool softener, twice a day. In addition, you can use [id number] MiraLax, several times a day, 3-4, until your bowel habits self regulate. Your serum potassium level was subtly low, some of the medication that you take can cause this. You were given IV potassium and oral potassium. I have provided you with a list of food sources that contain higher quantities of potassium. Follow up with your primary care provider as needed. Prescriptions: New sucralfate [Carafate] 100 mg/mL suspension 10 ml PO QID PRN (Reason: indigestion) Qty: 300 0RF Rx Instructions: swish in mouth and swallow; use after food/drink metoclopramide HCl [Reglan] 10 mg tablet 10 mg PO Q6H PRN (Reason: nausea and vomiting) Qty: 10 0RF No Action polyethylene glycol 3350 [Miralax] 17 gram/dose powder 17 g PO DAILY PRN (Reason: constipation) Qty: 238 0RF dicyclomine 20 mg tablet 20 mg PO QID PRN (Reason: abdominal pain) Qty: 20 0RF hydrochlorothiazide 25 mg tablet 25 mg PO DAILY spironolactone 25 mg tablet 25 mg PO DAILY fluoxetine 20 mg capsule 20 mg PO DAILY Print Language: [place]
[2025-09-13 20:41] VITALS: BP 176/103; BP 190/100; PULSE 75; RESP 18; TEMP 36.6; O2SAT 99; BMI 30.4
[2025-09-13 20:49] VITALS: BP 176/103; PULSE 75; RESP 18; TEMP 36.6; O2SAT 99
--- OUTSIDE RECORDS SUMMARY | 2025-09-13 20:55 | XMS_ITS | Clinical Summary ---
Author Organization [address] Address [address] [place] [id number] Phone Care Team Providers Care Liquor Clerk Name Role Phone Moni Simpson Primary Care Provider + Allergies Active Allergy Reactions Criticality Noted Date Comments Dmitri Inhibitors Angioedema High 05/18/2022 Amlodipine Swelling 01/30/2024 Carvedilol Weight Gain Low 01/30/2024 Meperidine Unknown 04/22/2022 Medications hydroCHLOROthia zide (HYDRODIURIL) 25 mg tablet Take 1 tablet (25 mg total) by mouth 1 (one) time each day. Active spironolactone (ALDACTONE) 25 mg tablet Take 1 tablet (25 mg total) by mouth daily. 4 Active polyethylene glycol (Golytely) 236-22.74-6.74 -5.86 gram solution Take 4L by mouth once for one dose. May substitue any PEG. Starting at 2PM the day before your procedure drink 1 8oz glasses at your own pace until you complete half of the gallon. Finish 2nd half of the gallon at 8PM. 4000 mL 5 Active bisacodyL (DULCOLAX) 5 mg EC tablet Take 2 tablets by mouth right before beginning bowel prep. See instructions provided by the office 2 tablet 5 Active Wegovy 1 mg/0.5 mL injection pen 5 Active dicyclomine (BENTYL) 20 mg tablet TAKE 1 TABLET BY MOUTH FOUR TIMES DAILY NEEDED FOR ABDOMINAL PAIN 5 Active aluminum-magnes ium hydroxide-simet hicone (MAALOX) 200-200-20 mg/5 mL suspension Take 30 mL by mouth 4 (four) times a day (before meals and nightly). 354 mL Active Encounters Date Type Department Care Team Description 07/22/2025 10:55 PM EDT - 07/23/2025 12:18 AM EDT Emergency [facility] Emergency [address] [place] [address] Generalized abdominal pain (Primary Dx) Discharge Disposition: Home or Self Care 07/17/2025 11:27 AM EDT - 07/17/2025 11:59 PM EDT Hospital Encounter [facility] Ultrasound [address] [place] [address] Abdominal pain; Epigastric abdominal pain Discharge Disposition: Home or Self Care 07/17/2025 10:42 AM EDT - 07/17/2025 11:59 PM EDT Hospital Encounter [facility] Xray [address] [place] [address] Unspecified abdominal pain Discharge Disposition: Home or Self Care 06/30/2025 2:46 PM EDT Anesthesia Event [facility] Endoscopy [address] [place] [address] Vipul Oneil DO Guerin, Erik R, CRNA 06/30/2025 2:15 PM EDT - 06/30/2025 11:59 PM EDT Hospital Encounter [facility] Endoscopy [address] [place] [address] Jovan Butterfield MD Guerin, Erik R, CRNA Korobkov, Vitaliy, DO Colon cancer screening Discharge Disposition: Home or Self Care from Last 3 Months Surgical History Surgery Date Site/Laterality Comments CHOLECYSTECTOMY SECTION CYSTOSCOPY W/ LASER LITHOTRIPSY Medical History Medical History Date Comments Hypertension Palpitations Kidney stones Depression Anxiety H pylori ulcer Family History Medical History Relation Name Comments Colon cancer Mother's Sister Relation Name Status Comments Mother's Sister Social History Tobacco Use Types Packs/Day Years Used Date Smoking Tobacco: Never Smokeless Tobacco: Never Tobacco Cessation:Counseling Given: Not Answered Alcohol Use Standard Drinks/Week Comments Yes 0 (1 standard drink = 0.6 oz pur e alcohol) Interpersonal Safety Answer Date Record ed Physical Abuse Unrecognized value 06/30/2025 Verbal Abuse Unrecognized value 06/30/2025 Comments No Sex and Gender Information Value Date Recorded Sex Assigned at Female 06/10/2025 6:16 PM EDT Legal Sex Female 10:06 AM EDT Gender Identity Female 06/10/2025 6:16 PM EDT Sexual Orientation Straight 06/10/2025 6: 16 PM EDT Obstetrics History Last Filed Vital Signs Vital Sign Reading Time Taken Comments Blood Pressure 146/99 07/22/2025 9:31 PM EDT Pulse 87 07/22/2025 9:31 PM EDT Temperature 37.1 C (98.7 F) 07/22/2025 9:31 PM EDT Respiratory Rate 18 07/22/2025 9:31 PM EDT Oxygen Saturation 98% 07/22/2025 9:31 PM EDT Inhaled Oxygen Concentration - - Weight 90.7 kg (200 lb) 07/22/2025 9:31 PM EDT Height 172.7 cm (5' 8 ) 07/22/2025 9:31 PM EDT Body Mass Index 30.41 07/22/2025 9:31 PM EDT Plan of Treatment Upcoming Encounters Date Type Department Care Team (Late st Contact Info) Description 12/03/2025 11:10 AM EST Consult Gastroenterology - [address] [facility] [address] [place] [address] Johanna Huitron PA [facility] [place] [address] Health Maintenance Due Date Last Done Comments Breast Cancer Screening 1975 DTaP,Tdap,and Td Vaccines (1 - Tdap) 1994 Cervical Cancer Screening: Pap Smear 1996 Hepatitis B Vaccines (3 of 3 - 19+ 3-dose series) 01/06/2018 09/14/2017, 07/06/2017 Depression Screening 11/13/2024 HIV Screening 03/21/2025 Hepatitis C Screening 03/21/2025 Social Influencers of Health Screening 03/21/2025 Pneumococcal Vaccine: 50+ Years (1 of 1 - PCV) 2025 Zoster Vaccines (1 of 2) 2025 COVID-19 Vaccine (3 - season) 2025 07/08/2021, 06/17/2021 Influenza Vaccine (#1) 2025 11/19/2024 Hypertension/CHF/CAD Annual BMP Blood Test 07/22/2026 07/22/2025, 07/17/2025, 07/08/2025, Additional history exists Cholesterol Screening (Lipid Panel) 03/21/2030 03/21/2025 Colorectal Cancer Screening: Colonoscopy 06/30/2035 06/30/2025 RSV Immunization Adult Patients (1 - 1-dose 75+ series) 2050 HIB Vaccines Aged Out No longer eligi ble based on patient's age to complete this topic HPV Vaccines Aged Out No longer eligi ble based on patient's age to complete this topic Hepatitis A Vaccines Aged Out No long er eligible based on patient's age to complete this topic IPV Vaccines Aged Out No longer eligi ble based on patient's age to complete this topic MMR Vaccines Aged Out No longer eligi ble based on patient's age to complete this topic Meningococcal ACWY Vaccine Aged Out N o longer eligible based on patient's age to complete this topic Meningococcal B Vaccine Aged Out No l onger eligible based on patient's age to complete this topic RSV Immunization Patients Under 20 months Aged Out No longer eligible based on patient's age to complete this topic Varicella Vaccines Aged Out No longer eligible based on patient's age to complete this topic Procedures Procedure Name Priority Date/Time Associated Diagnosis Comments HELICOBACTER PYLORI BREATH TEST Routine 08/19/2025 9:30 AM EDT Bacterial infection due to Helicobacter pylori POC , URINE DIAGNOSTIC STAT 07/22/2025 10:33 PM EDT ONEIL URINE CULTURE TUBE STAT 07/22/2025 10:20 PM EDT URINALYSIS WITH REFLEX MICROSCOPIC AND CULTURE STAT 07/22/2025 10:20 PM EDT URINALYSIS WITH REFLEX MICROSCOPIC AND CULTURE STAT 07/22/2025 10:20 PM EDT CULTURE URINE STAT 07/22/2025 10:20 PM EDT CBC WITH AUTO DIFFERENTIAL STAT 07/22/2025 9:52 PM EDT LIPASE STAT 07/22/2025 9:52 PM EDT COMPREHENSIVE METABOLIC PANEL STAT 07/22/2025 9:52 PM EDT CBC AND DIFFERENTIAL STAT 07/22/2025 9:52 PM EDT US ABDOMEN LIMITED Routine 07/17/2025 11 :49 AM EDT Abdominal pain Epigastric abdominal pain XR ABDOMEN 2 VIEWS Routine 07/17/2025 11 :01 AM EDT Unspecified abdominal pain CBC WITH AUTO DIFFERENTIAL Routine 07/17/2025 10:37 AM EDT Stomach ache Avitaminosis D LIPASE Routine 07/17/2025 10:37 AM EDT Stomach ache Avitaminosis D CBC AND DIFFERENTIAL Routine 07/17/2025 10:37 AM EDT Stomach ache Avitaminosis D COMPREHENSIVE METABOLIC PANEL Routine 07/17/2025 10:37 AM EDT Stomach ache Avitaminosis D VITAMIN D 25 HYDROXY Routine 07/17/2025 10:37 AM EDT Stomach ache Avitaminosis D AMYLASE Routine 07/17/2025 10:37 AM EDT Stomach ache Avitaminosis D CBC WITH AUTO DIFFERENTIAL Routine 07/08/2025 1:50 PM EDT Stomach ache Abdominal pain, epigastric LIPASE Routine 07/08/2025 1:50 PM EDT Stomach ache Abdominal pain, epigastric CBC AND DIFFERENTIAL Routine 07/08/2025 1:50 PM EDT Stomach ache Abdominal pain, epigastric COMPREHENSIVE METABOLIC PANEL Routine 07/08/2025 1:50 PM EDT Stomach ache Abdominal pain, epigastric HELICOBACTER PYLORI BREATH TEST Routine 07/08/2025 1:50 PM EDT Stomach ache Abdominal pain, epigastric AMYLASE Routine 07/08/2025 1:50 PM EDT Stomach ache Abdominal pain, epigastric COLONOSCOPY Routine 06/30/2025 3:02 PM EDT Colon cancer screening LIPID PANEL WITH REFLEX TO DIRECT LDL Routine 03/21/2025 10:17 AM EDT Routine general medical examination at a [facility] facility Screening for diabetes mellitus Screening for lipoid disorders Vitamin D deficiency disease from Last 3 Months or Most Recently Relevant to Health Maintenance Results * Helicobacter pylori breath test (08/19/2025 9:30 AM EDT) Only the most recent of2 resultswithin the time period is included. H Pylori Breath Test Negative Negative LAB CHEMISTRY METHOD 08/19/2025 11:59 AM EDT [facility] Breath Oral cavity structure / Unknown Non-blood Collection / Unknown 08/19/2025 9:30 AM EDT 08/19/2025 11:48 AM EDT us Moni CAMACHO LAB BODY FLUIDS AND STOO LS ORDERABLES Final Result [facility] [address] [place] [address], [place] [phone] * POC , urine manually resulted (07/22/2025 10:33 PM EDT) HCG, Ur POC Negative Negative POC hCG Int QC Pass? Yes Yes Urine Urine specimen obtained by clean catch procedure / Unknown 07/22/2025 10:33 PM EDT Beverly CAMACHO POINT OF CARE TEST ENTER /EDIT ORDERABLES Final Result * (ABNORMAL) Urinalysis with reflex microscopic and culture (07/22/2025 10:20 PM EDT) Specific [place] Urine 1.025 1.003 - 1.030 LAB URINALYSIS - AUTOMATED METHOD 07/22/2025 11:31 PM [facility] pH, Urine 6.0 5.0 - 8.0 pH LAB URINALYSIS - AUTOMATED METHOD 07/22/2025 11:31 PM [facility] Leukocytes, Urine Small(A) Negative LAB URINALYSIS - AUTOMATED METHOD 07/22/2025 11:31 PM [facility] Nitrite, Urine Negative Negative LAB URINALYSIS - AUTOMATED METHOD 07/22/2025 11:31 PM [facility] Protein, Urine Trace <=Trace mg/dL LAB URINALYSIS - AUTOMATED METHOD 07/22/2025 11:31 PM [facility] Glucose, Urine Negative Negative mg/dL LAB URINALYSIS - AUTOMATED METHOD 07/22/2025 11:31 PM [facility] Ketones, Urine Trace(A) Negative mg/dL LAB URINALYSIS - AUTOMATED METHOD 07/22/2025 11:31 PM [facility] Urobilinogen , Urine 0.2 0.2 - 1.0 mg/dL LAB URINALYSIS - AUTOMATED METHOD 07/22/2025 11:31 PM [facility] Bilirubin, Urine Negative Negative LAB URINALYSIS - AUTOMATED METHOD 07/22/2025 11:31 PM [facility] Blood, Urine Negative Negative LAB URINALYSIS - AUTOMATED METHOD 07/22/2025 11:31 PM [facility] RBC, Urine 4 0 - 4 /HPF 07/22/2025 11:31 PM [facility] WBC, Urine 40(H) 0 - 4 /HPF 07/22/2025 11:31 PM EDT [facility] Squamous Epithelial, Urine 40 0 - 60 /LPF 07/22/2025 11:31 PM EDT [facility] Non-Squamous Epithelial, Urine Rare Transitional epithelial cells. /LPF 07/22/2025 11:31 PM EDT [facility] Bacteria, Urine Few(A) Negative /HPF 07/22/2025 11:31 PM EDT [facility] Hyaline Casts, Urine 1 0 - 3 /LPF 07/22/2025 11:31 PM EDT [facility] Mucus, Urine Small None /HPF 07/22/2025 11:31 PM EDT [facility] Urine Urine specimen obtained by clean catch procedure / Unknown Non-blood Collection / Unknown 07/22/2025 10:20 PM EDT 07/22/2025 10:32 PM EDT Beverly CAMACHO LAB URINE ORDERABLES Fin al Result Performing Organization Address [facility]/ZIP Co de Phone Number [facility] [address] [place] [address], [place] [phone] * Oneil urine culture tube (07/22/2025 10:20 PM EDT) Extra Tube Hold for add-ons. 07/23/2025 12:01 AM EDT [facility] Comment:Auto resulted. Urine Urine specimen obtained by clean catch procedure / Unknown Non-blood Collection / Unknown 07/22/2025 10:20 PM EDT 07/22/2025 10:32 PM EDT Beverly CAMACHO LAB URINE ORDERABLES Fin al Result Performing Organization Address City/[facility]/ZIP Co de Phone Number [facility] [address] [place] [address], [place] [phone] * (ABNORMAL) Culture urine (07/22/2025 10:20 PM EDT) [facility] Culture, Urine 10,000-49,000 CFU/mL Enterococcus faecalis(A) SHIRAZ 07/25/2025 10:10 AM EDT [facility] Comment: This is an edited result. Previous organism was Enterococcus species on 07/24/2025 at 1100 EDT. Urine Urine specimen obtained by clean catch procedure / Unknown Non-blood Collection / Unknown 07/22/2025 10:20 PM EDT 07/22/2025 11:31 PM EDT Narrative Organism Antibiotic Method Susceptibility Enterococcus faecalis Benzylpenicillin SHIRAZ 2 ug/ml: Susceptible Enterococcus faecalis Ampicillin SHIRAZ <=2 ug/ml: Susceptible Enterococcus faecalis Ciprofloxacin SHIRAZ 1 ug/ml: Susceptible Enterococcus faecalis Levofloxacin SHIRAZ 2 ug/ml: Susceptible Enterococcus faecalis Linezolid SHIRAZ 2 ug/ml: Susceptible Enterococcus faecalis Vancomycin SHIRAZ 1 ug/ml: Susceptible Enterococcus faecalis Tetracycline SHIRAZ >=16 ug/ml: Resistant Enterococcus faecalis Nitrofurantoin SHIRAZ <=16 ug/ml: Susceptible Beverly CAMACHO LAB MICROBIOLOGY - GENER AL ORDERABLES Final Result [facility] [address] [place] [address], [place] [phone] * (ABNORMAL) CBC auto differential (07/22/2025 9:52 PM EDT) Only the most recent of3 resultswithin the time period is included. Pathologist [facility] WBC 10.4 4.8 - 10.8 K/mcL LAB HEMETOLOGY METHOD 07/22/2025 10:21 PM EDT [facility] RBC 4.40 3.80 - 4.80 M/mcL LAB HEMETOLOGY METHOD 07/22/2025 10:21 PM EDT [facility] Hemoglobin 13.4 11.5 - 16.0 g/dL LAB HEMETOLOGY METHOD 07/22/2025 10:21 PM EDT [facility] Hematocrit 39.9 35.0 - 47.0 % LAB [facility]OLOGY [facility]25 [facility] MCV 91.1 79.0 - 98.0 FL LAB HEMETOLOGY METHOD 07/22/2025 10:21 PM [facility] MCH 30.6 27.0 - 32.0 pcg LAB HEMETOLOGY METHOD [facility]22[facility]2025 10[facility] MCHC 33.6 32.0 - 37.0 g/dL LAB HEMETOLOGY METHOD 07/22/2025 10:21 PM [facility] RDW 12.8 11.0 - 15.0 % LAB HEMETOLOGY METHOD 07/22/2025 10:21 PM [facility] Platelets 377 130 - 400 K/mcL LAB HEMETOLOGY METHOD 07/22/2025 10:21 PM [facility] MPV 10.2 7.0 - 11.0 FL LAB HEMETOLOGY METHOD 07/22/2025 10:21 PM [facility] NRBC 0.0 <1.0 % LAB HEMETOLOGY METHOD 07/22/2025 10:21 PM [facility] NRBC Absolute 0.00 <0.10 K/mcL LAB HEMETOLOGY METHOD 07/22/2025 10:21 PM [facility] Neutrophils Relative 47.3 % LAB HEMETOLOGY METHOD 07/22/2025 10:21 PM [facility] Lymphocytes Relative 39.3 % LAB HEMETOLOGY METHOD 07/22/2025 10:21 PM [facility] Monocytes Relative 6.7 % LAB HEMETOLOGY METHOD 07/22/2025 10:21 PM [facility] Eosinophils Relative 5.2 % LAB HEMETOLOGY METHOD 07/22/2025 10:21 PM EDT [facility] Basophils Relative 1.2 % LAB HEMETOLOGY METHOD 07/22/2025 10:21 PM EDT [facility] Immature Granulocytes Relative 0.3 % LAB HEMETOLOGY METHOD 07/22/2025 10:21 PM EDT [facility] Neutrophils Absolute 4.91 1.50 - 7.00 K/mcL LAB HEMETOLOGY METHOD 07/22/2025 10:21 PM EDT [facility] Lymphocytes Absolute 4.08 1.00 - 5.00 K/mcL LAB HEMETOLOGY METHOD 07/22/2025 10:21 PM EDT [facility] Monocytes Absolute 0.70 0.20 - 1.00 K/mcL LAB HEMETOLOGY METHOD 07/22/2025 10:21 PM EDT [facility] Eosinophils Absolute 0.54(H) 0.00 - 0.50 K/mcL LAB HEMETOLOGY METHOD 07/22/2025 10:21 PM EDT [facility] Basophils Absolute 0.12 0.00 - 0.20 K/mcL LAB HEMETOLOGY METHOD 07/22/2025 10:21 PM EDT [facility] Immature Granulocytes Absolute 0.03 0.00 - 0.03 K/mcL LAB HEMETOLOGY METHOD 07/22/2025 10:21 PM EDT [facility] Blood Venous blood specimen / Unknown Venipuncture / Unknown 07/22/2025 9:52 PM EDT 07/22/2025 10:13 PM EDT us Beverly CAMACHO LAB BLOOD ORDERABLES Fin al Result [facility] [address] [place] [address], * Lipase (07/22/2025 9:52 PM EDT) Only the most recent of3 resultswithin the time period is included. Lipase 71 13 - 75 unit/L LAB CHEMISTRY [facility]2025 10[facility] Blood Venous blood specimen / Unknown Venipuncture / Unknown 07/22/2025 9:52 PM EDT 07/22/2025 10:13 PM EDT Beverly CAMACHO LAB BLOOD ORDERABLES Fin al Result [facility] [address] [place] [address], * (ABNORMAL) Comprehensive metabolic panel (07/22/2025 9:52 PM EDT) Only the most recent of3 resultswithin the time period is included. Pathologist [facility] Sodium 137 133 - 145 mmol/L LAB CHEMISTRY METHOD 07/22/2025 10:41 PM [facility] Potassium 3.8 3.5 - 5.5 mmol/L LAB CHEMISTRY METHOD 07/22/2025 10:41 PM [facility] Chloride 103 96 - 110 mmol/L LAB CHEMISTRY METHOD 07/22/2025 10:41 PM [facility] CO2 29 21 - 32 mmol/L LAB CHEMISTRY METHOD 07/22/2025 10:41 PM [facility] Anion Gap 5 3 - 11 LAB CHEMISTRY METHOD 07/22/2025 10:41 PM [facility] Glucose 106(H) 70 - 100 mg/dL LAB CHEMISTRY METHOD 07/22/2025 10:41 PM [facility] BUN 14 5 - 25 mg/dL LAB CHEMISTRY METHOD 07/22/2025 10:41 PM [facility] Creatinine 0.88 0.50 - 1.10 mg/dL LAB CHEMISTRY METHOD 07/22/2025 10:41 PM [facility] eGFR 80 >=60 mL/min/1. 73m2 LAB CHEMISTRY METHOD 07/22/2025 10:41 PM [facility] Comment:Calculation based on the Chronic Kidney Disease Epidemiology Collaboration (CKD-EPI) equation refit without adjustment for race. BUN/Creatinine Ratio 15.9 LAB CHEMISTRY METHOD 07/22/2025 10:41 PM [facility] Calcium 9.3 8.5 - 10.5 mg/dL LAB CHEMISTRY METHOD 07/22/2025 10:41 PM [facility] AST (SGOT) 28 10 - 42 unit/L LAB CHEMISTRY METHOD 07/22/2025 10:41 PM [facility] ALT (SGPT) 26 10 - 60 unit/L LAB CHEMISTRY METHOD 07/22/2025 10:41 PM [facility] Alkaline Phosphatase 80 42 - 121 unit/L LAB CHEMISTRY METHOD 07/22/2025 10:41 PM [facility] Total Protein 7.6 6.0 - 8.0 g/dL LAB CHEMISTRY METHOD 07/22/2025 10:41 PM [facility] Albumin 4.2 3.2 - 5.0 g/dL LAB CHEMISTRY METHOD 07/22/2025 10:41 PM [facility] Total Bilirubin 0.4 0.0 - 1.4 mg/dL LAB CHEMISTRY METHOD 07/22/2025 10:41 PM [facility] Blood Venous blood specimen / Unknown Venipuncture / Unknown 07/22/2025 9:52 PM EDT 07/22/2025 10:13 PM EDT us Beverly CAMACHO LAB BLOOD ORDERABLES Fin al Result [facility] [address] [place] [address], * [place] Abdomen Limited (07/17/2025 11:49 AM EDT) Anatomical Region Laterality Modality Body Ultrasound 07/17/2025 12:0 8 PM EDT Impressions 07/17/2025 12:14 PM EDT No acute findings. Coarsened hepatic echotexture consistent with fatty infiltration and/or hepatocellular disease. There is no biliary dilatation. The patient is seen to have undergone previous cholecystectomy. The pancreas is incompletely evaluated on this study. Code 72512 G9551 -------- FINAL REPORT -------- Dictated By: Virgil Santacruz Dictated Date: 07/17/2025 12:08 ET Assigned Physician: Virgil Santacruz Reviewed and Electronically Signed By: Virgil Santacruz Signed Date: 07/17/2025 12:14 ET Workstation ID: [id number] Transcribed By: Self Edit Transcribed Date: 07/17/2025 12:08 ET Narrative 07/17/2025 12:14 PM EDT HISTORY: The patient is a 50-year-old female with chronic abdominal pain. FINDINGS: Real-time ultrasonography of the abdominal right upper quadrant is performed. The visualized portion of the inferior vena cava is patent. The head and body of the pancreas are of normal appearance; the pancreatic tail is poorly visualized. The liver is normal in size with a span of 15.1 cm. There is diffuse coarsening of the hepatic echotexture consistent with fatty infiltration and/or hepatocellular disease. No hepatic mass is seen. The portal vein is patent with hepatopetal flow. There is no intra- or extra-hepatic biliary dilatation. The gallbladder is surgically absent. Survey images of the right kidney demonstrate no hydronephrosis. The right kidney measures 10.5 cm in length. No ascites is seen. Procedure Note Virgil Santacruz MD - 07/17/2025 HISTORY: The patient is a 50-year-old female with chronic abdominalpain. FINDINGS: Real-time ultrasonography of the abdominal right upper quadrantis performed. The visualized portion of the inferior vena cava is patent.The head and body of the pancreas are of normal appearance; the pancreatictail is poorly visualized. The liver is normal in size with a span of 15.1cm. There is diffuse coarsening of the hepatic echotexture consistent withfatty infiltration and/or hepatocellular disease. No hepatic mass is seen.The portal vein is patent with hepatopetal flow. There is no intra- orextra-hepatic biliary dilatation. The gallbladder is surgically absent.Survey images of the right kidney demonstrate no hydronephrosis. The rightkidney measures 10.5 cm in length. No ascites is seen. IMPRESSION: No acute findings. Coarsened hepatic echotexture consistent with fattyinfiltration and/or hepatocellular disease. There is no biliarydilatation. The patient is seen to have undergone previouscholecystectomy. The pancreas is incompletely evaluated on this study. Code 59795 G9551 -------- FINAL REPORT -------- Dictated By: Virgil Santacruz Dictated Date: 07/17/2025 12:08 ET Assigned Physician: Virgil Santacruz Reviewed and Electronically Signed By: Virgil Santacruz Signed Date: 07/17/2025 12:14 ET Workstation ID: [id number] Transcribed By: Self Edit Transcribed Date: 07/17/2025 12:08 ET us Moni CAMACHO IMG US PROCEDURES Final Result * XR Abdomen 2 Views (07/17/2025 11:01 AM EDT) Anatomical Region Laterality Modality Body Radiographic Destiny ging 07/17/2025 11:0 8 AM EDT Impressions 07/17/2025 11:11 AM EDT 1. Calcifications in the left side of the upper abdomen suspicious for chronic pancreatitis. Confirmation with CT scan of the abdomen is recommended. 2. Four oval densities project over the ascending and descending colon, likely representing ingested tablets. 3. Nonobstructive bowel gas pattern. There is evidence of moderate constipation. Code 37308 -------- FINAL REPORT -------- Dictated By: Virgil Santacruz Dictated Date: 07/17/2025 11:08 ET Assigned Physician: Virgil Santacruz Reviewed and Electronically Signed By: Virgil Santacruz Signed Date: 07/17/2025 11:11 ET Workstation ID: [id number] Transcribed By: Self Edit Transcribed Date: 07/17/2025 11:08 ET Narrative 07/17/2025 11:11 AM EDT HISTORY: The patient is a 50-year-old female with chronic abdominal pain. FINDINGS: Supine radiographs of the abdomen, without previous imaging study for comparison, demonstrate surgical clips in the right upper quadrant consistent with previous cholecystectomy. The bony structures are of normal appearance. The bowel gas pattern is nonobstructive. There is a moderate amount of fecal material in the colon from the cecum to the distal descending colon consistent with moderate constipation. Calcifications are present in the upper to mid abdomen just to the left of L2, likely in the pancreas; if so, these would represent chronic pancreatitis. Four oval densities project over the ascending and descending colon, likely representing ingested tablets. Procedure Note Virgil Santacruz MD - 07/17/2025 HISTORY: The patient is a 50-year-old female with chronic abdominalpain. FINDINGS: Supine radiographs of the abdomen, without previous imagingstudy for comparison, demonstrate surgical clips in the right upperquadrant consistent with previous cholecystectomy. The bony structures areof normal appearance. The bowel gas pattern is nonobstructive. There is amoderate amount of fecal material in the colon from the cecum to thedistal descending colon consistent with moderate constipation.Calcifications are present in the upper to mid abdomen just to the left ofL2, likely in the pancreas; if so, these would represent chronicpancreatitis. Four oval densities project over the ascending anddescending colon, likely representing ingested tablets. IMPRESSION: 1. Calcifications in the left side of the upper abdomen suspicious forchronic pancreatitis. Confirmation with CT scan of the abdomen isrecommended. 2. Four oval densities project over the ascending and descending colon,likely representing ingested tablets. 3. Nonobstructive bowel gas pattern. There is evidence of moderateconstipation. Code 59192 -------- FINAL REPORT -------- Dictated By: Virgil Santacruz Dictated Date: 07/17/2025 11:08 ET Assigned Physician: Virgil Santacruz Reviewed and Electronically Signed By: Virgil Santacruz Signed Date: 07/17/2025 11:11 ET Workstation ID: [id number] Transcribed By: Self Edit Transcribed Date: 07/17/2025 11:08 ET Moni CAMACHO IMG XR PROCEDURES Final Result * Vitamin D 25 hydroxy (07/17/2025 10:37 AM EDT) Vit D, 25-Hydroxy 30.7 30.0 - 80.0 ng/mL LAB CHEMISTRY METHOD 07/17/2025 2:07 PM EDT [facility] Blood Venous blood specimen / Unknown Venipuncture / Unknown 07/17/2025 10:37 AM EDT 07/17/2025 12:09 PM EDT Moni CAMACHO LAB BLOOD ORDERABLES Fin al Result Performing Organization Address [facility] de Phone Number [facility] [address] [place] [address], [place] [phone] * Amylase (07/17/2025 10:37 AM EDT) Only the most recent of2 resultswithin the time period is included. Pathologist [facility] Amylase 54 25 - 115 unit/L LAB CHEMISTRY METHOD 07/17/2025 1:17 PM EDT [facility] Blood Venous blood specimen / Unknown Venipuncture / Unknown 07/17/2025 10:37 AM EDT 07/17/2025 12:09 PM EDT Moni CAMACHO LAB BLOOD ORDERABLES Fin al Result Performing Organization Address City/[facility] Co de Phone Number [facility] [address] [place] [address], [place] [phone] * COLONOSCOPY Anesthesia - [facility] [place]; [facility] ENDOSCOPY (06/30/2025 3:02 PM EDT) Anatomical Region Laterality Modality Endoscopy 06/30/2025 2:28 PM EDT Impressions 06/30/2025 3:01 PM EDT - Non-bleeding internal hemorrhoids. - The examination was otherwise normal on direct and retroflexion views. - No specimens collected. Recommendation: - Discharge patient to home. - Resume previous diet. - Continue present medications. - Repeat colonoscopy in 10 years for surveillance. - Return to GI office PRN. Narrative 06/30/2025 3:01 PM EDT [facility] GI Patient Name: Pearl Fairbanks Procedure Date: 06/30/2025 2:28 PM Date of : 1975 Age: 50 Room: ROOM 15 Gender: Female Note Status: Finalized Attending MD: Jovan Butterfield MD, Procedure Date No Time: 06/30/2025 Procedure: Colonoscopy Indications: Screening for colorectal malignant neoplasm Providers: Jovan Butterfield MD Referring MD: Jovan Butterfield MD Medicines: Monitored Anesthesia Care Complications: No immediate complications. Estimated Blood Loss: Estimated blood loss: none. Procedure: Pre-Anesthesia Assessment: - ASA Grade Assessment: III - A patient with severe systemic disease. - After reviewing the risks and benefits, the patient was deemed in satisfactory condition to undergo the procedure. After I obtained informed consent, the scope was passed under direct vision. Throughout the procedure, the patient's blood pressure, pulse, and oxygen saturations were monitored continuously.The Colonoscope was introduced through the anus and advanced to the cecum, identified by appendiceal orifice and ileocecal valve. The colonoscopy was performed without difficulty. The patient tolerated the procedure well. The quality of the bowel preparation was adequate. Findings: Non-bleeding internal hemorrhoids were found during retroflexion. The hemorrhoids were small. The exam was otherwise without abnormality on direct and retroflexion views. Procedure Code(s): --- Professional --- G0121, Colorectal cancer screening; colonoscopy on individual not meeting criteria for high risk Diagnosis Code(s): --- Professional --- Z12.11, Encounter for screening for malignant neoplasm of colon CPT copyright 2020 [employer]. All rights reserved. The codes documented in this report are preliminary and upon chicken cutter review may be revised to meet current compliance requirements. Jovan Butterfield MD 06/30/2025 3:01:34 PM This report has been signed electronically.Jovan Butterfield MD Number of Addenda: 0 Note Initiated On: 06/30/2025 2:28 PM Scope In: Scope Out: Endoscopy Department at [facility] - [address] [place] [id number] Procedure Note Jovan Butterfield MD - 06/30/2025 [facility] GI Patient Name: Pearl Fairbanks Procedure Date: 06/30/2025 2:28 PM Date of : 1975 Age: 50 Room: ROOM 15 Gender: Female Note Status: Finalized Attending MD: Jovan Butterfield MD, Procedure Date No Time: 06/30/2025 Procedure: Colonoscopy Indications: Screening for colorectal malignant neoplasm Providers: Jovan Butterfield MD Referring MD: Jovan Butterfield MD Medicines: Monitored Anesthesia Care Complications: No immediate complications. Estimated Blood Loss: Estimated blood loss: none. Procedure: Pre-Anesthesia Assessment: - ASA Grade Assessment: III - A patient with severe systemic disease. - After reviewing the risks and benefits, thepatient was deemed in satisfactory condition to undergo the procedure. After I obtained informed consent, the scope was passed under direct vision. Throughout theprocedure, the patient's blood pressure, pulse, and oxygen saturations were monitored continuously.The Colonoscope was introduced through the anus and advanced to the cecum, identified by appendiceal orifice and ileocecal valve. The colonoscopy was performed without difficulty. The patient tolerated the procedure well. The quality of the bowel preparation was adequate. Findings: Non-bleeding internal hemorrhoids were found during retroflexion. The hemorrhoids were small. The exam was otherwise without abnormality ondirect and retroflexion views. Procedure Code(s): --- Professional --- G0121, Colorectal cancer screening; colonoscopy on individual not meeting criteria for high risk Diagnosis Code(s): --- Professional --- Z12.11, Encounter for screening for malignantneoplasm of colon CPT copyright 2020 [employer]. All rights reserved. The codes documented in this report are preliminary and upon chicken cutter reviewmay be revised to meet current compliance requirements. Jovan Butterfield MD 06/30/2025 3:01:34 PM This report has been signed electronically.Jovan Butterfield MD Number of Addenda: 0 Note Initiated On: 06/30/2025 2:28 PM Scope In: Scope Out: Endoscopy Department at [facility] - [address] [place] [id number] IMPRESSION: - Non-bleeding internal hemorrhoids. - The examination was otherwise normal on directand retroflexion views. - No specimens collected. Recommendation: - Discharge patient to home. - Resume previous diet. - Continue present medications. - Repeat colonoscopy in 10 years forsurveillance. - Return to GI office PRN. us Jovan Butterfield MD GI~PROCEDURE ORDERABLES Final Result * Lipid panel with reflex to direct LDL (03/21/2025 10:17 AM EDT) Cholesterol 160 0 - 200 mg/dL LAB CHEMISTRY METHOD 03/21/2025 11:43 AM EDT [facility] Triglycerides 43 0 - 150 mg/dL LAB CHEMISTRY METHOD 03/21/2025 11:43 AM EDT [facility] HDL 59 >=40 mg/dL LAB CHEMISTRY METHOD 03/21/2025 11:43 AM EDT [facility] LDL Calculated 92 0 - 100 mg/dL LAB CHEMISTRY METHOD 03/21/2025 11:43 AM T [facility] VLDL Cholesterol Jesse 8.6 mg/dL LAB CHEMISTRY METHOD 03/21/2025 11:43 AM EDT [facility] Non HDL Chol. (LDL+VLDL) 101 <145 mg/dL LAB CHEMISTRY METHOD 03/21/2025 11:43 AM T [facility] Chol/HDL Ratio 2.7 0.0 - 4.4 LAB CHEMISTRY METHOD 03/21/2025 11:43 AM [facility] Blood Venous blood specimen / Unknown Venipuncture / Unknown 03/21/2025 10:17 AM EDT 03/21/2025 10:43 AM EDT us Moni CAMACHO LAB BLOOD ORDERABLES Fin al Result [facility] [address] [place] [address], from Last 3 Months or Most Recently Relevant to Health Maintenance Insurance [facility] Care Teams Liquor Clerk Relationship Specialty Start Date End Date Moni Simpson PA [address] [facility] [address] [place] [address] PCP - General 07/18/25
--- OUTSIDE RECORDS SUMMARY | 2025-09-13 20:55 | XMS_ITS | Clinical Summary ---
Author Organization [facility] Address [address] [place] [phone] Phone Care Team Providers Care Apartment Property Manager Name Role Phone Adlair Siegel MD Primary Care Provider Allergies Active Allergy Reactions Criticality Noted Date Comments Dmitri Inhibitors 05/19/2022 Amlodipine Swelling 01/30/2024 Carvedilol Weight Gain Low 01/30/2024 Meperidine 04/22/2022 Lisinopril Angioedema 05/18/2022 Shrimp 04/22/2022 Medications spironolactone (ALDACTONE) 25 MG tabletIndications :Primary hypertension TAKE 1 TABLET(25 MG) BY MOUTH DAILY 90 tablet 3 10/22/2024 Active hydroCHLOROthiazi de 25 MG tabletIndications :Medication refill TAKE 1 TABLET(25 MG) BY MOUTH DAILY 90 tablet 3 02/13/2025 Active Active Problems Problem Noted Date Diagnosed Date Hypertension 12/17/2021 Assessment & Plan (10/10/2022 10:57 AM EST): Her lower extremity edema has improved since I last saw her in office. With this being said, she has continued amlodipine at 5 mg daily in addition to 6.25 mg carvedilol BID and 12.5 mg HCTZ daily. Her blood pressures at home remain under good control. For now, she prefers to continue medications at the same doses (she gets worried about making medication adjustments as she has had resultant symptomatic hypertension in the past). She will continue to work on weight loss and following a low sodium diet. Assessment & Plan (08/22/2022 3:22 PM EDT): BP well controlled in office today. Unfortunately, she is experiencing bothersome lower extremity edema on amlodipine. With this being said, she is worried about making significant medication adjustments as her blood pressure has become really elevated after major medication adjustments in the past. Will decrease amlodipine from 5 mg daily to 2.5 mg and compensate by increasing carvedilol to 12.5 mg in AM (continue 6.25 mg in PM, can uptitrate if her blood pressure can tolerate this). Will continue HCTZ at 12.5 mg daily for now. Assessment & Plan (05/19/2022 4:03 PM EDT): Her BP is under great control on 12.5 mg HCTZ, 7.5 mg amlodipine, and 6.25 mg carvedilol BID. She notes that her BP is sometimes a little high first thing in the morning. I have advised her to try taking 5 mg of amlodipine in AM and 2.5 mg before bedtime. She is following a very low sodium diet and exercising on a regular basis, which I have encouraged her to continue. Assessment & Plan (05/02/2022 4:14 PM EDT): BP has predictably been elevated since stopping lisinopril. Due to angioedema, she will remain off of lisinopril. Will start 2.5 mg amlodipine in addition to her current dose of carvedilol. She will continue to monitor her BP at home. Again, she remains very physically active and follows a low sodium diet. We will see her in two weeks for BP check and further medication titration. Assessment & Plan (04/22/2022 3:41 PM EDT): BP improved on carvedilol, but room for improvement. We will increase to 6.25 mg BID. She will continue to monitor her blood pressures at home. She is active and follows a low sodium diet. Assessment & Plan (04/01/2022 10:23 AM EDT): Her BP is persistently elevated on 40 mg of lisinopril. Her 30 day Loop showed brief episodes of SVT, likely the explanation for her palpitations. Because of the persistent hypertension and SVT, will start carvedilol 3.125 mg BID in addition to her lisinopril. She will continue to check her blood pressures on a regular basis at home. She already follows a low sodium diet and is very active- works out almost daily. Assessment & Plan (03/04/2022 8:38 AM EDT): Her BP is well controlled today in office on 40 mg lisinopril. She stopped HCTZ due to reported bone discomfort. She would like to decrease her dose of lisinopril if possible. I told her that I suspect if we were to try this, her blood pressure would become elevated. She is following a very low sodium diet, does not smoke and has been exercising regularly. I have asked her to keep a log of her blood pressures a few times per week at home. We will review these values at our next follow up visit and revisit the discussion of medication dosages. For now, continue lisinopril at 40 mg daily. Assessment & Plan (12/17/2021 7:40 AM EST): Elevated today we are going to increase her lisinopril to 40 mg a day and keep the hydrochlorothiazide alone is when I see her blood pressure is still elevated we will add metoprolol long-acting 25 mg in the evening time. We are going to order a renal artery duplex and an echocardiogram Obesity 12/17/2021 Assessment & Plan (12/17/2021 7:41 AM EST): I talked to her about diet and exercise which is imperative to lower blood pressure naturally Palpitations 12/17/2021 Assessment & Plan (10/10/2022 10:57 AM EST): Improved on carvedilol. Continue without change. Assessment & Plan (05/02/2022 4:14 PM EDT): Improved on carvedilol, which we will continue. Assessment & Plan (04/22/2022 3:42 PM EDT): Improved since starting carvedilol. Increasing as above. Assessment & Plan (03/04/2022 8:39 AM EDT): Patient continues to experience palpitations since her last visit with Dr Plata. She is understandably frustrated that we still do not have the results of her monitor that she wore following this appointment. We will schedule a telemedicine appointment in 2-3 weeks to review the results of her monitor. Assessment & Plan (12/17/2021 7:40 AM EST): I have ordered this patient an event monitor we will see her after it is complete Social History Tobacco Use Types Packs/Day Years Used Date Smoking Tobacco: Never Smokeless Tobacco: Never Tobacco Cessation:Counseling Given: Not Answered Education Answer Date Recorded Are you interested in more education? Not on nickie e 03/11/2023 Are you concerned about learning? Not on file 03/11/2023 No 03/11/2023 No 03/11/2023 Digital Access Answer Date Recorded No 04/11/2023 No 04/11/2023 Reliable internet access at home? Not on file 04/11/2023 Device with a working camera? Not on file Comments Unknown Sex and Gender Information Value Date Recorded Sex Assigned at Not on file Legal Sex Female 1:14 PM EST Gender Identity Not on file Sexual Orientation Not on file Last Filed Vital Signs Vital Sign Reading Time Taken Comments Blood Pressure 134/82 01/29/2025 2:06 PM EDT Pulse 62 01/29/2025 2:06 PM EDT Temperature - - Respiratory Rate - - Oxygen Saturation 99% 01/29/2025 2:06 PM EDT Inhaled Oxygen Concentration - - Weight 90.7 kg (200 lb) 01/29/2025 2:06 PM EDT Height 172.7 cm (5' 7.99 ) 01/29/2025 2:06 PM ED T Body Mass Index 30.42 01/29/2025 2:06 PM EDT Plan of Treatment Upcoming Encounters Date Type Department Care Team (Late st Contact Info) Description 01/29/2026 1:00 PM EDT Office Visit [facility] [address] [place] [address] [address] Floor, [address] [place] [address] Mayank Naylor MD [address] [place] [address], [address] [place] [address] [email or web address] Maintenance Due Date Last Done Comments Adult Td,Tdap Booster 1975 LIPID PANEL 1975 DEPRESSION SCREENING 1987 HEPATITIS C SCREENING 1993 HIV ONE-TIME SCREENING (18-6 5 YEARS) 1993 PAP SMEAR 1996 MAMMOGRAM 2015 COLOGUARD 2020 COLONOSCOPY 2020 COLORECTAL CANCER SCREENING 2020 FIT TEST 2020 FOBT 2020 SIGMOIDOSCOPY 2020 VIRTUAL COLONOSCOPY 2020 INFLUENZA VACCINE (#1) 2025 PNEUMOCOCCAL VACCINES (50+ years) (1 of 1 - PCV) 2025 ZOSTER VACCINES (1 of 2) 2025 COVID-19 VACCINE (1 - 2024-2 6 season) 2025 BLOOD PRESSURE 08/01/2025 01/29/2025 POTASSIUM LEVEL 01/29/2026 01/29/2025, 05/19/2022 SCREENING FOR DIABETES 01/30/2028 01/29/2025 RSV VACCINE (1 - 1-dose 75+ series) 2050 SMOKING STATUS SCREENING (On ce After 26 Yrs) Completed 01/29/2025 HEPATITIS A VACCINES Aged Out No long er eligible based on patient's age to complete this topic HIB VACCINES Aged Out No longer eligi ble based on patient's age to complete this topic MENINGOCOCCAL VACCINES (ACWY) Aged Out No longer eligible based on patient's age to complete this topic MENINGOCOCCAL VACCINES (B) Aged Out N o longer eligible based on patient's age to complete this topic Medical Devices Not on file Procedures Procedure Name Priority Date/Time Associated Diagnosis Comments BASIC METABOLIC PANEL Routine 01/29/2025 2:49 PM EDT Hypertension, unspecified type from Last 3 Months or Most Recently Relevant to Health Maintenance Results * Basic metabolic panel (01/29/2025 2:49 PM EDT) SODIUM 141 133 - 146 mmol/L [facility] CHLORIDE 100 96 - 108 mmol/L [facility] POTASSIUM 4.1 3.3 - 5.1 mmol/L [facility] CO2 31 21 - 35 mmol/L [facility] BUN 15 6 - 19 mg/dL [facility] CREATININE 1.00 0.5 - 1.5 mg/dL [facility] GLUCOSE 88 70 - 99 mg/dL [facility] CALCIUM 9.9 8.4 - 10.3 mg/dL [facility] EGFR 69 >59 mL/min/1.7 3m2 [facility] Comment:Estimated glomerular filtration rate calculated using the CKD-EPI refit equation. ANION GAP 14 10 - 20 mmol/L [facility] Blood 01/29/2025 2:49 PM EDT 01/29/2025 2:51 PM EDT us Mayank Naylor MD LAB BLOOD ORDERABLES Final Re sult Performing Organization Address City/State/[facility] Co de Phone Number [address] [address] from Last 3 Months or Most Recently Relevant to Health Maintenance [place] [address] [address] [place] [address] [place] [address] [place] [address] [place] [address] [place] [address] [place] [address] [place] [address] [employer] Care Teams Apartment Property Manager Relationship Specialty Start Date End Date Aldair Siegel MD [address] [place] [address] [place] [address] PCP - General Internal Medicine 12/15/21 Additional Source Comments The information contained in this document represents components of the legal health record. It is not the complete legal health record.[facility]
--- OUTSIDE RECORDS SUMMARY | 2025-09-13 20:55 | XMS_ITS | Patient Health Record ---
Author Organization [facility] [address] Address [address] [place] [address] Care Team Providers Care Community Education Coordinator Name Role Phone LOVE GRIMM Unavailable [phone] [place] Unavailable [phone] NormjessicaNathan perezRomana Unavailable [phone] Allergies Allergen (clinical drug ingredient) Drug/Non Drug Allergy documented on EMR Reaction Allergy Type Onset Date Status meperidine Demerol Unknown Drug Allergy Active Results Component Value Reference Range Notes URINALYSIS WITH REFLEX MICRO SCOPIC AND CULTURE Reviewed date:06/11/2025 03:57:49 PM Interpretation: Performing Lab: Notes/Report: Specific [place] Urine 1.021 1.003-1.030 pH, Urine 6.5 5.0-8.0 pH Leukocytes, Urine Moderate Negative Nitrite, Urine Negative Negative Protein, Urine Negative <=Trace mg/dL Glucose, Urine Negative Negative mg/dL Ketones, Urine Trace Negative mg/dL Urobilinogen, Urine 1.0 0.2-1.0 mg/dL Bilirubin, Urine Negative Negative Blood, Urine Negative Negative RBC, Urine 1.9 0-4 /HPF WBC, Urine 5.5 0-4 /HPF Squamous Epithelial, Urine 87 0-60 /LPF Bacteria, Urine Negative Negative /HPF Hyaline Casts, Urine 1.2 0-3 /LPF HELICOBACTER PYLORI BREATH T EST Reviewed date:07/09/2025 02:56:29 PM Interpretation: Performing Lab: Notes/Report: H Pylori Breath Test Positive Negative LIPASE Reviewed date:07/09/2025 03:01:21 PM Interpretation: Performing Lab: Notes/Report: Lipase 52 13-75 unit/L AMYLASE Reviewed date:07/09/2025 02:56:29 PM Interpretation: Performing Lab: Notes/Report: Amylase 54 25-115 unit/L COMPREHENSIVE METABOLIC PANE L Reviewed date:07/09/2025 02:56:29 PM Interpretation: Performing Lab: Notes/Report: Sodium 138 133-145 mmol/L Potassium 3.8 3.5-5.5 mmol/L Chloride 101 96-110 mmol/L CO2 31 21-32 mmol/L Anion Gap 6 3-11 Glucose 71 70-100 mg/dL BUN 15 5-25 mg/dL Creatinine 0.90 0.50-1.10 mg/dL eGFR 78 >=60 mL/min/1.73m2 Calculati on based on the Chronic Kidney Disease Epidemiology Collaboration (CKD-EPI) equation refit without adjustment for race. BUN/Creatinine Ratio 16.7 Calcium 9.6 8.5-10.5 mg/dL AST (SGOT) 20 10-42 unit/L ALT (SGPT) 48 10-60 unit/L Alkaline Phosphatase 86 42-121 unit/L Total Protein 7.9 6.0-8.0 g/dL Albumin 4.3 3.2-5.0 g/dL Total Bilirubin 0.9 0.0-1.4 mg/dL CBC WITH AUTO DIFFERENTIAL Reviewed date:07/09/2025 02:56:29 PM Interpretation: Performing Lab: Notes/Report: WBC 6.6 4.8-10.8 K/mcL RBC 4.40 3.80-4.80 M/mcL Hemoglobin 13.0 11.5-16.0 g/dL Hematocrit 40.0 35.0-47.0 % MCV 92.0 79.0-98.0 FL MCH 29.9 27.0-32.0 pcg MCHC 32.5 32.0-37.0 g/dL RDW 12.8 11.0-15.0 % Platelets 383 130-400 K/mcL MPV 11.0 7.0-11.0 FL NRBC 0.0 <1.0 % NRBC Absolute 0.00 <0.10 K/mcL Neutrophils Relative 50.6 Lymphocytes Relative 33.1 Monocytes Relative 9.5 Eosinophils Relative 4.6 Basophils Relative 1.7 Immature Granulocytes Relative 0.5 Neutrophils Absolute 3.32 1.50-7.00 K/mcL Lymphocytes Absolute 2.17 1.00-5.00 K/mcL Monocytes Absolute 0.62 0.20-1.00 K/mcL Eosinophils Absolute 0.30 0.00-0.50 K/mcL Basophils Absolute 0.11 0.00-0.20 K/mcL Immature Granulocytes Absolute 0.03 0.00-0.03 K/mcL HELICOBACTER PYLORI BREATH T EST Reviewed date:08/19/2025 01:52:22 PM Interpretation: Performing Lab: Notes/Report: H Pylori Breath Test Negative Negative PPC Rapid Covid/Strep/Flu/RS V Reviewed date:06/19/2025 01:57:38 PM Interpretation:Positive for Covid Negative Flu, Negative Strep, Negative RSV Performing Lab: Notes/Report: Positive for Covid Negative Flu, Negative Strep, Negative RSV XR ABDOMEN 2 VIEWS Reviewed date:07/17/2025 12:33:19 PM Interpretation: Performing Lab: Notes/Report: Note See Note [facility], a member of [employer] Patient Name: SHARLA ESQUIVEL Date of : 1975 Reason for Exam: OTHER Exam Date: 07/17/2025 [id number] EST Report Status: Final Ordering Provider: LOVE GRIMM PCP: IVA STEWART HISTORY: The patient is a 50-year-old female [...] and descending colon, likely representing ingested tablets. IMPRESSION: 1. Calcifications in the left side of the upper abdomen suspicious for chronic pancreatitis. Confirmation with CT scan of the abdomen is recommended. 2. Four oval densiti es project over the ascending and descending colon, likely representing ingested tablets. 3. Nonobstructive marbin wel gas pattern. There is evidence of moderate constipation. Code 19009 -------- FINAL REPOR T -------- Dictated By: Virgil Santacruz Dictated Date: 07/17/2025 11:08 ET Assigned Physician: Virgil Santacruz Reviewed and Electronically Signed By: Virgil Santacruz Signed Date: 11:11 ET Workstation ID: [id number] Transcribed By: Self Edit Transcribed Date: 07/17/2025 11:08 ET US ABDOMEN LIMITED Reviewed date:07/17/2025 12:42:14 PM Interpretation: Performing Lab: Notes/Report: Note See Note [facility], a member of [employer] Patient Name: SHARLA ESQUIVEL Date of : 1975 Reason for Exam: abd pain, Exam Date: 07/17/2025 [id number] EST Report Status: Final Ordering Provider: LOVE GRIMM PCP: IVA STEWART HISTORY: The patient is a 50-year-old female [...] is incompletely evaluated on this study. Code 25830 G9551 -------- FINAL REPOR T -------- Dictated By: Virgil Santacruz Dictated Date: 07/17/2025 12:08 ET Assigned Physician: Virgil Santacruz Reviewed and Electronically Signed By: Virgil Santacruz Signed Date: 12:14 ET Workstation ID: [id number] Transcribed By: Self Edit Transcribed Date: 07/17/2025 12:08 ET CBC WITH AUTO DIFFERENTIAL Reviewed date:07/17/2025 01:38:50 PM Interpretation: Performing Lab: Notes/Report: WBC 7.4 4.8-10.8 K/mcL RBC 4.40 3.80-4.80 M/mcL Hemoglobin 13.2 11.5-16.0 g/dL Hematocrit 39.2 35.0-47.0 % MCV 88.9 79.0-98.0 FL MCH 29.9 27.0-32.0 pcg MCHC 33.7 32.0-37.0 g/dL RDW 12.5 11.0-15.0 % Platelets 402 130-400 K/mcL MPV 10.8 7.0-11.0 FL NRBC 0.0 <1.0 % NRBC Absolute 0.00 <0.10 K/mcL Neutrophils Relative 60.7 Lymphocytes Relative 28.6 Monocytes Relative 6.8 Eosinophils Relative 2.0 Basophils Relative 1.5 Immature Granulocytes Relative 0.4 Neutrophils Absolute 4.47 1.50-7.00 K/mcL Lymphocytes Absolute 2.11 1.00-5.00 K/mcL Monocytes Absolute 0.50 0.20-1.00 K/mcL Eosinophils Absolute 0.15 0.00-0.50 K/mcL Basophils Absolute 0.11 0.00-0.20 K/mcL Immature Granulocytes Absolute 0.03 0.00-0.03 K/mcL HEMOGLOBIN A1C Reviewed date:03/24/2025 10:14:02 AM Interpretation: Performing Lab: Notes/Report: Hemoglobin A1C 5.1 <6.5 % Mean Bld Glu Estim. 100 THYROID STIMULATING HORMONE WITH REFLEX TO FREE T4 AND FREE T3 Reviewed date:03/24/2025 10:14:06 AM Interpretation: Performing Lab: Notes/Report: TSH 1.27 0.40-4.00 mcIU/mL COMPREHENSIVE METABOLIC PANE L Reviewed date:03/24/2025 08:12:27 AM Interpretation: Performing Lab: Notes/Report: Sodium 139 133-145 mmol/L Potassium 4.4 3.5-5.5 mmol/L Chloride 105 96-110 mmol/L CO2 30 21-32 mmol/L Anion Gap 4 3-11 Glucose 95 70-100 mg/dL BUN 17 5-25 mg/dL Creatinine 0.83 0.50-1.10 mg/dL eGFR 87 >=60 mL/min/1.73m2 Calculati on based on the Chronic Kidney Disease Epidemiology Collaboration (CKD-EPI) equation refit without adjustment for race. BUN/Creatinine Ratio 20.5 Calcium 10.0 8.5-10.5 mg/dL AST (SGOT) 37 10-42 unit/L ALT (SGPT) 86 10-60 unit/L Alkaline Phosphatase 91 42-121 unit/L Total Protein 7.8 6.0-8.0 g/dL Albumin 4.2 3.2-5.0 g/dL Total Bilirubin 0.9 0.0-1.4 mg/dL VITAMIN D 25 HYDROXY Reviewed date:03/24/2025 10:19:39 AM Interpretation: Performing Lab: Notes/Report: Vit D, 25-Hydroxy 13.5 30.0-80.0 ng/mL LIPID PANEL WITH REFLEX TO D IRECT LDL Reviewed date:03/24/2025 08:12:10 AM Interpretation: Performing Lab: Notes/Report: Cholesterol 160 0-200 mg/dL Triglycerides 43 0-150 mg/dL HDL 59 >=40 mg/dL LDL Calculated 92 0-100 mg/dL VLDL Cholesterol Jesse 8.6 Non HDL Chol. (LDL+VLDL) 101 <145 mg/dL Chol/HDL Ratio 2.7 0.0-4.4 CBC WITH AUTO DIFFERENTIAL Reviewed date:03/24/2025 08:12:33 AM Interpretation: Performing Lab: Notes/Report: WBC 6.6 4.8-10.8 K/mcL RBC 4.50 3.80-4.80 M/mcL Hemoglobin 13.8 11.5-16.0 g/dL Hematocrit 41.4 35.0-47.0 % MCV 92.2 79.0-98.0 FL MCH 30.7 27.0-32.0 pcg MCHC 33.3 32.0-37.0 g/dL RDW 12.3 11.0-15.0 % Platelets 357 130-400 K/mcL MPV 10.8 7.0-11.0 FL NRBC 0.0 <1.0 % NRBC Absolute 0.00 <0.10 K/mcL Neutrophils Relative 51.9 Lymphocytes Relative 35.8 Monocytes Relative 8.0 Eosinophils Relative 3.0 Basophils Relative 1.1 Immature Granulocytes Relative 0.2 Neutrophils Absolute 3.42 1.50-7.00 K/mcL Lymphocytes Absolute 2.36 1.00-5.00 K/mcL Monocytes Absolute 0.53 0.20-1.00 K/mcL Eosinophils Absolute 0.20 0.00-0.50 K/mcL Basophils Absolute 0.07 0.00-0.20 K/mcL Immature Granulocytes Absolute 0.01 0.00-0.03 K/mcL LIPASE Reviewed date:07/17/2025 01:38:50 PM Interpretation: Performing Lab: Notes/Report: Lipase 46 13-75 unit/L AMYLASE Reviewed date:07/17/2025 01:38:50 PM Interpretation: Performing Lab: Notes/Report: Amylase 54 25-115 unit/L COMPREHENSIVE METABOLIC PANE L Reviewed date:07/17/2025 01:38:42 PM Interpretation: Performing Lab: Notes/Report: Sodium 137 133-145 mmol/L Potassium 3.7 3.5-5.5 mmol/L Chloride 101 96-110 mmol/L CO2 28 21-32 mmol/L Anion Gap 8 3-11 Glucose 90 70-100 mg/dL BUN 12 5-25 mg/dL Creatinine 0.92 0.50-1.10 mg/dL eGFR 76 >=60 mL/min/1.73m2 Calculati on based on the Chronic Kidney Disease Epidemiology Collaboration (CKD-EPI) equation refit without adjustment for race. BUN/Creatinine Ratio 13.0 Calcium 9.7 8.5-10.5 mg/dL AST (SGOT) 23 10-42 unit/L ALT (SGPT) 27 10-60 unit/L Alkaline Phosphatase 76 42-121 unit/L Total Protein 7.8 6.0-8.0 g/dL Albumin 4.2 3.2-5.0 g/dL Total Bilirubin 0.7 0.0-1.4 mg/dL VITAMIN D 25 HYDROXY Reviewed date:07/17/2025 02:56:17 PM Interpretation: Performing Lab: Notes/Report: Vit D, 25-Hydroxy 30.7 30.0-80.0 ng/mL Reason For Referral Reason Pt needing colonosco py Diagnosis 1 Colon cancer screeni ng (Z12.11) Referral Organization [facility] [address] Referring Provider First Name LOVE Referring Provider Last Name ALFA Referring Provider Speciality Preventive Medicine Referred Provider Thony Liriano Referred Provider Specialty Gastroentero logy General Notes Thony Liriano Gastroe nterology [address], [address] [place] [address] , phone- [phone], fax - [phone] Clinical Notes Kandace Sanderson 03/21 09:59:04 AM >, Sonya Turk 06/11/2025 02:15:28 PM > Scheduled for a colonoscopy on 06/30/25 Referral Priority Routine Reason [facility] [place] Diagnosis 1 Lumbar back pain (M5 4.50) Referral Organization [facility] [address] Referring Provider First Name LOVE Referring Provider Last Name LOMBARD Referring Provider Speciality Preventive Medicine Referred Provider Specialty Physical The rapist General Notes Mercedes Segovia 05/2025 08:33:52 AM > Pt given phone [phone] referral faxed to [phone] Clinical Notes Sonya Turk 03:26:57 PM > I called the office and they informed me they spoke with the patient and patient informed them that she will call them back for scheduling Referral Priority Routine Reason [facility]; H. pylori infection Diagnosis 1 H. pylori infection (A04.8) Referral Organization [facility] [address] Referring Provider First Name LOVE Referring Provider Last Name LOMBARD Referring Provider Speciality Preventive Medicine Referred Provider Specialty Gastroentero logy General Notes [address] [place] [address], (p) , (f) [phone] Clinical Notes Hazel Drew 01:19:03 PM > faxed with notes Referral Priority Routine Medications Medication SIG (Take, Route, Fr equency, Duration) Notes Start Date End Date Status Spironolactone 25 MG 1 tablet Orally onc e daily; Duration: 90 days Active Wegovy 1 MG/0.5ML Inject 1mg Subcutane ous once weekly; Duration: 30 days Active Problems Problem Type SNOMED Code ICD Code Onset Dates Problem Status W/U Status Risk Notes Problem Essential hypertension (83092800) Essential hypertension (I10) Active confirmed Problem Vitamin D deficiency (72129860) Vitamin D deficiency (E55.9) Active confirmed Problem Obesity (880724014) Obesity (BMI 30-39.9) (E66.9) Active confirmed Problem Helicobacter pylori gastrointestinal tract infection (102855626) H. pylori infection (A04.8) Active confirmed Problem BMI 30+ - obesity (774247507) BMI 32.0-32.9,adult (Z68.32) Active confirmed Problem Mixed anxiety and depressive disorder (539350435) Depression with anxiety (F41.8) Active confirmed Vital Signs Heart Rate 84 /min 08/22/2025 Temperature 101 degrees Fahrenheit 06/19/2025 Blood pressure diastolic 86 mm Hg 08/22/2025 Oximetry 97 % 08/22/2025 Height 66 in 08/22/2025 Blood pressure systolic 136 mm Hg 08/22/2025 Weight 198.8 lbs 08/22/2025 BMI 32.08 kg/m2 08/22/2025 Encounters Encounter Location Date Provider Diagnosis [facility] [address] [address] 03/21/2025 LOVE GRIMM Essential hypertensi on I10 ; Depression with anxiety F41.8 and Obesity (BMI 30-39.9) E66.9 [facility] [address] [address] 04/10/2025 LOVE LOMBARD Obesity (BMI 30-39.9 ) E66.9 ; BMI 33.0-33.9,adult Z68.33 ; Essential hypertension I10 and Nutritional counseling Z71.3 [facility] [address] [address] 05/15/2025 LOVE LOMBARD Obesity (BMI 30-39.9 ) E66.9 ; BMI 32.0-32.9,adult Z68.32 ; Essential hypertension I10 and Nutritional counseling Z71.3 [facility] [address] [facility] [address] [place] [address] 06/10/2025 Romana Normoyle Dysuria R30.0 ; Acut e cystitis without hematuria N30.00 ; Recurrent UTI N39.0 ; Pain in right lumbar region of back M54.50 ; Gastroenteritis K52.9 and Encounter for examination of blood pressure without abnormal findings Z01.30 [facility] [address] [address] 06/19/2025 Pnia Svrcek COVID U07.1 ; Fever and chills R50.9 and Essential hypertension I10 [facility] [address] [address] 07/08/2025 LOVE GRIMM Acute abdominal pain R10.9 and Postprandial epigastric pain R10.13 [facility] [address] 07/17/2025 LOVE MCNAMARAHAM Annual physical exam Z00.00 ; Vitamin D deficiency E55.9 ; H. pylori infection A04.8 ; Acute abdominal pain R10.9 ; Epigastric abdominal pain R10.13 ; Essential hypertension I10 ; Depression with anxiety F41.8 and Abdominal cramping R10.9 [facility] [address] 07/29/2025 LOVE LOMBARD H. pylori infection A04.8 [facility] [address] 08/22/2025 LOVE MCNAMARAHAM Obesity (BMI 30-39.9 ) E66.9 ; BMI 32.0-32.9,adult Z68.32 ; Essential hypertension I10 and Nutritional counseling Z71.3 [facility] [address] 03/24/2025 LOVE LOMBARD [facility] [address] 04/10/2025 [facility] [address] [place] [address] 05/08/2025 LOVE LOMBARD [facility] [address] [place] [address] 06/06/2025 [facility] [address] 06/11/2025 [facility] [address] 06/12/2025 Romana Normoyle [facility] [address] 06/18/2025 [facility] [address] 06/19/2025 [facility] [address] [place] [address] 07/07/2025 [facility] [address] 07/09/2025 LOVE ALFA [facility] [address] [place] [address] 07/15/2025 LOVE ALFA [facility] [address] [place], [place] 07/17/2025 LOVE ALFA Abdominal cramping R 10.9 and Epigastric abdominal pain R10.13 [facility] [address] [place] [address] 07/17/2025 LOVE LOMBARD [facility] [address] [place] [address] 07/18/2025 LOVE LOMBARD [facility] [address] [place] [address] 07/21/2025 LOVE LOMBARD [facility] [address] [place] [address] 07/23/2025 LOVE LOMBARD [facility] [address] [place] [address] 07/27/2025 LOVE ALFA [facility] [address] [place] [address] 07/29/2025 LOVE LOMBARD [facility] [address] [place] [address] 07/31/2025 LOVE LOMBARD [facility] [address] [place] [address] 08/19/2025 LOVE LOMBARD [facility] [address] [place] [address] 07/18/2025 LOVE ALFA [facility] [address] [place] [address] 07/18/2025 LOVE LOMBARD Epigastric abdominal pain R10.13 [facility] [address] [place] [address] 07/18/2025 LOVE ALFA [facility] [address] [place] [address] 07/23/2025 LOVE LOMBARD [facility] [address] [place] [address] 07/23/2025 LOVE LOMBARD [facility] [address] [place] [address] 07/25/2025 LOVE GRIMM [facility] [address] [place] [address] 07/28/2025 LOVE GRIMM [facility] [address] [place] [address] 07/28/2025 LOVE GRIMM [facility] [address] [place] [address] 09/12/2025 LOVE GRIMM Obesity (BMI 30-39.9 ) E66.9 Assessments Encounter Date Diagnosis (ICD Code) Assessment Notes Treatment Notes Treatment Clinical Notes Section Notes 03/21/2025 Essential hypertension (ICD-10 - I10) Sharla is a 49-year-old female with PMH of HTN, anxiety, depression that presents today to establish care as a new patient. #Labs: Baseline laboratory evaluation including CBC, CMP, lipid panel, hemoglobin A1c, TSH, and vitamin D ordered to be evaluated at time of CPE. #HTN: BP in office stable at 130/88. Currently taking hydrochlorothiazide 25 mg and spironolactone 25 mg once daily with compliance. Occasionally monitors BPs at home which are WNL. Refills provided. #BMI is 32.9. Patient due to establish care as weight management patient later this month. #Anxiety/depression: Occasionally suffers family related stress. Previous PCP prescribed fluoxetine, but she does not take this medication as she prefers to manage with use of mental health provider. Meets with provider Mahsa Salazar with the [facility] once weekly with adequate control of symptoms. Denies SI/HI or panic attacks. All questions answered to the patient's satisfaction. Patient demonstrates understanding of diagnosis and treatments discussed. Follow-up in 4-6 weeks, sooner should any questions/concerns arise. Case discussed with collaborating physician Shadi Stewart who has reviewed the assessment/plan. Chart, medications, labs, and vital signs reviewed. Dictation completed with the use of [employer] voice recognition software, prone to medical misidentifications and grammatical errors. All errors are unintentional. Although the practitioner does try to identify and correct errors, some may be present. Please do not hesitate to contact the practitioner for clarification. 03/21/2025 Depression with anxiety (ICD-10 - F41.8) Sharla is a 49-year-old female with PMH of HTN, anxiety, depression that presents today to establish care as a new patient. #Labs: Baseline laboratory evaluation including CBC, CMP, lipid panel, hemoglobin A1c, TSH, and vitamin D ordered to be evaluated at time of CPE. #HTN: BP in office stable at 130/88. Currently taking hydrochlorothiazide 25 mg and spironolactone 25 mg once daily with compliance. Occasionally monitors BPs at home which are WNL. Refills provided. #BMI is 32.9. Patient due to establish care as weight management patient later this month. #Anxiety/depression: Occasionally suffers family related stress. Previous PCP prescribed fluoxetine, but she does not take this medication as she prefers to manage with use of mental health provider. Meets with provider Mahsa Salazar with the [facility] once weekly with adequate control of symptoms. Denies SI/HI or panic attacks. All questions answered to the patient's satisfaction. Patient demonstrates understanding of diagnosis and treatments discussed. Follow-up in 4-6 weeks, sooner should any questions/concerns arise. Case discussed with collaborating physician Shadi Stewart who has reviewed the assessment/plan. Chart, medications, labs, and vital signs reviewed. Dictation completed with the use of [employer] voice recognition software, prone to medical misidentifications and grammatical errors. All errors are unintentional. Although the practitioner does try to identify and correct errors, some may be present. Please do not hesitate to contact the practitioner for clarification. 04/10/2025 Obesity (BMI 30-39.9) (ICD-10 - E66.9) Sharla is a 49-year-old female with PMH of HTN, anxiety, depression that presents today for weight management consult. Patient was reassured and welcomed to the practice. Discussed [facility] holistic and medical approach to weight loss with emphasis on lifestyle modification. Patient is educated that a healthy lifestyle aids in combating obesity as well as reducing the risk of developing obesity-related medical complications including but not limited to diabetes and cardiovascular disease. Detailed education provided about taking steps to initiate sustainable lifestyle changes including incorporating regular physical activity, making healthy diet choices, and prioritizing mental health. Information provided about literature including The Food Rules by Mark Anthony Cooper and Eat Fat Get Lean by Dr Dipak Masters. Handouts including lifestyle checklist, protein content of food, low calorie snacks, and cholesterol information sheet provided. Diagnostic testing/ SECA scale offered. Discussed the importance of regular SECA scale measurements to ensure healthy weight loss. 04/10/2025: Weight: 205, BMI: 33. Reviewed SECA/goals for implementing sustainable lifestyle changes. Patient is encouraged to increase physical activity, goal 8-10k steps/day. Also discussed the importance of strength training with proper safety/body mechanics for maintenance of muscle mass/bone health. Patient encouraged to drink 60-80oz water/day. Reviewed nutrition, recommending food diary x 1 week to ensure adequate caloric/protein intake. Goal of 80-100g protein/day. Reviewed risks, benefits, and side effects of weight management medications including phentermine, Topamax, Contrave, metformin, and GLP-1 agonist. Patient interested in reinitiating treatment with Wegovy. Denies personal/family history of medullary thyroid cancer/M EN syndrome. Given history of semaglutide use suspect 0.25 mg dose will be of little effect, sample provided. Rx for Wegovy 0.5 mg SC weekly sent to pharmacy. Reviewed proper use, administration, and expectations for PA process/insurance coverage. After consultation and careful review of medical history, this patient would benefit from Wegovy based off of the following criteria met: Patient is over the age of 18 with a BMI of 33. Additional comorbidities include HTN. 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 This medication is prescribed by or in consultation with a board-certified obesity and weight management physician (Dr. Iva Stewart or Dr. Patricia Stewart). All questions answered to the patient's satisfaction. Patient demonstrates understanding of diagnosis and treatments discussed. Follow-up at next scheduled appointment, sooner should any questions/concerns arise. Case discussed with collaborating physician Shadi Stewart who has reviewed the assessment/plan. Chart, medications, labs, and vital signs reviewed. Dictation completed with the use of [employer] voice recognition software, prone to medical misidentifications and grammatical errors. All errors are unintentional. Although the practitioner does try to identify and correct errors, some may be present. Please do not hesitate to contact the practitioner for clarification. Total time was 60 minutes spent with greater than 50% on coordination of care and patient education. 04/10/2025 BMI 33.0-33.9,adult (ICD-10 - Z68.33) Sharla is a 49-year-old female with PMH of HTN, anxiety, depression that presents today for weight management consult. Patient was reassured and welcomed to the practice. Discussed [facility] holistic and medical approach to weight loss with emphasis on lifestyle modification. Patient is educated that a healthy lifestyle aids in combating obesity as well as reducing the risk of developing obesity-related medical complications including but not limited to diabetes and cardiovascular disease. Detailed education provided about taking steps to initiate sustainable lifestyle changes including incorporating regular physical activity, making healthy diet choices, and prioritizing mental health. Information provided about literature including The Food Rules by Mark Anthony Cooper and Eat Fat Get Lean by Dr Dipak Masters. Handouts including lifestyle checklist, protein content of food, low calorie snacks, and cholesterol information sheet provided. Diagnostic testing/ SECA scale offered. Discussed the importance of regular SECA scale measurements to ensure healthy weight loss. 04/10/2025: Weight: 205, BMI: 33. Reviewed SECA/goals for implementing sustainable lifestyle changes. Patient is encouraged to increase physical activity, goal 8-10k steps/day. Also discussed the importance of strength training with proper safety/body mechanics for maintenance of muscle mass/bone health. Patient encouraged to drink 60-80oz water/day. Reviewed nutrition, recommending food diary x 1 week to ensure adequate caloric/protein intake. Goal of 80-100g protein/day. Reviewed risks, benefits, and side effects of weight management medications including phentermine, Topamax, Contrave, metformin, and GLP-1 agonist. Patient interested in reinitiating treatment with Wegovy. Denies personal/family history of medullary thyroid cancer/M EN syndrome. Given history of semaglutide use suspect 0.25 mg dose will be of little effect, sample provided. Rx for Wegovy 0.5 mg SC weekly sent to pharmacy. Reviewed proper use, administration, and expectations for PA process/insurance coverage. After consultation and careful review of medical history, this patient would benefit from Wegovy based off of the following criteria met: Patient is over the age of 18 with a BMI of 33. Additional comorbidities include HTN. 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 This medication is prescribed by or in consultation with a board-certified obesity and weight management physician (Dr. Iva Stewart or Dr. Patricia Stewart). All questions answered to the patient's satisfaction. Patient demonstrates understanding of diagnosis and treatments discussed. Follow-up at next scheduled appointment, sooner should any questions/concerns arise. Case discussed with collaborating physician Shdai Stewart who has reviewed the assessment/plan. Chart, medications, labs, and vital signs reviewed. Dictation completed with the use of [employer] voice recognition software, prone to medical misidentifications and grammatical errors. All errors are unintentional. Although the practitioner does try to identify and correct errors, some may be present. Please do not hesitate to contact the practitioner for clarification. Total time was 60 minutes spent with greater than 50% on coordination of care and patient education. 05/15/2025 Obesity (BMI 30-39.9) (ICD-10 - E66.9) Sharla is a 49-year-old female with PMH of HTN, anxiety, depression that presents today for weight management follow up. Reviewed [facility] holistic and medical approach to weight loss with emphasis on lifestyle modification. 05/15/2025: Weight: 202, BMI: 32.6. (-3lbs). SECA reviewed, reveals mild loss of fat and muscle mass. Patient encouraged to continue making health-conscious diet choices. Discussed importance of regular eating habits in the setting of GLP-1 induced appetite suppression. Recommend continued hydration and increase physical activity. Discussed use of daily fiber supplement +/- probiotic with goal of more regular bowel movements. Could consider use of stool softener or MiraLAX as needed. Will increase dose of Wegovy 1 mg SC weekly and follow-up in 1 month. 04/10/2025: Weight: 205, BMI: 33. All questions answered to the patient's satisfaction. Patient demonstrates understanding of diagnosis and treatments discussed. Follow-up at next scheduled appointment, sooner should any questions/concerns arise. Case discussed with collaborating physician Shadi Stewart who has reviewed the assessment/plan. Chart, medications, labs, and vital signs reviewed. Dictation completed with the use of [employer] voice recognition software, prone to medical misidentifications and grammatical errors. All errors are unintentional. Although the practitioner does try to identify and correct errors, some may be present. Please do not hesitate to contact the practitioner for clarification. Total time was 30 minutes spent with greater than 50% on coordination of care and patient education. 05/15/2025 BMI 32.0-32.9,adult (ICD-10 - Z68.32) Sharla is a 49-year-old female with PMH of HTN, anxiety, depression that presents today for weight management follow up. Reviewed [facility] holistic and medical approach to weight loss with emphasis on lifestyle modification. 05/15/2025: Weight: 202, BMI: 32.6. (-3lbs). SECA reviewed, reveals mild loss of fat and muscle mass. Patient encouraged to continue making health-conscious diet choices. Discussed importance of regular eating habits in the setting of GLP-1 induced appetite suppression. Recommend continued hydration and increase physical activity. Discussed use of daily fiber supplement +/- probiotic with goal of more regular bowel movements. Could consider use of stool softener or MiraLAX as needed. Will increase dose of Wegovy 1 mg SC weekly and follow-up in 1 month. 04/10/2025: Weight: 205, BMI: 33. All questions answered to the patient's satisfaction. Patient demonstrates understanding of diagnosis and treatments discussed. Follow-up at next scheduled appointment, sooner should any questions/concerns arise. Case discussed with collaborating physician Shadi Stewart who has reviewed the assessment/plan. Chart, medications, labs, and vital signs reviewed. Dictation completed with the use of [employer] voice recognition software, prone to medical misidentifications and grammatical errors. All errors are unintentional. Although the practitioner does try to identify and correct errors, some may be present. Please do not hesitate to contact the practitioner for clarification. Total time was 30 minutes spent with greater than 50% on coordination of care and patient education. 06/10/2025 Acute cystitis without hematuria (ICD-10 - N30.00) Sharla is a 49-year-old female who presents for urgent visit due to urinary symptoms and lumbar back pain. She reports recurrent UTIs, on average 4/year. Found to have mild degenerative disc disease of L5-S1 on CT scan abdomen/pelvis at [facility]. #UTI: Plan for UA with reflex to culture. Plan for Macrobid 100 mg twice daily for 5 days. Educated to take antibiotic with food and to utilize probiotic to prevent candidiasis. Plan for ultrasound bilateral kidneys and bladder due to recurrent UTIs, rule out structural abnormality. #Lumbar back pain: Most likely due to degenerative disc disease of L5-S1. Plan for physical therapy. Offered muscle relaxer, patient declines. #Gastritis: Went to [facility] ER approximately [address] abdomen/pelvis done which did not show any acute abnormalities or etiology of abdominal pain. Symptoms have since subsided. Record release signed today to obtain records from [facility] All questions have been answered to patient's satisfaction. Patient verbalized understanding of diagnosis and treatments explained. Advised to call sooner prior to next visit it any questions/concerns arise. Case discussed with collaborating physician Patricia Stewart who reviewed the assessment and plan. Chart, medications, labs, vital signs reviewed. Dictation was accomplished with the use of [employer] voice recognition software, which is prone to medical misidentifications and grammatical errors. This are unintentional and the practitioner does try to identify and correct these, but some could still be present. Please do not hesitate to contact practitioner for clarification. 06/10/2025 Dysuria (ICD-10 - R30.0) Sharla is a 49-year-old female who presents for urgent visit due to urinary symptoms and lumbar back pain. She reports recurrent UTIs, on average 4/year. Found to have mild degenerative disc disease of L5-S1 on CT scan abdomen/pelvis at [facility]. #UTI: Plan for UA with reflex to culture. Plan for Macrobid 100 mg twice daily for 5 days. Educated to take antibiotic with food and to utilize probiotic to prevent candidiasis. Plan for ultrasound bilateral kidneys and bladder due to recurrent UTIs, rule out structural abnormality. #Lumbar back pain: Most likely due to degenerative disc disease of L5-S1. Plan for physical therapy. Offered muscle relaxer, patient declines. #Gastritis: Went to [facility] ER approximately [address] abdomen/pelvis done which did not show any acute abnormalities or etiology of abdominal pain. Symptoms have since subsided. Record release signed today to obtain records from [facility] All questions have been answered to patient's satisfaction. Patient verbalized understanding of diagnosis and treatments explained. Advised to call sooner prior to next visit it any questions/concerns arise. Case discussed with collaborating physician Patricia Stewart who reviewed the assessment and plan. Chart, medications, labs, vital signs reviewed. Dictation was accomplished with the use of [employer] voice recognition software, which is prone to medical misidentifications and grammatical errors. This are unintentional and the practitioner does try to identify and correct these, but some could still be present. Please do not hesitate to contact practitioner for clarification. 06/19/2025 COVID (ICD-10 - U07.1) #Positive COVID test. Reports home positive COVID test with fevers chills body aches and cough since yesterday. Her daughter did also test positive at the puzzle assembler's office. They did just travel back from [place]. She would like to proceed with viral swab here in the office as well. Will follow-up pending results. Reviewed options with patient. Discussed Paxlovid. After discussing risk benefits and potential adverse effects patient declines at this time. Discussed best option is symptomatic management with Tylenol ibuprofen fluids and rest. Discussed signs and symptoms to monitor for. Follow-up with any new or worsening symptoms. Case discussed with collaborating physician Mike Stewart who reviewed the assessment and plan. Chart, medications, labs, vital signs reviewed. Dictation was accomplished with the use of [employer] voice recognition software, prone to medical misidentifications and grammatical errors. This is unintentional and the practitioner does try to identify and correct these, but some could still be present. Please do not hesitate to contact practitioner for clarification. All questions answered to patients satisfaction. Patient verbalized understanding of diagnosis and treatments explained. To call sooner prior to next visit it any questions/concerns arise. 06/19/2025 Fever and chills (ICD-10 - R50.9) #Positive COVID test. Reports home positive COVID test with fevers chills body aches and cough since yesterday. Her daughter did also test positive at the puzzle assembler's office. They did just travel back from [place]. She would like to proceed with viral swab here in the office as well. Will follow-up pending results. Reviewed options with patient. Discussed Paxlovid. After discussing risk benefits and potential adverse effects patient declines at this time. Discussed best option is symptomatic management with Tylenol ibuprofen fluids and rest. Discussed signs and symptoms to monitor for. Follow-up with any new or worsening symptoms. Case discussed with collaborating physician Mike Stewart who reviewed the assessment and plan. Chart, medications, labs, vital signs reviewed. Dictation was accomplished with the use of [employer] voice recognition software, prone to medical misidentifications and grammatical errors. This is unintentional and the practitioner does try to identify and correct these, but some could still be present. Please do not hesitate to contact practitioner for clarification. All questions answered to patients satisfaction. Patient verbalized understanding of diagnosis and treatments explained. To call sooner prior to next visit it any questions/concerns arise. 07/08/2025 Acute abdominal pain (ICD-10 - R10.9) Sharla is a 50-year-old female with a PMH of HTN, anxiety, depression that presents today for evaluation of abdominal pain. Pain is episodic in nature, exacerbated with eating.On presentation patient appears comfortable and is in no acute distress. Exam reveals mild TTP in the epigastric area, otherwise WNL. Reviewed Ddx with patient - includes but is not limited to gastric/peptic ulcer, pancreatitis, gastroenteritis, etc. Patient encouraged to discontinue Wegovy while awaiting results from work up. Plan to proceed with labs including CBC, CMP, amylase, lipase, and H. pylori breath test for continued evaluation. Once blood test has been completed plan to initiate treatment with omeprazole. Reviewed proper use/SE. ED protocol reviewed. All questions answered to the patient's satisfaction. Patient demonstrates understanding of diagnosis and treatments discussed. Follow-up at next scheduled appointment, sooner should any questions/concerns arise. Case discussed with collaborating physician Shadi Stewart who has reviewed the assessment/plan. Chart, medications, labs, and vital signs reviewed. Dictation completed with the use of [employer] voice recognition software, prone to medical misidentifications and grammatical errors. All errors are unintentional. Although the practitioner does try to identify and correct errors, some may be present. Please do not hesitate to contact the practitioner for clarification. 07/08/2025 Postprandial epigastric pain (ICD-10 - R10.13) Sharla is a 50-year-old female with a PMH of HTN, anxiety, depression that presents today for evaluation of abdominal pain. Pain is episodic in nature, exacerbated with eating.On presentation patient appears comfortable and is in no acute distress. Exam reveals mild TTP in the epigastric area, otherwise WNL. Reviewed Ddx with patient - includes but is not limited to gastric/peptic ulcer, pancreatitis, gastroenteritis, etc. Patient encouraged to discontinue Wegovy while awaiting results from work up. Plan to proceed with labs including CBC, CMP, amylase, lipase, and H. pylori breath test for continued evaluation. Once blood test has been completed plan to initiate treatment with omeprazole. Reviewed proper use/SE. ED protocol reviewed. All questions answered to the patient's satisfaction. Patient demonstrates understanding of diagnosis and treatments discussed. Follow-up at next scheduled appointment, sooner should any questions/concerns arise. Case discussed with collaborating physician Shadi Stewart who has reviewed the assessment/plan. Chart, medications, labs, and vital signs reviewed. Dictation completed with the use of [employer] voice recognition software, prone to medical misidentifications and grammatical errors. All errors are unintentional. Although the practitioner does try to identify and correct errors, some may be present. Please do not hesitate to contact the practitioner for clarification. 07/17/2025 Annual physical exam (ICD-10 - Z00.00) Sharla is a 50-year-old female with PMH of HTN, anxiety, depression that presents today to establish care as a new patient. #Labs: Baseline laboratory evaluation including CBC, CMP, lipid panel, hemoglobin A1c, TSH, and vitamin D drawn 03/21/2025, reviewed today. #Vitamin D deficiency: Vitamin D low at 13.5. Patient completed 2 months of ergocalciferol 50,000 IUs once weekly. She is encouraged to transition to OTC vitamin D3 supplementation 5121-9240 IUs once daily. Will recheck serum vitamin D3 to ensure within goal range. #H. pylori: Patient presented to the office 07/08/2025 for evaluation of abdominal pain at which time urea breath test revealed H. pylori. Patient was started on quadruple therapy including omeprazole 20 mg twice daily, bismuth subsalicylate 525 mg 4 times daily, tetracycline 500 mg 4 times daily, and metronidazole 500 mg 4 times daily 07/09/2025. On day 814 of treatment. Patient continues to experience significant epigastric abdominal pain that radiates across the upper abdomen with associated symptoms of nausea. Patient is tearful throughout encounter due to pain. Exam reveals tenderness with light palpation of the epigastric area/RUQ with guarding. Plan to update labs including CBC, CMP, amylase, lipase for continued evaluation. Will also order XR of the abdomen. ED protocol reviewed. #HTN: BP in office stable at 132/86. Home BPs 116-130/80-90. Continue hydrochlorothiazide 25 mg and spironolactone 25 mg once daily. #Anxiety/depression: Occasionally suffers family related stress. Feels anxiety has increased in the setting the of abdominal pain. Denies panic attacks, SI, HI, or AVH. She is encouraged to reestablish with provider Mahsa Salazar with the [facility] once weekly. Patient seen and examined. Comprehensive discussion was done on the followin. Discussed the importance of a diet rich in fruit, vegetables, legumes and healthy fats. Patient advised to avoid processed food and carbohydrates, added sugars, and saturated/trans fats. When possible, prepare your own meals and avoid fast food. Read nutrition labels - avoid ingredients including high fructose corn syrup and preservatives. Be contentious of daily calorie intake and weight. 2. Discussed the importance of regular physical activity. Recommended a goal 6-10k steps or 30 minutes of walking per day. Discussed the benefit of weight-bearing exercise and strength training with proper body mechanics/safety precautions. Other activities including cycling, hiking, etc. are recommended and encouraged. Patient advised to seek medical attention for any SOB, chest pain, muscle or joint pain associated with exercise. 3. Discussed risks and benefits of age-appropriate screening guidelines including but not limited to colonoscopy, mammogram, breast examinations, and PAP smears. 4. Discussed safe driving, utilization of seat belts, and the importance of refraining from smartphone while driving. 5. Age-appropriate immunizations were discussed including but not limited to Shingles vaccine, COVID vaccine, influenza vaccine, etc. All questions answered to the patient's satisfaction. Patient demonstrates understanding of diagnosis and treatments discussed. Follow-up at next scheduled appointment, sooner should any questions/concerns arise. Case discussed with collaborating physician Shadi Stewart who has reviewed the assessment/plan. Chart, medications, labs, and vital signs reviewed. Dictation completed with the use of [employer] voice recognition software, prone to medical misidentifications and grammatical errors. All errors are unintentional. Although the practitioner does try to identify and correct errors, some may be present. Please do not hesitate to contact the practitioner for clarification. 07/17/2025 Vitamin D deficiency (ICD-10 - E55.9) Sharla is a 50-year-old female with PMH of HTN, anxiety, depression that presents today to establish care as a new patient. #Labs: Baseline laboratory evaluation including CBC, CMP, lipid panel, hemoglobin A1c, TSH, and vitamin D drawn 03/21/2025, reviewed today. #Vitamin D deficiency: Vitamin D low at 13.5. Patient completed 2 months of ergocalciferol 50,000 IUs once weekly. She is encouraged to transition to OTC vitamin D3 supplementation 3105-4503 IUs once daily. Will recheck serum vitamin D3 to ensure within goal range. #H. pylori: Patient presented to the office 07/08/2025 for evaluation of abdominal pain at which time urea breath test revealed H. pylori. Patient was started on quadruple therapy including omeprazole 20 mg twice daily, bismuth subsalicylate 525 mg 4 times daily, tetracycline 500 mg 4 times daily, and metronidazole 500 mg 4 times daily 07/09/2025. On day 814 of treatment. Patient continues to experience significant epigastric abdominal pain that radiates across the upper abdomen with associated symptoms of nausea. Patient is tearful throughout encounter due to pain. Exam reveals tenderness with light palpation of the epigastric area/RUQ with guarding. Plan to update labs including CBC, CMP, amylase, lipase for continued evaluation. Will also order XR of the abdomen. ED protocol reviewed. #HTN: BP in office stable at 132/86. Home BPs 116-130/80-90. Continue hydrochlorothiazide 25 mg and spironolactone 25 mg once daily. #Anxiety/depression: Occasionally suffers family related stress. Feels anxiety has increased in the setting the of abdominal pain. Denies panic attacks, SI, HI, or AVH. She is encouraged to reestablish with provider Mahsa Salazar with the [facility] once weekly. Patient seen and examined. Comprehensive discussion was done on the followin. Discussed the importance of a diet rich in fruit, vegetables, legumes and healthy fats. Patient advised to avoid processed food and carbohydrates, added sugars, and saturated/trans fats. When possible, prepare your own meals and avoid fast food. Read nutrition labels - avoid ingredients including high fructose corn syrup and preservatives. Be contentious of daily calorie intake and weight. 2. Discussed the importance of regular physical activity. Recommended a goal 6-10k steps or 30 minutes of walking per day. Discussed the benefit of weight-bearing exercise and strength training with proper body mechanics/safety precautions. Other activities including cycling, hiking, etc. are recommended and encouraged. Patient advised to seek medical attention for any SOB, chest pain, muscle or joint pain associated with exercise. 3. Discussed risks and benefits of age-appropriate screening guidelines including but not limited to colonoscopy, mammogram, breast examinations, and PAP smears. 4. Discussed safe driving, utilization of seat belts, and the importance of refraining from smartphone while driving. 5. Age-appropriate immunizations were discussed including but not limited to Shingles vaccine, COVID vaccine, influenza vaccine, etc. All questions answered to the patient's satisfaction. Patient demonstrates understanding of diagnosis and treatments discussed. Follow-up at next scheduled appointment, sooner should any questions/concerns arise. Case discussed with collaborating physician Shadi Stewart who has reviewed the assessment/plan. Chart, medications, labs, and vital signs reviewed. Dictation completed with the use of [employer] voice recognition software, prone to medical misidentifications and grammatical errors. All errors are unintentional. Although the practitioner does try to identify and correct errors, some may be present. Please do not hesitate to contact the practitioner for clarification. 07/17/2025 Abdominal cramping (ICD-10 - R10.9) 07/18/2025 Epigastric abdominal pain (ICD-10 - R10.13) 07/29/2025 H. pylori infection (ICD-10 - A04.8) Sharla is a 50-year-old female with a PMH of HTN, anxiety, depression that presents today for ED follow up. #H. pylori/abdominal discomfort: Urea breath test positive 07/08/2025. Completed quadruple therapy 07/22/2025. Reports improvement in symtpoms/discomfort. Plan to proceed with test for cure week of 08/18, patient understands she should not take any PPIs at least 2 weeks prior to testing. (H2 receptor antagonist and antacids okay). She is encouraged to continue monitoring symptoms and avoiding dietary triggers. Follow-up with GI in November as scheduled. All questions answered to the patients satisfaction. Patient demonstrates understanding of diagnosis and treatments discussed. Follow-up at next scheduled appointment, sooner should any questions/concerns arise. Case discussed with collaborating physician Shadi Stewart who has reviewed the assessment/plan. Chart, medications, labs, and vital signs reviewed. Dictation completed with the use of [employer] voice recognition software, prone to medical misidentifications and grammatical errors. All errors are unintentional. Although the practitioner does try to identify and correct errors, some may be present. Please do not hesitate to contact the practitioner for clarification. 08/22/2025 Obesity (BMI 30-39.9) (ICD-10 - E66.9) Sharla is a 50-year-old female with PMH of HTN, anxiety, depression that presents today for weight management follow up. Reviewed [facility] holistic and medical approach to weight loss with emphasis on lifestyle modification. 08/22/2025: Weight: 198.8, BMI: 32.1 (-3lbs) SECA reviewed, reveals fat loss. Patient encouraged to continue making health-conscious diet choices and prioritizing protein intake. Discussed importance of adequate hydration and maintaining active lifestyle. She is encouraged to continue combination of cardio/strength training. Plan to reinitiate Wegovy at 0.25 mg SC weekly (sample provided). If tolerated patient may increase dose to 0.5 mg SC weekly. Reviewed proper use and side effects of the medication including but not limited to nausea, indigestion, constipation, and issues involving the gallbladder/pancreas. 05/15/2025: Weight: 202, BMI: 32.6. (-3lbs). 04/10/2025: Weight: 205, BMI: 33. All questions answered to the patient's satisfaction. Patient demonstrates understanding of diagnosis and treatments discussed. Follow-up at next scheduled appointment, sooner should any questions/concerns arise. Case discussed with collaborating physician Shadi Stewart who has reviewed the assessment/plan. Chart, medications, labs, and vital signs reviewed. Dictation completed with the use of [employer] voice recognition software, prone to medical misidentifications and grammatical errors. All errors are unintentional. Although the practitioner does try to identify and correct errors, some may be present. Please do not hesitate to contact the practitioner for clarification. Total time was 30 minutes spent with greater than 50% on coordination of care and patient education. 09/12/2025 Obesity (BMI 30-39.9) (ICD-10 - E66.9) 08/22/2025 BMI 32.0-32.9,adult (ICD-10 - Z68.32) Sharla is a 50-year-old female with PMH of HTN, anxiety, depression that presents today for weight management follow up. Reviewed [facility] holistic and medical approach to weight loss with emphasis on lifestyle modification. 08/22/2025: Weight: 198.8, BMI: 32.1 (-3lbs) SECA reviewed, reveals fat loss. Patient encouraged to continue making health-conscious diet choices and prioritizing protein intake. Discussed importance of adequate hydration and maintaining active lifestyle. She is encouraged to continue combination of cardio/strength training. Plan to reinitiate Wegovy at 0.25 mg SC weekly (sample provided). If tolerated patient may increase dose to 0.5 mg SC weekly. Reviewed proper use and side effects of the medication including but not limited to nausea, indigestion, constipation, and issues involving the gallbladder/pancreas. 05/15/2025: Weight: 202, BMI: 32.6. (-3lbs). 04/10/2025: Weight: 205, BMI: 33. All questions answered to the patient's satisfaction. Patient demonstrates understanding of diagnosis and treatments discussed. Follow-up at next scheduled appointment, sooner should any questions/concerns arise. Case discussed with collaborating physician Shadi Stewart who has reviewed the assessment/plan. Chart, medications, labs, and vital signs reviewed. Dictation completed with the use of [employer] voice recognition software, prone to medical misidentifications and grammatical errors. All errors are unintentional. Although the practitioner does try to identify and correct errors, some may be present. Please do not hesitate to contact the practitioner for clarification. Total time was 30 minutes spent with greater than 50% on coordination of care and patient education. 07/17/2025 Epigastric abdominal pain (ICD-10 - R10.13) 07/17/2025 H. pylori infection (ICD-10 - A04.8) Sharla is a 50-year-old female with PMH of HTN, anxiety, depression that presents today to establish care as a new patient. #Labs: Baseline laboratory evaluation including CBC, CMP, lipid panel, hemoglobin A1c, TSH, and vitamin D drawn 03/21/2025, reviewed today. #Vitamin D deficiency: Vitamin D low at 13.5. Patient completed 2 months of ergocalciferol 50,000 IUs once weekly. She is encouraged to transition to OTC vitamin D3 supplementation 1398-9315 IUs once daily. Will recheck serum vitamin D3 to ensure within goal range. #H. pylori: Patient presented to the office 07/08/2025 for evaluation of abdominal pain at which time urea breath test revealed H. pylori. Patient was started on quadruple therapy including omeprazole 20 mg twice daily, bismuth subsalicylate 525 mg 4 times daily, tetracycline 500 mg 4 times daily, and metronidazole 500 mg 4 times daily 07/09/2025. On day 814 of treatment. Patient continues to experience significant epigastric abdominal pain that radiates across the upper abdomen with associated symptoms of nausea. Patient is tearful throughout encounter due to pain. Exam reveals tenderness with light palpation of the epigastric area/RUQ with guarding. Plan to update labs including CBC, CMP, amylase, lipase for continued evaluation. Will also order XR of the abdomen. ED protocol reviewed. #HTN: BP in office stable at 132/86. Home BPs 116-130/80-90. Continue hydrochlorothiazide 25 mg and spironolactone 25 mg once daily. #Anxiety/depression: Occasionally suffers family related stress. Feels anxiety has increased in the setting the of abdominal pain. Denies panic attacks, SI, HI, or AVH. She is encouraged to reestablish with provider Mahsa Salazar with the N once weekly. Patient seen and examined. Comprehensive discussion was done on the followin. Discussed the importance of a diet rich in fruit, vegetables, legumes and healthy fats. Patient advised to avoid processed food and carbohydrates, added sugars, and saturated/trans fats. When possible, prepare your own meals and avoid fast food. Read nutrition labels - avoid ingredients including high fructose corn syrup and preservatives. Be contentious of daily calorie intake and weight. 2. Discussed the importance of regular physical activity. Recommended a goal 6-10k steps or 30 minutes of walking per day. Discussed the benefit of weight-bearing exercise and strength training with proper body mechanics/safety precautions. Other activities including cycling, hiking, etc. are recommended and encouraged. Patient advised to seek medical attention for any SOB, chest pain, muscle or joint pain associated with exercise. 3. Discussed risks and benefits of age-appropriate screening guidelines including but not limited to colonoscopy, mammogram, breast examinations, and PAP smears. 4. Discussed safe driving, utilization of seat belts, and the importance of refraining from smartphone while driving. 5. Age-appropriate immunizations were discussed including but not limited to Shingles vaccine, COVID vaccine, influenza vaccine, etc. All questions answered to the patient's satisfaction. Patient demonstrates understanding of diagnosis and treatments discussed. Follow-up at next scheduled appointment, sooner should any questions/concerns arise. Case discussed with collaborating physician Shadi Stewart who has reviewed the assessment/plan. Chart, medications, labs, and vital signs reviewed. Dictation completed with the use of [employer] voice recognition software, prone to medical misidentifications and grammatical errors. All errors are unintentional. Although the practitioner does try to identify and correct errors, some may be present. Please do not hesitate to contact the practitioner for clarification. 06/10/2025 Recurrent UTI (ICD-10 - N39.0) Sharla is a 49-year-old female who presents for urgent visit due to urinary symptoms and lumbar back pain. She reports recurrent UTIs, on average 4/year. Found to have mild degenerative disc disease of L5-S1 on CT scan abdomen/pelvis at [facility]. #UTI: Plan for UA with reflex to culture. Plan for Macrobid 100 mg twice daily for 5 days. Educated to take antibiotic with food and to utilize probiotic to prevent candidiasis. Plan for ultrasound bilateral kidneys and bladder due to recurrent UTIs, rule out structural abnormality. #Lumbar back pain: Most likely due to degenerative disc disease of L5-S1. Plan for physical therapy. Offered muscle relaxer, patient declines. #Gastritis: Went to [facility] ER approximately [address] abdomen/pelvis done which did not show any acute abnormalities or etiology of abdominal pain. Symptoms have since subsided. Record release signed today to obtain records from [facility] All questions have been answered to patient's satisfaction. Patient verbalized understanding of diagnosis and treatments explained. Advised to call sooner prior to next visit it any questions/concerns arise. Case discussed with collaborating physician Patricia Stewart who reviewed the assessment and plan. Chart, medications, labs, vital signs reviewed. Dictation was accomplished with the use of [employer] voice recognition software, which is prone to medical misidentifications and grammatical errors. This are unintentional and the practitioner does try to identify and correct these, but some could still be present. Please do not hesitate to contact practitioner for clarification. 06/19/2025 Essential hypertension (ICD-10 - I10) #Positive COVID test. Reports home positive COVID test with fevers chills body aches and cough since yesterday. Her daughter did also test positive at the puzzle assembler's office. They did just travel back from [place]. She would like to proceed with viral swab here in the office as well. Will follow-up pending results. Reviewed options with patient. Discussed Paxlovid. After discussing risk benefits and potential adverse effects patient declines at this time. Discussed best option is symptomatic management with Tylenol ibuprofen fluids and rest. Discussed signs and symptoms to monitor for. Follow-up with any new or worsening symptoms. Case discussed with collaborating physician Mike Stewart who reviewed the assessment and plan. Chart, medications, labs, vital signs reviewed. Dictation was accomplished with the use of [employer] voice recognition software, prone to medical misidentifications and grammatical errors. This is unintentional and the practitioner does try to identify and correct these, but some could still be present. Please do not hesitate to contact practitioner for clarification. All questions answered to patients satisfaction. Patient verbalized understanding of diagnosis and treatments explained. To call sooner prior to next visit it any questions/concerns arise. 05/15/2025 Essential hypertension (ICD-10 - I10) Sharla is a 49-year-old female with PMH of HTN, anxiety, depression that presents today for weight management follow up. Reviewed [facility] holistic and medical approach to weight loss with emphasis on lifestyle modification. 05/15/2025: Weight: 202, BMI: 32.6. (-3lbs). SECA reviewed, reveals mild loss of fat and muscle mass. Patient encouraged to continue making health-conscious diet choices. Discussed importance of regular eating habits in the setting of GLP-1 induced appetite suppression. Recommend continued hydration and increase physical activity. Discussed use of daily fiber supplement +/- probiotic with goal of more regular bowel movements. Could consider use of stool softener or MiraLAX as needed. Will increase dose of Wegovy 1 mg SC weekly and follow-up in 1 month. 04/10/2025: Weight: 205, BMI: 33. All questions answered to the patient's satisfaction. Patient demonstrates understanding of diagnosis and treatments discussed. Follow-up at next scheduled appointment, sooner should any questions/concerns arise. Case discussed with collaborating physician Sahdi Stewart who has reviewed the assessment/plan. Chart, medications, labs, and vital signs reviewed. Dictation completed with the use of [employer] voice recognition software, prone to medical misidentifications and grammatical errors. All errors are unintentional. Although the practitioner does try to identify and correct errors, some may be present. Please do not hesitate to contact the practitioner for clarification. Total time was 30 minutes spent with greater than 50% on coordination of care and patient education. 04/10/2025 Essential hypertension (ICD-10 - I10) Sharla is a 49-year-old female with PMH of HTN, anxiety, depression that presents today for weight management consult. Patient was reassured and welcomed to the practice. Discussed [facility] holistic and medical approach to weight loss with emphasis on lifestyle modification. Patient is educated that a healthy lifestyle aids in combating obesity as well as reducing the risk of developing obesity-related medical complications including but not limited to diabetes and cardiovascular disease. Detailed education provided about taking steps to initiate sustainable lifestyle changes including incorporating regular physical activity, making healthy diet choices, and prioritizing mental health. Information provided about literature including The Food Rules by Mark Anthony Cooper and Eat Fat Get Lean by Dr Dipak Masters. Handouts including lifestyle checklist, protein content of food, low calorie snacks, and cholesterol information sheet provided. Diagnostic testing/ SECA scale offered. Discussed the importance of regular SECA scale measurements to ensure healthy weight loss. 04/10/2025: Weight: 205, BMI: 33. Reviewed SECA/goals for implementing sustainable lifestyle changes. Patient is encouraged to increase physical activity, goal 8-10k steps/day. Also discussed the importance of strength training with proper safety/body mechanics for maintenance of muscle mass/bone health. Patient encouraged to drink 60-80oz water/day. Reviewed nutrition, recommending food diary x 1 week to ensure adequate caloric/protein intake. Goal of 80-100g protein/day. Reviewed risks, benefits, and side effects of weight management medications including phentermine, Topamax, Contrave, metformin, and GLP-1 agonist. Patient interested in reinitiating treatment with Wegovy. Denies personal/family history of medullary thyroid cancer/M EN syndrome. Given history of semaglutide use suspect 0.25 mg dose will be of little effect, sample provided. Rx for Wegovy 0.5 mg SC weekly sent to pharmacy. Reviewed proper use, administration, and expectations for PA process/insurance coverage. After consultation and careful review of medical history, this patient would benefit from Wegovy based off of the following criteria met: Patient is over the age of 18 with a BMI of 33. Additional comorbidities include HTN. 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 This medication is prescribed by or in consultation with a board-certified obesity and weight management physician (Dr. Iva Stewart or Dr. Patricia Stewart). All questions answered to the patient's satisfaction. Patient demonstrates understanding of diagnosis and treatments discussed. Follow-up at next scheduled appointment, sooner should any questions/concerns arise. Case discussed with collaborating physician Shadi Stewart who has reviewed the assessment/plan. Chart, medications, labs, and vital signs reviewed. Dictation completed with the use of [employer] voice recognition software, prone to medical misidentifications and grammatical errors. All errors are unintentional. Although the practitioner does try to identify and correct errors, some may be present. Please do not hesitate to contact the practitioner for clarification. Total time was 60 minutes spent with greater than 50% on coordination of care and patient education. 03/21/2025 Obesity (BMI 30-39.9) (ICD-10 - E66.9) Sharla is a 49-year-old female with PMH of HTN, anxiety, depression that presents today to establish care as a new patient. #Labs: Baseline laboratory evaluation including CBC, CMP, lipid panel, hemoglobin A1c, TSH, and vitamin D ordered to be evaluated at time of CPE. #HTN: BP in office stable at 130/88. Currently taking hydrochlorothiazide 25 mg and spironolactone 25 mg once daily with compliance. Occasionally monitors BPs at home which are WNL. Refills provided. #BMI is 32.9. Patient due to establish care as weight management patient later this month. #Anxiety/depression: Occasionally suffers family related stress. Previous PCP prescribed fluoxetine, but she does not take this medication as she prefers to manage with use of mental health provider. Meets with provider Mahsa Salazar with the N once weekly with adequate control of symptoms. Denies SI/HI or panic attacks. All questions answered to the patient's satisfaction. Patient demonstrates understanding of diagnosis and treatments discussed. Follow-up in 4-6 weeks, sooner should any questions/concerns arise. Case discussed with collaborating physician Shadi Stewart who has reviewed the assessment/plan. Chart, medications, labs, and vital signs reviewed. Dictation completed with the use of [employer] voice recognition software, prone to medical misidentifications and grammatical errors. All errors are unintentional. Although the practitioner does try to identify and correct errors, some may be present. Please do not hesitate to contact the practitioner for clarification. 05/15/2025 Nutritional counseling (ICD-10 - Z71.3) Sharla is a 49-year-old female with PMH of HTN, anxiety, depression that presents today for weight management follow up. Reviewed [facility] holistic and medical approach to weight loss with emphasis on lifestyle modification. 05/15/2025: Weight: 202, BMI: 32.6. (-3lbs). SECA reviewed, reveals mild loss of fat and muscle mass. Patient encouraged to continue making health-conscious diet choices. Discussed importance of regular eating habits in the setting of GLP-1 induced appetite suppression. Recommend continued hydration and increase physical activity. Discussed use of daily fiber supplement +/- probiotic with goal of more regular bowel movements. Could consider use of stool softener or MiraLAX as needed. Will increase dose of Wegovy 1 mg SC weekly and follow-up in 1 month. 04/10/2025: Weight: 205, BMI: 33. All questions answered to the patient's satisfaction. Patient demonstrates understanding of diagnosis and treatments discussed. Follow-up at next scheduled appointment, sooner should any questions/concerns arise. Case discussed with collaborating physician Shadi Stewart who has reviewed the assessment/plan. Chart, medications, labs, and vital signs reviewed. Dictation completed with the use of [employer] voice recognition software, prone to medical misidentifications and grammatical errors. All errors are unintentional. Although the practitioner does try to identify and correct errors, some may be present. Please do not hesitate to contact the practitioner for clarification. Total time was 30 minutes spent with greater than 50% on coordination of care and patient education. 04/10/2025 Nutritional counseling (ICD-10 - Z71.3) Sharla is a 49-year-old female with PMH of HTN, anxiety, depression that presents today for weight management consult. Patient was reassured and welcomed to the practice. Discussed [facility] holistic and medical approach to weight loss with emphasis on lifestyle modification. Patient is educated that a healthy lifestyle aids in combating obesity as well as reducing the risk of developing obesity-related medical complications including but not limited to diabetes and cardiovascular disease. Detailed education provided about taking steps to initiate sustainable lifestyle changes including incorporating regular physical activity, making healthy diet choices, and prioritizing mental health. Information provided about literature including The Food Rules by Mark Anthony Cooper and Eat Fat Get Lean by Dr Dipak Masters. Handouts including lifestyle checklist, protein content of food, low calorie snacks, and cholesterol information sheet provided. Diagnostic testing/ SECA scale offered. Discussed the importance of regular SECA scale measurements to ensure healthy weight loss. 04/10/2025: Weight: 205, BMI: 33. Reviewed SECA/goals for implementing sustainable lifestyle changes. Patient is encouraged to increase physical activity, goal 8-10k steps/day. Also discussed the importance of strength training with proper safety/body mechanics for maintenance of muscle mass/bone health. Patient encouraged to drink 60-80oz water/day. Reviewed nutrition, recommending food diary x 1 week to ensure adequate caloric/protein intake. Goal of 80-100g protein/day. Reviewed risks, benefits, and side effects of weight management medications including phentermine, Topamax, Contrave, metformin, and GLP-1 agonist. Patient interested in reinitiating treatment with Wegovy. Denies personal/family history of medullary thyroid cancer/M EN syndrome. Given history of semaglutide use suspect 0.25 mg dose will be of little effect, sample provided. Rx for Wegovy 0.5 mg SC weekly sent to pharmacy. Reviewed proper use, administration, and expectations for PA process/insurance coverage. After consultation and careful review of medical history, this patient would benefit from Wegovy based off of the following criteria met: Patient is over the age of 18 with a BMI of 33. Additional comorbidities include HTN. 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 This medication is prescribed by or in consultation with a board-certified obesity and weight management physician (Dr. Iva Stewart or Dr. Patricia Stewart). All questions answered to the patient's satisfaction. Patient demonstrates understanding of diagnosis and treatments discussed. Follow-up at next scheduled appointment, sooner should any questions/concerns arise. Case discussed with collaborating physician Shadi Stewart who has reviewed the assessment/plan. Chart, medications, labs, and vital signs reviewed. Dictation completed with the use of [employer] voice recognition software, prone to medical misidentifications and grammatical errors. All errors are unintentional. Although the practitioner does try to identify and correct errors, some may be present. Please do not hesitate to contact the practitioner for clarification. Total time was 60 minutes spent with greater than 50% on coordination of care and patient education. 06/10/2025 Pain in right lumbar region of back (ICD-10 - M54.50) Sharla is a 49-year-old female who presents for urgent visit due to urinary symptoms and lumbar back pain. She reports recurrent UTIs, on average 4/year. Found to have mild degenerative disc disease of L5-S1 on CT scan abdomen/pelvis at [facility]. #UTI: Plan for UA with reflex to culture. Plan for Macrobid 100 mg twice daily for 5 days. Educated to take antibiotic with food and to utilize probiotic to prevent candidiasis. Plan for ultrasound bilateral kidneys and bladder due to recurrent UTIs, rule out structural abnormality. #Lumbar back pain: Most likely due to degenerative disc disease of L5-S1. Plan for physical therapy. Offered muscle relaxer, patient declines. #Gastritis: Went to [facility] ER approximately [address] abdomen/pelvis done which did not show any acute abnormalities or etiology of abdominal pain. Symptoms have since subsided. Record release signed today to obtain records from [facility] All questions have been answered to patient's satisfaction. Patient verbalized understanding of diagnosis and treatments explained. Advised to call sooner prior to next visit it any questions/concerns arise. Case discussed with collaborating physician Patricia Stewart who reviewed the assessment and plan. Chart, medications, labs, vital signs reviewed. Dictation was accomplished with the use of [employer] voice recognition software, which is prone to medical misidentifications and grammatical errors. This are unintentional and the practitioner does try to identify and correct these, but some could still be present. Please do not hesitate to contact practitioner for clarification. 08/22/2025 Essential hypertension (ICD-10 - I10) Sharla is a 50-year-old female with PMH of HTN, anxiety, depression that presents today for weight management follow up. Reviewed [facility] holistic and medical approach to weight loss with emphasis on lifestyle modification. 08/22/2025: Weight: 198.8, BMI: 32.1 (-3lbs) SECA reviewed, reveals fat loss. Patient encouraged to continue making health-conscious diet choices and prioritizing protein intake. Discussed importance of adequate hydration and maintaining active lifestyle. She is encouraged to continue combination of cardio/strength training. Plan to reinitiate Wegovy at 0.25 mg SC weekly (sample provided). If tolerated patient may increase dose to 0.5 mg SC weekly. Reviewed proper use and side effects of the medication including but not limited to nausea, indigestion, constipation, and issues involving the gallbladder/pancreas. 05/15/2025: Weight: 202, BMI: 32.6. (-3lbs). 04/10/2025: Weight: 205, BMI: 33. All questions answered to the patient's satisfaction. Patient demonstrates understanding of diagnosis and treatments discussed. Follow-up at next scheduled appointment, sooner should any questions/concerns arise. Case discussed with collaborating physician Shadi Stewart who has reviewed the assessment/plan. Chart, medications, labs, and vital signs reviewed. Dictation completed with the use of [employer] voice recognition software, prone to medical misidentifications and grammatical errors. All errors are unintentional. Although the practitioner does try to identify and correct errors, some may be present. Please do not hesitate to contact the practitioner for clarification. Total time was 30 minutes spent with greater than 50% on coordination of care and patient education. 07/17/2025 Acute abdominal pain (ICD-10 - R10.9) Sharla is a 50-year-old female with PMH of HTN, anxiety, depression that presents today to establish care as a new patient. #Labs: Baseline laboratory evaluation including CBC, CMP, lipid panel, hemoglobin A1c, TSH, and vitamin D drawn 03/21/2025, reviewed today. #Vitamin D deficiency: Vitamin D low at 13.5. Patient completed 2 months of ergocalciferol 50,000 IUs once weekly. She is encouraged to transition to OTC vitamin D3 supplementation 6814-2558 IUs once daily. Will recheck serum vitamin D3 to ensure within goal range. #H. pylori: Patient presented to the office 07/08/2025 for evaluation of abdominal pain at which time urea breath test revealed H. pylori. Patient was started on quadruple therapy including omeprazole 20 mg twice daily, bismuth subsalicylate 525 mg 4 times daily, tetracycline 500 mg 4 times daily, and metronidazole 500 mg 4 times daily 07/09/2025. On day 8 of treatment. Patient continues to experience significant epigastric abdominal pain that radiates across the upper abdomen with associated symptoms of nausea. Patient is tearful throughout encounter due to pain. Exam reveals tenderness with light palpation of the epigastric area/RUQ with guarding. Plan to update labs including CBC, CMP, amylase, lipase for continued evaluation. Will also order XR of the abdomen. ED protocol reviewed. #HTN: BP in office stable at 132/86. Home BPs 116-130/80-90. Continue hydrochlorothiazide 25 mg and spironolactone 25 mg once daily. #Anxiety/depression: Occasionally suffers family related stress. Feels anxiety has increased in the setting the of abdominal pain. Denies panic attacks, SI, HI, or AVH. She is encouraged to reestablish with provider Mahsa Salazar with the N once weekly. Patient seen and examined. Comprehensive discussion was done on the followin. Discussed the importance of a diet rich in fruit, vegetables, legumes and healthy fats. Patient advised to avoid processed food and carbohydrates, added sugars, and saturated/trans fats. When possible, prepare your own meals and avoid fast food. Read nutrition labels - avoid ingredients including high fructose corn syrup and preservatives. Be contentious of daily calorie intake and weight. 2. Discussed the importance of regular physical activity. Recommended a goal 6-10k steps or 30 minutes of walking per day. Discussed the benefit of weight-bearing exercise and strength training with proper body mechanics/safety precautions. Other activities including cycling, hiking, etc. are recommended and encouraged. Patient advised to seek medical attention for any SOB, chest pain, muscle or joint pain associated with exercise. 3. Discussed risks and benefits of age-appropriate screening guidelines including but not limited to colonoscopy, mammogram, breast examinations, and PAP smears. 4. Discussed safe driving, utilization of seat belts, and the importance of refraining from smartphone while driving. 5. Age-appropriate immunizations were discussed including but not limited to Shingles vaccine, COVID vaccine, influenza vaccine, etc. All questions answered to the patient's satisfaction. Patient demonstrates understanding of diagnosis and treatments discussed. Follow-up at next scheduled appointment, sooner should any questions/concerns arise. Case discussed with collaborating physician Shadi Stewart who has reviewed the assessment/plan. Chart, medications, labs, and vital signs reviewed. Dictation completed with the use of [employer] voice recognition software, prone to medical misidentifications and grammatical errors. All errors are unintentional. Although the practitioner does try to identify and correct errors, some may be present. Please do not hesitate to contact the practitioner for clarification. 08/22/2025 Nutritional counseling (ICD-10 - Z71.3) Sharla is a 50-year-old female with PMH of HTN, anxiety, depression that presents today for weight management follow up. Reviewed [facility] holistic and medical approach to weight loss with emphasis on lifestyle modification. 08/22/2025: Weight: 198.8, BMI: 32.1 (-3lbs) SECA reviewed, reveals fat loss. Patient encouraged to continue making health-conscious diet choices and prioritizing protein intake. Discussed importance of adequate hydration and maintaining active lifestyle. She is encouraged to continue combination of cardio/strength training. Plan to reinitiate Wegovy at 0.25 mg SC weekly (sample provided). If tolerated patient may increase dose to 0.5 mg SC weekly. Reviewed proper use and side effects of the medication including but not limited to nausea, indigestion, constipation, and issues involving the gallbladder/pancreas. 05/15/2025: Weight: 202, BMI: 32.6. (-3lbs). 04/10/2025: Weight: 205, BMI: 33. All questions answered to the patient's satisfaction. Patient demonstrates understanding of diagnosis and treatments discussed. Follow-up at next scheduled appointment, sooner should any questions/concerns arise. Case discussed with collaborating physician Shadi Stewart who has reviewed the assessment/plan. Chart, medications, labs, and vital signs reviewed. Dictation completed with the use of [employer] voice recognition software, prone to medical misidentifications and grammatical errors. All errors are unintentional. Although the practitioner does try to identify and correct errors, some may be present. Please do not hesitate to contact the practitioner for clarification. Total time was 30 minutes spent with greater than 50% on coordination of care and patient education. 07/17/2025 Epigastric abdominal pain (ICD-10 - R10.13) Sharla is a 50-year-old female with PMH of HTN, anxiety, depression that presents today to establish care as a new patient. #Labs: Baseline laboratory evaluation including CBC, CMP, lipid panel, hemoglobin A1c, TSH, and vitamin D drawn 03/21/2025, reviewed today. #Vitamin D deficiency: Vitamin D low at 13.5. Patient completed 2 months of ergocalciferol 50,000 IUs once weekly. She is encouraged to transition to OTC vitamin D3 supplementation [id number] IUs once daily. Will recheck serum vitamin D3 to ensure within goal range. #H. pylori: Patient presented to the office 07/08/2025 for evaluation of abdominal pain at which time urea breath test revealed H. pylori. Patient was started on quadruple therapy including omeprazole 20 mg twice daily, bismuth subsalicylate 525 mg 4 times daily, tetracycline 500 mg 4 times daily, and metronidazole 500 mg 4 times daily 07/09/2025. On day 814 of treatment. Patient continues to experience significant epigastric abdominal pain that radiates across the upper abdomen with associated symptoms of nausea. Patient is tearful throughout encounter due to pain. Exam reveals tenderness with light palpation of the epigastric area/RUQ with guarding. Plan to update labs including CBC, CMP, amylase, lipase for continued evaluation. Will also order XR of the abdomen. ED protocol reviewed. #HTN: BP in office stable at 132/86. Home BPs 116-130/80-90. Continue hydrochlorothiazide 25 mg and spironolactone 25 mg once daily. #Anxiety/depression: Occasionally suffers family related stress. Feels anxiety has increased in the setting the of abdominal pain. Denies panic attacks, SI, HI, or AVH. She is encouraged to reestablish with provider Mahsa Salazar with the N once weekly. Patient seen and examined. Comprehensive discussion was done on the followin. Discussed the importance of a diet rich in fruit, vegetables, legumes and healthy fats. Patient advised to avoid processed food and carbohydrates, added sugars, and saturated/trans fats. When possible, prepare your own meals and avoid fast food. Read nutrition labels - avoid ingredients including high fructose corn syrup and preservatives. Be contentious of daily calorie intake and weight. 2. Discussed the importance of regular physical activity. Recommended a goal 6-10k steps or 30 minutes of walking per day. Discussed the benefit of weight-bearing exercise and strength training with proper body mechanics/safety precautions. Other activities including cycling, hiking, etc. are recommended and encouraged. Patient advised to seek medical attention for any SOB, chest pain, muscle or joint pain associated with exercise. 3. Discussed risks and benefits of age-appropriate screening guidelines including but not limited to colonoscopy, mammogram, breast examinations, and PAP smears. 4. Discussed safe driving, utilization of seat belts, and the importance of refraining from smartphone while driving. 5. Age-appropriate immunizations were discussed including but not limited to Shingles vaccine, COVID vaccine, influenza vaccine, etc. All questions answered to the patient's satisfaction. Patient demonstrates understanding of diagnosis and treatments discussed. Follow-up at next scheduled appointment, sooner should any questions/concerns arise. Case discussed with collaborating physician Shadi Stewart who has reviewed the assessment/plan. Chart, medications, labs, and vital signs reviewed. Dictation completed with the use of [employer] voice recognition software, prone to medical misidentifications and grammatical errors. All errors are unintentional. Although the practitioner does try to identify and correct errors, some may be present. Please do not hesitate to contact the practitioner for clarification. 06/10/2025 Gastroenteritis (ICD-10 - K52.9) Sharla is a 49-year-old female who presents for urgent visit due to urinary symptoms and lumbar back pain. She reports recurrent UTIs, on average 4/year. Found to have mild degenerative disc disease of L5-S1 on CT scan abdomen/pelvis at [facility]. #UTI: Plan for UA with reflex to culture. Plan for Macrobid 100 mg twice daily for 5 days. Educated to take antibiotic with food and to utilize probiotic to prevent candidiasis. Plan for ultrasound bilateral kidneys and bladder due to recurrent UTIs, rule out structural abnormality. #Lumbar back pain: Most likely due to degenerative disc disease of L5-S1. Plan for physical therapy. Offered muscle relaxer, patient declines. #Gastritis: Went to [facility] ER approximately [address] abdomen/pelvis done which did not show any acute abnormalities or etiology of abdominal pain. Symptoms have since subsided. Record release signed today to obtain records from [facility] All questions have been answered to patient's satisfaction. Patient verbalized understanding of diagnosis and treatments explained. Advised to call sooner prior to next visit it any questions/concerns arise. Case discussed with collaborating physician Patricia Stewart who reviewed the assessment and plan. Chart, medications, labs, vital signs reviewed. Dictation was accomplished with the use of [employer] voice recognition software, which is prone to medical misidentifications and grammatical errors. This are unintentional and the practitioner does try to identify and correct these, but some could still be present. Please do not hesitate to contact practitioner for clarification. 06/10/2025 Encounter for examination of blood pressure without abnormal findings (ICD-10 - Z01.30) Sharla is a 49-year-old female who presents for urgent visit due to urinary symptoms and lumbar back pain. She reports recurrent UTIs, on average 4/year. Found to have mild degenerative disc disease of L5-S1 on CT scan abdomen/pelvis at [facility]. #UTI: Plan for UA with reflex to culture. Plan for Macrobid 100 mg twice daily for 5 days. Educated to take antibiotic with food and to utilize probiotic to prevent candidiasis. Plan for ultrasound bilateral kidneys and bladder due to recurrent UTIs, rule out structural abnormality. #Lumbar back pain: Most likely due to degenerative disc disease of L5-S1. Plan for physical therapy. Offered muscle relaxer, patient declines. #Gastritis: Went to [facility] ER approximately [address] abdomen/pelvis done which did not show any acute abnormalities or etiology of abdominal pain. Symptoms have since subsided. Record release signed today to obtain records from [facility] All questions have been answered to patient's satisfaction. Patient verbalized understanding of diagnosis and treatments explained. Advised to call sooner prior to next visit it any questions/concerns arise. Case discussed with collaborating physician Patricia Stewart who reviewed the assessment and plan. Chart, medications, labs, vital signs reviewed. Dictation was accomplished with the use of [employer] voice recognition software, which is prone to medical misidentifications and grammatical errors. This are unintentional and the practitioner does try to identify and correct these, but some could still be present. Please do not hesitate to contact practitioner for clarification. 07/17/2025 Essential hypertension (ICD-10 - I10) Sharla is a 50-year-old female with PMH of HTN, anxiety, depression that presents today to establish care as a new patient. #Labs: Baseline laboratory evaluation including CBC, CMP, lipid panel, hemoglobin A1c, TSH, and vitamin D drawn 03/21/2025, reviewed today. #Vitamin D deficiency: Vitamin D low at 13.5. Patient completed 2 months of ergocalciferol 50,000 IUs once weekly. She is encouraged to transition to OTC vitamin D3 supplementation 8423-6234 IUs once daily. Will recheck serum vitamin D3 to ensure within goal range. #H. pylori: Patient presented to the office 07/08/2025 for evaluation of abdominal pain at which time urea breath test revealed H. pylori. Patient was started on quadruple therapy including omeprazole 20 mg twice daily, bismuth subsalicylate 525 mg 4 times daily, tetracycline 500 mg 4 times daily, and metronidazole 500 mg 4 times daily 07/09/2025. On day 814 of treatment. Patient continues to experience significant epigastric abdominal pain that radiates across the upper abdomen with associated symptoms of nausea. Patient is tearful throughout encounter due to pain. Exam reveals tenderness with light palpation of the epigastric area/RUQ with guarding. Plan to update labs including CBC, CMP, amylase, lipase for continued evaluation. Will also order XR of the abdomen. ED protocol reviewed. #HTN: BP in office stable at 132/86. Home BPs 116-130/80-90. Continue hydrochlorothiazide 25 mg and spironolactone 25 mg once daily. #Anxiety/depression: Occasionally suffers family related stress. Feels anxiety has increased in the setting the of abdominal pain. Denies panic attacks, SI, HI, or AVH. She is encouraged to reestablish with provider Mahsa Salazar with the N once weekly. Patient seen and examined. Comprehensive discussion was done on the followin. Discussed the importance of a diet rich in fruit, vegetables, legumes and healthy fats. Patient advised to avoid processed food and carbohydrates, added sugars, and saturated/trans fats. When possible, prepare your own meals and avoid fast food. Read nutrition labels - avoid ingredients including high fructose corn syrup and preservatives. Be contentious of daily calorie intake and weight. 2. Discussed the importance of regular physical activity. Recommended a goal 6-10k steps or 30 minutes of walking per day. Discussed the benefit of weight-bearing exercise and strength training with proper body mechanics/safety precautions. Other activities including cycling, hiking, etc. are recommended and encouraged. Patient advised to seek medical attention for any SOB, chest pain, muscle or joint pain associated with exercise. 3. Discussed risks and benefits of age-appropriate screening guidelines including but not limited to colonoscopy, mammogram, breast examinations, and PAP smears. 4. Discussed safe driving, utilization of seat belts, and the importance of refraining from smartphone while driving. 5. Age-appropriate immunizations were discussed including but not limited to Shingles vaccine, COVID vaccine, influenza vaccine, etc. All questions answered to the patient's satisfaction. Patient demonstrates understanding of diagnosis and treatments discussed. Follow-up at next scheduled appointment, sooner should any questions/concerns arise. Case discussed with collaborating physician Shadi Stewart who has reviewed the assessment/plan. Chart, medications, labs, and vital signs reviewed. Dictation completed with the use of [employer] voice recognition software, prone to medical misidentifications and grammatical errors. All errors are unintentional. Although the practitioner does try to identify and correct errors, some may be present. Please do not hesitate to contact the practitioner for clarification. 07/17/2025 Depression with anxiety (ICD-10 - F41.8) Sharla is a 50-year-old female with PMH of HTN, anxiety, depression that presents today to establish care as a new patient. #Labs: Baseline laboratory evaluation including CBC, CMP, lipid panel, hemoglobin A1c, TSH, and vitamin D drawn 03/21/2025, reviewed today. #Vitamin D deficiency: Vitamin D low at 13.5. Patient completed 2 months of ergocalciferol 50,000 IUs once weekly. She is encouraged to transition to OTC vitamin D3 supplementation 8715-9579 IUs once daily. Will recheck serum vitamin D3 to ensure within goal range. #H. pylori: Patient presented to the office 07/08/2025 for evaluation of abdominal pain at which time urea breath test revealed H. pylori. Patient was started on quadruple therapy including omeprazole 20 mg twice daily, bismuth subsalicylate 525 mg 4 times daily, tetracycline 500 mg 4 times daily, and metronidazole 500 mg 4 times daily 07/09/2025. On day 06/26 of treatment. Patient continues to experience significant epigastric abdominal pain that radiates across the upper abdomen with associated symptoms of nausea. Patient is tearful throughout encounter due to pain. Exam reveals tenderness with light palpation of the epigastric area/RUQ with guarding. Plan to update labs including CBC, CMP, amylase, lipase for continued evaluation. Will also order XR of the abdomen. ED protocol reviewed. #HTN: BP in office stable at 132/86. Home BPs 116-130/80-90. Continue hydrochlorothiazide 25 mg and spironolactone 25 mg once daily. #Anxiety/depression: Occasionally suffers family related stress. Feels anxiety has increased in the setting the of abdominal pain. Denies panic attacks, SI, HI, or AVH. She is encouraged to reestablish with provider Mahsa Salazar with the N once weekly. Patient seen and examined. Comprehensive discussion was done on the followin. Discussed the importance of a diet rich in fruit, vegetables, legumes and healthy fats. Patient advised to avoid processed food and carbohydrates, added sugars, and saturated/trans fats. When possible, prepare your own meals and avoid fast food. Read nutrition labels - avoid ingredients including high fructose corn syrup and preservatives. Be contentious of daily calorie intake and weight. 2. Discussed the importance of regular physical activity. Recommended a goal 6-10k steps or 30 minutes of walking per day. Discussed the benefit of weight-bearing exercise and strength training with proper body mechanics/safety precautions. Other activities including cycling, hiking, etc. are recommended and encouraged. Patient advised to seek medical attention for any SOB, chest pain, muscle or joint pain associated with exercise. 3. Discussed risks and benefits of age-appropriate screening guidelines including but not limited to colonoscopy, mammogram, breast examinations, and PAP smears. 4. Discussed safe driving, utilization of seat belts, and the importance of refraining from smartphone while driving. 5. Age-appropriate immunizations were discussed including but not limited to Shingles vaccine, COVID vaccine, influenza vaccine, etc. All questions answered to the patient's satisfaction. Patient demonstrates understanding of diagnosis and treatments discussed. Follow-up at next scheduled appointment, sooner should any questions/concerns arise. Case discussed with collaborating physician Shadi Stewart who has reviewed the assessment/plan. Chart, medications, labs, and vital signs reviewed. Dictation completed with the use of [employer] voice recognition software, prone to medical misidentifications and grammatical errors. All errors are unintentional. Although the practitioner does try to identify and correct errors, some may be present. Please do not hesitate to contact the practitioner for clarification. 07/17/2025 Abdominal cramping (ICD-10 - R10.9) Sharla is a 50-year-old female with PMH of HTN, anxiety, depression that presents today to establish care as a new patient. #Labs: Baseline laboratory evaluation including CBC, CMP, lipid panel, hemoglobin A1c, TSH, and vitamin D drawn 03/21/2025, reviewed today. #Vitamin D deficiency: Vitamin D low at 13.5. Patient completed 2 months of ergocalciferol 50,000 IUs once weekly. She is encouraged to transition to OTC vitamin D3 supplementation 3763-7309 IUs once daily. Will recheck serum vitamin D3 to ensure within goal range. #H. pylori: Patient presented to the office 07/08/2025 for evaluation of abdominal pain at which time urea breath test revealed H. pylori. Patient was started on quadruple therapy including omeprazole 20 mg twice daily, bismuth subsalicylate 525 mg 4 times daily, tetracycline 500 mg 4 times daily, and metronidazole 500 mg 4 times daily 07/09/2025. On day 8/14 of treatment. Patient continues to experience significant epigastric abdominal pain that radiates across the upper abdomen with associated symptoms of nausea. Patient is tearful throughout encounter due to pain. Exam reveals tenderness with light palpation of the epigastric area/RUQ with guarding. Plan to update labs including CBC, CMP, amylase, lipase for continued evaluation. Will also order XR of the abdomen. ED protocol reviewed. #HTN: BP in office stable at 132/86. Home BPs 116-130/80-90. Continue hydrochlorothiazide 25 mg and spironolactone 25 mg once daily. #Anxiety/depression: Occasionally suffers family related stress. Feels anxiety has increased in the setting the of abdominal pain. Denies panic attacks, SI, HI, or AVH. She is encouraged to reestablish with provider Mahsa Salazar with the N once weekly. Patient seen and examined. Comprehensive discussion was done on the followin. Discussed the importance of a diet rich in fruit, vegetables, legumes and healthy fats. Patient advised to avoid processed food and carbohydrates, added sugars, and saturated/trans fats. When possible, prepare your own meals and avoid fast food. Read nutrition labels - avoid ingredients including high fructose corn syrup and preservatives. Be contentious of daily calorie intake and weight. 2. Discussed the importance of regular physical activity. Recommended a goal 6-10k steps or 30 minutes of walking per day. Discussed the benefit of weight-bearing exercise and strength training with proper body mechanics/safety precautions. Other activities including cycling, hiking, etc. are recommended and encouraged. Patient advised to seek medical attention for any SOB, chest pain, muscle or joint pain associated with exercise. 3. Discussed risks and benefits of age-appropriate screening guidelines including but not limited to colonoscopy, mammogram, breast examinations, and PAP smears. 4. Discussed safe driving, utilization of seat belts, and the importance of refraining from smartphone while driving. 5. Age-appropriate immunizations were discussed including but not limited to Shingles vaccine, COVID vaccine, influenza vaccine, etc. All questions answered to the patient's satisfaction. Patient demonstrates understanding of diagnosis and treatments discussed. Follow-up at next scheduled appointment, sooner should any questions/concerns arise. Case discussed with collaborating physician Shadi Stewart who has reviewed the assessment/plan. Chart, medications, labs, and vital signs reviewed. Dictation completed with the use of [employer] voice recognition software, prone to medical misidentifications and grammatical errors. All errors are unintentional. Although the practitioner does try to identify and correct errors, some may be present. Please do not hesitate to contact the practitioner for clarification. Plan Of Treatment Pending Test Test Name Order Date Ultrasound : Right Upper Quadrant 2024 X ray : ABDOMEN 2 VIEW 07/17/2025 Ultrasound : Kidneys and Bladder 025 25OH VITAMIN D 03/21/2025 CBC (COMPLETE BLOOD COUNT) WITH DIFF 07/2025 COMPREHENSIVE METABOLIC PANEL 03/21/2025 HEMOGLOBIN A1C 03/21/2025 LIPID PANEL 03/21/2025 TSH WITH REFLEX TO FT4 03/21/2025 Lipase 07/17/2025 Lipase 07/08/2025 AMYLASE 07/17/2025 AMYLASE 07/08/2025 COMPREHENSIVE METABOLIC PANEL 07/08/2025 COMPREHENSIVE METABOLIC PANEL 07/17/2025 CBC (INCLUDES DIFF/PLT) 07/17/2025 CBC (INCLUDES DIFF/PLT) 07/08/2025 URINALYSIS, COMPLETE W/REFLEX TO CULTURE 06/10/2025 VITAMIN D,25-OH,TOTAL,IA 07/17/2025 H PYLORI BREATH TEST 07/08/2025 H PYLORI BREATH TEST 07/29/2025 Next Appt Details Provider Name:LOVE BELGICA Dunham, 10/07/2025 08:30:00 AM, [address], [address], [place], [address], Provider Name:LOVE Dunham, 12/23/2025 10:00:00 AM, [address], [address], [place], [address], Insurance Providers Payer Name Payer Address Payer Phone Subscriber Number Group Number Insured Name Patient Relationship to Insured Coverage Start Date Coverage End Date [facility] [address] [place] [address] [phone] [id number] SHARLA PERAZA Self - patient is the insured Medications Administered Medication Instructions Date of Administration Dosage Notes MICC B12 INJECTION 04/10/2025 1 mL MICC B12 INJECTION 08/22/2025 1.0 mL Medical (General) History Medical History History ICD Code Essential hypertension I10 Depression with anxiety F41.8 History of nephrolithiasis Z87.442 Surgical History Surgery Date(Month/Year) 2016 cholecystectomy lithrotripsy uterine ablation
--- OUTSIDE RECORDS SUMMARY | 2025-09-13 20:55 | XMS_ITS | Encounter Summary ---
Author Organization [facility] Address [address] [place] [phone] Phone Care Team Providers Care Tile Sorter Name Role Phone Aldair Siegel MD Primary Care Provider Encounter Details Date Type Department Care Team (Late st Contact Info) Description 12/17/2021 Procedure Pass Echo Lab [address] [place] [address] Social History Tobacco Use Types Packs/Day Years Used Date Smoking Tobacco: Never Assessed Comments Unknown Sex and Gender Information Value Date Recorded Sex Assigned at Not on file Legal Sex Female 1:14 PM EST Gender Identity Not on file Sexual Orientation Not on file documented as of this encounter Plan of Treatment Upcoming Encounters Date Type Department Care Team (Late st Contact Info) Description 01/29/2026 1:00 PM EDT Office Visit [facility] [address] [place] [address] [address] Floor, [address] [place] [id number] Mayank Naylor MD [address] [place] [phone] documented as of this encounter Visit Diagnoses Not on filedocumented in this encounter Care Teams Tile Sorter Relationship Specialty Start Date End Date Aldair Siegel MD [address] [place] [address] [facility] [place] [address] PCP - General Internal Medicine 12/15/21 documented as of this encounter Additional Source Comments The information contained in this document represents components of the legal health record. It is not the complete legal health record.[facility]
[2025-09-13 21:01] LABS: MANUAL DIFF FLAG NO
[2025-09-13 21:24] LABS: Alanine Aminotransferase 52 U/L (0-31); Albumin Level 4.3 g/dL (3.5-5.0); Alkaline Phosphatase 75 U/L (39-117); Anion Gap 10 (12-20); Aspartate Amino Transferase 36 U/L (5-31); Blood Urea Nitrogen 20 mg/dL (9-16); Calcium 9.0 mg/dL (8.4-10.2); Carbon Dioxide 28 mmol/L (22-29); Chloride 106 mmol/L (96-108); Creatinine Clr Calc Pharmacy 93.2; Estimated Glomerular Filt Rate > 60; Lipase 36 U/L (8-78); Magnesium 2.0 mg/dL (1.6-2.6); Potassium 3.0 mmol/L (3.3-5.1); Sodium 141 mmol/L (135-145); Total Protein 7.3 g/dL (6.5-8.0)
[2025-09-13 21:28] LABS: IDNOW Serial# 152EDE1D
[2025-09-13 21:29] LABS: COVID-19 Test Negative (Negative); IDNOW Serial# 16C4AD1C; Influenza B2 Negative (Negative)
[2025-09-13 21:38] LABS: Hematocrit 38.5 % (37.0-47.0); Hemoglobin 12.9 g/dl (12.0-16.0); Imm Gran Abs Auto 0.02 X10*3/uL (0.00-0.03); Imm Gran Pct Auto 0.2 % (0.0-0.4); Lymphocytes Absolute Auto 4.3 X10*3/uL (1.2-4.9); Mean Corpuscular HGB Conc 33.5 g/dl (31.0-35.0); Mean Corpuscular Hemoglobin 30.3 pg (27.0-33.0); Mean Corpuscular Volume 90.4 fL (80.0-98.0); NRBC Abs Auto 0.000 X10*3/uL (0.0-0.012); NRBC Pct Auto 0.0 /100WBC (0.0-0.2); Platelet Count 333 X10*3/uL (160-400); Red Blood Count 4.26 X10*6/uL (4.20-5.50); White Blood Count 8.1 X10*3/uL (4.8-10.8)
[2025-09-13 21:39] LABS: Appearance Urine Clear; Glucose Urine UA Negative (Negative); PH 7.0 (5.0-9.0); Specific Gravity - Urine 1.020 (1.005-1.025); UMIC TRIGGER UACC YES
[2025-09-13 21:48] LABS: UACC Culture Trigger YES
[2025-09-13] MEDS: Sucralfate Oral Suspension 1 GM/10 ML ORAL.SUSP PO (21:58)
[2025-09-13] MEDS: Potassium Chloride/H20 10 MEQ/100 ML PIGGYBACK 100 MEQ IV (21:58)
[2025-09-13] MEDS: Potassium Chloride ER 20 MEQ TAB.ER.PRT PO (21:58)
[2025-09-13 22:01] VITALS: BP 148/96; PULSE 76; RESP 16; O2SAT 96
[2025-09-13] MEDS: Potassium Chloride/H20 10 MEQ/100 ML PIGGYBACK 63 MEQ IV (23:25)
[2025-09-14 00:47] VITALS: BP 132/80; PULSE 78; RESP 18; TEMP 36.8; O2SAT 96
== END 2025-09-14 01:00 | disposition home or self-care (01) ==
PROVIDERS: Physician Assistant Medical; Emergency Provider Emergency Medicine
DX: K29.70 Gastritis, unspecified, without bleeding (principal); K59.00 Constipation, unspecified; E87.6 Hypokalemia; R11.2 Nausea with vomiting, unspecified; R10.84 Generalized abdominal pain; Z79.899 Other long term (current) drug therapy; Z11.52 Encounter for screening for COVID-19
CPT/HCPCS: 74018; 80053; 81001; 83690; 83735; 84702; 85025; 87086; 87502; 87635; 96361; 96365; 96366; 96375; 99284; J2250; J2765; J3480

== ENCOUNTER → 2025-09-13 20:48 | Outpatient (BNV) | payer BC, SELFPAY | PROVIDERS: Emergency Provider Emergency Medicine; Visit Provider Radiology Neuroradiology | DX: K59.00 Constipation, unspecified (principal); R10.9 Unspecified abdominal pain | CPT/HCPCS: 74018 ==